=== PATIENT | female | born 1940 | race Caucasian/White ===

== ENCOUNTER 2024-08-19 20:50 | Inpatient (IN) | payer MEDICARE, OTHER ==
--- NOTE | 2024-08-19 21:14 | ED ---
Chest Pain HPI - General Chief Complaint: Chest Pain Stated Complaint: chest pain Time Seen by Provider: 08/19/24 20:51 Source: patient, EMS, RN notes reviewed, old records reviewed Mode of arrival: ambulatory Limitations: no limitations - History of Present Illness Initial Comments: This is an 83-year-old female to the ER for evaluation of chest pain. Patient has history of CAD coming in by EMS for severe chest pain heaviness on the chest. This chest pain has been ongoing for an hour and severe MD Complaint: chest pain -: hour(s) (1) Pain Location: substernal, left chest Pain Radiation: none Severity: moderate Severity scale (1-10): 7 Quality: aching, heaviness Consistency: constant Improves With: nothing Worsens With: nothing Anginal Symptoms: sense of impending doom Other Symptoms: palpitations Treatments Prior to Arrival: none - Related Data Home Medications Medication Instructions Recorded Confirmed ALPRAZolam [Xanax] 0.25 mg PO BID PRN 08/20/24 08/20/24 Atorvastatin [Lipitor] 40 mg PO DAILY@1700 08/20/24 08/20/24 Previous Rx's Medication Instructions Recorded Acetaminophen Tab [Tylenol] 650 mg PO Q4HR PRN tab 08/30/24 Amiodarone [Cordarone] 400 mg PO BID #39 tab 08/30/24 Aspirin 325 mg PO DAILY #30 tab 08/30/24 Clopidogrel [Plavix] 75 mg PO DAILY #30 tab 08/30/24 Furosemide [Lasix] 20 mg PO DAILY #5 tab 08/30/24 Insulin Glargine,Hum.rec.anlog 60 units SQ HS #0 08/30/24 [Lantus Solostar Pen] Insulin Lispro [humaLOG Kwikpen] 6 unit SQ AC-TID #1 each 08/30/24 Metoprolol Tartrate [Lopressor] 50 mg PO BID #60 tab 08/30/24 Pantoprazole [Protonix] 40 mg PO AC-BRKFST #30 tab 08/30/24 Sennosides-Docusate Sodium 2 each PO HS #14 tab 08/30/24 [Senokot-S] Allergies Allergy/AdvReac Type Severity Reaction Status Date / Time No Known Allergies Allergy Verified 08/20/24 10:54 Review of Systems ROS Statement: Those systems with pertinent positive or pertinent negative responses have been documented in the HPI. ROS Other: All systems not noted in ROS Statement are negative. EKG Findings - EKG Comments: EKG Findings:: EKG is sinus 91 HI 167 QRS 160 QTc 450 - EKG Results: EKG: interpreted by YANA Past Medical History Past Medical History: Coronary Artery Disease (CAD), Diabetes Mellitus, Hyperlipidemia, Hypertension History of Any Multi-Drug Resistant Organisms: None Reported Past Surgical History: Cholecystectomy, Heart Catheterization With Stent Past Psychological History: Anxiety Smoking Status: Former smoker Past Alcohol Use History: None Reported Past Drug Use History: None Reported - Past Family History Father Family Medical History: Myocardial Infarction (DC) Additional Family Medical History / Comment(s): from myocardial infarction at 61 years old Mother Family Medical History: Congestive Heart Failure (CHF), Diabetes Mellitus General Exam Limitations: no limitations General appearance: alert, in no apparent distress, anxious Head exam: Present: atraumatic, normocephalic, normal inspection Eye exam: Present: normal appearance, PERRL, EOMI. Absent: scleral icterus, conjunctival injection, periorbital swelling ENT exam: Present: normal exam, mucous membranes moist Neck exam: Present: normal inspection. Absent: tenderness, meningismus, lymphadenopathy Respiratory exam: Present: normal lung sounds bilaterally. Absent: respiratory distress, wheezes, rales, rhonchi, stridor Cardiovascular Exam: Present: regular rate, normal rhythm, normal heart sounds. Absent: systolic murmur, diastolic murmur, rubs, gallop, clicks GI/Abdominal exam: Present: soft, normal bowel sounds. Absent: distended, tenderness, guarding, rebound, rigid Extremities exam: Present: normal inspection, full ROM, normal capillary refill. Absent: tenderness, pedal edema, joint swelling, calf tenderness Back exam: Present: normal inspection Neurological exam: Present: alert, oriented X3, CN II-XII intact Psychiatric exam: Present: normal affect, normal mood Skin exam: Present: warm, dry, intact, normal color. Absent: rash Course Vital Signs 08/19/24 08/19/24 08/19/24 20:51 22:05 22:42 Temperature 98.4 F Pulse Rate 93 78 79 Pulse Rate [ Commercial Service Technician ] Respiratory 16 18 18 Rate Blood Pressure 195/84 161/76 147/76 O2 Sat by Pulse 98 99 95 Oximetry 08/20/24 08/20/24 08/20/24 01:33 01:43 02:43 Temperature Pulse Rate 75 80 81 Pulse Rate [ Commercial Service Technician ] Respiratory 18 18 18 Rate Blood Pressure 166/87 140/70 139/65 O2 Sat by Pulse 99 96 98 Oximetry 08/20/24 08/20/24 08/20/24 04:15 06:25 07:47 Temperature 97.1 F L Pulse Rate 70 72 71 Pulse Rate [ 74 Commercial Service Technician ] Respiratory 18 18 18 Rate Blood Pressure 152/72 176/71 136/57 O2 Sat by Pulse 98 99 98 Oximetry 08/20/24 08/20/24 08/20/24 08:48 09:50 10:05 Temperature Pulse Rate 76 66 70 Pulse Rate [ Commercial Service Technician ] Respiratory 18 18 18 Rate Blood Pressure 150/72 123/47 130/74 O2 Sat by Pulse 98 99 97 Oximetry 08/20/24 08/20/24 10:17 10:32 Temperature Pulse Rate 65 69 Pulse Rate [ Commercial Service Technician ] Respiratory 18 18 Rate Blood Pressure 130/59 125/60 O2 Sat by Pulse 97 97 Oximetry - Reevaluation(s) Reevaluation #1: 08/19/24 22:39 Medical records reviewed Reevaluation #2: 08/19/24 22:39 Patient still with mild chest pain here in the ER Reevaluation #3: 08/19/24 22:40 Patient informed of results and questions answered Reevaluation #4: Was pt. sent in by a medical professional or institution (, PA, MATTRESS STUFFER, urgent care, hospital, or usp...) When possible be specific @ -no Did you speak to anyone other than the patient for history (EMS, parent, family, police, friend...)? What history was obtained from this source @ -no Did you review nursing and triage notes (agree or disagree)? Why? @ -agree Are old charts reviewed (outside hosp., previous admission, EMS record, old EKG, old radiological studies, urgent care reports/EKG's, usp records)? Report findings @ -yes Differential Diagnosis (chest pain, altered mental status, abdominal pain women, abdominal pain men, vaginal bleeding, weakness, fever, dyspnea, syncope, headache, dizziness, GI bleed, back pain, seizure, CVA, palpatations, mental health, musculoskeletal)? @ -prior EKG interpreted by me (3pts min.). @ -yes X-rays interpreted by me (1pt min.). @ -yes negative for acute disease CT interpreted by me (1pt min.). @ -no U/S interpreted by me (1pt. min.). @ -no What testing was considered but not performed or refused? (CT, X-rays, U/S, labs)? Why? @ -none What meds were considered but not given or refused? Why? @ -none Did you discuss the management of the patient with other professionals (professionals i.e. , PA, MATTRESS STUFFER, lab, RT, psych nurse, psychotherapist social worker, pet care worker, teacher, digital controls technical officer, spring encaser)? Give summary @ -no Was smoking cessation discussed for >3mins.? @ -no Was critical care preformed (if so, how long)? @ -yes31 Were there social determinants of health that impacted care today? How? (Homelessness, low income, unemployed, alcoholism, drug addiction, transportation, low edu. Level, literacy, decrease access to med. care, long-term, rehab)? @ -none Was there de-escalation of care discussed even if they declined (Discuss DNR or withdrawal of care, Hospice)? DNR status @ -no What co-morbidities impacted this encounter? (DM, HTN, Smoking, COPD, CAD, Cancer, CVA, ARF, Chemo, Hep., AIDS, mental health diagnosis, sleep apnea, morbid obesity)? @ -none Was patient admitted / discharged? Hospital course, mention meds given and route, prescriptions, significant lab abnormalities, going to OR and other pertinent info. @ - 83 female with chest pain. History of CAD and stents. Patient does have left bundle branch block unable to tell new or old, troponin is not elevated but chest pain is mild currently much improved patient will admit for cardiac observation acute ACS Admitted Undiagnosed new problem with uncertain prognosis? @ -no Drug Therapy requiring intensive monitoring for toxicity (Heparin, Nitro, Insulin, Cardizem)? @ -no Were any procedures done? @ -no Diagnosis/symptom? @ -Left bundle, elevated troponin, non-STEMI acute ACS Acute, or Chronic, or Acute on Chronic? @ -Acute Uncomplicated (without systemic symptoms) or Complicated (systemic symptoms)? @ -Complicated Side effects of treatment? @ -no Exacerbation, Progression, or Severe Exacerbation? @ -exacerbation Poses a threat to life or bodily function? How? (Chest pain, [place], DC, pneumonia, PE, COPD, DKA, ARF, appy, cholecystitis, CVA, Diverticulitis, Homicidal, Suicidal, threat to staff... and all critical care pts) @ -yes with acute ACS Reevaluation #5: Differential Chest Pain: Stable Angina, Unstable Angina, STEMI, NSTEMI Aortic Dissection, Pneumothorax, Musculoskeletal, Esophageal Spasm GERD, Cholecystitis, Pancreatitis, Zoster, this is not meant to be an all-inclusive list. - Consultations Consultation #1: Spoke with Dr. Clifford who agrees admit this patient Chest Pain MDM - MDM 83 female with chest pain. History of CAD and stents. Patient does have left bundle branch block unable to tell new or old, troponin is not elevated but chest pain is mild currently much improved patient will admit for cardiac observation acute ACS Critical Care Time Critical Care Time: Yes Total Critical Care Time: 31 Disposition Clinical Impression: Chest pain, Left bundle branch block, ACS (acute coronary syndrome) Disposition: ADMITTED IP TO THIS HOSP Condition: Serious Is patient prescribed a controlled substance at d/c from ED?: No Time of Disposition: 22:35
[2024-08-19 21:27] LABS: Basophils # (A) 0.02 10*3/uL (0.00-0.10); Basophils % (A) 0.3 %; Eosinophils # (A) 0.06 10*3/uL (0.04-0.35); Eosinophils % (A) 0.8 %; HCT 43.4 % (37.2-46.3); HGB 14.8 g/dL (12.0-15.0); Lymphocytes # (A) 2.68 10*3/uL (0.90-5.00); Lymphocytes % (A) 36.2 %; MCH 29.8 pg (27.0-32.0); MCHC 34.1 g/dL (32.0-37.0); MCV 87.3 fL (80.0-97.0); Mean Platelet Volume 9.8 fL (9.5-12.2); Monocytes # (A) 0.63 10*3/uL (0.20-1.00); Monocytes % (A) 8.5 %; Neutrophils # (A) 3.99 10*3/uL (1.80-7.70); Neutrophils % (A) 53.9 %; Platelet Count 224 10*3/uL (140-440); RBC 4.97 10*6/uL (4.10-5.20); RDW 13.4 % (11.5-14.5)
--- NOTE | 2024-08-19 21:33 | XR ---
EXAMINATION TYPE: XR chest 2V DATE OF EXAM: 08/19/2024 9:28 PM COMPARISON: None. CLINICAL INDICATION: Female, 83 years old with history of Chest Pain; [facility] TECHNIQUE: XR chest 2V Frontal and lateral views of the chest. FINDINGS: Lungs/Pleura: There is no evidence of pleural effusion, focal consolidation, or pneumothorax. Pulmonary vascularity: Unremarkable. Heart/mediastinum: Cardiomediastinal silhouette is unremarkable. Musculoskeletal: No acute osseous pathology. Other findings: None IMPRESSION: No acute cardiopulmonary disease/process. [facility], , 08/19/2024 9:31 PM
[2024-08-19 21:38] LABS: Partial Thromboplastin Time 23.1 sec (22.0-30.0); Prothrombin Time 10.8 sec (10.0-12.5)
[2024-08-19 21:56] LABS: ALT 58 U/L (4-34); AST 49 U/L (14-36); African American GFR (CKD) 48 (>60 ml/min/1.73 sqM); Albumin 4.1 g/dL (3.5-5.0); Alkaline Phosphatase 145 U/L (38-126); Anion Gap 8 mmol/L; Blood Urea Nitrogen 29 mg/dL (7-17); Calcium 9.7 mg/dL (8.4-10.2); Carbon Dioxide 26 mmol/L (22-30); Chloride 105 mmol/L (98-107); Glucose 369 mg/dL (74-99); Lipase 76 U/L (23-300); Magnesium 1.8 mg/dL (1.6-2.3); Non-African American GFR(CKD) 42 (>60 ml/min/1.73 sqM); Potassium 4.6 mmol/L (3.5-5.1); Sodium 139 mmol/L (137-145); Total Bilirubin 0.5 mg/dL (0.2-1.3)
[2024-08-19 22:04] LABS: NT-Pro-B-Type Natriuretic Pept 146 pg/mL
[2024-08-19] MEDS: ASPIRIN 81 MG PO STA (22:47)
[2024-08-19] MEDS: ATORVASTATIN 80 MG TAB PO SCH (22:58)
[2024-08-19] MEDS: HEPARIN SOD,PORK IN 0.45% NACL 25,000 UNIT in 0.45% NACL 1 250ML.BAG IV SCH (23:01)
[2024-08-19] MEDS: HEPARIN SODIUM 1,000 UN/ML (10ML VL) IV ONE (23:02)
[2024-08-20] MEDS ORDERED: DEXTROSE 50% SYRINGE 50 ML IVP PRN ×2 (00:31)
[2024-08-20 00:40] LABS: Glucose,Whole Blood 288 mg/dL (70-110)
[2024-08-20] MEDS: NITROGLYCERIN SL TABS 0.4 MG TAB SUBLINGUAL PRN (01:32)
[2024-08-20] MEDS: INSULIN REGULAR 100 UNIT/ML VIAL (IM/SQ) SQ ONE (01:32)
[2024-08-20 04:39] LABS: Mean Platelet Volume 9.3 fL (9.5-12.2); Platelet Count 207 10*3/uL (140-440)
[2024-08-20] MEDS: MORPHINE SULFATE 4 MG/ML SYRINGE IV PRN (06:44)
[2024-08-20 07:54] LABS: Glucose,Whole Blood 144 mg/dL (70-110)
[2024-08-20] MEDS: INSULIN LISPRO (HumaLOG) 100 UNIT/ML 10 mL VL SQ SCH (07:54)
[2024-08-20 08:48] LABS: Chol/HDL Ratio 3.87 Ratio; LDL Cholesterol,Calculated 94.7 mg/dL (0.0-131.0)
[2024-08-20] MEDS: ASPIRIN 325 MG TAB PO SCH (08:50)
[2024-08-20] MEDS: METOPROLOL TARTRATE 25 MG TAB PO SCH (08:50)
[2024-08-20] MEDS: NITROGLYCERIN-D5W PMX 50 MG in DEXTROSE/WATER 1 250ML.BAG IV ONE ×2 (09:50→10:39)
[2024-08-20] MEDS ORDERED: ALPRAZolam 0.25 MG TAB PO PRN (10:22)
[2024-08-20] MEDS ORDERED: NITROGLYCERIN SL TABS 0.4 MG TAB SUBLINGUAL PRN (10:22)
[2024-08-20] MEDS ORDERED: ALPRAZolam 0.5 MG TAB PO PRN (10:22)
[2024-08-20] MEDS: ATORVASTATIN 80 MG TAB PO STA (10:29)
[2024-08-20] MEDS: ASPIRIN 325 MG TAB PO STA (10:30)
[2024-08-20] MEDS: SODIUM CHLORIDE 0.9% 1,000 ML IV SCH (10:39)
[2024-08-20] MEDS: HEPARIN SODIUM,PORCINE 10,000 UNIT in SODIUM CHLORIDE 0.9% 1,000 ML IRRIGATION PRN (11:07)
[2024-08-20] MEDS: HEPARIN SODIUM,PORCINE (1 ML) 2,500 UNIT in SODIUM CHLORIDE 0.9% 250 ML IRRIGATION PRN (11:07)
[2024-08-20] MEDS: LIDOCAINE 1% INJ 10MG/ML (20 ML MDV) SQ ONE (11:09)
[2024-08-20] MEDS: MIDAZOLAM 2 MG/2 ML VIAL IVP ONE (11:09)
[2024-08-20] MEDS: fentaNYL (PF) 50 MCG/1 ML VIAL IVP ONE (11:09)
[2024-08-20] MEDS: VERAPAMIL SYRINGE (5 MG/10 ML) INTRAARTER ONE (11:10)
[2024-08-20] MEDS: IOPAMIDOL-370 100ML BTL INJ ONE (11:20)
--- NOTE | 2024-08-20 11:32 | P.CRDCN ---
History of Present Illness Consult date: 08/20/24 Consult reason: chest pain History of present illness: This is 83-year-old female previously seen by Dr. Mai in 2015. She has a past medical history of single-vessel CAD status post stent, hypertension, hypercholesterolemia, diabetes mellitus type 2. Patient does not follow with a castables worker. We have been asked to evaluate the patient for chest pain. Patient states that she has had a heavy feeling in her chest for the past month. She states is heavy in the back, chest and epigastric area. She had some improvement of chest pain with nitroglycerin and also some improvement with morphine. Now it is aching all the time. She denies nausea but she had dry heaves yesterday. Patient has been started on heparin drip, aspirin, Lipitor, Lopressor and Nitrostat. Patient presented with blood pressure 195/84. Blood pressure 136/57, heart rate in the 70s, pulse ox 98% on 2 L nasal cannula. Patient is seen today in the emergency center waiting for a bed on the cardiac stepdown unit. -EKG: Sinus rhythm with left bundle branch block on initial EKG not present on repeat -Chest x-ray: No acute process. -Laboratory studies: CBC unremarkable. Electrolytes normal. BUN 29 creatinine 1.22. Troponin 0.012, 0.26, 1.62. proBNP 146. -Home cardiac medications: Atorvastatin 40 mg daily and losartan 50 mg daily -Cardiac catheterization in 1998 with 95% distal circumflex status post stent, followed by proximal OM1 stent in 2003, mid RCA stent in 2004. - Echocardiogram performed in 2010 revealed normal EF, mild to moderate AR, mild MR Review Of Systems: At the time of my exam: CONSTITUTIONAL: Denies fever or chills. HEENT: Denies blurred vision, vision changes, or eye pain. Denies hemoptysis CARDIOVASCULAR: Reports chest pain. Denies orthopnea. Denies PND. Denies palpitations RESPIRATORY: Denies shortness of breath. GASTROINTESTINAL: Denies abdominal pain. Denies nausea or vomiting. HEMATOLOGIC: Denies bleeding disorders. GENITOURINARY: Denies any blood in urine. SKIN: Denies puritis. Denies rash. Physical examination: Gen: This is 83-year-old female in no acute distress. VS: reviewed HEENT: Head is atraumatic, normocephalic. Pupils equal, round. Sclerae is anicteric. NECK: Supple. No JVD. LUNGS: Clear to auscultation. No wheezes or rhonchi. No intercostal retractions. HEART: Regular rate and rhythm. No murmur. ABDOMEN: Soft No tenderness. EXTREMITIES: No pedal edema. No calf tenderness. NEUROLOGICAL: Patient is awake, alert and oriented x3. Assessment: NSTEMI History of coronary artery disease with previous stents as above Hypertension Hypercholesterolemia Diabetes mellitus type 2 Plan: Continue patient on aspirin 81 mg daily, atorvastatin 80 mg daily, Lopressor 25 mg twice daily Continue heparin drip Start patient on nitroglycerin drip for pain control Schedule patient for cardiac catheterization today with Dr. Liang Obtain 2-D echocardiogram and Doppler study to assess cardiac structure and function Obtain A1c Obtain repeat troponin Further recommendations to follow based upon clinical course Thank you kindly for this consultation. Nurse practitioner note has been reviewed, I agree with documented findings and plan of care. Patient was seen and examined. Past Medical History Past Medical History: Coronary Artery Disease (CAD), Diabetes Mellitus, Hyperlipidemia, Hypertension History of Any Multi-Drug Resistant Organisms: None Reported Past Surgical History: Cholecystectomy, Heart Catheterization With Stent Past Psychological History: Anxiety Smoking Status: Former smoker Past Alcohol Use History: None Reported Past Drug Use History: None Reported Medications and Allergies Home Medications Medication Instructions Recorded Confirmed Type ALPRAZolam [Xanax] 0.25 mg PO BID PRN 08/20/24 08/20/24 History Atorvastatin [Lipitor] 40 mg PO DAILY@1700 08/20/24 08/20/24 History Insulin Glargine,Hum.rec.anlog 80 units SQ HS 08/20/24 08/20/24 History [Lantus Solostar Pen] Losartan [Cozaar] 50 mg PO DAILY@0908/20/24 08/20/24 History atenoloL [Tenormin] 25 mg PO DAILY@0908/20/24 08/20/24 History glipiZIDE [Glucotrol] 10 mg PO DAILY 08/20/24 08/20/24 History Allergies Allergy/AdvReac Type Severity Reaction Status Date / Time No Known Allergies Allergy Verified 08/20/24 10:54 Physical Exam Vitals: Vital Signs Temp Pulse Pulse Resp BP Pulse Ox 08/20/24 07:47 97.1 F L 71 74 18 136/57 98 08/20/24 06:25 72 18 176/71 99 08/20/24 04:15 70 18 152/72 98 08/20/24 02:43 81 18 139/65 98 08/20/24 01:43 80 18 140/70 96 08/20/24 01:33 75 18 166/87 99 08/19/24 22:42 79 18 147/76 95 08/19/24 22:05 78 18 161/76 99 08/19/24 20:51 98.4 F 93 16 195/84 98 Intake and Output 08/19/24 08/20/24 08/20/24 22:59 06:59 14:59 Intake Total 50.343 Balance 50.343 Intake: Intake, IV Titration 50.343 Amount Heparin Sod,Pork in 0.45% 50.343 NaCl 25,000 unit In 0.45 % NaCl 1 250ml.bag @ 12 UNITS/KG/HR 8.655 mls/hr IV .Q24H [facility] Rx#: [id number] Other: Weight 72.121 kg Results 08/20/24 04:24 08/19/24 21:18 Cardiac Enzymes 08/19/24 08/19/24 08/19/24 Range/Units 21:18 21:18 23:58 AST 49 H (14-36) U/L Troponin I <0.012 0.260 H* (0.000-0.034) ng/mL 08/20/24 Range/Units 04:24 AST (14-36) U/L Troponin I 1.620 H* (0.000-0.034) ng/mL Coagulation 08/19/24 08/20/24 Range/Units 21:18 04:24 PT 10.8 (10.0-12.5) sec APTT 23.1 50.7 H (22.0-30.0) sec CBC 08/19/24 08/20/24 Range/Units 21:18 04:24 WBC 7.40 (4.50-10.00) 10*3/uL RBC 4.97 (4.10-5.20) 10*6/uL Hgb 14.8 (12.0-15.0) g/dL Hct 43.4 (37.2-46.3) % Plt Count 224 207 (140-440) 10*3/uL Comprehensive Metabolic Panel 08/19/24 Range/Units 21:18 Sodium 139 (137-145) mmol/L Potassium 4.6 (3.5-5.1) mmol/L Chloride 105 (98-107) mmol/L Carbon Dioxide 26 (22-30) mmol/L BUN 29 H (7-17) mg/dL Creatinine 1.22 H (0.52-1.04) mg/dL Glucose 369 H (74-99) mg/dL Calcium 9.7 (8.4-10.2) mg/dL AST 49 H (14-36) U/L ALT 58 H (4-34) U/L Alkaline Phosphatase 145 H (38-126) U/L Total Protein 7.0 (6.3-8.2) g/dL Albumin 4.1 (3.5-5.0) g/dL Current Medications Generic Name Dose Route Start Last Admin Trade Name Freq PRN Reason Stop Dose Admin Aspirin 325 mg 08/20/24 09:00 Aspirin 325 Mg Tab PO DAILY [facility] Atorvastatin Calcium 80 mg 08/19/24 22:45 08/19/24 22:58 Atorvastatin 80 Mg Tab PO 80 mg DAILY [facility] Administration Dextrose/Water 25 ml 08/20/24 00:31 Dextrose 50% Syringe 50 Ml IVP PER PROTOCOL PRN Hypoglycemia Protocol Dextrose/Water 50 ml 08/20/24 00:31 Dextrose 50% Syringe 50 Ml IVP PER PROTOCOL PRN Hypoglycemia Protocol Heparin Sodium/Sodium Chloride 250 mls @ 8.655 mls/hr 08/19/24 22:45 08/20/24 04:50 25,000 unit/ Sodium Chloride IV 12 units/kg/hr .Q24H [facility] 8.655 mls/hr Titration Protocol 12 UNITS/KG/HR Insulin Human Lispro 0 unit 08/20/24 07:30 08/20/24 07:54 Insulin Lispro (Humalog) 100 Unit/Ml 10 Ml Vl SQ Not Given ACHS [facility] Protocol Metoprolol Tartrate 25 mg 08/20/24 09:00 Metoprolol Tartrate 25 Mg Tab PO BID [facility] Morphine Sulfate 4 mg 08/19/24 22:42 08/20/24 06:44 Morphine Sulfate 4 Mg/Ml Syringe IV 4 mg Q4HR PRN Administration Chest Pain Nitroglycerin 0.4 mg 08/19/24 22:42 08/20/24 01:32 Nitroglycerin Sl Tabs 0.4 Mg Tab SUBLINGUAL 0.4 mg Q5M PRN Administration Chest Pain Intake and Output 08/19/24 08/20/24 08/20/24 22:59 06:59 14:59 Intake Total 50.343 Balance 50.343 Intake: Intake, IV Titration 50.343 Amount Heparin Sod,Pork in 0.45% 50.343 NaCl 25,000 unit In 0.45 % NaCl 1 250ml.bag @ 12 UNITS/KG/HR 8.655 mls/hr IV .Q24H [facility] Rx#: [id number] Other: Weight 72.121 kg 08/20/24 04:24 08/19/24 21:18
[2024-08-20 11:39] LABS: Glucose,Whole Blood 156 mg/dL (70-110)
--- NOTE | 2024-08-20 13:54 | P.GSCN ---
History of Present Illness Consult date: 08/20/24 Reason for Consult: Triple-vessel coronary artery disease Requesting physician: Pillo Liang History of present illness: This is an 83-year-old female who follows outpatient with Dr. Fuentes for internal medicine and previously followed with Dr. Hernández followed by Dr. Whyte for cardiology. She has a previous medical history of coronary artery disease with previous PCI, hypertension, hyperlipidemia, insulin-dependent diabetes, recent diagnosis of chronic kidney disease, previous tobacco dependence, and family history of coronary artery disease with father from myocardial infarction at 61 years old. She presented to [facility] emergency room with complaints of chest pain and slight shortness of breath with activity which had been present intermittently for the last month, states symptoms were similar to when she previously had blockages and PCI. Lab work in the emergency room revealed WBC 7.4, hemoglobin 14.8, creatinine 1.22, AST 49, ALT 54, BNP 146, initial troponin negative but subsequent troponin elevation from 0.26 up to 4.51. EKG revealed sinus rhythm with left bundle branch block. Patient also had elevated blood pressure 195/84 with initial presentation to the emergency room. Chest x-ray revealed no acute process. She was ruled in for non-STEMI and admitted to the cardiac stepdown unit with consultation placed to cardiology. The patient was recommended to undergo heart catheterization which was completed today by Dr. Liang revealing mid LAD stenosis 85%, circumflex stenosis 80%, RCA stenosis 95%. Due to these findings consultation was placed to cardiothoracic surgery for surgical revascularization recommendations. Review of Systems Review of systems was completed and was negative except as noted - Cardiovascular Reports as per HPI, Reports chest pain, Reports dyspnea on exertion Past Medical History Past Medical History: Coronary Artery Disease (CAD), Cancer, Chest Pain / Angina, Diabetes Mellitus, Hyperlipidemia, Hypertension, Renal Disease Additional Past Medical History / Comment(s): Basal cell skin cancer History of Any Multi-Drug Resistant Organisms: None Reported Past Surgical History: Cholecystectomy, Heart Catheterization With Stent Additional Past Surgical History / Comment(s): Skin cancer removal Past Psychological History: Anxiety Smoking Status: Former smoker Past Alcohol Use History: None Reported Past Drug Use History: None Reported Additional History: Quit smoking more than 30 years ago - Past Family History Father Family Medical History: Myocardial Infarction ([place]) Additional Family Medical History / Comment(s): from myocardial infarction at 61 years old Mother Family Medical History: Congestive Heart Failure (CHF), Diabetes Mellitus Medications and Allergies Home Medications Medication Instructions Recorded Confirmed Type ALPRAZolam [Xanax] 0.25 mg PO BID PRN 08/20/24 08/20/24 History Atorvastatin [Lipitor] 40 mg PO DAILY@1700 08/20/24 08/20/24 History Insulin Glargine,Hum.rec.anlog 80 units SQ HS 08/20/24 08/20/24 History [Lantus Solostar Pen] Losartan [Cozaar] 50 mg PO DAILY@89908/20/24 08/20/24 History atenoloL [Tenormin] 25 mg PO DAILY@89908/20/24 08/20/24 History glipiZIDE [Glucotrol] 10 mg PO DAILY 08/20/24 08/20/24 History Allergies Allergy/AdvReac Type Severity Reaction Status Date / Time No Known Allergies Allergy Verified 08/20/24 10:54 Surgical - Exam Vital Signs Temp Pulse Resp BP Pulse Ox 98.4 F 93 16 195/84 98 08/19/24 20:51 08/19/24 20:51 08/19/24 20:51 08/19/24 20:51 08/19/24 20:51 CONSTITUTIONAL: Awake and alert, appears comfortable, cooperative, well- developed, well-nourished, no pain, no acute distress EYES: Pupils equal, round, reactive to light, normal ocular movement ENT: Moist mucous membranes without oral lesions present NECK: No masses, no bruits, trachea midline RESPIRATORY: Lungs sounds clear to auscultation bilaterally. Respirations even, nonlabored. Currently on 2 L nasal cannula with oxygen saturation 97%. Strong cough. No chest wall deformities. No clubbing or cyanosis present CARDIOVASCULAR: S1, S2 present. Regular rate and rhythm, sinus rhythm on telemetry. Palpable peripheral pulses bilaterally. No edema present. No calf pain or tenderness noted. No significant lower extremity varicosities noted. Left radial Reymundo's test more than 8 seconds, pleth waveform dampened for radial flow. GASTROINTESTINAL: Abdomen soft, nontender, nondistended without masses or organomegaly noted. There is no rebound or guarding present. Active bowel sounds present 4 quadrants. GENITOURINARY: Deferred INTEGUMENTARY: Skin is warm and dry with evidence of good perfusion. NEUROLOGIC: Cranial nerves II through XII intact, normal coordination, no obvious motor or sensory deficits, speech is normal MUSKULOSKELETAL: Able to move all extremities, strength equal bilaterally, normal posture PSYCHIATRIC: Alert and oriented to person place and time, appropriate affect, intact judgment and insight CLINICAL FRAILTY SCORE 3 Results - Labs 08/20/24 04:24 08/19/24 21:18 Abnormal Lab Results - Last 24 Hours (Table) 08/19/24 08/19/24 08/20/24 Range/Units 21:18 23:58 00:37 MPV (9.5-12.2) fL APTT (22.0-30.0) sec BUN 29 H (7-17) mg/dL Creatinine 1.22 H (0.52-1.04) mg/dL Glucose 369 H (74-99) mg/dL POC Glucose (mg/dL) 288 H (70-110) mg/dL AST 49 H (14-36) U/L ALT 58 H (4-34) U/L Alkaline Phosphatase 145 H (38-126) U/L Troponin I 0.260 H* (0.000-0.034) ng/mL Triglycerides (0.00-149.00) mg/dL VLDL Cholesterol, Calc (5.00-40.00) mg/dL 08/20/24 08/20/24 08/20/24 Range/Units 04:24 04:24 04:24 MPV 9.3 L (9.5-12.2) fL APTT 50.7 H (22.0-30.0) sec BUN (7-17) mg/dL Creatinine (0.52-1.04) mg/dL Glucose (74-99) mg/dL POC Glucose (mg/dL) (70-110) mg/dL AST (14-36) U/L ALT (4-34) U/L Alkaline Phosphatase (38-126) U/L Troponin I 1.620 H* (0.000-0.034) ng/mL Triglycerides (0.00-149.00) mg/dL VLDL Cholesterol, Calc (5.00-40.00) mg/dL 08/20/24 08/20/24 08/20/24 Range/Units 04:24 07:53 09:06 MPV (9.5-12.2) fL APTT (22.0-30.0) sec BUN (7-17) mg/dL Creatinine (0.52-1.04) mg/dL Glucose (74-99) mg/dL POC Glucose (mg/dL) 144 H (70-110) mg/dL AST (14-36) U/L ALT (4-34) U/L Alkaline Phosphatase (38-126) U/L Troponin I 4.510 H* (0.000-0.034) ng/mL Triglycerides 242.00 H (0.00-149.00) mg/dL VLDL Cholesterol, Calc 48.40 H (5.00-40.00) mg/dL 08/20/24 Range/Units 11:36 MPV (9.5-12.2) fL APTT (22.0-30.0) sec BUN (7-17) mg/dL Creatinine (0.52-1.04) mg/dL Glucose (74-99) mg/dL POC Glucose (mg/dL) 156 H (70-110) mg/dL AST (14-36) U/L ALT (4-34) U/L Alkaline Phosphatase (38-126) U/L Troponin I (0.000-0.034) ng/mL Triglycerides (0.00-149.00) mg/dL VLDL Cholesterol, Calc (5.00-40.00) mg/dL Diabetes panel 08/19/24 08/20/24 Range/Units 21:18 04:24 Sodium 139 (137-145) mmol/L Potassium 4.6 (3.5-5.1) mmol/L Chloride 105 (98-107) mmol/L Carbon Dioxide 26 (22-30) mmol/L BUN 29 H (7-17) mg/dL Creatinine 1.22 H (0.52-1.04) mg/dL Glucose 369 H (74-99) mg/dL Calcium 9.7 (8.4-10.2) mg/dL AST 49 H (14-36) U/L ALT 58 H (4-34) U/L Alkaline Phosphatase 145 H (38-126) U/L Total Protein 7.0 (6.3-8.2) g/dL Albumin 4.1 (3.5-5.0) g/dL Triglycerides 242.00 H (0.00-149.00) mg/dL HDL Cholesterol 49.90 (40.00-60.00) mg/dL Calcium panel 08/19/24 Range/Units 21:18 Calcium 9.7 (8.4-10.2) mg/dL Albumin 4.1 (3.5-5.0) g/dL Pituitary panel 08/19/24 Range/Units 21:18 Sodium 139 (137-145) mmol/L Potassium 4.6 (3.5-5.1) mmol/L Chloride 105 (98-107) mmol/L Carbon Dioxide 26 (22-30) mmol/L BUN 29 H (7-17) mg/dL Creatinine 1.22 H (0.52-1.04) mg/dL Glucose 369 H (74-99) mg/dL Calcium 9.7 (8.4-10.2) mg/dL Adrenal panel 08/19/24 Range/Units 21:18 Sodium 139 (137-145) mmol/L Potassium 4.6 (3.5-5.1) mmol/L Chloride 105 (98-107) mmol/L Carbon Dioxide 26 (22-30) mmol/L BUN 29 H (7-17) mg/dL Creatinine 1.22 H (0.52-1.04) mg/dL Glucose 369 H (74-99) mg/dL Calcium 9.7 (8.4-10.2) mg/dL Total Bilirubin 0.5 (0.2-1.3) mg/dL AST 49 H (14-36) U/L ALT 58 H (4-34) U/L Alkaline Phosphatase 145 H (38-126) U/L Total Protein 7.0 (6.3-8.2) g/dL Albumin 4.1 (3.5-5.0) g/dL - Imaging Chest x-ray: report reviewed, image reviewed EKG: image reviewed Additional studies: Heart catheterization reviewed Assessment and Plan Assessment: Coronary artery disease, non-STEMI this admission Chest pain, shortness of breath secondary to above History of coronary artery disease with previous PCI Hypertension Hyperlipidemia Insulin-dependent diabetes Recent diagnosis of chronic kidney disease Previous tobacco dependence Family history of coronary artery disease with father from myocardial infarction at 61 years old Plan: The patient was seen and examined at the bedside in the Extended Stay unit with family present. Currently she denies any chest pain or shortness of breath. Chart/diagnostics reviewed. The usual perioperative course of open-heart surgery was discussed in detail with the patient and her family, risks and benefits were reviewed, all questions were answered. We will order preoperative testing. Once completed will calculate STS risk score and discuss with the patient. Recommend continuing to maximize medical therapy with aspirin, statin, beta-neptali. Increase activity as tolerated. Continued medical management per internal medicine, cardiology. More recommendations to follow once surgeon has reviewed patient's films. Thank you Dr. Liang for this consult, we look forward to working with you in the care of your patient. I have personally seen and examined the patient, performed the documentation and the assessment and plan as written. Number of minutes spent on the visit: 30. OTILIA Drake
--- NOTE | 2024-08-20 14:24 | US ---
EXAMINATION TYPE: US vein mapping BILAT DATE OF EXAM: 08/20/2024 1:31 PM COMPARISON: NONE CLINICAL INDICATION: Female, 83 years old with history of preop cardiac surgery; , Preop- Cardiac Sanjuana lolis TECHNIQUE: Grayscale and color Doppler imaging of the lower extremity venous system. SIDE PERFORMED: Bilateral FINDINGS: DUPLEX FINDINGS: Greater Saphenous: Color flow seen Measurements in mm: Right Greater Saphenous: Groin: 6.9 x 6.7 mm High Thigh: 4.7 x 3.9 mm Mid Thigh: 4.3 x 3.4 mm Above Knee: 3.7 x 3.3 mm Knee: 3.9 x 3.2 mm Below Knee: 3.2 x 2.7 mm Mid Calf: 3.3 x 2.5 mm At Ankle: 2.9 x 1.8 mm Left Greater Saphenous: Groin: 9.0 x 8.1 mm High Thigh: 5.3 x 4.3 mm Mid Thigh: 4.8 x 4.2 mm Above Knee: 6.4 x 5.0 mm Knee: 4.9 x 3.3 mm Below Knee: 3.9 x 3.1 mm Mid Calf: 3.6 x 2.9 mm At Ankle: 2.8 x 2.0 mm IMPRESSION: 1. No evidence for occlusion. 2. GSV measurements listed above. 3. Performing surgeon to determine viability as conduit. [facility], , 08/20/2024 2:22 PM
--- NOTE | 2024-08-20 14:25 | US ---
EXAMINATION TYPE: Pre-Operative Non-Invasive Evaluation of the hand for Potential Radial Artery Julio Cesar barros, Measurements only DATE OF EXAM: 08/20/2024 1:31 PM CLINICAL INDICATION: Female, 83 years old with history of measurements only; , Preop- Cardiac Surgery TECHNIQUE:Grayscale and color Doppler imaging of the radial artery(s) SIDE PERFORMED: Left FINDINGS: Dominant hand: Right Duplex Findings: Radial Artery: Color flow seen Measurements in mm, transverse view: Left Radial: mm Proximal: 3.7 x 3.1 mm Mid: 2.4 x 1.9 mm Distal: 1.8 x 1.9 mm Unable to view left radial origin at elbow IMPRESSION: 1. No evidence for vascular occlusion. 2. Measurements as described above. [facility], , 08/20/2024 2:23 PM
--- NOTE | 2024-08-20 14:26 | US ---
EXAMINATION TYPE: US carotid duplex BILAT DATE OF EXAM: 08/20/2024 COMPARISON: NONE CLINICAL INDICATION: Female, 83 years old with history of preop cardiac surgery; preop Additional History: Z01.81- Pre-operative exam TECHNIQUE: Grayscale, color Doppler and spectral Doppler evaluation of the bilateral carotid systems and vertebral arteries. Indirect Doppler criteria was utilized. FINDINGS: EXAM MEASUREMENTS: RIGHT: Peak Systolic Velocity (PSV) cm/sec ----- Right CCA: 67.7 ----- Right ICA: 138 ----- Right ECA: 128 ICA/CCA ratio: 2.0 RIGHT: End Diastole cm/sec ----- Right CCA: 13.6 ----- Right ICA: 26.7 ----- Right ECA: 8.7 LEFT: Peak Systolic Velocity (PSV) cm/sec ----- Left CCA: 103 ----- Left ICA: 139 ----- Left ECA: 137 ICA/CCA ratio: 1.35 LEFT: End Diastole cm/sec ----- Left CCA: 16.4 ----- Left ICA: 30.8 ----- Left ECA: 10.5 VERTEBRALS (direction of flow): Right Vertebral: Antegrade Left Vertebral: Antegrade Rhythm: Normal SHIPPING/RECEIVING CLERK NOTES: plaque seen in bilateral bulbs Color Doppler imaging shows patency with blood flow throughout the carotid artery. Spectral waveforms are within normal limits. IMPRESSION: Right: Less than 50% stenosis of the carotid bifurcation. Left: No hemodynamically significant stenosis. Criteria for Assigning % of Stenosis / Diameter reduction (Estimation based on the indirect measurements of the internal carotid artery velocities (ICA PSV). 1. Normal (no stenosis)=ICA PSV < 180 cm/s: ratio < 2.0: ICA EDV<40 cm/s. 2. Less than 50% stenosis=ICA PSV < 180 cm/s: ratio < 2.0: ICA EDV<40 cm/s. 3. 50 to 69% stenosis=ICA PSV of 180 to 230 cm/s: ration 2.0 ? 4.0: ICA EDV 40-100 cm/s. PSV 125-180 cm/sec and ICA/CCA PSV Ratio ? 2.0 is also consistent with 50-69% stenosis 4. Greater than 70% stenosis to near occlusion= ICA PSV > 230 cm/s: ratio > 4.0: ICA EDV > 100 cm/s. 5. Near occlusion= ICA PSV velocities may be low or undetectable: variable ratio and ICA EDV. 6. Total occlusion=unable to detect flow. [facility], , 08/20/2024 2:24 PM
--- NOTE | 2024-08-20 15:12 | CT ---
EXAMINATION TYPE: CT chest wo con CT DLP: 421 mGycm, Automated exposure control for dose reduction was used. DATE OF EXAM: 08/20/2024 3:05 PM COMPARISON: Chest radiograph 08/19/2024 CLINICAL INDICATION:Female, 83 years old with history of eval aorta for clampability; [facility], eval aorta for clampability TECHNIQUE: Multiple axial images were obtained through the chest without IV contrast. Lack of IV or o ral contrast limits evaluation of solid and hollow organ viscera. . Coronal and sagittal reformats re viewed. FINDINGS: LUNGS/ PLEURA: Mild biapical pleural-parenchymal scarring. Minimal scarring and/or atelectasis within the lingula and right middle lobe. Minimal right lower lobe linear atelectasis. No pleural effusion, pneumothorax, focal consolidation. Small calcified granuloma within the superior segment of the left lower lobe. No suspicious pulmonary nodule or mass. AIRWAY: Patent and unremarkable.. HEART: Size within normal limits. No pericardial effusion. Mild to moderate coronary artery calcifica tions present. MEDIASTINUM: No gross evidence of adenopathy. VASCULATURE: No aortic aneurysm. Conventional three-vessel aortic arch. Minimal atherosclerotic calc ification of the aorta and its branches. MUSCULOSKELETAL: No acute osseous abnormalities. Mild multilevel degenerative disc disease. Prominent endplate sclerosis involving the visualized L2 vertebral body. SOFT TISSUES/LYMPH NODES: Unremarkable. LOWER NECK: No significant findings. UPPER ABDOMEN: Gallbladder is surgically absent. Contrast is demonstrated within both renal collectin g systems and proximal ureters from earlier contrast exam. IMPRESSION: 1. No acute thoracic process. 2. Minimal atherosclerotic calcification of the aorta and its branches. [facility], , 08/20/2024 3:10 PM
[2024-08-20 15:13] LABS: Appearance,Urine Clear (Clear); Bilirubin,Urine Negative (Negative); Blood,Urine Negative (Negative); Color,Urine Light Yellow; Glucose,Urine (UA) 2+ (Negative); Ketones,Urine Negative (Negative); Leukocyte Esterase,Urine Negative (Negative); Nitrite,Urine Negative (Negative); PH, Urine 5.5 (5.0-8.0); Protein,Urine Negative (Negative); Urobilinogen,Urine <2.0 mg/dL (<2.0)
--- NOTE | 2024-08-20 16:06 | P.HPIM ---
History of Present Illness H&P Date: 08/20/24 Chief Complaint: Chest pain This is a pleasant 83-year-old patient who follows with Dr. Eric Fuentes. Patient was seen in bay #10 n in the extended unit. Chronic medical conditions include CAD with stent, diabetes, hypertension, hyperlipidemia. Patient last had a cardiac catheterization with stent in 2004. She was following with director e learning Dr. JIM Roberts. Patient will close 2 months has been having chest pain on and off. Some progression. Yesterday it became rather significant. Also short of breath. Rest. No radiation. No edema. Decided to come in. Patient ruled in with an acute MO with troponin peaking to 4.5 this morning. This morning underwent cardiac catheterization that showed significant disease. Formal dictation not available. Cardiothoracic team was consulted. Currently no chest pain. Patient daughter, grandson, niece present. Review of systems: GEN.: Tired EYES: None HEENT: None NECK: None RESPIRATORY: As above CARDIOVASCULAR: As above GASTROINTESTINAL: None GENITOURINARY: None MUSCULOSKELETAL: None LYMPHATICS: None HEMATOLOGICAL: None PSYCHIATRY: None NEUROLOGICAL: None Social history: Lives with her son. Stop smoking 30 years ago. Physical examination: VITAL SIGNS: 7.8, 69, 18, 126 x 63, 98% room air GENERAL: BMI 25.7, lying bed awake not in distress. EYES: Pupils equal. Conjunctiva tae l. HEENT: External appearance of nose and ears normal, oral cavity grossly normal. NECK: JVD not raised; masses not palpable. HEART: First and second heart sounds are normal; no edema. LUNGS: Respiratory rate normal; clear to auscultation. ABDOMEN: Soft, nontender, liver spleen not palpable, no masses palpable. PSYCH: Alert and oriented x3; mood and affect tae l. MUSCULOSKELETAL:No Clubbing/cyanosis;muscles-grossly intact. OA NEUROLOGICAL: Cranial nerves grossly intact; no facial asymmetry, power and s ensation grossly intact. LYMPHATICS: No lymph nodes palpable in the axilla and neck INVESTIGATIONS, reviewed in the clinical context: August 19: White count 7.4 hemoglobin 14.8 platelets 224 sodium 139 potassium 4.6 BUN 29 creatinine 1.22 Troponin I less than 0.012, 0.260, 1.6, 4.5 LDL 94.7 UA protein 2+ EKG tracing personally reviewed by me-sinus rhythm. Left bundle soraya block Chest x-ray film personally reviewed by me-some cardiomegaly Assessment plan: - Acute non-Q wave MO in a patient with known coronary artery disease prior stent in 2004 IV heparin. Aspirin, Lopressor, Lipitor - Severe coronary artery disease per cardiac catheterization. Formal report pending. Cardiothoracic team has been consulted with review to bypass - Essential hypertension Lopressor 25 mg twice daily - Hyperlipidemia Lipitor 80 mg a day - Diabetes mellitus type 2, chronically on insulin Accu-Cheks with sliding scale insulin. Lantus 60 units subcu nightly. Sliding scale with coverage. Hold glipizide. - Anxiety not otherwise specified Xanax as needed - Chronic kidney disease, stage III likely diabetic nephropathy and hypertensive nephrosclerosis Follow renal function - Primary osteoarthritis Tylenol as needed -Full code Care was discussed with the patient. Questions answered Past Medical History Past Medical History: Coronary Artery Disease (CAD), Diabetes Mellitus, Hyperlipidemia, Hypertension History of Any Multi-Drug Resistant Organisms: None Reported Past Surgical History: Cholecystectomy, Heart Catheterization With Stent Past Psychological History: Anxiety Smoking Status: Former smoker Past Alcohol Use History: None Reported Past Drug Use History: None Reported - Past Family History Father Family Medical History: Myocardial Infarction ([place]) Additional Family Medical History / Comment(s): from myocardial infarction at 61 years old Mother Family Medical History: Congestive Heart Failure (CHF), Diabetes Mellitus Medications and Allergies Home Medications Medication Instructions Recorded Confirmed Type ALPRAZolam [Xanax] 0.25 mg PO BID PRN 08/20/24 08/20/24 History Atorvastatin [Lipitor] 40 mg PO DAILY@1700 08/20/24 08/20/24 History Insulin Glargine,Hum.rec.anlog 80 units SQ HS 08/20/24 08/20/24 History [Lantus Solostar Pen] Losartan [Cozaar] 50 mg PO DAILY@89908/20/24 08/20/24 History atenoloL [Tenormin] 25 mg PO DAILY@89908/20/24 08/20/24 History glipiZIDE [Glucotrol] 10 mg PO DAILY 08/20/24 08/20/24 History Allergies Allergy/AdvReac Type Severity Reaction Status Date / Time No Known Allergies Allergy Verified 08/20/24 10:54 Physical Exam Vitals: Vital Signs Temp Pulse Pulse Resp BP Pulse Ox 08/20/24 10:40 97.8 F 69 18 126/63 98 08/20/24 10:32 69 18 125/60 97 08/20/24 10:17 65 18 130/59 97 08/20/24 10:05 70 18 130/74 97 08/20/24 09:50 66 18 123/47 99 08/20/24 08:48 76 18 150/72 98 08/20/24 07:47 97.1 F L 71 74 18 136/57 98 08/20/24 06:25 72 18 176/71 99 08/20/24 04:15 70 18 152/72 98 08/20/24 02:43 81 18 139/65 98 08/20/24 01:43 80 18 140/70 96 08/20/24 01:33 75 18 166/87 99 08/19/24 22:42 79 18 147/76 95 08/19/24 22:05 78 18 161/76 99 08/19/24 20:51 98.4 F 93 16 195/84 98 Intake and Output 08/19/24 08/20/24 08/20/24 22:59 06:59 14:59 Intake Total 50.343 Balance 50.343 Intake: Intake, IV Titration 50.343 Amount Heparin Sod,Pork in 0.45% 50.343 NaCl 25,000 unit In 0.45 % NaCl 1 250ml.bag @ 12 UNITS/KG/HR 8.655 mls/hr IV .Q24H [facility] Rx#: [id number] Other: Weight 72.121 kg Results CBC & Chem 7: 08/20/24 04:24 08/19/24 21:18 Labs: Abnormal Lab Results - Last 24 Hours (Table) 08/19/24 08/19/24 08/20/24 Range/Units 21:18 23:58 00:37 MPV (9.5-12.2) fL APTT (22.0-30.0) sec BUN 29 H (7-17) mg/dL Creatinine 1.22 H (0.52-1.04) mg/dL Glucose 369 H (74-99) mg/dL POC Glucose (mg/dL) 288 H (70-110) mg/dL AST 49 H (14-36) U/L ALT 58 H (4-34) U/L Alkaline Phosphatase 145 H (38-126) U/L Troponin I 0.260 H* (0.000-0.034) ng/mL Triglycerides (0.00-149.00) mg/dL VLDL Cholesterol, Calc (5.00-40.00) mg/dL 08/20/24 08/20/24 08/20/24 Range/Units 04:24 04:24 04:24 MPV 9.3 L (9.5-12.2) fL APTT 50.7 H (22.0-30.0) sec BUN (7-17) mg/dL Creatinine (0.52-1.04) mg/dL Glucose (74-99) mg/dL POC Glucose (mg/dL) (70-110) mg/dL AST (14-36) U/L ALT (4-34) U/L Alkaline Phosphatase (38-126) U/L Troponin I 1.620 H* (0.000-0.034) ng/mL Triglycerides (0.00-149.00) mg/dL VLDL Cholesterol, Calc (5.00-40.00) mg/dL 08/20/24 08/20/24 08/20/24 Range/Units 04:24 07:53 09:06 MPV (9.5-12.2) fL APTT (22.0-30.0) sec BUN (7-17) mg/dL Creatinine (0.52-1.04) mg/dL Glucose (74-99) mg/dL POC Glucose (mg/dL) 144 H (70-110) mg/dL AST (14-36) U/L ALT (4-34) U/L Alkaline Phosphatase (38-126) U/L Troponin I 4.510 H* (0.000-0.034) ng/mL Triglycerides 242.00 H (0.00-149.00) mg/dL VLDL Cholesterol, Calc 48.40 H (5.00-40.00) mg/dL
[2024-08-20 16:25] LABS: Glucose,Whole Blood 146 mg/dL (70-110)
[2024-08-20] MEDS: ONDANSETRON 4 MG/2 ML VIAL IVP PRN (17:44)
[2024-08-20 20:13] LABS: Glucose,Whole Blood 294 mg/dL (70-110)
[2024-08-20] MEDS: INSULIN GLARGINE (LANTUS) 100 UNIT/ML SYR SQ SCH (22:08)
[2024-08-21 06:04] LABS: Glucose,Whole Blood 85 mg/dL (70-110)
[2024-08-21 07:43] LABS: HCT 39.7 % (37.2-46.3); HGB 13.2 g/dL (12.0-15.0); MCH 29.5 pg (27.0-32.0); MCHC 33.2 g/dL (32.0-37.0); MCV 88.8 fL (80.0-97.0); Mean Platelet Volume 9.7 fL (9.5-12.2); Platelet Count 185 10*3/uL (140-440); RBC 4.47 10*6/uL (4.10-5.20); RDW 13.4 % (11.5-14.5); WBC 7.84 10*3/uL (4.50-10.00)
[2024-08-21 08:18] LABS: ALT 355 U/L (4-34); AST 266 U/L (14-36); African American GFR (CKD) 52 (>60 ml/min/1.73 sqM); Albumin 3.4 g/dL (3.5-5.0); Alkaline Phosphatase 95 U/L (38-126); Anion Gap 7 mmol/L; Blood Urea Nitrogen 23 mg/dL (7-17); Calcium 9.2 mg/dL (8.4-10.2); Carbon Dioxide 26 mmol/L (22-30); Chloride 106 mmol/L (98-107); Glucose 136 mg/dL (74-99); Non-African American GFR(CKD) 45 (>60 ml/min/1.73 sqM); Potassium 4.5 mmol/L (3.5-5.1); Sodium 139 mmol/L (137-145); Total Bilirubin 0.8 mg/dL (0.2-1.3)
[2024-08-21] MEDS: ASPIRIN 81 MG PO SCH (09:42)
--- NOTE | 2024-08-21 09:55 | P.PN ---
Subjective Progress Note Date: 08/21/24 Principal diagnosis: Coronary artery disease, non-STEMI this admission, elevated transaminase. History of coronary artery disease with previous PCI, hypertension, hyperlipidemia, insulin-dependent diabetes, recent diagnosis of chronic kidney disease, previous tobacco dependence, family history of coronary artery disease with father from myocardial infarction at 61 years old The patient was seen and examined this morning ambulating in the room without difficulty. She did complain of headache. She also said she had some slight chest pressure, denies shortness of breath. Remains in sinus rhythm, hemodynamically stable. Her films were reviewed by Dr. Yun with plans for coronary artery bypass surgery on pending completion of all preoperative testing, echocardiogram remains outstanding. Objective - Vital Signs Vital signs: Vital Signs Temp 98 F 08/20/24 19:50 Pulse 73 08/21/24 03:57 Resp 18 08/21/24 03:57 BP 116/54 08/21/24 03:57 Pulse Ox 94 L 08/21/24 03:57 FiO2 Intake & Output 08/20/24 08/21/24 08/21/24 18:59 06:59 18:59 Intake Total 840 Balance 840 Weight 73.8 kg Intake: IV 600 Oral 240 Other: Voiding Method Toilet Toilet # Voids 2 - Exam CONSTITUTIONAL: Appears comfortable, cooperative, no acute distress RESPIRATORY: Lungs sounds diminished bilaterally. Respirations even, nonlabored. Currently on room air with oxygen saturation 94%. Able to achieve 1000 mL on incentive spirometry. Strong cough. CARDIOVASCULAR: S1, S2 present. Regular rate and rhythm, sinus rhythm on telemetry. Palpable peripheral pulses bilaterally. No edema present. No calf pain or tenderness noted GASTROINTESTINAL: Abdomen soft, nontender, nondistended. Active bowel sounds present 4 quadrants. Tolerating diet GENITOURINARY: Continues to void INTEGUMENTARY: Skin is warm and dry with evidence of good perfusion NEUROLOGIC: Cranial nerves II through XII intact MUSKULOSKELETAL: Able to move all extremities, strength equal bilaterally, gait normal PSYCHIATRIC: Alert and oriented to person place and time, appropriate affect, intact judgment and insight - Allied health notes Allied health notes reviewed: nursing - Labs CBC & Chem 7: 08/21/24 07:22 08/21/24 07:22 Labs: Abnormal Lab Results - Last 24 Hours (Table) 08/20/24 08/20/24 08/20/24 Range/Units 09:06 11:36 14:56 BUN (7-17) mg/dL Creatinine (0.52-1.04) mg/dL Glucose (74-99) mg/dL POC Glucose (mg/dL) 156 H (70-110) mg/dL AST (14-36) U/L ALT (4-34) U/L Troponin I 4.510 H* (0.000-0.034) ng/mL Total Protein (6.3-8.2) g/dL Albumin (3.5-5.0) g/dL Urine Glucose (UA) 2+ H (Negative) 08/20/24 08/20/24 08/21/24 Range/Units 16:24 20:12 07:22 BUN 23 H (7-17) mg/dL Creatinine 1.15 H (0.52-1.04) mg/dL Glucose 136 H (74-99) mg/dL POC Glucose (mg/dL) 146 H 294 H (70-110) mg/dL AST 266 H (14-36) U/L ALT 355 H (4-34) U/L Troponin I (0.000-0.034) ng/mL Total Protein 6.0 L (6.3-8.2) g/dL Albumin 3.4 L (3.5-5.0) g/dL Urine Glucose (UA) (Negative) Assessment and Plan Assessment: Coronary artery disease, non-STEMI this admission Chest pain, shortness of breath secondary to above Elevated transaminases History of coronary artery disease with previous PCI Hypertension Hyperlipidemia Insulin-dependent diabetes Recent diagnosis of chronic kidney disease Previous tobacco dependence, FEV1 46% of predicted Family history of coronary artery disease with father from myocardial infarction at 61 years old Plan: Continue to maximize medical therapy with aspirin, statin, beta-neptali Continue IV heparin and nitro per cardiology Our plan is for off-pump myocardial revascularization with left internal mammary artery, endoscopic vein harvest, possible endoscopic left radial artery harvest, ligation of the left atrial appendage on by Dr. Yun pending the outcome of preoperative testing Await echocardiogram Dr. Gomez consulted for pulmonology clearance Increase activity as tolerated Continued medical management per internal medicine, cardiology More recommendations to follow
[2024-08-21 11:45] LABS: Glucose,Whole Blood 178 mg/dL (70-110)
[2024-08-21 11:52] LABS: Hepatitis A Antibody IgM Nonreactive (Nonreactive); Hepatitis B Core IgM Nonreactive (Nonreactive); Hepatitis B Surface Antigen Nonreactive (Nonreactive); Hepatitis C IgG Antibody Nonreactive (Nonreactive)
--- NOTE | 2024-08-21 15:54 | P.PN ---
Progress Note - Text Progress Note Date: 08/21/24 Chief Complaint: Chest pain This is a pleasant 83-year-old patient who follows with Dr. Eric Fuentes. Patient was seen in bay #10 n in the extended unit. Chronic medical conditions include CAD with stent, diabetes, hypertension, hyperlipidemia. Patient last had a cardiac catheterization with stent in 2004. 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 Patient will close 2 months has been having chest pain on and off. Some progression. Yesterday it became rather significant. Also short of breath. Rest. No radiation. No edema. Decided to come in. Patient ruled in with an acute MS with troponin peaking to 4.5 this morning. This morning underwent cardiac catheterization that showed significant disease. Formal dictation not available. Cardiothoracic team was consulted. Currently no chest pain. Patient daughter, grandson, niece present. August 21: Patient been having intermittent chest pains. On nitroglycerin drip. IV heparin drip. Scheduled for coronary bypass on . Acute bump in LFTs. Hold Lipitor. Active Medications Alprazolam (Alprazolam 0.25 Mg Tab) 0.25 mg PO Q6HR PRN PRN Reason: Mild Anxiety Alprazolam (Alprazolam 0.5 Mg Tab) 0.5 mg PO Q6HR PRN PRN Reason: Moderate Anxiety Aspirin (Aspirin 81 Mg) 81 mg PO DAILY [facility] Last Admin: 08/21/24 09:42 Dose: 81 mg Atorvastatin Calcium (Atorvastatin 80 Mg Tab) 80 mg PO DAILY [facility] Last Admin: 08/21/24 09:42 Dose: 80 mg Dextrose/Water (Dextrose 50% Syringe 50 Ml) 25 ml IVP PER PROTOCOL PRN; Protocol PRN Reason: Hypoglycemia Dextrose/Water (Dextrose 50% Syringe 50 Ml) 50 ml IVP PER PROTOCOL PRN; Protocol PRN Reason: Hypoglycemia Heparin Sodium/Sodium Chloride (25,000 unit/ Sodium Chloride) 250 mls @ 8.655 mls/hr IV .Q24H [facility]; Protocol Last Admin: 08/20/24 23:54 Dose: Not Given Sodium Chloride (Saline 0.9%) 1,000 mls @ 75 mls/hr IV .[id number] [facility] Last Admin: 08/20/24 15:10 Dose: 400 mls Insulin Glargine (Insulin Glargine (Lantus) 100 Unit/Ml Syr) 60 unit SQ HS [facility] Last Admin: 08/20/24 22:08 Dose: 60 unit Insulin Human Lispro (Insulin Lispro (Humalog) 100 Unit/Ml 10 Ml Vl) 0 unit SQ ACHS [facility]; Protocol Last Admin: 08/21/24 12:54 Dose: 2 unit Metoprolol Tartrate (Metoprolol Tartrate 25 Mg Tab) 25 mg PO BID [facility] Last Admin: 08/21/24 09:42 Dose: 25 mg Morphine Sulfate (Morphine Sulfate 4 Mg/Ml Syringe) 4 mg IV Q4HR PRN PRN Reason: Chest Pain Last Admin: 08/20/24 06:44 Dose: 4 mg Nitroglycerin (Nitroglycerin Sl Tabs 0.4 Mg Tab) 0.4 mg SUBLINGUAL Q5M PRN PRN Reason: Chest Pain Last Admin: 08/20/24 01:32 Dose: 0.4 mg Ondansetron HCl (Ondansetron 4 Mg/2 Ml Vial) 4 mg IVP Q6HR PRN PRN Reason: Nausea And Vomiting Last Admin: 08/20/24 17:44 Dose: 4 mg Social history: Lives with her son. Stop smoking 30 years ago. Physical examination: VITAL SIGNS: 98.9, 73, 18, 156/69, 98% room GENERAL: BMI 25.7, up in bed EYES: Pupils equal. Conjunctiva tae l. HEENT: External appearance of nose and ears normal, oral cavity grossly normal. NECK: JVD not raised; masses not palpable. HEART: First and second heart sounds are normal; no edema. LUNGS: Respiratory rate normal; clear to auscultation. ABDOMEN: Soft, nontender, liver spleen not palpable, no masses palpable. PSYCH: Alert and oriented x3; mood and affect slightly anxious MUSCULOSKELETAL:No Clubbing/cyanosis;muscles-grossly intact. OA INVESTIGATIONS, reviewed in the clinical context: Third: White count 7.8 hemoglobin 13.2 potassium 4.5 BUN 23 creatinine 1.5 AST 266 ALT 355 August 19: White count 7.4 hemoglobin 14.8 platelets 224 sodium 139 potassium 4.6 BUN 29 creatinine 1.22 Troponin I less than 0.012, 0.260, 1.6, 4.5 LDL 94.7 UA protein 2+ EKG tracing personally reviewed by me-sinus rhythm. Left bundle soraya block Chest x-ray film personally reviewed by me-some cardiomegaly Assessment plan: - Acute non-Q wave MS in a patient with known coronary artery disease prior stent in 2004 IV heparin. Aspirin, Lopressor, Lipitor - Postinfarct angina continues IV heparin. IV nitroglycerin drip - Severe coronary artery disease per cardiac catheterization. . Cardiothoracic: Scheduled for bypass this - Acute hepatitis likely drug-induced Hold Lipitor for now. - Essential hypertension Lopressor 25 mg twice daily - IV heparin monitoring per protocol - IV nitroglycerin drip - Hyperlipidemia Lipitor 80 mg a day - Diabetes mellitus type 2, chronically on insulin Accu-Cheks with sliding scale insulin. Lantus 60 units subcu nightly. Sliding scale with coverage. Hold glipizide. - Anxiety not otherwise specified Xanax as needed - Chronic kidney disease, stage III likely diabetic nephropathy and hypertensive nephrosclerosis Follow renal function - Primary osteoarthritis Tylenol as needed -Full code Discussed with patient Past Medical History Past Medical History: Coronary Artery Disease (CAD), Diabetes Mellitus, Hyperlipidemia, Hypertension History of Any Multi-Drug Resistant Organisms: None Reported Past Surgical History: Cholecystectomy, Heart Catheterization With Stent Past Psychological History: Anxiety Smoking Status: Former smoker Past Alcohol Use History: None Reported Past Drug Use History: None Reported
--- NOTE | 2024-08-21 16:10 | P.PN ---
Subjective Progress Note Date: 08/21/24 Consult reason: chest pain History of present illness: This is 83-year-old female previously seen by Dr. Mai in 2014. She has a past medical history of single-vessel CAD status post stent, hypertension, hypercholesterolemia, diabetes mellitus type 2. Patient does not follow with a nutrition representative. We have been asked to evaluate the patient for chest pain. Patient states that she has had a heavy feeling in her chest for the past month. She states is heavy in the back, chest and epigastric area. She had some improvement of chest pain with nitroglycerin and also some improvement with morphine. Now it is aching all the time. She denies nausea but she had dry heaves yesterday. Patient has been started on heparin drip, aspirin, Lipitor, Lopressor and Nitrostat. Patient presented with blood pressure 195/84. Blood pressure 136/57, heart rate in the 70s, pulse ox 98% on 2 L nasal cannula. Patient is seen today in the emergency center waiting for a bed on the cardiac stepdown unit. -EKG: Sinus rhythm with left bundle branch block on initial EKG not present on repeat -Chest x-ray: No acute process. -Laboratory studies: CBC unremarkable. Electrolytes normal. BUN 29 creatinine 1.22. Troponin 0.012, 0.26, 1.62. proBNP 146. -Home cardiac medications: Atorvastatin 40 mg daily and losartan 50 mg daily -Cardiac catheterization in 1998 with 95% distal circumflex status post stent, followed by proximal OM1 stent in 2003, mid RCA stent in 2004. - Echocardiogram performed in 2010 revealed normal EF, mild to moderate AR, mild MR 6/3 Patient seen and examined on the cardiac stepdown unit. Patient underwent cardiac catheterization with Dr. Liang yesterday which revealed mid LAD stenosis 85%, circumflex stenosis 80%, RCA stenosis 95%. Cardiothoracic surgical evaluation was obtained and patient is tentatively scheduled for CABG on . Patient did have episode of chest pain which seem to have eased up on its own. Blood pressure 116/54,156/69, heart rate 73, pulse ox 98% on room air. Echocardiogram has been obtained and report is pending. Patient is off heparin drip and nitroglycerin drip. A1c 8.9 Physical examination: Gen: This is 83-year-old female in no acute distress. VS: reviewed HEENT: Head is atraumatic, normocephalic. Pupils equal, round. Sclerae is anicteric. NECK: Supple. No JVD. LUNGS: Clear to auscultation. No wheezes or rhonchi. No intercostal retractions. HEART: Regular rate and rhythm. No murmur. ABDOMEN: Soft No tenderness. EXTREMITIES: No pedal edema. No calf tenderness. NEUROLOGICAL: Patient is awake, alert and oriented x3. Assessment: NSTEMI with multivessel CAD, CABG on scheduled for History of coronary artery disease with previous stents as above Hypertension Hypercholesterolemia Diabetes mellitus type 2 uncontrolled with hyperglycemia, A1c 8.9 Plan: Continue patient on aspirin 81 mg daily, atorvastatin 80 mg daily, Lopressor 25 mg twice daily Obtain 2-D echocardiogram and Doppler study to assess cardiac structure and function report Further recommendations to follow based upon clinical course Nurse practitioner note has been reviewed, I agree with documented findings and plan of care. Patient was seen and examined. Objective - Vital Signs Vital signs: Vital Signs Temp 98.9 F 08/21/24 09:30 Pulse 73 08/21/24 09:30 Resp 16 08/21/24 09:30 BP 156/69 08/21/24 09:30 Pulse Ox 98 08/21/24 09:30 FiO2 Intake & Output 08/20/24 08/21/24 08/21/24 18:59 06:59 18:59 Intake Total 840 180 Balance 840 180 Weight 73.8 kg Intake: IV 600 Oral 240 180 Other: Voiding Method Toilet Toilet Toilet # Voids 2 1 # Bowel Movements 0 - Labs CBC & Chem 7: 08/21/24 07:22 08/21/24 07:22 Labs: Abnormal Lab Results - Last 24 Hours (Table) 08/20/24 08/20/24 08/20/24 Range/Units 14:56 16:24 20:12 BUN (7-17) mg/dL Creatinine (0.52-1.04) mg/dL Glucose (74-99) mg/dL POC Glucose (mg/dL) 146 H 294 H (70-110) mg/dL Hemoglobin A1c (<=6.0) % AST (14-36) U/L ALT (4-34) U/L Total Protein (6.3-8.2) g/dL Albumin (3.5-5.0) g/dL Urine Glucose (UA) 2+ H (Negative) 08/21/24 08/21/24 08/21/24 Range/Units 07:22 07:22 11:44 BUN 23 H (7-17) mg/dL Creatinine 1.15 H (0.52-1.04) mg/dL Glucose 136 H (74-99) mg/dL POC Glucose (mg/dL) 178 H (70-110) mg/dL Hemoglobin A1c 8.9 H (<=6.0) % AST 266 H (14-36) U/L ALT 355 H (4-34) U/L Total Protein 6.0 L (6.3-8.2) g/dL Albumin 3.4 L (3.5-5.0) g/dL Urine Glucose (UA) (Negative)
[2024-08-21 17:02] LABS: Glucose,Whole Blood 202 mg/dL (70-110)
--- NOTE | 2024-08-21 17:10 | P.CNPUL ---
History of Present Illness Consult date: 08/21/24 Chief complaint: Multivessel coronary artery disease, awaiting bypass surgery History of present illness: On 09/17/2024, the patient is being seen for a preoperative pulmonary clearance as the patient is scheduled to undergo off-pump coronary bypass surgery. As stated, the patient is known to have coronary artery disease. The patient has u ndergone previous coronary stenting/PCI and the patient has multiple risk factors including hypertension, hyperlipidemia and insulin-dependent diabetes mellitus. She is a former smoker.She presented to [facility] emergency room with complaints of chest pain and slight shortness of breath with activity which had been present intermittently for the last month, states symptoms were similar to when she previously had blockages and PCI. Lab work in the emergency room revealed WBC 7.4, hemoglobin 14.8, creatinine 1.22, AST 49, ALT 54, BNP 146, initial troponin negative but subsequent troponin elevation from 0.26 up to 4.51. EKG revealed sinus rhythm with left bundle branch block. Patient also had elevated blood pressure 195/84 with initial presentation to the emergency room. Chest x-ray revealed no acute process. She was ruled in for non-STEMI and admitted to the cardiac stepdown unit with consultation placed to cardiology. The patient was recommended to undergo heart catheterization which was completed by Dr. Liang revealing mid LAD stenosis 85%, circumflex stenosis 80%, RCA stenosis 95% the patient has no respiratory difficulties. No cough sputum production chest tightness or wheezing. A bedside spirometry was done and the patient's FEV1 was in order of 73% of predicted. The patient also had a CAT scan of the chest that was done on 08/20/2024 and the CAT scan showed mild atherosclerotic calcification of the thoracic aorta and there was no acute cardiopulmonary abnormalities noted. The patient is currently on room air oxygen. Pulse ox 95%. She has good exercise capacity and she is using the incentive spirometer for now. Electrolytes are all stable. BUN is 23 with a creatinine of 1.1. The hemoglobin is at 13.2. The white cell count is at 7.8. Review of Systems Constitutional: Reports fatigue Eyes: denies as per HPI, denies blurred vision, denies bulging eye, denies decreased vision, denies diplopia, denies discharge, denies dry eye, denies irritation, denies itching, denies pain, denies photophobia, denies loss of peripheral vision, denies loss of vision, denies tunnel vision/blind spots Ears: deny: decreased hearing, ear discharge, earache, tinnitus Ears, nose, mouth and throat: Reports as per HPI Breasts: absent: as per HPI, change in shape, gynecomastia, masses, nipple discharge, pain, skin changes, swelling Cardiovascular: Reports as per HPI, Reports chest pain, Reports decreased exercise tolerance, Reports dyspnea on exertion, Reports shortness of breath Respiratory: Reports dyspnea Gastrointestinal: Reports as per HPI Genitourinary: Reports as per HPI Menstruation: Reports as per HPI Musculoskeletal: Reports as per HPI Musculoskeletal: absent: ankle pain, ankle stiffness, ankle swelling, as per HPI, elbow pain, elbow stiffness, elbow swelling, foot pain, foot stiffness, foot swelling, hand pain, hand stiffness, hand swelling, hip pain, hip stiffness, hip swelling, knee pain, knee stiffness, knee swelling, shoulder pain, shoulder stiffness, shoulder swelling, wrist pain, wrist stiffness, wrist swelling Integumentary: Reports as per HPI Neurological: Reports as per HPI Psychiatric: Reports as per HPI Endocrine: Reports as per HPI Hematologic/Lymphatic: Reports as per HPI Allergic/Immunologic: Reports as per HPI Past Medical History Past Medical History: Coronary Artery Disease (CAD), Diabetes Mellitus, Hype rlipidemia, Hypertension Additional Past Medical History / Comment(s): Basal cell skin cancer History of Any Multi-Drug Resistant Organisms: None Reported Past Surgical History: Cholecystectomy, Heart Catheterization With Stent Additional Past Surgical History / Comment(s): Skin cancer removal Past Anesthesia/Blood Transfusion Reactions: No Reported Reaction Date of Last Stent Placement:: 2004 Smoking Status: Former smoker - Past Family History Father Family Medical History: Myocardial Infarction ([place]) Additional Family Medical History / Comment(s): from myocardial infarction at 61 years old Mother Family Medical History: Congestive Heart Failure (CHF), Diabetes Mellitus Medications and Allergies Home Medications Medication Instructions Recorded Confirmed Type ALPRAZolam [Xanax] 0.25 mg PO BID PRN 08/20/24 08/20/24 History Atorvastatin [Lipitor] 40 mg PO DAILY@1700 08/20/24 08/20/24 History Insulin Glargine,Hum.rec.anlog 80 units SQ HS 08/20/24 08/20/24 History [Lantus Solostar Pen] Losartan [Cozaar] 50 mg PO DAILY@0900 08/20/24 08/20/24 History atenoloL [Tenormin] 25 mg PO DAILY@0908/20/24 08/20/24 History glipiZIDE [Glucotrol] 10 mg PO DAILY 08/20/24 08/20/24 History Allergies Allergy/AdvReac Type Severity Reaction Status Date / Time No Known Allergies Allergy Verified 08/20/24 10:54 Physical Exam Vitals: Vital Signs Temp Pulse Resp BP Pulse Ox 08/21/24 09:30 98.9 F 73 16 156/69 98 08/21/24 03:57 73 18 116/54 94 L 08/20/24 23:50 61 17 110/63 93 L 08/20/24 19:50 98 F 76 17 134/67 93 L 08/20/24 15:30 62 17 08/20/24 15:15 97.6 F 60 17 116/66 97 Intake and Output 08/21/24 08/21/24 08/21/24 06:59 14:59 22:59 Intake Total 180 Balance 180 Intake: Oral 180 Other: Voiding Method Toilet Toilet # Voids 2 2 # Bowel Movements 0 Weight 73.8 kg The patient appeared well nourished and normally developed. Vital signs as documented. Head exam is unremarkable. No scleral icterus or corneal arcus noted. Neck is without jugular venous distension, thyromegaly, or carotid bruits. Carotid upstrokes are brisk bilaterally. Lungs are clear to auscultation and percussion. Cardiac exam reveals the PMI to be normally sized and situated. Rhythm is regular. First and second heart sounds normal. No murmurs, rubs or gallops. Abdominal exam reveals normal bowel sounds, no masses, no organomegaly and no aortic enlargement. Extremities are nonedematous and both femoral and pedal pulses are normal. Examination of the skin revealed no evidence of significant rashes, suspicious appearing nevi or other concerning lesions. Neurologically, the patient is awake and alert and the patient does not have any focal neurological deficit. Cranial nerves are essentially intact. Results - Laboratory Findings CBC and BMP: 08/21/24 07:22 08/21/24 07:22 PT/INR, D-dimer PT 10.8 sec (10.0-12.5) 08/19/24 21:18 INR 1.0 (<1.2) 08/19/24 21:18 Abnormal lab findings: Abnormal Labs 08/19/24 08/19/24 08/20/24 21:18 23:58 00:37 MPV APTT BUN 29 H Creatinine 1.22 H Glucose 369 H POC Glucose (mg/dL) 288 H Hemoglobin A1c AST 49 H ALT 58 H Alkaline Phosphatase 145 H Troponin I 0.260 H* Total Protein Albumin Triglycerides VLDL Cholesterol, Calc Urine Glucose (UA) 08/20/24 08/20/24 08/20/24 04:24 04:24 04:24 MPV 9.3 L APTT 50.7 H BUN Creatinine Glucose POC Glucose (mg/dL) Hemoglobin A1c AST ALT Alkaline Phosphatase Troponin I 1.620 H* Total Protein Albumin Triglycerides VLDL Cholesterol, Calc Urine Glucose (UA) 08/20/24 08/20/24 08/20/24 04:24 07:53 09:06 MPV APTT BUN Creatinine Glucose POC Glucose (mg/dL) 144 H Hemoglobin A1c AST ALT Alkaline Phosphatase Troponin I 4.510 H* Total Protein Albumin Triglycerides 242.00 H VLDL Cholesterol, Calc 48.40 H Urine Glucose (UA) 08/20/24 08/20/24 08/20/24 11:36 14:56 16:24 MPV APTT BUN Creatinine Glucose POC Glucose (mg/dL) 156 H 146 H Hemoglobin A1c AST ALT Alkaline Phosphatase Troponin I Total Protein Albumin Triglycerides VLDL Cholesterol, Calc Urine Glucose (UA) 2+ H 08/20/24 08/21/24 08/21/24 20:12 07:22 07:22 MPV APTT BUN 23 H Creatinine 1.15 H Glucose 136 H POC Glucose (mg/dL) 294 H Hemoglobin A1c 8.9 H AST 266 H ALT 355 H Alkaline Phosphatase Troponin I Total Protein 6.0 L Albumin 3.4 L Triglycerides VLDL Cholesterol, Calc Urine Glucose (UA) 08/21/24 11:44 MPV APTT BUN Creatinine Glucose POC Glucose (mg/dL) 178 H Hemoglobin A1c AST ALT Alkaline Phosphatase Troponin I Total Protein Albumin Triglycerides VLDL Cholesterol, Calc Urine Glucose (UA) - Diagnostic Findings Chest x-ray: image reviewed CT scan - chest: image reviewed Assessment and Plan Plan: The cardiac catheterization was noted and the patient was found to have significant disease involving the mid LAD, 85%, 80% circumflex lesion, 95% RCA lesion and the patient is scheduled to undergo off-pump coronary artery bypass surgery. Hemodynamically stable. Cardiopulmonary status is stable. Echocardiogram is still pending. Hypertension Hyperlipidemia History of skin cancer Chronic stage II kidney disease with a GFR of 45 Plan Overall pulmonary status is stable. CAT scan shows no acute abnormalities. FEV1 is in order of 73% of predicted. No pulmonary contraindications for surgery. Will manage the ventilator. Anticipate no significant postoperative pulmonary complications. Will manage the ventilator and will continue to fo llow. Continue the patient on aspirin, IV heparin and the patient is on metoprolol 25 mg twice daily Continue Lantus 60 units daily and sliding scale coverage IV fluids, normal saline at rate of 75 cc an hour and monitor the creatinine. Lipitor 40 g p.o. daily Proceed with echocardiogram to evaluate LV function and valvular structures.
[2024-08-21 19:59] LABS: Glucose,Whole Blood 216 mg/dL (70-110)
--- NOTE | 2024-08-21 23:05 | P.CARDCATH ---
Description of Procedure: PROCEDURES PERFORMED: Left heart catheterization, bilateral coronary angiography, ultrasound guided arterial access INDICATION: NSTEMI CONSENT:I have discussed the risks, benefits and alternative therapies for the above-mentioned procedure and for both sedation/analgesia as well as necessary blood product administration, if indicated, as they pertain to this patient. The patient has indicated understanding and acceptance of the risks and procedures discussed. PROCEDURE: After the risks, benefits and alternatives of the above mentioned procedure explained in detail with the patient, informed consent was obtained. Patient was taken to the catheterization lab and prepped and draped in usual fashion. Ultrasound guidance was used to assess for arterial access. 1% lidocaine was used to anesthetize the right radial artery. A 6-Stateless sheath was placed in the right radial artery using modified Seldinger technique and ultrasound guidance. Left coronary angiography was performed with a 5-Stateless JL 3.5 catheter and right coronary angiography was performed with a 5-Stateless FR5 catheter in various views. A 5-Stateless FR5 catheter was inserted into the left ventricle and pressure measurements were obtained. The right radial sheath was removed and a TR band was placed with hemostasis achieved. The patient tolerated the procedure well. Patient was transported back to the post catheterization holding area in stable condition. Conscious Sedation: Patient was monitored under the direct supervision of myself for conscious sedation using Versed and fentanyl for a total duration of [] minutes HEMODYNAMICS: Ao: 120/72 LV: 121/8, LVEDP 21 SELECTIVE CORONARY ARTERIOGRAPHY: LEFT MAIN: The left main is a large caliber vessel which bifurcates into the LAD and circumflex. There is no significant stenosis. LEFT ANTERIOR DESCENDING CORONARY ARTERY: LAD is a large caliber vessel which wraps around to the apex. There is proximal 40% stenosis than a 50% diagonal 1 stenosis. After diagoanl 1 there is a bifurcation mid LAD 85% stenosis and otherwise mild luminal irregularities. LEFT CIRCUMFLEX CORONARY ARTERY: Left circumflex is a moderate caliber vessel with a proximal circumflex 95% stenosis with OM1 having 30% stenosis and OM2 having distal 60-70% stenosis. RIGHT CORONARY ARTERY: The right coronary artery is a large caliber vessel which gives off a PDA and PLV branch and is the dominant vessel. There are tandem 95% and 80% proximal RCA stenoses. FINAL IMPRESSION: 1. Multivessel CAD as described above including mid LAD 85%, proximal circumflex 95%, RCA 95% stenosis 2. Elevated left sided filling pressures PLAN: 1. Aggressive risk factor modification per most recent ACC/AHA guidelines. 2. Evaluate for CABG
[2024-08-22 06:13] LABS: Glucose,Whole Blood 105 mg/dL (70-110)
[2024-08-22 08:13] LABS: HCT 43.7 % (37.2-46.3); HGB 14.5 g/dL (12.0-15.0); MCHC 33.2 g/dL (32.0-37.0); MCV 87.4 fL (80.0-97.0); Platelet Count 210 10*3/uL (140-440); RDW 13.5 % (11.5-14.5); WBC 6.43 10*3/uL (4.50-10.00)
[2024-08-22 08:26] LABS: African American GFR (CKD) 57 (>60 ml/min/1.73 sqM); Anion Gap 10 mmol/L; Blood Urea Nitrogen 21 mg/dL (7-17); Carbon Dioxide 27 mmol/L (22-30); Chloride 106 mmol/L (98-107); Glucose 114 mg/dL (74-99); Non-African American GFR(CKD) 49 (>60 ml/min/1.73 sqM); Potassium 4.3 mmol/L (3.5-5.1); Sodium 143 mmol/L (137-145)
[2024-08-22] MEDS ORDERED: MD COMMUNICATION TO PHARMACY 1 EACH MISC PO ONE ×4 (09:55)
--- NOTE | 2024-08-22 09:55 | P.PN ---
Subjective Progress Note Date: 08/22/24 Principal diagnosis: Coronary artery disease, non-STEMI this admission, and elevated transaminase. History of coronary artery disease with previous PCI, hypertension, hyperlipidem ia, insulin-dependent diabetes, recent diagnosis of chronic kidney disease, previous tobacco dependence, and family history of coronary artery disease with father from myocardial infarction at 61 years old The patient was seen and examined today August 22, 2024 at her bedside on the third floor cardiac stepdown unit. The patient denies any complaints of chest pain/pressure or shortness of breath at this time. She is currently sitting up to the bedside edge, and eating her breakfast. Preoperative teaching has been reinforced with the patient and she is currently scheduled for an off-pump myocardial revascularization surgery to be completed by Dr. Adriano Yun tomorrow August 23, 2024 with left intramammary artery, endoscopic greater saphenous vein harvest, possible endoscopic left radial artery harvest, exclusion left atrial appendage and intraoperative transesophageal echocardiog venessa. A 5 m walk test was completed with the patient this morning with time 1: 2.36 seconds, time 2: 2.88 seconds, time 3: 2.83 seconds. After the 5 m walk test was completed the patient reports some mild chest and back discomfort which was resolved with rest. An STS risk core will be calculated and discussed with the patient once the transthoracic 2D echocardiogram results have been dictated. The patient continues on aspirin, statin and beta-neptali. The patient will be made n.p.o. after midnight. Objective - Vital Signs Vital signs: Vital Signs Temp 97.9 F 08/21/24 20:00 Pulse 67 08/22/24 02:00 Resp 16 08/22/24 02:00 BP 123/73 08/22/24 02:00 Pulse Ox 95 08/22/24 02:00 FiO2 Intake & Output 08/21/24 08/22/24 08/22/24 18:59 06:59 18:59 Intake Total 420 Balance 420 Weight 72.8 kg Intake: Oral 420 Other: Voiding Method Toilet Toilet # Voids 2 2 # Bowel Movements 0 0 - Exam CONSTITUTIONAL: Appears comfortable, cooperative, no acute distress RESPIRATORY: Lungs sounds diminished bilaterally. Respirations even, nonlabored. Currently on room air with oxygen saturation 95%. Able to achieve 1850 mL on her incentive spirometry. Strong cough. CARDIOVASCULAR: S1, S2 present. Regular rate and rhythm, sinus rhythm on telemetry. Palpable peripheral pulses bilaterally. No edema present. No calf pain or tenderness noted GASTROINTESTINAL: Abdomen soft, nontender, nondistended. Active bowel sounds present 4 quadrants. Tolerating diet. GENITOURINARY: Continues to void. INTEGUMENTARY: Skin is warm and dry, no clubbing or cyanosis is present. NEUROLOGIC: Cranial nerves II through XII intact. No focal deficits. MUSKULOSKELETAL: Able to move all extremities, strength equal bilaterally, gait normal. PSYCHIATRIC: Alert and oriented to person place and time, appropriate affect, intact judgment and insight. - Allied health notes Allied health notes reviewed: nursing - Labs CBC & Chem 7: 08/22/24 06:59 08/22/24 06:59 Labs: Abnormal Lab Results - Last 24 Hours (Table) 08/21/24 08/21/24 08/21/24 Range/Units 07:22 11:44 17:01 BUN (7-17) mg/dL Creatinine (0.52-1.04) mg/dL Glucose (74-99) mg/dL POC Glucose (mg/dL) 178 H 202 H (70-110) mg/dL Hemoglobin A1c 8.9 H (<=6.0) % 08/21/24 08/22/24 Range/Units 19:58 06:59 BUN 21 H (7-17) mg/dL Creatinine 1.07 H (0.52-1.04) mg/dL Glucose 114 H (74-99) mg/dL POC Glucose (mg/dL) 216 H (70-110) mg/dL Hemoglobin A1c (<=6.0) % Assessment and Plan Assessment: Coronary artery disease, non-STEMI this admission Chest pain, shortness of breath secondary to above Elevated transaminases History of coronary artery disease with previous PCI Hypertension Hyperlipidemia, triglycerides 242 Insulin-dependent diabetes, preoperative hemoglobin A1c 8.9% Recent diagnosis of chronic kidney disease, GFR 49 Previous tobacco dependence, FEV1 46% of predicted Family history of coronary artery disease with father from myocardial infarction at 61 years old Plan: Continue to maximize medical therapy with aspirin, statin, and beta-neptali. IV heparin and nitroglycerin per cardiology. Plan is for off-pump myocardial revascularization with left internal mammary artery, endoscopic vein harvest, possible endoscopic left radial artery harvest, ligation of the left atrial appendage on by Dr. Yun pending the outcome of preoperative testing Transthoracic 2D echocardiogram results remain pending. Dr. Gomez consulted for pulmonology clearance Increase activity as tolerated. A 5 m walk test was completed with the patient this morning with time 1: 2.36 seconds, time 2: 2.88 seconds, time 3: 2.83 seconds. Continued medical management per internal medicine, cardiology and pulmonary critical care medicine. N.p.o. after midnight. More recommendations to follow based on patient's clinical course. Time with Patient: Greater than 30
[2024-08-22 10:10] LABS: ALT 261 U/L (4-34); AST 126 U/L (14-36)
--- NOTE | 2024-08-22 10:22 | CA ---
Transthoracic Echo Report Name: Rea Dunn Age: 83 Gender: F : 1940 Exam Date: 08/21/2024 09:54 Exam Location: [facility] Ht (in): 66 Wt (lb): 159 Ordering Physician: Frantz Roa DO Attending/Referring Phys: [id number], Crispin Director Broadcast Gretel Underwood RDCS Procedure CPT: Indications: CP, Cardiomyopathy, unspecified Cardiac Hx: Technical Quality: Fair Contrast 1: Total Dose (mL): Contrast 2: Total Dose (mL): MEASUREMENTS (Male / Female) Normal Values 2D ECHO LV Diastolic Diameter PLAX 4.3 cm 4.2 - 5.9 / 3.9 - 5.3 cm LV Systolic Diameter PLAX 2.9 cm IVS Diastolic Thickness 1.8 cm 0.6 - 1.0 / 0.6 - 0.9 cm LVPW Diastolic Thickness 1.4 cm 0.6 - 1.0 / 0.6 - 0.9 cm LV Relative Wall Thickness 0.7 LVOT Diameter 2.1 cm LV Diastolic Volume MOD BP 80.0 cm??? 67 - 155 / 56 - 104 cm??? LV Systolic Volume MOD BP 33.7 cm??? 22 - 58 / 19 - 49 cm??? LV Ejection Fraction MOD BP 57.9 % >= 55 % LV Cardiac Index MOD BP 1908.7 cm???/min???m??? LV Diastolic Volume MOD 4C 84.5 cm??? LV Systolic Volume MOD 4C 36.3 cm??? LV Ejection Fraction MOD 4C 57.0 % LV Cardiac Index MOD 4C 1984.7 cm???/min???m??? LV Diastolic Length 4C 7.9 cm LV Systolic Length 4C 7.3 cm LV Diastolic Volume MOD 2C 74.2 cm??? LV Systolic Volume MOD 2C 27.9 cm??? LV Ejection Fraction MOD 2C 62.5 % LV Cardiac Index MOD 2C 1909.3 cm???/min???m??? LV Diastolic Length 2C 7.7 cm LV Systolic Length 2C 6.5 cm LA Volume 52.3 cm??? 18 - 58 / 22 - 52 cm??? LA Volume Index 28.4 cm???/m??? 16 - 28 cm???/m??? DOPPLER AV Peak Velocity 174.1 cm/s AV Peak Gradient 12.1 mmHg AV Mean Velocity 112.8 cm/s AV Mean Gradient 5.9 mmHg AV Velocity Time Integral 36.3 cm LVOT Peak Velocity 112.3 cm/s LVOT Peak Gradient 5.0 mmHg LVOT Velocity Time Integral 22.1 cm LVOT Stroke Volume 73.5 cm??? LVOT Stroke Volume Index 40.5 ml/m??? LVOT Cardiac Index 3025.8 cm???/min???m??? AV Area Cont Eq vti 2.0 cm??? AV Area Cont Eq pk 2.1 cm??? TR Peak Velocity 282.9 cm/s TR Peak Gradient 32.0 mmHg Right Atrial Pressure 5.0 mmHg Pulmonary Artery Systolic Pressu 37.0 mmHg Right Ventricular Systolic Press 37.0 mmHg PV Peak Velocity 99.3 cm/s PV Peak Gradient 3.9 mmHg FINDINGS Left Ventricle Left ventricular ejection fraction is estimated at 55-60 %. Severely increased septal wall thickness. Moderately increased posterior wall thickness. Left ventricular cavity size normal. No obvious regional wall motion abnormalities. Right Ventricle Normal right ventricular size and function. Mild pulmonary hypertension. Right Atrium Normal right atrial size. Left Atrium Normal left atrial size. Mitral Valve Mitral valve thickened. No evidence for mitral valve prolapse. No mitral stenosis. Trace to mild mitral regurgitation. Aortic Valve Trileaflet aortic valve. Aortic valve sclerosis. No aortic valve stenosis or regurgitation. Tricuspid Valve Structurally normal tricuspid valve. No tricuspid stenosis. Mild tricuspid regurgitation. Pulmonic Valve Structurally normal pulmonic valve. No pulmonic stenosis. Trace pulmonic regurgitation. Pericardium No pericardial effusion. Echo free space anterior to the right ventricle likely represents a fat pad. Aorta Normal size aortic root and proximal ascending aorta. CONCLUSIONS LVEF 55 to 60% No obvious regional wall motion abnormality Moderate concentric LVH Normal RV size and systolic function Mild pulmonary hypertension with RVSP of 37 mmHg Mild tricuspid regurgitation Epicardial fat Previewed by: Dr Juve Batres (Electronically Signed) Final Date: 22 August 2024 10:21
--- NOTE | 2024-08-22 11:14 | P.PN ---
Subjective Progress Note Date: 08/22/24 Consult reason: chest pain History of present illness: This is 83-year-old female previously seen by Dr. Mai in 2014. She has a past medical history of single-vessel CAD status post stent, hypertension, hypercholesterolemia, diabetes mellitus type 2. 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 We have been asked to evaluate the patient for chest pain. Patient states that she has had a heavy feeling in her chest for the past month. She states is heavy in the back, chest and epigastric area. She had some improvement of chest pain with nitroglycerin and also some improvement with morphine. Now it is aching all the time. She denies nausea but she had dry heaves yesterday. Patient has been started on heparin drip, aspirin, Lipitor, Lopressor and Nitrostat. Patient presented with blood pressure 195/84. Blood pressure 136/57, heart rate in the 70s, pulse ox 98% on 2 L nasal cannula. Patient is seen today in the emergency center waiting for a bed on the cardiac stepdown unit. -EKG: Sinus rhythm with left bundle branch block on initial EKG not present on repeat -Chest x-ray: No acute process. -Laboratory studies: CBC unremarkable. Electrolytes normal. BUN 29 creatinine 1.22. Troponin 0.012, 0.26, 1.62. proBNP 146. -Home cardiac medications: Atorvastatin 40 mg daily and losartan 50 mg daily -Cardiac catheterization in 1998 with 95% distal circumflex status post stent, followed by proximal OM1 stent in 2003, mid RCA stent in 2004. - Echocardiogram performed in 2010 revealed normal EF, mild to moderate AR, mild MR 08/21 Patient seen and examined on the cardiac stepdown unit. Patient underwent cardiac catheterization with Dr. Liang yesterday which revealed mid LAD stenosis 85%, circumflex stenosis 80%, RCA stenosis 95%. Cardiothoracic surgical evaluation was obtained and patient is tentatively scheduled for CABG on . Patient did have episode of chest pain which seem to have eased up on its own. Blood pressure 116/54,156/69, heart rate 73, pulse ox 98% on room air. Echocardiogram has been obtained and report is pending. Patient is off heparin drip and nitroglycerin drip. A1c 8.9 08/22 Patient seen and examined. Patient states she is feeling tired. She is getting chest pain with activity. She states the chest pain lasted for about 5 to 10 minutes. Blood pressure 123/73, heart rate 67, pulse ox 95% on room air. Hemoglobin 14.5, BUN 21 creatinine 1.07. Echocardiogram reveals EF 55 to 60%. Moderate concentric LVH. Mild pulmonary hypertension with RVSP 37. Mild tricuspid regurgitation. Physical examination: Gen: This is 83-year-old female in no acute distress. VS: reviewed HEENT: Head is atraumatic, normocephalic. Pupils equal, round. Sclerae is anicteric. NECK: Supple. No JVD. LUNGS: Clear to auscultation. No wheezes or rhonchi. No intercostal retractions. HEART: Regular rate and rhythm. No murmur. ABDOMEN: Soft No tenderness. EXTREMITIES: No pedal edema. No calf tenderness. NEUROLOGICAL: Patient is awake, alert and oriented x3. Assessment: NSTEMI with multivessel CAD, CABG on scheduled History of coronary artery disease with previous stents as above Hypertension Hypercholesterolemia Diabetes mellitus type 2 uncontrolled with hyperglycemia, A1c 8.9 Plan: Continue patient on aspirin 81 mg daily, atorvastatin 80 mg daily, Lopressor 25 mg twice daily Resume patient on heparin drip Further recommendations to follow based upon clinical course Nurse practitioner note has been reviewed, I agree with documented findings and plan of care. Patient was seen and examined. Objective - Vital Signs Vital signs: Vital Signs Temp 97.9 F 08/21/24 20:00 Pulse 67 08/22/24 02:00 Resp 16 08/22/24 02:00 BP 123/73 08/22/24 02:00 Pulse Ox 95 08/22/24 02:00 FiO2 Intake & Output 08/21/24 08/22/24 08/22/24 18:59 06:59 18:59 Intake Total 420 Balance 420 Weight 72.8 kg Intake: Oral 420 Other: Voiding Method Toilet Toilet # Voids 2 2 # Bowel Movements 0 0 - Labs CBC & Chem 7: 08/22/24 06:59 08/22/24 06:59 Labs: Abnormal Lab Results - Last 24 Hours (Table) 08/21/24 08/21/24 08/21/24 Range/Units 11:44 17:01 19:58 BUN (7-17) mg/dL Creatinine (0.52-1.04) mg/dL Glucose (74-99) mg/dL POC Glucose (mg/dL) 178 H 202 H 216 H (70-110) mg/dL AST (14-36) U/L ALT (4-34) U/L Crossmatch 08/22/24 08/22/24 08/22/24 Range/Units 06:59 06:59 09:25 BUN 21 H (7-17) mg/dL Creatinine 1.07 H (0.52-1.04) mg/dL Glucose 114 H (74-99) mg/dL POC Glucose (mg/dL) (70-110) mg/dL AST 126 H (14-36) U/L ALT 261 H (4-34) U/L Crossmatch See Detail
[2024-08-22] MEDS ORDERED: HEPARIN SODIUM 1,000 UN/ML (10ML VL) IV PRN (11:20)
[2024-08-22 11:21] LABS: Glucose,Whole Blood 173 mg/dL (70-110)
[2024-08-22 12:36] LABS: Basophils # (A) 0.02 10*3/uL (0.00-0.10); Basophils % (A) 0.3 %; Eosinophils # (A) 0.07 10*3/uL (0.04-0.35); Eosinophils % (A) 1.1 %; HCT 44.1 % (37.2-46.3); HGB 14.5 g/dL (12.0-15.0); Lymphocytes # (A) 2.56 10*3/uL (0.90-5.00); Lymphocytes % (A) 38.9 %; MCHC 32.9 g/dL (32.0-37.0); MCV 88.2 fL (80.0-97.0); Mean Platelet Volume 9.7 fL (9.5-12.2); Monocytes # (A) 0.64 10*3/uL (0.20-1.00); Monocytes % (A) 9.7 %; Neutrophils # (A) 3.28 10*3/uL (1.80-7.70); Neutrophils % (A) 49.8 %; Platelet Count 207 10*3/uL (140-440); RDW 13.4 % (11.5-14.5); WBC 6.58 10*3/uL (4.50-10.00)
[2024-08-22 13:06] LABS: Partial Thromboplastin Time 23.6 sec (22.0-30.0); Prothrombin Time 10.8 sec (10.0-12.5)
[2024-08-22] MEDS: HEPARIN SODIUM 1,000 UN/ML (10ML VL) IV ONE (14:38)
[2024-08-22] MEDS: HEPARIN SOD,PORK IN 0.45% NACL 25,000 UNIT in 0.45% NACL 1 250ML.BAG IV SCH (14:44)
--- NOTE | 2024-08-22 15:46 | P.PN ---
Subjective Progress Note Date: 08/22/24 On 09/17/2024, the patient is being seen for a preoperative pulmonary clearance as the patient is scheduled to undergo off-pump coronary bypass surgery. As stated, the patient is known to have coronary artery disease. The patient has undergone previous coronary stenting/PCI and the patient has multiple risk factors including hypertension, hyperlipidemia and insulin-dependent diabetes mellitus. She is a former smoker.She presented to [facility] emergency room with complaints of chest pain and slight shortness of breath with activity which had been present intermittently for the last month, states symptoms were similar to when she previously had blockages and PCI. Lab work in the emergency room revealed WBC 7.4, hemoglobin 14.8, creatinine 1.22, AST 49, ALT 54, BNP 146, initial troponin negative but subsequent troponin elevation from 0.26 up to 4.51. EKG revealed sinus rhythm with left bundle branch block. Patient also had elevated blood pressure 195/84 with initial presentation to the emergency room. Chest x-ray revealed no acute process. She was ruled in for non-STEMI and admitted to the cardiac stepdown unit with consultation placed to cardiology. The patient was recommended to undergo heart catheterization which was completed by Dr. Liang revealing mid LAD stenosis 85%, circumflex stenosis 80%, RCA stenosis 95% the patient has no respiratory difficulties. No cough sputum production chest tightness or wheezing. A bedside spirometry was done and the patient's FEV1 was in order of 73% of predicted. The patient also had a CAT scan of the chest that was done on 08/20/2024 and the CAT scan showed mild atherosclerotic calcification of the thoracic aorta and there was no acute cardiopulmonary abnormalities noted. The patient is currently on room air oxygen. Pulse ox 95%. She has good exercise capacity and she is using the incentive spirometer for now. Electrolytes are all stable. BUN is 23 with a creatinine of 1.1. The hemoglobin is at 13.2. The white cell count is at 7.8. On 08/22/2024, the patient had some exertional chest pain. She has no chest pain at rest. She is hemodynamically stable. She was started back on IV heparin. She is awaiting her coronary bypass surgery to be done tomorrow morning. The white cell count at 6.4 and a hemoglobin of 14.7 and platelet count of 210. Normal coagulation profile. BUN is 21 with a creatinine of 1.07 and normal electrolytes. She remains on aspirin. She remains on beta-blockers and IV heparin. Cardiology on the case. Cardiothoracic surgery is also on the case. Echo was also noted and the patient has a preserved LV function without any significant valvular abnormalities. Objective - Vital Signs Vital signs: Vital Signs Temp 97.9 F 08/21/24 20:00 Pulse 67 08/22/24 02:00 Resp 16 08/22/24 02:00 BP 123/73 08/22/24 02:00 Pulse Ox 95 08/22/24 02:00 FiO2 Intake & Output 08/21/24 08/22/24 08/22/24 18:59 06:59 18:59 Intake Total 420 Balance 420 Weight 72.8 kg Intake: Oral 420 Other: Voiding Method Toilet Toilet # Voids 2 2 # Bowel Movements 0 0 - Exam The patient appeared well nourished and normally developed. Vital signs as documented. Head exam is unremarkable. No scleral icterus or corneal arcus noted. Neck is without jugular venous distension, thyromegaly, or carotid bruits. Carotid upstrokes are brisk bilaterally. Lungs are clear to auscultation and percussion. Cardiac exam reveals the PMI to be normally sized and situated. Rhythm is regular. First and second heart sounds normal. No murmurs, rubs or gallops. Abdominal exam reveals normal bowel sounds, no masses, no organomegaly and no aortic enlargement. Extremities are nonedematous and both femoral and pedal pulses are normal. Examination of the skin revealed no evidence of significant rashes, suspicious appearing nevi or other concerning lesions. Neurologically, the patient is awake and alert and the patient does not have any focal neurological deficit. Cranial nerves are essentially intact. - Labs CBC & Chem 7: 08/22/24 12:15 08/22/24 06:59 Labs: Abnormal Lab Results - Last 24 Hours (Table) 08/21/24 08/21/24 08/21/24 Range/Units 11:44 17:01 19:58 BUN (7-17) mg/dL Creatinine (0.52-1.04) mg/dL Glucose (74-99) mg/dL POC Glucose (mg/dL) 178 H 202 H 216 H (70-110) mg/dL AST (14-36) U/L ALT (4-34) U/L Crossmatch 08/22/24 08/22/24 08/22/24 Range/Units 06:59 06:59 09:25 BUN 21 H (7-17) mg/dL Creatinine 1.07 H (0.52-1.04) mg/dL Glucose 114 H (74-99) mg/dL POC Glucose (mg/dL) (70-110) mg/dL AST 126 H (14-36) U/L ALT 261 H (4-34) U/L Crossmatch See Detail Assessment and Plan Plan: The cardiac catheterization was noted and the patient was found to have significant disease involving the mid LAD, 85%, 80% circumflex lesion, 95% RCA lesion and the patient is scheduled to undergo off-pump coronary artery bypass surgery. Hemodynamically stable. Cardiopulmonary status is stable. Echoc ardiogram is still pending. Hypertension Hyperlipidemia History of skin cancer Chronic stage II kidney disease with a GFR of 45 Plan Awaiting coronary artery bypass surgery in a.m. Remains on IV heparin. Exertional chest pain. No chest pain at rest. Overall pulmonary status is stable. CAT scan shows no acute abnormalities. FEV1 is in order of 73% of predicted. No pulmonary contraindications for surgery. Will manage the ventilator. Anticipate no significant postoperative pulmonary complications. Will manage the ventilator and will continue to follow. Continue the patient on aspirin, IV heparin and the patient is on metoprolol 25 mg twice daily Continue Lantus 60 units daily and sliding scale coverage IV fluids, normal saline at rate of 75 cc an hour and monitor the creatinine. Lipitor 40 g p.o. daily Echocardiogram was also completed on 08/24/2024 and the patient was found to have a preserved LV function with an EF of around 55 to 60%, there is moderate increase in the posterior LV wall thickness, normal LV cavity, RVSP of 37 without any other acute abnormalities or valvular disease.
[2024-08-22 16:39] LABS: Glucose,Whole Blood 169 mg/dL (70-110)
--- NOTE | 2024-08-22 17:39 | P.PN ---
Progress Note - Text Progress Note Date: 08/22/24 Chief Complaint: Chest pain This is a pleasant 83-year-old patient who follows with Dr. Eric Fuentes. Patient was seen in bay #10 n in the extended unit. Chronic medical conditions include CAD with stent, diabetes, hypertension, hyperlipidemia. Patient last had a cardiac catheterization with stent in 2004. She was following with surveyor hydrographic Dr. JIM Roberts. Patient will close 2 months has been having chest pain on and off. Some progression. Yesterday it became rather significant. Also short of breath. Rest. No radiation. No edema. Decided to come in. Patient ruled in with an acute TN with troponin peaking to 4.5 this morning. This morning underwent cardiac catheterization that showed significant disease. Formal dictation not available. Cardiothoracic team was consulted. Currently no chest pain. Patient daughter, grandson, niece present. August 21: Patient been having intermittent chest pains. On nitroglycerin drip. IV heparin drip. Scheduled for coronary bypass on . Acute bump in LFTs. Hold Lipitor. August 22: Occasionally getting some chest pain. Coronary bypass tomorrow. IV heparin. Social history: Lives with her son. Stop smoking 30 years ago. Physical examination: VITAL SIGNS: 98.9, 73, 18, 156/69, 98% room GENERAL: BMI 25.7, up in bed EYES: Pupils equal. Conjunctiva tae l. HEENT: External appearance of nose and ears normal, oral cavity grossly normal. NECK: JVD not raised; masses not palpable. HEART: First and second heart sounds are normal; no edema. LUNGS: Respiratory rate normal; clear to auscultation. ABDOMEN: Soft, nontender, liver spleen not palpable, no masses palpable. PSYCH: Alert and oriented x3; mood and affect slightly anxious MUSCULOSKELETAL:No Clubbing/cyanosis;muscles-grossly intact. OA INVESTIGATIONS, reviewed in the clinical context: aug 21: White count 7.8 hemoglobin 13.2 potassium 4.5 BUN 23 creatinine 1.5 AST 266 ALT 355 August 19: White count 7.4 hemoglobin 14.8 platelets 224 sodium 139 potassium 4.6 BUN 29 creatinine 1.22 Troponin I less than 0.012, 0.260, 1.6, 4.5 LDL 94.7 UA protein 2+ EKG tracing personally reviewed by me-sinus rhythm. Left bundle soraya block Chest x-ray film personally reviewed by me-some cardiomegaly Assessment plan: - Acute non-Q wave TN in a patient with known coronary artery disease prior stent in 2004 IV heparin. Aspirin, Lopressor, Lipitor - Postinfarct angina continues IV heparin. IV nitroglycerin drip - Severe coronary artery disease per cardiac catheterization. . Cardiothoracic: Scheduled for bypass this - Acute hepatitis likely drug-induced Hold Lipitor for now.-Repeat lab - Essential hypertension Lopressor 25 mg twice daily - IV heparin monitoring per protocol - IV nitroglycerin drip - Hyperlipidemia Lipitor 80 mg a day-held because of increased LFT - Diabetes mellitus type 2, chronically on insulin Accu-Cheks with sliding scale insulin. Lantus 60 units subcu nightly. Sliding scale with coverage. Hold glipizide. - Anxiety not otherwise specified Xanax as needed - Chronic kidney disease, stage III likely diabetic nephropathy and hypertensive nephrosclerosis Follow renal function - Primary osteoarthritis Tylenol as needed -Full code Discussed with patient Past Medical History Past Medical History: Coronary Artery Disease (CAD), Diabetes Mellitus, Hyperlipidemia, Hypertension History of Any Multi-Drug Resistant Organisms: None Reported Past Surgical History: Cholecystectomy, Heart Catheterization With Stent Past Psychological History: Anxiety Smoking Status: Former smoker Past Alcohol Use History: None Reported Past Drug Use History: None Reported
[2024-08-22 19:57] LABS: Glucose,Whole Blood 197 mg/dL (70-110)
[2024-08-22] MEDS: ATORVASTATIN 40 MG TAB PO SCH (20:35)
[2024-08-22] MEDS: INSULIN GLARGINE (LANTUS) 100 UNIT/ML SYR SQ SCH (20:35)
[2024-08-22] MEDS: MUPIROCIN 2% OINT 22 GM TUBE NASAL SCH (21:06)
[2024-08-23 02:28] LABS: Glucose,Whole Blood 113 mg/dL (70-110)
[2024-08-23] MEDS ORDERED: NITROGLYCERIN-D5W PMX 25 MG/250 ML BTL IV ONE (05:00)
[2024-08-23] MEDS ORDERED: MAGNESIUM SULFATE 16.24 MEQ in EMPTY SYRINGE 1 SYR IV ONE (05:00)
[2024-08-23] MEDS ORDERED: ALBUMIN HUMAN 5% 500 ML in EMPTY BAG 1 BAG IVPB ONE ×6 (05:00)
[2024-08-23] MEDS ORDERED: PHENYLEPHRINE 40 MG in SODIUM CHLORIDE 0.9% 250 ML IV ONE (05:00)
[2024-08-23] MEDS ORDERED: PAPAVERINE 360 MG in SODIUM CHLORIDE 0.9% 90 ML IV ONE (05:00)
[2024-08-23] MEDS ORDERED: DILTIAZEM 125 MG in DEXTROSE 5% IN WATER 100 ML IV SCH (05:00)
[2024-08-23] MEDS ORDERED: ALBUMIN HUMAN 25% 50 ML in EMPTY BAG 1 BAG IVPB ONE (05:00)
[2024-08-23] MEDS ORDERED: NITROGLYCERIN-D5W PMX 50 MG in DEXTROSE/WATER 1 250ML.BAG IV SCH (05:00)
[2024-08-23] MEDS ORDERED: SODIUM BICARB 8.4% 50 ML SYR (1 MEQ/ML) IV ONE (05:00)
[2024-08-23] MEDS ORDERED: CLEVIDIPINE BUTYRATE 25 MG in EMPTY BAG 1 BAG IV SCH (05:00)
[2024-08-23] MEDS ORDERED: PROTAMINE SULFATE 10 MG/ML 25 ML VIAL IV ONE (05:00)
[2024-08-23] MEDS ORDERED: PROTAMINE SULFATE 250 MG in EMPTY BAG 1 BAG IV ONE (05:00)
[2024-08-23] MEDS ORDERED: CALCIUM CHLORIDE 100 MG/ML 10 ML SYRINGE IVP ONE (05:00)
[2024-08-23] MEDS ORDERED: CHLORHEXIDINE GLUCONATE 15 ML CUP MUCOUS MEM ONE (05:00)
[2024-08-23] MEDS ORDERED: MANNITOL 25% 12.5 GM/50 ML VIAL IV ONE ×2 (05:00)
[2024-08-23] MEDS ORDERED: NOREPINEPHRINE 4 MG in SODIUM CHLORIDE 0.9% 250 ML IV SCH (05:00)
[2024-08-23] MEDS ORDERED: HEPARIN SODIUM,PORCINE (1 ML) 5,000 UNIT in SODIUM CHLORIDE 0.9% 500 ML 500 ML IV ONE (05:00)
[2024-08-23] MEDS ORDERED: ceFAZolin 2 GM in DEXTROSE 5% IN WATER 50 ML IVPB ONE ×2 (05:00)
[2024-08-23] MEDS ORDERED: HEPARIN SODIUM 1,000 UN/ML (10ML VL) IV ONE (05:00)
[2024-08-23] MEDS ORDERED: TRANEXAMIC ACID 2,000 MG in SODIUM CHLORIDE 0.9% 80 ML IV ONE (05:00)
[2024-08-23] MEDS ORDERED: ceFAZolin 1,000 MG in SODIUM CHLORIDE 0.9% IRRIGATIO 1,000 ML IRRIGATION ONE (05:00)
[2024-08-23] MEDS: ASPIRIN 325 MG TAB PO ONE (05:02)
[2024-08-23] MEDS: ATORVASTATIN 10 MG TAB PO ONE (05:02)
[2024-08-23] MEDS: METOPROLOL TARTRATE 12.5 MG TAB PO ONE (05:02)
[2024-08-23] MEDS ORDERED: PHENYLEPHRINE 10 MG/ML VIAL IV ONE (06:00)
[2024-08-23 06:03] LABS: Glucose,Whole Blood 112 mg/dL (70-110)
[2024-08-23 06:21] LABS: Basophils # (A) 0.02 10*3/uL (0.00-0.10); Basophils % (A) 0.3 %; Eosinophils # (A) 0.08 10*3/uL (0.04-0.35); Eosinophils % (A) 1.2 %; HCT 42.6 % (37.2-46.3); HGB 14.1 g/dL (12.0-15.0); Lymphocytes # (A) 2.97 10*3/uL (0.90-5.00); Lymphocytes % (A) 42.7 %; MCH 28.8 pg (27.0-32.0); MCHC 33.1 g/dL (32.0-37.0); MCV 87.1 fL (80.0-97.0); Mean Platelet Volume 9.9 fL (9.5-12.2); Monocytes # (A) 0.77 10*3/uL (0.20-1.00); Monocytes % (A) 11.1 %; Neutrophils % (A) 44.6 %; Platelet Count 212 10*3/uL (140-440); RBC 4.89 10*6/uL (4.10-5.20); RDW 13.2 % (11.5-14.5); WBC 6.95 10*3/uL (4.50-10.00)
[2024-08-23 06:35] LABS: INR 1.1 (<1.2); Prothrombin Time 11.6 sec (10.0-12.5)
[2024-08-23 07:07] LABS: ALT 180 U/L (4-34); AST 87 U/L (14-36); African American GFR (CKD) 57 (>60 ml/min/1.73 sqM); Albumin 3.7 g/dL (3.5-5.0); Alkaline Phosphatase 103 U/L (38-126); Anion Gap 8 mmol/L; Blood Urea Nitrogen 25 mg/dL (7-17); Calcium 9.8 mg/dL (8.4-10.2); Carbon Dioxide 28 mmol/L (22-30); Chloride 103 mmol/L (98-107); Glucose 113 mg/dL (74-99); Non-African American GFR(CKD) 49 (>60 ml/min/1.73 sqM); Potassium 4.3 mmol/L (3.5-5.1); Sodium 139 mmol/L (137-145); Total Bilirubin 0.6 mg/dL (0.2-1.3); Total Protein 6.5 g/dL (6.3-8.2)
[2024-08-23 11:33] LABS: Glucose,Whole Blood 106 mg/dL (70-110)
[2024-08-23 12:05] LABS: Glucose,Whole Blood 109 mg/dL (70-110)
[2024-08-23] MEDS: IV FLUID CONTINUATION 1,000 ML IV ONE (12:05)
[2024-08-23] MEDS ORDERED: ALBUTEROL HFA INHALER INHALATION ONE (13:20)
[2024-08-23] MEDS ORDERED: HEPARIN SODIUM,PORCINE 10,000 UNIT/ML 1 ML VIAL ONE (13:20)
[2024-08-23] MEDS ORDERED: NITROGLYCERIN-D5W PMX 50 MG/250 ML BOTTLE IV ONE (13:20)
[2024-08-23] MEDS ORDERED: fentaNYL (PF) 50 MCG/ML 50 ML VIAL ONE (13:20)
[2024-08-23] MEDS ORDERED: PROPOFOL 10 MG/ML 20 ML VIAL IV ONE (13:20)
[2024-08-23] MEDS ORDERED: ALBUMIN HUMAN 5% (25gm) 500 ML VIAL IVPB ONE (13:20)
[2024-08-23] MEDS ORDERED: LABETALOL 5 MG/ML VIAL MDV ONE (13:20)
[2024-08-23] MEDS ORDERED: MIDAZOLAM HCL 10 MG/10 ML VIAL ONE (13:20)
[2024-08-23] MEDS ORDERED: VECURONIUM 10 MG VIAL IV ONE (13:20)
[2024-08-23] MEDS ORDERED: PROTAMINE SULFATE 10 MG/ML 5 ML VIAL ONE (13:20)
[2024-08-23] MEDS ORDERED: HEPARIN SODIUM,PORCINE 5,000 UNIT/ML 1 ML VIAL ONE (13:20)
[2024-08-23] MEDS ORDERED: INSULIN REGULAR 100 UNIT/ML VIAL (IV) ONE (13:20)
[2024-08-23] MEDS: SODIUM CHLORIDE 0.9% 100 ML with ceFAZolin 2,000 MG IV ONE (13:40)
[2024-08-23 14:23] LABS: ABG Base Excess 0.2 mmol/L; ABG HCO3 25 mmol/L (21-25); ABG Hematocrit 36 % (34.0-46.0); ABG Ionized Calcium 4.8 mg/dL (4.5-5.3); ABG Oxygen Saturation 99.3 % (94-97); ABG PCO2 39 mmHg (35-45); ABG PH 7.42 (7.35-7.45); ABG PO2 213 mmHg (83-108); ABG Sodium Whole Blood 141 mmol/L (135-146); ABG TCO2 23 mmol/L (19-24)
[2024-08-23] MEDS: SODIUM CHLORIDE 0.9% 500 ML 500 ML with HEPARIN SODIUM,PORCINE (1 ML) 5,000 UNIT IV ONE (14:32)
[2024-08-23] MEDS: ceFAZolin 1,000 MG in SODIUM CHLORIDE 0.9% 1,000 ML IRRIGATION ONE (14:34)
[2024-08-23] MEDS: PAPAVERINE 360 MG in SODIUM CHLORIDE 0.9% 90 ML IV ONE (14:34)
[2024-08-23 15:27] LABS: ABG HCO3 25 mmol/L (21-25); ABG Hematocrit 36 % (34.0-46.0); ABG Ionized Calcium 4.9 mg/dL (4.5-5.3); ABG Oxygen Saturation 98.6 % (94-97); ABG PCO2 54 mmHg (35-45); ABG PH 7.28 (7.35-7.45); ABG PO2 187 mmHg (83-108); ABG Potassium Whole Blood 3.1 mmol/L (3.4-4.5); ABG Sodium Whole Blood 143 mmol/L (135-146); ABG TCO2 24 mmol/L (19-24)
[2024-08-23 15:50] LABS: ABG Base Excess -4.2 mmol/L; ABG HCO3 22 mmol/L (21-25); ABG Hematocrit 30 % (34.0-46.0); ABG Ionized Calcium 5.4 mg/dL (4.5-5.3); ABG Oxygen Saturation 99.2 % (94-97); ABG PCO2 43 mmHg (35-45); ABG PH 7.31 (7.35-7.45); ABG PO2 276 mmHg (83-108); ABG Sodium Whole Blood 143 mmol/L (135-146); ABG TCO2 21 mmol/L (19-24)
[2024-08-23 16:24] LABS: ABG Base Excess -4.2 mmol/L; ABG HCO3 21 mmol/L (21-25); ABG Hematocrit 25 % (34.0-46.0); ABG Ionized Calcium 4.8 mg/dL (4.5-5.3); ABG Oxygen Saturation 99.3 % (94-97); ABG PCO2 41 mmHg (35-45); ABG PH 7.33 (7.35-7.45); ABG PO2 359 mmHg (83-108); ABG Potassium Whole Blood 3.5 mmol/L (3.4-4.5); ABG Sodium Whole Blood 142 mmol/L (135-146); ABG TCO2 21 mmol/L (19-24)
[2024-08-23 16:41] LABS: ABG Glucose Whole Blood 105 mg/dL (75-99)
[2024-08-23 16:42] LABS: ABG Glucose Whole Blood 136 mg/dL (75-99); ABG Lactic Acid Whole Blood 1.3 mmol/L (0.5-1.6)
[2024-08-23 16:43] LABS: ABG Glucose Whole Blood 145 mg/dL (75-99); ABG Lactic Acid Whole Blood 2.2 mmol/L (0.5-1.6); ABG Potassium Whole Blood 2.9 mmol/L (3.4-4.5)
[2024-08-23 16:45] LABS: ABG Glucose Whole Blood 148 mg/dL (75-99); ABG Lactic Acid Whole Blood 1.5 mmol/L (0.5-1.6)
[2024-08-23 17:04] LABS: ABG HCO3 22 mmol/L (21-25); ABG Hematocrit 28 % (34.0-46.0); ABG Ionized Calcium 5.3 mg/dL (4.5-5.3); ABG Oxygen Saturation 99.3 % (94-97); ABG PCO2 42 mmHg (35-45); ABG PH 7.33 (7.35-7.45); ABG PO2 273 mmHg (83-108); ABG Potassium Whole Blood 3.9 mmol/L (3.4-4.5); ABG Sodium Whole Blood 141 mmol/L (135-146); ABG TCO2 21 mmol/L (19-24)
[2024-08-23 17:09] LABS: ABG Glucose Whole Blood 174 mg/dL (75-99); ABG Lactic Acid Whole Blood 2.1 mmol/L (0.5-1.6)
[2024-08-23 17:37] LABS: ABG Base Excess -4.6 mmol/L; ABG HCO3 21 mmol/L (21-25); ABG Hematocrit 26 % (34.0-46.0); ABG Ionized Calcium 5.1 mg/dL (4.5-5.3); ABG Oxygen Saturation 98.9 % (94-97); ABG PCO2 41 mmHg (35-45); ABG PH 7.32 (7.35-7.45); ABG PO2 151 mmHg (83-108); ABG Potassium Whole Blood 3.8 mmol/L (3.4-4.5); ABG Sodium Whole Blood 142 mmol/L (135-146); ABG TCO2 20 mmol/L (19-24)
[2024-08-23] MEDS ORDERED: Potassium Replacement Protocol 1 EACH MISC MISCELLANE PRN (17:43)
[2024-08-23] MEDS ORDERED: DEXTROSE 50% SYRINGE 50 ML IVP PRN ×2 (17:43)
[2024-08-23] MEDS ORDERED: AMIODARONE 450 MG in DEXTROSE 5% IN WATER 250 ML IV PRN (17:43)
[2024-08-23] MEDS ORDERED: METOCLOPRAMIDE 5 MG/ML 2 ML VIAL IVP PRN (17:43)
[2024-08-23] MEDS ORDERED: IPRATROPIUM-ALBUTEROL 3 ML NEB INHALATION PRN (17:43)
[2024-08-23] MEDS ORDERED: hydrALAZINE HCL 20 MG/ML 1 ML VIAL IVP PRN (17:43)
[2024-08-23] MEDS ORDERED: Magnesium Replacement Protocol 1 EACH MISC MISCELLANE PRN (17:43)
[2024-08-23] MEDS ORDERED: DEXTROSE 5% IN WATER 100 ML with AMIODARONE 150 MG IV PRN (17:43)
[2024-08-23] MEDS ORDERED: CLEVIDIPINE BUTYRATE 25 MG in EMPTY BAG 1 BAG IV PRN (17:43)
[2024-08-23] MEDS ORDERED: CALCIUM GLUCONATE IN NACL 2 GM in SALINE 1 100ML.BAG IVPB PRN (17:43)
[2024-08-23] MEDS ORDERED: DEXMEDETOMIDINE/0.9% NACL(PMX) 400 MCG in EMPTY BAG 1 BAG IV SCH (17:43)
[2024-08-23] MEDS ORDERED: AMIODARONE 360 MG in DEXTROSE 5% IN WATER 200 ML IV PRN (17:43)
[2024-08-23 17:44] LABS: ABG Glucose Whole Blood 170 mg/dL (75-99)
[2024-08-23 17:45] LABS: ABG Lactic Acid Whole Blood 2.3 mmol/L (0.5-1.6)
[2024-08-23 18:14] LABS: ABG Base Excess -3.5 mmol/L; ABG HCO3 22 mmol/L (21-25); ABG Hematocrit 26 % (34.0-46.0); ABG Ionized Calcium 5.4 mg/dL (4.5-5.3); ABG Oxygen Saturation 98.3 % (94-97); ABG PCO2 43 mmHg (35-45); ABG PH 7.33 (7.35-7.45); ABG PO2 108 mmHg (83-108); ABG Potassium Whole Blood 4.3 mmol/L (3.4-4.5); ABG Sodium Whole Blood 139 mmol/L (135-146); ABG TCO2 22 mmol/L (19-24)
[2024-08-23 18:16] LABS: ABG Glucose Whole Blood 193 mg/dL (75-99)
[2024-08-23 18:17] LABS: ABG Lactic Acid Whole Blood 2.3 mmol/L (0.5-1.6)
[2024-08-23] MEDS: SODIUM CHLORIDE 0.9% 1,000 ML IV SCH (18:57)
[2024-08-23] MEDS: INSULIN REGULAR 100 UNIT in SODIUM CHLORIDE 0.9% 100 ML IV SCH ×2 (18:57)
[2024-08-23] MEDS: NITROGLYCERIN-D5W PMX 50 MG in DEXTROSE/WATER 1 250ML.BAG IV SCH (18:57)
[2024-08-23 19:14] LABS: Glucose,Whole Blood 225 mg/dL (70-110)
--- NOTE | 2024-08-23 19:16 | P.OP ---
Date of Procedure: 08/23/24 Preoperative Diagnosis: Coronary artery disease, non-ST elevation DC, unstable angina Postoperative Diagnosis: Same Procedure(s) Performed: Off-pump coronary artery bypass grafting x 5 with sequential LEÓN to diagonal LAD, saphenous vein graft to PDA, sequential saphenous vein graft to 1st and 2nd obtuse marginal, occlusion left atrial appendage with 35 mm AtriCure clip, bilateral lower extremity endoscopic saphenectomy, percutaneous right femoral arterial placement of intra-aortic balloon pump, GISELLA by anesthesia Implants: 35 mm AtriCure clip Anesthesia: STEFANI Surgeon: Adriano Yun Digital Asset Specialist #1: Pranav Lilly Digital Asset Specialist #2: Mando Tyler Pathology: none sent Condition: critical Disposition: ICU Indications for Procedure: 83-year-old female with strong family history of coronary artery disease presents with several year history of anginal symptomatology which had been significantly worsening over the last few months. She ruled in for subendocardial infarction at the time of her presentation and continued to have's unstable angina during her hospitalization prior to surgery. She was admitted on August 19 and went to cardiac catheterization was found to have three- vessel coronary artery disease. Appropriate workup was performed and she was scheduled at the next available time. Unstable angina was controlled with IV heparin. Operative Findings: Initial GISELLA demonstrated reasonable ventricular function with mild mitral regurgitation. Targets were good. Saphenous vein was limited. The thigh vein was good but became small above the knee and was small all the way to the ankle bilaterally. We initially harvested the entire left leg and then we realized we had an adequate vein harvested the right thigh. LEÓN was an excellent conduit. Targets were good. Part way through the case, the patient became ischemic in the lateral wall and he developed significant mitral regurgitation and markedly elevated PA pressures. Patient did not respond to pharmacologic management. Grafts to the diagonal LAD and right coronary artery had already been completed at this time. Intra-aortic balloon pump was placed and the patient's ischemia resolved very quickly. We were then able to complete the grafts to the circumflex. Completion GISELLA demonstrated normal ventricular function with minimal mitral regurgitation. Description of Procedure: Patient was brought to the operating room and placed supine on the operating table. General anesthesia was induced and GISELLA probe was placed. The anterior torso and bilateral lower extremities were sterilely prepped and draped. Greater saphenous vein was harvested from the left leg from ankle to groin using endoscopic technique.. Thigh vein was usable but above the knee down was very small. Simultaneous sternotomy was performed and the left hemisternum retracted upwards. The left internal mammary artery was harvested on a vascularized pedicle and left intact at its origin from the subclavian. It was divided d istally. Left pleural space was drained with a 32 Chinese chest tube. Standard sternal retractor was placed. Pericardium was opened in the midline and the heart was exposed with pericardial sutures. The heart did not respond well to any manipulation. Patient was systemically heparinized and ACT's maintained greater than 250 during grafting. 35 mm AtriCure clip was applied to the base of the left atrial appendage. The LEÓN was tunneled into the pericardial space and appropriately plan for sequential grafting of the diagonal and the LAD. [id number] anastomosis to the diagonal was performed first. The diagonal was opened proximally. It was a 1.75 mm vessel. It excepted a 1.5 mm flow-through without difficulty. [id number] anastomosis of the LEÓN to the diagonal was performed with running 8-0 Prolene suture. On completion the anastomosis flow through was removed effective probing the proximal distal portion of the anastomosis. Suture was tied with good resultant hemostasis. ADONAY pedicle was tacked surrounding subepicardium with 6-0 silk sutures. Next the distal portion of the LEÓN was anastomosed to the LAD. The LAD was stabilized and opened. Was opened in its midportion. It was a 2 mm vessel. Blood flow was controlled with a 2 mm flow-through. End-to-side anastomosis between the LEÓN and the LAD was performed with running 8-0 Prolene suture. On completion the anastomosis flow through was removed effective probing the proximal distal portion of the anastomosis. Suture was tied with good result and hemostasis. Inflow was open. ADONAY pedicle was tacked surrounding epicardium with 6-0 silk sutures. At this point it was recognized that the saphenous vein from the left lower extremity would be inadequate for the remaining grafts. Saphenous vein was harvested from the right thigh using endoscopic harvest technique. While this harvest was proceeding, the inferior wall of the heart was exposed. The PDA was stabilized and opened. Blood flow was controlled with a 1.5 mm flow-through. It was 1.5 mm vessel. End-to-side anastomosis between the left 5 vein and the PDA was performed with running 7-0 Prolene suture. On completion of the anastomosis f low through was removed effectively probing the proximal and distal portion of the anastomosis. Suture was tied with good result and hemostasis. Good backbleeding was noted into the vein graft to the first valve. Heart was lowered in anatomic position. Heartstring device was deployed in the proximal third of the ascending aorta in the midline. Proximal anastomosis was performed using running 5-0 Prolene suture. On completion the proximal anastomosis heartstring device was removed and suture was tied with good resultant hemostasis. The vein graft was de-aired with needle holes and the inflow open. At this point for no particular reason the patient became increasingly ischemic. Her blood pressure dropped and her PA pressures went very high. GISELLA demonstrated fairly significant central mitral regurgitation. We tried to treat this medically without a great deal of success. It was decided to place a balloon pump to stabilize the patient. The right femoral artery was punctured with an 18-gauge needle and a guidewire threaded into the descending thoracic aorta under GISELLA guidance. Balloon pump was placed in the sheathless manner and positioned appropriately and secured with 0 silk sutures to the right thigh. Once the balloon pump was initiated the patient quickly resolved her ischemia and stabilized. MR improved dramatically back to preoperative levels. Saphenous vein from the right thigh was now examined. It was good quality conduit although somewhat short in length. The lateral wall of the heart was now exposed and the patient remained hemodynamically stable. The second obtuse marginal was opened. Blood flow was controlled with a 1.5 mm flow-through. It was 1.5 mm vessel. End-to-side anastomosis between the saphenous vein from the right thigh and the second obtuse marginal was performed with running 7-0 Prolene suture. On completion the anastomosis the flow through was removed effectively probing the proximal distal portion of the anastomosis. Suture was tied with good result hemostasis. Good backbleeding was noted in the vein graft controlled with a bulldog clamp near the anastomosis. Stabilizer was moved to the first obtuse marginal coronary artery. It was opened fairly proximally and blood flow controlled with a 1.5 mm flow-through. It was 1.75 mm vessel. [id number]-mv-[id number] anastomosis between the same piece of saphenous vein and the first obtuse marginal was performed with running 7-0 Prolene suture. On completion the anastomosis the flow through was removed effectively probing the proximal distal portion of the anastomosis. Distal bulldog was removed and placed proximally. The graft was noted to lay well without kinking and more than adequate length between the 1st and 2nd obtuse marginal. The heart was lowered in anatomic position. Vein graft was not adequate in length to reach the ascending aorta but it easily reached the LEÓN. Bulldog clamps were placed proximally and distally on the LEÓN and the vein was cut appropriately. The LEÓN was opened longitudinally as it entered the pericardial space. Side to end anastomosis between the LEÓN and the saphenous vein was performed with running 8-0 Prolene suture. On completion the anastomosis was de-aired by backbleeding and needle holes and the vein graft and the inflow open. Good hemostasis was noted. The graft lay well. Heart was now beating well. Heparin was reversed with protamine. Good hemostasis was obtained throughout. The chest was irrigated with antibiotic solution. The mediastinum was drained with 36 Chinese chest tube. Once good hemostasis had been assured sternum was closed with 8 sternal wires. The fascia was closed with 0 Ethibond. Subcutaneous and subcuticular layers and the legs and chest were closed with layers of Vicryl suture. Dry sterile dressings were applied and the patient was transferred to the ICU in stable condition. She required no inotropes and no blood transfusions.
[2024-08-23 19:36] LABS: ALT 66 U/L (4-34); AST 44 U/L (14-36); African American GFR (CKD) >90 (>60 ml/min/1.73 sqM); Albumin 3.3 g/dL (3.5-5.0); Alkaline Phosphatase 42 U/L (38-126); Anion Gap 11 mmol/L; Blood Urea Nitrogen 18 mg/dL (7-17); Calcium 9.1 mg/dL (8.4-10.2); Carbon Dioxide 20 mmol/L (22-30); Chloride 107 mmol/L (98-107); Glucose 200 mg/dL (74-99); Non-African American GFR(CKD) 80 (>60 ml/min/1.73 sqM); Potassium 3.9 mmol/L (3.5-5.1); Sodium 138 mmol/L (137-145); Total Bilirubin 0.7 mg/dL (0.2-1.3); Total Protein 4.9 g/dL (6.3-8.2)
[2024-08-23 19:41] LABS: INR 1.3 (<1.2); Partial Thromboplastin Time 26.7 sec (22.0-30.0); Prothrombin Time 13.5 sec (10.0-12.5)
[2024-08-23 19:44] LABS: Basophils # (A) 0.03 10*3/uL (0.00-0.10); Basophils % (A) 0.3 %; Eosinophils # (A) 0.02 10*3/uL (0.04-0.35); Eosinophils % (A) 0.2 %; HCT 24.4 % (37.2-46.3); Immature Platelet Fraction 2.4 % (1.1-6.1); Lymphocytes # (A) 2.14 10*3/uL (0.90-5.00); Lymphocytes % (A) 22.2 %; MCV 88.1 fL (80.0-97.0); Mean Platelet Volume 10.1 fL (9.5-12.2); Monocytes # (A) 0.52 10*3/uL (0.20-1.00); Monocytes % (A) 5.4 %; Neutrophils % (A) 71.5 %; RBC 2.77 10*6/uL (4.10-5.20); RDW 13.1 % (11.5-14.5); WBC 9.65 10*3/uL (4.50-10.00)
[2024-08-23] MEDS: ACETAMINOPHEN IV (For NPO) 1,000 MG in EMPTY BAG 1 BAG IVPB SCH (19:45)
[2024-08-23] MEDS: ALBUMIN HUMAN 5% 250 ML in EMPTY BAG 1 BAG IVPB PRN (19:46)
[2024-08-23 19:48] LABS: ABG Base Excess -5.6 mmol/L; ABG HCO3 21 mmol/L (21-25); ABG Oxygen Saturation 99.9 % (94-97); ABG PCO2 48 mmHg (35-45); ABG PH 7.26 (7.35-7.45); ABG PO2 219 mmHg (83-108); ABG TCO2 23 mmol/L (19-24); Allen Test Performed? Yes
--- NOTE | 2024-08-23 19:49 | P.ANPRN ---
Procedure Note - Anesthesia - Invasive Line Right Arterial Line Time Out Performed: Yes Date of Procedure: 08/23/24 Time of Procedure: 12:59 Location of Patient: PreOp Preparation: Sterile Prep, Sterile Dressing Arterial Line Location: Radial Ultrasound Used: No Purpose - Visualization and Identification of Vasculature: No Image Stored and Saved: No Narrative: Invasive line placement per sterile protocol utilized.
--- NOTE | 2024-08-23 19:50 | P.ANPRN ---
Procedure Note - Anesthesia - Invasive Line Right [place] Time Out Performed: Yes Date of Procedure: 08/23/24 Time of Procedure: 13:16 Location of Patient: PreOp Preparation: Sterile Prep, Sterile Dressing Central Line Location: Internal Jugular Ultrasound Used: No Purpose - Visualization and Identification of Vasculature: No Image Stored and Saved: No Narrative: Invasive line placement per sterile protocol utilized.
--- NOTE | 2024-08-23 19:50 | P.ANPRN ---
Procedure Note - Anesthesia - Invasive Line Right Central Line Time Out Performed: Yes Date of Procedure: 08/23/24 Time of Procedure: 13:10 Location of Patient: PreOp Preparation: Sterile Prep, Sterile Dressing Central Line Location: Internal Jugular Ultrasound Used: No Purpose - Visualization and Identification of Vasculature: No Image Stored and Saved: No Narrative: Invasive line placement per sterile protocol utilized.
[2024-08-23 19:59] LABS: Glucose,Whole Blood 215 mg/dL (70-110)
[2024-08-23] MEDS: IPRATROPIUM-ALBUTEROL 3 ML NEB INHALATION SCH (19:59)
--- NOTE | 2024-08-23 20:01 | XR ---
EXAMINATION TYPE: XR chest 1V portable DATE OF EXAM: 08/23/2024 7:22 PM COMPARISON: Chest radiographs from 08/19/2024 CLINICAL INDICATION: Female, 83 years old with history of Post Operative Cardiac Surgery; [facility] TECHNIQUE: XR chest 1V portable Frontal view of the chest. FINDINGS: Lungs/Pleura: Blunting of the left costophrenic angle. There is no evidence of right pleural effusio n, focal consolidation, or pneumothorax Pulmonary vascularity: Pulmonary vascular congestion. Heart/mediastinum: Cardiomediastinal silhouette is unremarkable. Musculoskeletal: No acute osseous pathology. Other findings: None Lines/Tubes: Endotracheal tube with distal tip 1.4 cm above the stan. Nasogastric tube with its distal tip and side-port projecting under the diaphragm. Left thoracotomy tube is present without evidence of pneumothorax. Drainage tubes with tips projecting over the mediastinum. There is a [place]-Keisha catheter with tip projecting over the spine. IMPRESSION: 1. Postsurgical changes lines and tubes as above. 2. Small left pleural effusion and pulmonary edema. [facility], , 08/23/2024 7:59 PM
[2024-08-23 20:15] LABS: HGB 8.3 g/dL (12.0-15.0); Platelet Count 114 10*3/uL (140-440)
[2024-08-23 20:19] LABS: Basophils # (A) 0.02 10*3/uL (0.00-0.10); Basophils % (A) 0.3 %; Eosinophils # (A) 0.01 10*3/uL (0.04-0.35); Eosinophils % (A) 0.1 %; HCT 23.1 % (37.2-46.3); HGB 7.7 g/dL (12.0-15.0); Lymphocytes # (A) 1.18 10*3/uL (0.90-5.00); Lymphocytes % (A) 17.3 %; MCH 29.2 pg (27.0-32.0); MCHC 33.3 g/dL (32.0-37.0); MCV 87.5 fL (80.0-97.0); Mean Platelet Volume 9.7 fL (9.5-12.2); Monocytes # (A) 0.65 10*3/uL (0.20-1.00); Monocytes % (A) 9.5 %; Neutrophils # (A) 4.93 10*3/uL (1.80-7.70); Neutrophils % (A) 72.5 %; Platelet Count 106 10*3/uL (140-440); RBC 2.64 10*6/uL (4.10-5.20); RDW 13.2 % (11.5-14.5); WBC 6.81 10*3/uL (4.50-10.00)
[2024-08-23 20:46] LABS: Glucose,Whole Blood 220 mg/dL (70-110)
[2024-08-23] MEDS: ceFAZolin 2 GM in DEXTROSE 5% IN WATER 50 ML IVPB SCH (21:20)
[2024-08-23] MEDS: SENNOSIDES-DOCUSATE SODIUM 1 EACH TAB PO SCH (21:57)
[2024-08-23 22:00] LABS: Glucose,Whole Blood 213 mg/dL (70-110)
[2024-08-23] MEDS: MUPIROCIN 2% OINT 22 GM TUBE NASAL SCH (23:01)
[2024-08-23 23:06] LABS: Glucose,Whole Blood 202 mg/dL (70-110)
[2024-08-23 23:59] LABS: Basophils # (A) 0.01 10*3/uL (0.00-0.10); Basophils % (A) 0.2 %; HGB 7.4 g/dL (12.0-15.0); Lymphocytes # (A) 0.98 10*3/uL (0.90-5.00); Lymphocytes % (A) 18.4 %; MCH 29.6 pg (27.0-32.0); MCHC 33.6 g/dL (32.0-37.0); Monocytes # (A) 0.33 10*3/uL (0.20-1.00); Monocytes % (A) 6.2 %; Neutrophils # (A) 3.99 10*3/uL (1.80-7.70); Platelet Count 112 10*3/uL (140-440); RDW 13.3 % (11.5-14.5); WBC 5.32 10*3/uL (4.50-10.00)
[2024-08-24 00:03] LABS: Glucose,Whole Blood 191 mg/dL (70-110)
[2024-08-24] MEDS: HEPARIN SODIUM,PORCINE 5,000 UNIT/ML 1 ML VIAL SQ SCH (00:16)
[2024-08-24 00:57] LABS: Glucose,Whole Blood 170 mg/dL (70-110)
[2024-08-24 01:58] LABS: Glucose,Whole Blood 151 mg/dL (70-110)
[2024-08-24 02:59] LABS: Glucose,Whole Blood 136 mg/dL (70-110)
[2024-08-24 03:56] LABS: Glucose,Whole Blood 121 mg/dL (70-110)
[2024-08-24 04:40] LABS: Eosinophils # (A) 0.02 10*3/uL (0.04-0.35); Eosinophils % (A) 0.5 %; HGB 7.9 g/dL (12.0-15.0); Lymphocytes # (A) 0.71 10*3/uL (0.90-5.00); Lymphocytes % (A) 18.5 %; MCHC 34.3 g/dL (32.0-37.0); MCV 87.5 fL (80.0-97.0); Mean Platelet Volume 9.4 fL (9.5-12.2); Monocytes # (A) 0.36 10*3/uL (0.20-1.00); Monocytes % (A) 9.4 %; Neutrophils # (A) 2.74 10*3/uL (1.80-7.70); Neutrophils % (A) 71.3 %; Platelet Count 102 10*3/uL (140-440); RBC 2.63 10*6/uL (4.10-5.20); RDW 13.3 % (11.5-14.5); WBC 3.84 10*3/uL (4.50-10.00)
[2024-08-24 04:56] LABS: Ionized Calcium 4.8 mg/dL (4.5-5.3)
[2024-08-24 05:03] LABS: Glucose,Whole Blood 107 mg/dL (70-110)
[2024-08-24 05:06] LABS: ALT 49 U/L (4-34); AST 47 U/L (14-36); African American GFR (CKD) 80 (>60 ml/min/1.73 sqM); Albumin 3.4 g/dL (3.5-5.0); Alkaline Phosphatase 38 U/L (38-126); Anion Gap 10 mmol/L; Blood Urea Nitrogen 16 mg/dL (7-17); Calcium 8.8 mg/dL (8.4-10.2); Carbon Dioxide 22 mmol/L (22-30); Chloride 105 mmol/L (98-107); Glucose 99 mg/dL (74-99); Magnesium 1.1 mg/dL (1.6-2.3); Non-African American GFR(CKD) 70 (>60 ml/min/1.73 sqM); Potassium 3.7 mmol/L (3.5-5.1); Sodium 137 mmol/L (137-145); Total Bilirubin 0.6 mg/dL (0.2-1.3)
--- NOTE | 2024-08-24 05:46 | XR ---
EXAMINATION TYPE: XR chest 1V portable DATE OF EXAM: 08/24/2024 CLINICAL INDICATION: Female, 83 years old with history of Post Operative Cardiac Surgery, progress [facility]. TECHNIQUE: Single AP portable supine view of the chest is obtained. COMPARISON: Chest x-ray from one day earlier FINDINGS: Stable endotracheal and orogastric tubes. Stable right internal jugular [place]-Keisha catheter . Persistent mediastinal drainage catheter and left-sided chest tube. Overlying sternal wires along w ith mediastinal clips and left atrial appendage clip are all redemonstrated. Persistent cardiomegaly with central vascular congestion. No pneumothorax seen. Osseous structures ar e intact. IMPRESSION: Persistent CHF exacerbation/fluid overload state. No pneumothorax with left-sided chest t ube in place. No significant change from one day earlier. [facility], , 08/24/2024 5:44 AM
[2024-08-24 06:03] LABS: Glucose,Whole Blood 110 mg/dL (70-110)
[2024-08-24 06:22] LABS: ABG Base Excess -1.8 mmol/L; ABG HCO3 22 mmol/L (21-25); ABG Oxygen Saturation 99.3 % (94-97); ABG PCO2 33 mmHg (35-45); ABG PH 7.43 (7.35-7.45); ABG PO2 112 mmHg (83-108); ABG TCO2 23 mmol/L (19-24); Allen Test Performed? Yes
[2024-08-24] MEDS: MAGNESIUM SULFATE-D5W PMX 1 GM in DEXTROSE/WATER 1 100ML.BAG IVPB SCH (06:23)
[2024-08-24] MEDS: POTASSIUM BICARBONATE/CIT AC 20 MEQ TABLET.EFF NG-TUBE SCH (06:23)
[2024-08-24 06:58] LABS: Glucose,Whole Blood 148 mg/dL (70-110)
--- NOTE | 2024-08-24 07:21 | P.PN ---
Subjective Progress Note Date: 08/23/24 Principal diagnosis: Acute non-ST elevation CT, multivessel coronary artery disease On 08/21/2024, the patient is being seen for a preoperative pulmonary clearance as the patient is scheduled to undergo off-pump coronary bypass surgery. As stated, the patient is known to have coronary artery disease. The patient has undergone previous coronary stenting/PCI and the patient has multiple risk factors including hypertension, hyperlipidemia and insulin-dependent diabetes mellitus. She is a former smoker.She presented to [facility] emergency room with complaints of chest pain and slight shortness of breath with activity which had been present intermittently for the last month, states symptoms were similar to when she previously had blockages and PCI. Lab work in the emergency room revealed WBC 7.4, hemoglobin 14.8, creatinine 1.22, AST 49, ALT 54, BNP 146, initial troponin negative but subsequent troponin elevation from 0.26 up to 4.51. EKG revealed sinus rhythm with left bundle branch block. Patient also had elevated blood pressure 195/84 with initial presentation to the emergency room. Chest x-ray revealed no acute process. She was ruled in for non-STEMI and admitted to the cardiac stepdown unit with consultation placed to cardiology. The patient was recommended to undergo heart catheterization which was completed by Dr. Liang revealing mid LAD stenosis 85%, circumflex stenosis 80%, RCA stenosis 95% the patient has no respiratory difficulties. No cough sputum production chest tightness or wheezing. A bedside spirometry was done and the patient's FEV1 was in order of 73% of predicted. The patient also had a CAT scan of the chest that was done on 08/20/2024 and the CAT scan showed mild atherosclerotic calcification of the thoracic aorta and there was no acute cardiopulmonary abnormalities noted. The patient is currently on room air oxygen. Pulse ox 95%. She has good exercise capacity and she is using the incentive spirometer for now. Electrolytes are all stable. BUN is 23 with a creatinine of 1.1. The hemoglobin is at 13.2. The white cell count is at 7.8. On 08/22/2024, the patient had some exertional chest pain. She has no chest pain at rest. She is hemodynamically stable. She was started back on IV heparin. She is awaiting her coronary bypass surgery to be done tomorrow morning. The white cell count at 6.4 and a hemoglobin of 14.7 and platelet count of 210. Normal coagulation profile. BUN is 21 with a creatinine of 1.07 and normal electrolytes. She remains on aspirin. She remains on beta-blockers and IV heparin. Cardiology on the case. Cardiothoracic surgery is also on the case. Echo was also noted and the patient has a preserved LV function without any significant valvular abnormalities.44 I am seeing this patient on 08/23/2024 in follow-up following an off-pump coronary artery bypass grafting x 5 with sequential LEÓN to diagonal LAD, saphenous vein graft to PDA, sequential saphenous vein graft to 1st and 2nd obtuse marginal, occlusion left atrial appendage with 35 mm AtriCure clip, bi lateral lower extremity endoscopic saphenectomy, GISELLA by anesthesia. Intraoperatively, patient reportedly became ischemic in the lateral wall and he developed significant mitral regurgitation and markedly elevated PA pressures. An IABP was placed. Patient currently being seen in the intensive care unit, remains intubated mechanical ventilator. Postoperative ABGs including a PaO2 of 219, pCO2 48, pH of 7.26. This was done on ventilator settings including assist-control, respiratory rate 16, tidal volume 400, FiO2 100%, PEEP of 5. Dr. Gomez was previously present at bedside, and made ventilator adjustments including increasing the respiratory rate to 20 and dropping the FiO2 down to 60%. Propofol infusing at 30 mcg/kg/min. Insulin fusion per protocol. Nitroglycerin infusing at 10 mics per minute. Normal saline infusing at 50 mL/h. Right femoral balloon pump remains in place at 1:1. Augmented pressure 74. Doppler right pedal pulse and palpable left radial pulse. CI 2.6. Urine output is adequate around 40 to 50 cc/h. Postoperative chest x-ray showing endotracheal tube approximately 1.4 cm of the stan and this was withdrawn. Nasogastric tube placed below the diaphragm. Left and mediastinal thoracotomy tubesin place. Chest tubes are hooked to suction at -20 cm H2O. There is approximately 60 cc of drainage from the left pleural chest tube and 65 cc of sanguinous drainage from the mediastinal chest tube. Most recent labs including a CBC with a WBC count of 5.3, hemoglobin 7.4 g/dL, hematocrit 22, platelets 112,000. Postoperative BMP including a sodium 138, potassium 3.9, chloride 107, serum bicarb 20, BUN 18, creatinine 0.72, glucose 200. Calcium 9.1. No attempts at weaning this patient from the ventilator have yet been made. Objective - Vital Signs Vital signs: Vital Signs Temp 99.1 F 08/24/24 04:00 Pulse 76 08/24/24 06:15 Resp 20 08/24/24 06:15 BP 175/88 08/23/24 11:55 Pulse Ox 99 08/24/24 06:15 FiO2 40 08/24/24 04:19 Intake & Output 08/23/24 08/23/24 08/24/24 06:59 18:59 06:59 Intake Total 199.657 983.381 8687.398 Output Total 1700 1255 Balance 199.657 -1381.598 -33.602 Weight 72.3 kg 80.2 kg Intake: IV 153 1020 Albumin Human 5% 250 ml 250 In Empty Bag 1 bag @ 250 mls/hr IVPB Q1HR PRN Rx#: [id number] CO/CI 120 Sodium Chloride 0.9% 1, 600 000 ml @ 50 mls/hr IV . Q20H [facility] Rx#:[id number] ceFAZolin 2 gm In 50 Dextrose 5% in Water 50 ml @ 100 mls/hr IVPB Q8H [facility] Rx#:[id number] Intake, IV Titration 199.657 165.402 201.398 Amount Heparin Sod,Pork in 0.45% 199.657 NaCl 25,000 unit In 0.45 % NaCl 1 250ml.bag @ 12 UNITS/KG/HR 8.655 mls/hr IV .Q24H [facility] Rx#: [id number] Heparin Sod,Pork in 0.45% 165.402 NaCl 25,000 unit In 0.45 % NaCl 1 250ml.bag @ 12 UNITS/KG/HR 8.736 mls/hr IV .Q24H [facility] Rx#: [id number] Insulin Regular 100 unit 79.500 In Sodium Chloride 0.9% 100 ml @ Per Protocol IV .Q0M [facility] Rx#:[id number] propofoL 1,000 mg In 121.898 Empty Bag 1 bag @ Titrate IV .Q0M [facility] Rx#: [id number] Output: Chest Tube Drainage 300 Left pleural 130 Mediastinal 170 Drainage 40 Left Leg graft site 40 Urine 1100 915 Estimated Blood Loss 600 Other: Voiding Method Toilet Indwelling Catheter # Voids 2 ABP, PAP, CO, CI - Last Documented Arterial Blood Pressure 104/32 Pulmonary Artery Pressure 31/14 Cardiac Output 4.2 Cardiac Index 2.3 - Exam GENERAL EXAM: Sedated 83-year-old female, intubated mechanical ventilator, status post open heart surgery. HEAD: Normocephalic and atraumatic EYES: Normal reaction of pupils, equal size. NOSE: Clear with pink turbinates. THROAT: No erythema or exudates. NECK: No masses, no JVD. Right IJ cordis. CHEST: No chest wall deformity. 2 thoracotomy tubes attached to atriums and suction at -20 cm H2O. No bubbling in waterseal chamber. LUNGS: Equal air entry with no crackles, wheeze, rhonchi or dullness. Intubated to the mechanical ventilator, synchronous with current ventilator settings. CVS: S1 and S2 normal with no audible murmur, regular rhythm. Artifact heard from IABP ABDOMEN: No hepatosplenomegaly, active bowel sounds, no guarding or rigidity. SPINE: No scoliosis or deformity SKIN: No rashes CENTRAL NERVOUS SYSTEM: Sedated, no focal deficits, tone is normal in all 4 extremities. EXTREMITIES: IABP via right femoral approach, palpable left radial pulse and Doppler right pedal pulse. Right radial arterial line. There is no peripheral edema, clubbing, or cyanosis. Peripheral pulses are intact. - Labs CBC & Chem 7: 08/24/24 04:26 08/24/24 04:26 Labs: Abnormal Lab Results - Last 24 Hours (Table) 08/22/24 08/23/24 08/23/24 Range/Units 06:59 05:41 14:24 WBC (4.50-10.00) 10*3/uL RBC (4.10-5.20) 10*6/uL Hgb (12.0-15.0) g/dL Hct (37.2-46.3) % Plt Count (140-440) 10*3/uL MPV (9.5-12.2) fL Lymphocytes # (0.90-5.00) 10*3/uL Eosinophils # (0.04-0.35) 10*3/uL PT (10.0-12.5) sec INR (<1.2) ABG pH (7.35-7.45) ABG pCO2 (35-45) mmHg ABG pO2 213 H (83-108) mmHg ABG O2 Saturation 99.3 H (94-97) % ABG Hematocrit (34.0-46.0) % ABG Potassium (3.4-4.5) mmol/L ABG Ionized Calcium (4.5-5.3) mg/dL ABG Glucose 105 H (75-99) mg/dL ABG Lactic Acid (0.5-1.6) mmol/L Hemoglobin (11.4-16.0) gm/dL Carbon Dioxide (22-30) mmol/L BUN 25 H (7-17) mg/dL Creatinine 1.07 H (0.52-1.04) mg/dL Glucose 113 H (74-99) mg/dL POC Glucose (mg/dL) (70-110) mg/dL Magnesium (1.6-2.3) mg/dL AST 87 H (14-36) U/L ALT 180 H (4-34) U/L Total Protein (6.3-8.2) g/dL Albumin (3.5-5.0) g/dL Arterial Blood Potassium (3.4-4.5) mmol/L Arterial Blood Glucose 105 H (75-99) mg/dL Crossmatch See Detail 08/23/24 08/23/24 08/23/24 Range/Units 15:28 15:51 16:25 WBC (4.50-10.00) 10*3/uL RBC (4.10-5.20) 10*6/uL Hgb (12.0-15.0) g/dL Hct (37.2-46.3) % Plt Count (140-440) 10*3/uL MPV (9.5-12.2) fL Lymphocytes # (0.90-5.00) 10*3/uL Eosinophils # (0.04-0.35) 10*3/uL PT (10.0-12.5) sec INR (<1.2) ABG pH 7.28 L 7.31 L 7.33 L (7.35-7.45) ABG pCO2 54 H (35-45) mmHg ABG pO2 187 H 276 H 359 H (83-108) mmHg ABG O2 Saturation 98.6 H 99.2 H 99.3 H (94-97) % ABG Hematocrit 30 L 25 L (34.0-46.0) % ABG Potassium 3.1 L 2.9 L* (3.4-4.5) mmol/L ABG Ionized Calcium 5.4 H (4.5-5.3) mg/dL ABG Glucose 136 H 145 H 148 H (75-99) mg/dL ABG Lactic Acid 2.2 H* (0.5-1.6) mmol/L Hemoglobin 9.9 L 8.1 L (11.4-16.0) gm/dL Carbon Dioxide (22-30) mmol/L BUN (7-17) mg/dL Creatinine (0.52-1.04) mg/dL Glucose (74-99) mg/dL POC Glucose (mg/dL) (70-110) mg/dL Magnesium (1.6-2.3) mg/dL AST (14-36) U/L ALT (4-34) U/L Total Protein (6.3-8.2) g/dL Albumin (3.5-5.0) g/dL Arterial Blood Potassium 3.1 L 2.9 L* (3.4-4.5) mmol/L Arterial Blood Glucose 136 H 145 H 148 H (75-99) mg/dL Crossmatch 08/23/24 08/23/24 08/23/24 Range/Units 17:06 17:38 18:15 WBC (4.50-10.00) 10*3/uL RBC (4.10-5.20) 10*6/uL Hgb (12.0-15.0) g/dL Hct (37.2-46.3) % Plt Count (140-440) 10*3/uL MPV (9.5-12.2) fL Lymphocytes # (0.90-5.00) 10*3/uL Eosinophils # (0.04-0.35) 10*3/uL PT (10.0-12.5) sec INR (<1.2) ABG pH 7.33 L 7.32 L 7.33 L (7.35-7.45) ABG pCO2 (35-45) mmHg ABG pO2 273 H 151 H (83-108) mmHg ABG O2 Saturation 99.3 H 98.9 H 98.3 H (94-97) % ABG Hematocrit 28 L 26 L 26 L (34.0-46.0) % ABG Potassium (3.4-4.5) mmol/L ABG Ionized Calcium 5.4 H (4.5-5.3) mg/dL ABG Glucose 174 H 170 H 193 H (75-99) mg/dL ABG Lactic Acid 2.1 H 2.3 H* 2.3 H* (0.5-1.6) mmol/L Hemoglobin 9.1 L 8.4 L 8.6 L (11.4-16.0) gm/dL Carbon Dioxide (22-30) mmol/L BUN (7-17) mg/dL Creatinine (0.52-1.04) mg/dL Glucose (74-99) mg/dL POC Glucose (mg/dL) (70-110) mg/dL Magnesium (1.6-2.3) mg/dL AST (14-36) U/L ALT (4-34) U/L Total Protein (6.3-8.2) g/dL Albumin (3.5-5.0) g/dL Arterial Blood Potassium (3.4-4.5) mmol/L Arterial Blood Glucose 174 H 170 H 193 H (75-99) mg/dL Crossmatch 08/23/24 08/23/24 08/23/24 Range/Units 19:02 19:02 19:02 WBC (4.50-10.00) 10*3/uL RBC 2.77 L (4.10-5.20) 10*6/uL Hgb 8.3 L D (12.0-15.0) g/dL Hct 24.4 L (37.2-46.3) % Plt Count 114 L (140-440) 10*3/uL MPV (9.5-12.2) fL Lymphocytes # (0.90-5.00) 10*3/uL Eosinophils # 0.02 L (0.04-0.35) 10*3/uL PT 13.5 H (10.0-12.5) sec INR 1.3 H (<1.2) ABG pH (7.35-7.45) ABG pCO2 (35-45) mmHg ABG pO2 (83-108) mmHg ABG O2 Saturation (94-97) % ABG Hematocrit (34.0-46.0) % ABG Potassium (3.4-4.5) mmol/L ABG Ionized Calcium (4.5-5.3) mg/dL ABG Glucose (75-99) mg/dL ABG Lactic Acid (0.5-1.6) mmol/L Hemoglobin (11.4-16.0) gm/dL Carbon Dioxide 20 L (22-30) mmol/L BUN 18 H (7-17) mg/dL Creatinine (0.52-1.04) mg/dL Glucose 200 H (74-99) mg/dL POC Glucose (mg/dL) (70-110) mg/dL Magnesium 1.0 L (1.6-2.3) mg/dL AST 44 H (14-36) U/L ALT 66 H (4-34) U/L Total Protein 4.9 L (6.3-8.2) g/dL Albumin 3.3 L (3.5-5.0) g/dL Arterial Blood Potassium (3.4-4.5) mmol/L Arterial Blood Glucose (75-99) mg/dL Crossmatch 08/23/24 08/23/24 08/23/24 Range/Units 19:12 19:45 19:58 WBC (4.50-10.00) 10*3/uL RBC (4.10-5.20) 10*6/uL Hgb (12.0-15.0) g/dL Hct (37.2-46.3) % Plt Count (140-440) 10*3/uL MPV (9.5-12.2) fL Lymphocytes # (0.90-5.00) 10*3/uL Eosinophils # (0.04-0.35) 10*3/uL PT (10.0-12.5) sec INR (<1.2) ABG pH 7.26 L (7.35-7.45) ABG pCO2 48 H (35-45) mmHg ABG pO2 219 H (83-108) mmHg ABG O2 Saturation 99.9 H (94-97) % ABG Hematocrit (34.0-46.0) % ABG Potassium (3.4-4.5) mmol/L ABG Ionized Calcium (4.5-5.3) mg/dL ABG Glucose (75-99) mg/dL ABG Lactic Acid (0.5-1.6) mmol/L Hemoglobin 8.7 L (11.4-16.0) gm/dL Carbon Dioxide (22-30) mmol/L BUN (7-17) mg/dL Creatinine (0.52-1.04) mg/dL Glucose (74-99) mg/dL POC Glucose (mg/dL) 225 H 215 H (70-110) mg/dL Magnesium (1.6-2.3) mg/dL AST (14-36) U/L ALT (4-34) U/L Total Protein (6.3-8.2) g/dL Albumin (3.5-5.0) g/dL Arterial Blood Potassium (3.4-4.5) mmol/L Arterial Blood Glucose (75-99) mg/dL Crossmatch 08/23/24 08/23/24 08/23/24 Range/Units 20:05 20:46 21:59 WBC (4.50-10.00) 10*3/uL RBC 2.64 L (4.10-5.20) 10*6/uL Hgb 7.7 L (12.0-15.0) g/dL Hct 23.1 L (37.2-46.3) % Plt Count 106 L (140-440) 10*3/uL MPV (9.5-12.2) fL Lymphocytes # (0.90-5.00) 10*3/uL Eosinophils # 0.01 L (0.04-0.35) 10*3/uL PT (10.0-12.5) sec INR (<1.2) ABG pH (7.35-7.45) ABG pCO2 (35-45) mmHg ABG pO2 (83-108) mmHg ABG O2 Saturation (94-97) % ABG Hematocrit (34.0-46.0) % ABG Potassium (3.4-4.5) mmol/L ABG Ionized Calcium (4.5-5.3) mg/dL ABG Glucose (75-99) mg/dL ABG Lactic Acid (0.5-1.6) mmol/L Hemoglobin (11.4-16.0) gm/dL Carbon Dioxide (22-30) mmol/L BUN (7-17) mg/dL Creatinine (0.52-1.04) mg/dL Glucose (74-99) mg/dL POC Glucose (mg/dL) 220 H 213 H (70-110) mg/dL Magnesium (1.6-2.3) mg/dL AST (14-36) U/L ALT (4-34) U/L Total Protein (6.3-8.2) g/dL Albumin (3.5-5.0) g/dL Arterial Blood Potassium (3.4-4.5) mmol/L Arterial Blood Glucose (75-99) mg/dL Crossmatch 08/23/24 08/23/24 08/24/24 Range/Units 22:49 23:05 00:02 WBC (4.50-10.00) 10*3/uL RBC 2.50 L (4.10-5.20) 10*6/uL Hgb 7.4 L (12.0-15.0) g/dL Hct 22.0 L (37.2-46.3) % Plt Count 112 L (140-440) 10*3/uL MPV (9.5-12.2) fL Lymphocytes # (0.90-5.00) 10*3/uL Eosinophils # 0.00 L (0.04-0.35) 10*3/uL PT (10.0-12.5) sec INR (<1.2) ABG pH (7.35-7.45) ABG pCO2 (35-45) mmHg ABG pO2 (83-108) mmHg ABG O2 Saturation (94-97) % ABG Hematocrit (34.0-46.0) % ABG Potassium (3.4-4.5) mmol/L ABG Ionized Calcium (4.5-5.3) mg/dL ABG Glucose (75-99) mg/dL ABG Lactic Acid (0.5-1.6) mmol/L Hemoglobin (11.4-16.0) gm/dL Carbon Dioxide (22-30) mmol/L BUN (7-17) mg/dL Creatinine (0.52-1.04) mg/dL Glucose (74-99) mg/dL POC Glucose (mg/dL) 202 H 191 H (70-110) mg/dL Magnesium (1.6-2.3) mg/dL AST (14-36) U/L ALT (4-34) U/L Total Protein (6.3-8.2) g/dL Albumin (3.5-5.0) g/dL Arterial Blood Potassium (3.4-4.5) mmol/L Arterial Blood Glucose (75-99) mg/dL Crossmatch 08/24/24 08/24/24 08/24/24 Range/Units 00:56 01:57 02:58 WBC (4.50-10.00) 10*3/uL RBC (4.10-5.20) 10*6/uL Hgb (12.0-15.0) g/dL Hct (37.2-46.3) % Plt Count (140-440) 10*3/uL MPV (9.5-12.2) fL Lymphocytes # (0.90-5.00) 10*3/uL Eosinophils # (0.04-0.35) 10*3/uL PT (10.0-12.5) sec INR (<1.2) ABG pH (7.35-7.45) ABG pCO2 (35-45) mmHg ABG pO2 (83-108) mmHg ABG O2 Saturation (94-97) % ABG Hematocrit (34.0-46.0) % ABG Potassium (3.4-4.5) mmol/L ABG Ionized Calcium (4.5-5.3) mg/dL ABG Glucose (75-99) mg/dL ABG Lactic Acid (0.5-1.6) mmol/L Hemoglobin (11.4-16.0) gm/dL Carbon Dioxide (22-30) mmol/L BUN (7-17) mg/dL Creatinine (0.52-1.04) mg/dL Glucose (74-99) mg/dL POC Glucose (mg/dL) 170 H 151 H 136 H (70-110) mg/dL Magnesium (1.6-2.3) mg/dL AST (14-36) U/L ALT (4-34) U/L Total Protein (6.3-8.2) g/dL Albumin (3.5-5.0) g/dL Arterial Blood Potassium (3.4-4.5) mmol/L Arterial Blood Glucose (75-99) mg/dL Crossmatch 08/24/24 08/24/24 08/24/24 Range/Units 03:55 04:26 04:26 WBC 3.84 L (4.50-10.00) 10*3/uL RBC 2.63 L (4.10-5.20) 10*6/uL Hgb 7.9 L (12.0-15.0) g/dL Hct 23.0 L (37.2-46.3) % Plt Count 102 L (140-440) 10*3/uL MPV 9.4 L (9.5-12.2) fL Lymphocytes # 0.71 L (0.90-5.00) 10*3/uL Eosinophils # 0.02 L (0.04-0.35) 10*3/uL PT (10.0-12.5) sec INR (<1.2) ABG pH (7.35-7.45) ABG pCO2 (35-45) mmHg ABG pO2 (83-108) mmHg ABG O2 Saturation (94-97) % ABG Hematocrit (34.0-46.0) % ABG Potassium (3.4-4.5) mmol/L ABG Ionized Calcium (4.5-5.3) mg/dL ABG Glucose (75-99) mg/dL ABG Lactic Acid (0.5-1.6) mmol/L Hemoglobin (11.4-16.0) gm/dL Carbon Dioxide (22-30) mmol/L BUN (7-17) mg/dL Creatinine (0.52-1.04) mg/dL Glucose (74-99) mg/dL POC Glucose (mg/dL) 121 H (70-110) mg/dL Magnesium 1.1 L (1.6-2.3) mg/dL AST 47 H (14-36) U/L ALT 49 H (4-34) U/L Total Protein 5.0 L (6.3-8.2) g/dL Albumin 3.4 L (3.5-5.0) g/dL Arterial Blood Potassium (3.4-4.5) mmol/L Arterial Blood Glucose (75-99) mg/dL Crossmatch 08/24/24 Range/Units 06:18 WBC (4.50-10.00) 10*3/uL RBC (4.10-5.20) 10*6/uL Hgb (12.0-15.0) g/dL Hct (37.2-46.3) % Plt Count (140-440) 10*3/uL MPV (9.5-12.2) fL Lymphocytes # (0.90-5.00) 10*3/uL Eosinophils # (0.04-0.35) 10*3/uL PT (10.0-12.5) sec INR (<1.2) ABG pH (7.35-7.45) ABG pCO2 33 L (35-45) mmHg ABG pO2 112 H (83-108) mmHg ABG O2 Saturation 99.3 H (94-97) % ABG Hematocrit (34.0-46.0) % ABG Potassium (3.4-4.5) mmol/L ABG Ionized Calcium (4.5-5.3) mg/dL ABG Glucose (75-99) mg/dL ABG Lactic Acid (0.5-1.6) mmol/L Hemoglobin 8.0 L (11.4-16.0) gm/dL Carbon Dioxide (22-30) mmol/L BUN (7-17) mg/dL Creatinine (0.52-1.04) mg/dL Glucose (74-99) mg/dL POC Glucose (mg/dL) (70-110) mg/dL Magnesium (1.6-2.3) mg/dL AST (14-36) U/L ALT (4-34) U/L Total Protein (6.3-8.2) g/dL Albumin (3.5-5.0) g/dL Arterial Blood Potassium (3.4-4.5) mmol/L Arterial Blood Glucose (75-99) mg/dL Crossmatch Microbiology - Last 24 Hours (Table) 08/22/24 14:40 Nasal Screen MRSA/MSSA - Final Nasal Swab Assessment and Plan Assessment: Postop day #0 following off-pump coronary artery bypass grafting x 5 with sequential LEÓN to diagonal LAD, saphenous vein graft to PDA, sequential saphenous vein graft to 1st and 2nd obtuse marginal, occlusion left atrial appendage with 35 mm AtriCure clip, bilateral lower extremity endoscopic saphenectomy, percutaneous right femoral arterial placement of intra-aortic balloon pump Routine mechanical ventilation ventilator management, secondary to above Acute blood loss anemia, expected outcome of surgery The cardiac catheterization was noted and the patient was found to have significant disease involving the mid LAD, 85%, 80% circumflex lesion, 95% RCA lesion and the patient is scheduled to undergo off-pump coronary artery bypass surgery. Hemodynamically stable. Cardiopulmonary status is stable. Echocardiogram is still pending. Hypertension Hyperlipidemia History of skin cancer Chronic stage II kidney disease with a GFR of 45 Plan: Patient currently being monitored in the intensive care unit Continues on mechanical ventilator with current settings Most recent ABGs reviewed, and appropriate ventilator changes previously made Chest x-ray noted, ET tube appropriately withdrawn 1 to 2 cm Patient is going to remain on the mechanical ventilator overnight Wean propofol for appropriate RASS and potential extubation IABP remains in place 1:1 Continues on nitroglycerin at 10 mcg/min Monitor chest tube output; transfuse for hemoglobin less than 7 g/dL We will continue to follow, additional recommendations forthcoming I have personally seen and examined the patient, performed the documentation and the assessment and plan as written. Number of minutes spent on the visit:10 Joint evaluation that was done along with the nurse practitioner. The patient w as seen and evaluated immediately after arriving to the intensive care unit from the operating room. The patient is postop day #0. The patient has undergone 5 vessel bypass surgery, off-pump and the patient was given an intra-aortic balloon pump. The plan is to keep the patient on mechanical ventilator overnight and proceed with further weaning in a.m. The patient is currently on propofol. Intubated on mechanical ventilator. Hemodynamically stable. Adequate cardiac output and index. Initiate insulin drip for blood sugar control. The patient is also on nitroglycerin drip at 10 mcg/min. Hemoglobin is being monitored. Family has been updated. Case was discussed with cardiothoracic surgery There is a critical care evaluation that was done and 40 minutes. Time with Patient: Greater than 30
--- NOTE | 2024-08-24 07:53 | P.PN ---
Subjective Progress Note Date: 08/24/24 Principal diagnosis: Coronary artery disease, non-STEMI this admission, unstable angina, elevated transaminase. History of coronary artery disease with previous PCI, hypertension, hyperlipidemia, insulin-dependent diabetes, recent diagnosis of chronic kidney disease, previous tobacco dependence, family history of coronary artery disease with father from myocardial infarction at 61 years old POD #1 off-pump coronary artery bypass grafting x 5 with sequential LEÓN to diagonal LAD, saphenous vein graft to PDA, sequential saphenous vein graft to 1st and 2nd obtuse marginal, occlusion left atrial appendage with 35 mm AtriCure clip, bilateral lower extremity endoscopic saphenectomy, percutaneous right femoral arterial placement of intra-aortic balloon pump, GISELLA by anesthesia Postoperative acute blood loss anemia and thrombocytopenia, expected given hemodilution The patient was seen and examined this morning laying in bed in the intensive care unit in no acute distress. Currently sinus rhythm, blood pressure soft although on no pressors. Patient remains on mechanical ventilation, sedated with propofol. Intra-aortic balloon pump in place with 1:1 augmentation. Right internal jugular [place]/Cordis, right radial arterial line, mediastinal/left pleural chest tubes all remain. Objective - Vital Signs Vital signs: Vital Signs Temp 99.1 F 08/24/24 04:00 Pulse 74 08/24/24 07:00 Resp 20 08/24/24 07:00 BP 175/88 08/23/24 11:55 Pulse Ox 100 08/24/24 07:00 FiO2 40 08/24/24 04:19 Intake & Output 08/23/24 08/24/24 08/24/24 18:59 06:59 18:59 Intake Total 349.074 7725.398 107.25 Output Total 1700 1255 120 Balance -1381.598 -33.602 -12.75 Weight 80.2 kg Intake: IV 153 1020 70 Albumin Human 5% 250 ml 250 In Empty Bag 1 bag @ 250 mls/hr IVPB Q1HR PRN Rx#: [id number] CO/CI 120 20 Sodium Chloride 0.9% 1, 600 50 000 ml @ 50 mls/hr IV . Q20H [facility] Rx#:[id number] ceFAZolin 2 gm In 50 Dextrose 5% in Water 50 ml @ 100 mls/hr IVPB Q8H [facility] Rx#:[id number] Intake, IV Titration 165.402 201.398 37.25 Amount Heparin Sod,Pork in 0.45% 165.402 NaCl 25,000 unit In 0.45 % NaCl 1 250ml.bag @ 12 UNITS/KG/HR 8.736 mls/hr IV .Q24H [facility] Rx#: [id number] Insulin Regular 100 unit 79.500 0 In Sodium Chloride 0.9% 100 ml @ Per Protocol IV .Q0M [facility] Rx#:[id number] Nitroglycerin-D5w Pmx 50 37.25 mg In Dextrose/Water 1 250ml.bag @ 5 MCG/MIN 1.5 mls/hr IV .Q24H [facility] Rx#: [id number] propofoL 1,000 mg In 121.898 Empty Bag 1 bag @ Titrate IV .Q0M [facility] Rx#: [id number] Output: Chest Tube Drainage 300 30 Left pleural 130 20 Mediastinal 170 10 Drainage 40 Left Leg graft site 40 Urine 1100 915 90 Estimated Blood Loss 600 Other: Voiding Method Indwelling Catheter ABP, PAP, CO, CI - Last Documented Arterial Blood Pressure 98/26 Pulmonary Artery Pressure 31/14 Cardiac Output 3.8 Cardiac Index 2.1 - Exam CONSTITUTIONAL: Remains intubated and sedated RESPIRATORY: Lungs sounds diminished in the bases bilaterally. Respirations even, nonlabored on mechanical ventilation, assist-control mode, FiO2 40%, PEEP 5, respiratory rate 20, tidal volume 400. 7.5 ET tube present, 23 at the lip CARDIOVASCULAR: S1, S2 present. Regular rate and rhythm, sinus rhythm on telemetry. Sternum stable. Doppler lower extremity pulses bilaterally. No edema present. No calf pain or tenderness noted. Heart hugger, antiembolism stockings, SCDs present. GASTROINTESTINAL: Abdomen soft, nontender, nondistended. Hypoactive bowel sounds present 4 quadrants. OG tube present to low intermittent suction with m inimal output GENITOURINARY: Trinidad present draining clear, yellow urine. Output overnight 40-75 mL per hour INTEGUMENTARY: Skin is warm and dry with evidence of good perfusion. Anterior chest incision well approximated and covered with dry intact dressing. Bilateral lower extremity EVH site well approximated without redness or drainage. NEUROLOGIC: Currently sedated with propofol INVASIVE LINES AND TUBES: Mediastinal/left pleural chest tubes present and connected to wall suction, no air leaks present. Mediastinal tube with 150 mL serosanguineous drainage overnight, 180 mL drainage since surgery. Left pleural chest tube with 120 mL serosanguineous drainage overnight, 150 mL drainage since surgery. Right internal jugular [place]/Cordis, right radial arterial line present. Last CO/CI 3.8/2.1, PA 32/15, CVP 8. - Allied health notes Allied health notes reviewed: nursing - Labs CBC & Chem 7: 08/24/24 04:26 08/24/24 04:26 Labs: Abnormal Lab Results - Last 24 Hours (Table) 08/22/24 08/23/24 08/23/24 Range/Units 06:59 14:24 15:28 WBC (4.50-10.00) 10*3/uL RBC (4.10-5.20) 10*6/uL Hgb (12.0-15.0) g/dL Hct (37.2-46.3) % Plt Count (140-440) 10*3/uL MPV (9.5-12.2) fL Lymphocytes # (0.90-5.00) 10*3/uL Eosinophils # (0.04-0.35) 10*3/uL PT (10.0-12.5) sec INR (<1.2) ABG pH 7.28 L (7.35-7.45) ABG pCO2 54 H (35-45) mmHg ABG pO2 213 H 187 H (83-108) mmHg ABG O2 Saturation 99.3 H 98.6 H (94-97) % ABG Hematocrit (34.0-46.0) % ABG Potassium 3.1 L (3.4-4.5) mmol/L ABG Ionized Calcium (4.5-5.3) mg/dL ABG Glucose 105 H 136 H (75-99) mg/dL ABG Lactic Acid (0.5-1.6) mmol/L Hemoglobin (11.4-16.0) gm/dL Carbon Dioxide (22-30) mmol/L BUN (7-17) mg/dL Glucose (74-99) mg/dL POC Glucose (mg/dL) (70-110) mg/dL Magnesium (1.6-2.3) mg/dL AST (14-36) U/L ALT (4-34) U/L Total Protein (6.3-8.2) g/dL Albumin (3.5-5.0) g/dL Arterial Blood Potassium 3.1 L (3.4-4.5) mmol/L Arterial Blood Glucose 105 H 136 H (75-99) mg/dL Crossmatch See Detail 08/23/24 08/23/24 08/23/24 Range/Units 15:51 16:25 17:06 WBC (4.50-10.00) 10*3/uL RBC (4.10-5.20) 10*6/uL Hgb (12.0-15.0) g/dL Hct (37.2-46.3) % Plt Count (140-440) 10*3/uL MPV (9.5-12.2) fL Lymphocytes # (0.90-5.00) 10*3/uL Eosinophils # (0.04-0.35) 10*3/uL PT (10.0-12.5) sec INR (<1.2) ABG pH 7.31 L 7.33 L 7.33 L (7.35-7.45) ABG pCO2 (35-45) mmHg ABG pO2 276 H 359 H 273 H (83-108) mmHg ABG O2 Saturation 99.2 H 99.3 H 99.3 H (94-97) % ABG Hematocrit 30 L 25 L 28 L (34.0-46.0) % ABG Potassium 2.9 L* (3.4-4.5) mmol/L ABG Ionized Calcium 5.4 H (4.5-5.3) mg/dL ABG Glucose 145 H 148 H 174 H (75-99) mg/dL ABG Lactic Acid 2.2 H* 2.1 H (0.5-1.6) mmol/L Hemoglobin 9.9 L 8.1 L 9.1 L (11.4-16.0) gm/dL Carbon Dioxide (22-30) mmol/L BUN (7-17) mg/dL Glucose (74-99) mg/dL POC Glucose (mg/dL) (70-110) mg/dL Magnesium (1.6-2.3) mg/dL AST (14-36) U/L ALT (4-34) U/L Total Protein (6.3-8.2) g/dL Albumin (3.5-5.0) g/dL Arterial Blood Potassium 2.9 L* (3.4-4.5) mmol/L Arterial Blood Glucose 145 H 148 H 174 H (75-99) mg/dL Crossmatch 08/23/24 08/23/24 08/23/24 Range/Units 17:38 18:15 19:02 WBC (4.50-10.00) 10*3/uL RBC 2.77 L (4.10-5.20) 10*6/uL Hgb 8.3 L D (12.0-15.0) g/dL Hct 24.4 L (37.2-46.3) % Plt Count 114 L (140-440) 10*3/uL MPV (9.5-12.2) fL Lymphocytes # (0.90-5.00) 10*3/uL Eosinophils # 0.02 L (0.04-0.35) 10*3/uL PT (10.0-12.5) sec INR (<1.2) ABG pH 7.32 L 7.33 L (7.35-7.45) ABG pCO2 (35-45) mmHg ABG pO2 151 H (83-108) mmHg ABG O2 Saturation 98.9 H 98.3 H (94-97) % ABG Hematocrit 26 L 26 L (34.0-46.0) % ABG Potassium (3.4-4.5) mmol/L ABG Ionized Calcium 5.4 H (4.5-5.3) mg/dL ABG Glucose 170 H 193 H (75-99) mg/dL ABG Lactic Acid 2.3 H* 2.3 H* (0.5-1.6) mmol/L Hemoglobin 8.4 L 8.6 L (11.4-16.0) gm/dL Carbon Dioxide (22-30) mmol/L BUN (7-17) mg/dL Glucose (74-99) mg/dL POC Glucose (mg/dL) (70-110) mg/dL Magnesium (1.6-2.3) mg/dL AST (14-36) U/L ALT (4-34) U/L Total Protein (6.3-8.2) g/dL Albumin (3.5-5.0) g/dL Arterial Blood Potassium (3.4-4.5) mmol/L Arterial Blood Glucose 170 H 193 H (75-99) mg/dL Crossmatch 08/23/24 08/23/24 08/23/24 Range/Units 19:02 19:02 19:12 WBC (4.50-10.00) 10*3/uL RBC (4.10-5.20) 10*6/uL Hgb (12.0-15.0) g/dL Hct (37.2-46.3) % Plt Count (140-440) 10*3/uL MPV (9.5-12.2) fL Lymphocytes # (0.90-5.00) 10*3/uL Eosinophils # (0.04-0.35) 10*3/uL PT 13.5 H (10.0-12.5) sec INR 1.3 H (<1.2) ABG pH (7.35-7.45) ABG pCO2 (35-45) mmHg ABG pO2 (83-108) mmHg ABG O2 Saturation (94-97) % ABG Hematocrit (34.0-46.0) % ABG Potassium (3.4-4.5) mmol/L ABG Ionized Calcium (4.5-5.3) mg/dL ABG Glucose (75-99) mg/dL ABG Lactic Acid (0.5-1.6) mmol/L Hemoglobin (11.4-16.0) gm/dL Carbon Dioxide 20 L (22-30) mmol/L BUN 18 H (7-17) mg/dL Glucose 200 H (74-99) mg/dL POC Glucose (mg/dL) 225 H (70-110) mg/dL Magnesium 1.0 L (1.6-2.3) mg/dL AST 44 H (14-36) U/L ALT 66 H (4-34) U/L Total Protein 4.9 L (6.3-8.2) g/dL Albumin 3.3 L (3.5-5.0) g/dL Arterial Blood Potassium (3.4-4.5) mmol/L Arterial Blood Glucose (75-99) mg/dL Crossmatch 08/23/24 08/23/24 08/23/24 Range/Units 19:45 19:58 20:05 WBC (4.50-10.00) 10*3/uL RBC 2.64 L (4.10-5.20) 10*6/uL Hgb 7.7 L (12.0-15.0) g/dL Hct 23.1 L (37.2-46.3) % Plt Count 106 L (140-440) 10*3/uL MPV (9.5-12.2) fL Lymphocytes # (0.90-5.00) 10*3/uL Eosinophils # 0.01 L (0.04-0.35) 10*3/uL PT (10.0-12.5) sec INR (<1.2) ABG pH 7.26 L (7.35-7.45) ABG pCO2 48 H (35-45) mmHg ABG pO2 219 H (83-108) mmHg ABG O2 Saturation 99.9 H (94-97) % ABG Hematocrit (34.0-46.0) % ABG Potassium (3.4-4.5) mmol/L ABG Ionized Calcium (4.5-5.3) mg/dL ABG Glucose (75-99) mg/dL ABG Lactic Acid (0.5-1.6) mmol/L Hemoglobin 8.7 L (11.4-16.0) gm/dL Carbon Dioxide (22-30) mmol/L BUN (7-17) mg/dL Glucose (74-99) mg/dL POC Glucose (mg/dL) 215 H (70-110) mg/dL Magnesium (1.6-2.3) mg/dL AST (14-36) U/L ALT (4-34) U/L Total Protein (6.3-8.2) g/dL Albumin (3.5-5.0) g/dL Arterial Blood Potassium (3.4-4.5) mmol/L Arterial Blood Glucose (75-99) mg/dL Crossmatch 08/23/24 08/23/24 08/23/24 Range/Units 20:46 21:59 22:49 WBC (4.50-10.00) 10*3/uL RBC 2.50 L (4.10-5.20) 10*6/uL Hgb 7.4 L (12.0-15.0) g/dL Hct 22.0 L (37.2-46.3) % Plt Count 112 L (140-440) 10*3/uL MPV (9.5-12.2) fL Lymphocytes # (0.90-5.00) 10*3/uL Eosinophils # 0.00 L (0.04-0.35) 10*3/uL PT (10.0-12.5) sec INR (<1.2) ABG pH (7.35-7.45) ABG pCO2 (35-45) mmHg ABG pO2 (83-108) mmHg ABG O2 Saturation (94-97) % ABG Hematocrit (34.0-46.0) % ABG Potassium (3.4-4.5) mmol/L ABG Ionized Calcium (4.5-5.3) mg/dL ABG Glucose (75-99) mg/dL ABG Lactic Acid (0.5-1.6) mmol/L Hemoglobin (11.4-16.0) gm/dL Carbon Dioxide (22-30) mmol/L BUN (7-17) mg/dL Glucose (74-99) mg/dL POC Glucose (mg/dL) 220 H 213 H (70-110) mg/dL Magnesium (1.6-2.3) mg/dL AST (14-36) U/L ALT (4-34) U/L Total Protein (6.3-8.2) g/dL Albumin (3.5-5.0) g/dL Arterial Blood Potassium (3.4-4.5) mmol/L Arterial Blood Glucose (75-99) mg/dL Crossmatch 08/23/24 08/24/24 08/24/24 Range/Units 23:05 00:02 00:56 WBC (4.50-10.00) 10*3/uL RBC (4.10-5.20) 10*6/uL Hgb (12.0-15.0) g/dL Hct (37.2-46.3) % Plt Count (140-440) 10*3/uL MPV (9.5-12.2) fL Lymphocytes # (0.90-5.00) 10*3/uL Eosinophils # (0.04-0.35) 10*3/uL PT (10.0-12.5) sec INR (<1.2) ABG pH (7.35-7.45) ABG pCO2 (35-45) mmHg ABG pO2 (83-108) mmHg ABG O2 Saturation (94-97) % ABG Hematocrit (34.0-46.0) % ABG Potassium (3.4-4.5) mmol/L ABG Ionized Calcium (4.5-5.3) mg/dL ABG Glucose (75-99) mg/dL ABG Lactic Acid (0.5-1.6) mmol/L Hemoglobin (11.4-16.0) gm/dL Carbon Dioxide (22-30) mmol/L BUN (7-17) mg/dL Glucose (74-99) mg/dL POC Glucose (mg/dL) 202 H 191 H 170 H (70-110) mg/dL Magnesium (1.6-2.3) mg/dL AST (14-36) U/L ALT (4-34) U/L Total Protein (6.3-8.2) g/dL Albumin (3.5-5.0) g/dL Arterial Blood Potassium (3.4-4.5) mmol/L Arterial Blood Glucose (75-99) mg/dL Crossmatch 08/24/24 08/24/24 08/24/24 Range/Units 01:57 02:58 03:55 WBC (4.50-10.00) 10*3/uL RBC (4.10-5.20) 10*6/uL Hgb (12.0-15.0) g/dL Hct (37.2-46.3) % Plt Count (140-440) 10*3/uL MPV (9.5-12.2) fL Lymphocytes # (0.90-5.00) 10*3/uL Eosinophils # (0.04-0.35) 10*3/uL PT (10.0-12.5) sec INR (<1.2) ABG pH (7.35-7.45) ABG pCO2 (35-45) mmHg ABG pO2 (83-108) mmHg ABG O2 Saturation (94-97) % ABG Hematocrit (34.0-46.0) % ABG Potassium (3.4-4.5) mmol/L ABG Ionized Calcium (4.5-5.3) mg/dL ABG Glucose (75-99) mg/dL ABG Lactic Acid (0.5-1.6) mmol/L Hemoglobin (11.4-16.0) gm/dL Carbon Dioxide (22-30) mmol/L BUN (7-17) mg/dL Glucose (74-99) mg/dL POC Glucose (mg/dL) 151 H 136 H 121 H (70-110) mg/dL Magnesium (1.6-2.3) mg/dL AST (14-36) U/L ALT (4-34) U/L Total Protein (6.3-8.2) g/dL Albumin (3.5-5.0) g/dL Arterial Blood Potassium (3.4-4.5) mmol/L Arterial Blood Glucose (75-99) mg/dL Crossmatch 08/24/24 08/24/24 08/24/24 Range/Units 04:26 04:26 06:18 WBC 3.84 L (4.50-10.00) 10*3/uL RBC 2.63 L (4.10-5.20) 10*6/uL Hgb 7.9 L (12.0-15.0) g/dL Hct 23.0 L (37.2-46.3) % Plt Count 102 L (140-440) 10*3/uL MPV 9.4 L (9.5-12.2) fL Lymphocytes # 0.71 L (0.90-5.00) 10*3/uL Eosinophils # 0.02 L (0.04-0.35) 10*3/uL PT (10.0-12.5) sec INR (<1.2) ABG pH (7.35-7.45) ABG pCO2 33 L (35-45) mmHg ABG pO2 112 H (83-108) mmHg ABG O2 Saturation 99.3 H (94-97) % ABG Hematocrit (34.0-46.0) % ABG Potassium (3.4-4.5) mmol/L ABG Ionized Calcium (4.5-5.3) mg/dL ABG Glucose (75-99) mg/dL ABG Lactic Acid (0.5-1.6) mmol/L Hemoglobin 8.0 L (11.4-16.0) gm/dL Carbon Dioxide (22-30) mmol/L BUN (7-17) mg/dL Glucose (74-99) mg/dL POC Glucose (mg/dL) (70-110) mg/dL Magnesium 1.1 L (1.6-2.3) mg/dL AST 47 H (14-36) U/L ALT 49 H (4-34) U/L Total Protein 5.0 L (6.3-8.2) g/dL Albumin 3.4 L (3.5-5.0) g/dL Arterial Blood Potassium (3.4-4.5) mmol/L Arterial Blood Glucose (75-99) mg/dL Crossmatch 08/24/24 Range/Units 06:57 WBC (4.50-10.00) 10*3/uL RBC (4.10-5.20) 10*6/uL Hgb (12.0-15.0) g/dL Hct (37.2-46.3) % Plt Count (140-440) 10*3/uL MPV (9.5-12.2) fL Lymphocytes # (0.90-5.00) 10*3/uL Eosinophils # (0.04-0.35) 10*3/uL PT (10.0-12.5) sec INR (<1.2) ABG pH (7.35-7.45) ABG pCO2 (35-45) mmHg ABG pO2 (83-108) mmHg ABG O2 Saturation (94-97) % ABG Hematocrit (34.0-46.0) % ABG Potassium (3.4-4.5) mmol/L ABG Ionized Calcium (4.5-5.3) mg/dL ABG Glucose (75-99) mg/dL ABG Lactic Acid (0.5-1.6) mmol/L Hemoglobin (11.4-16.0) gm/dL Carbon Dioxide (22-30) mmol/L BUN (7-17) mg/dL Glucose (74-99) mg/dL POC Glucose (mg/dL) 148 H (70-110) mg/dL Magnesium (1.6-2.3) mg/dL AST (14-36) U/L ALT (4-34) U/L Total Protein (6.3-8.2) g/dL Albumin (3.5-5.0) g/dL Arterial Blood Potassium (3.4-4.5) mmol/L Arterial Blood Glucose (75-99) mg/dL Crossmatch Microbiology - Last 24 Hours (Table) 08/22/24 14:40 Nasal Screen MRSA/MSSA - Final Nasal Swab - Imaging and Cardiology Chest x-ray: report reviewed, image reviewed Assessment and Plan Assessment: Coronary artery disease, non-STEMI this admission, unstable angina, status post 5 vessel off-pump CABG Chest pain, shortness of breath secondary to above Elevated transaminases Postoperative acute blood loss anemia and thrombocytopenia, expected History of coronary artery disease with previous PCI Hypertension Hyperlipidemia Insulin-dependent diabetes Recent diagnosis of chronic kidney disease Previous tobacco dependence, FEV1 46% of predicted Family history of coronary artery disease with father from myocardial infarction at 61 years old Plan: Continue to maximize medical therapy with aspirin, statin, Plavix, beta-neptali, will increase beta-neptali therapy as tolerated Discontinue IV nitro Will discontinue intra-aortic balloon pump Wean from mechanical ventilation when able, management per frame feeder Once extubated encourage incentive spirometry use 10 times every hour while awake Once extubated increase activity as tolerated, PT/OT/cardiac rehab consulted Will monitor daily labs and x-rays, electrolyte replacement per protocol GI/DVT prophylaxis Pain control per current medication regimen Insulin management per internal medicine, patient should remain on IV continuous insulin for 48 hours, then may transition to subcutaneous insulin per protocol Will continue [place]/Cordis, arterial line for now Continue mediastinal and left pleural chest tube, monitor and record output Continue Trinidad catheter for another 24 hours, continue to monitor strict accurate intake and output More recommendations to follow as patient progresses
[2024-08-24 08:15] LABS: Glucose,Whole Blood 139 mg/dL (70-110)
[2024-08-24] MEDS: CLOPIDOGREL 75 MG TAB PO SCH (08:42)
[2024-08-24] MEDS: METOPROLOL TARTRATE 12.5 MG TAB PO SCH (08:42)
[2024-08-24] MEDS: PANTOPRAZOLE 40 MG/10 ML VIAL IVP SCH (08:42)
[2024-08-24] MEDS: ASPIRIN 325 MG TAB PO SCH (08:42)
[2024-08-24] MEDS: ATORVASTATIN 40 MG TAB PO SCH (08:42)
[2024-08-24] MEDS ORDERED: MAGNESIUM HYDROXIDE 2,400 MG/30 ML CUP PO PRN (09:00)
[2024-08-24] MEDS: IPRATROPIUM-ALBUTEROL 3 ML NEB INHALATION SCH (09:06)
[2024-08-24 09:11] LABS: Glucose,Whole Blood 137 mg/dL (70-110)
--- NOTE | 2024-08-24 09:16 | P.PCN ---
Date of Procedure: 08/24/24 Indications for Procedure: This is a 83-year-old female who was found to have multivessel coronary artery disease. An intra-aortic balloon pump was placed in the operating room by Dr. Yun. She underwent coronary artery bypass surgery and has done well. This morning she is hemodynamically stable and is no longer in need of intra-aortic balloon pump assistance. Removal of the device was recommended Description of Procedure: The right groin was examined. There was no evidence of hematoma. The balloon pump was turned off. The pre-existing sheath and balloon were removed en otis and artery was allowed to bleed both antegrade and retrograde for several beats. Direct manual pressure was held over the site for 30 minutes. There was no residual bleeding or hematoma noted. The graft itself was soft. The right lower extremity appeared warm and well perfused. There were no immediate complications. She remained hemodynamically stable with a good follow-up cardiac index.
[2024-08-24] MEDS: CALCIUM GLUCONATE IN NACL 1 GM in SALINE 1 100ML.BAG IVPB ONE (09:26)
[2024-08-24 10:08] LABS: Glucose,Whole Blood 130 mg/dL (70-110)
[2024-08-24 11:13] LABS: Glucose,Whole Blood 127 mg/dL (70-110)
[2024-08-24 11:35] VITALS: BMI 28.5
--- NOTE | 2024-08-24 12:23 | P.PN ---
Subjective Progress Note Date: 08/24/24 The patient is a pleasant 83-year-old female patient with a past medical history significant for CAD as well as diabetes and hypertension and dyslipidemia who was admitted to the hospital with a non-STEMI and underwent a heart catheterization which revealed severe triple-vessel CAD. She underwent CABG ye day. She underwent CABG x 5 with LEÓN to LAD and diagonal and SVG to 1st and 2nd obtuse marginal branch and SVG to RCA along with the occlusion of the left atrial appendage. She was seen and evaluated this morning. The patient seems to be overall stable hemodynamically with the balloon pump was 1-1 and in process to be turned to 2-1 and subsequently removed. When the patient was seen in the morning the patient was in normal sinus mechanism. Urine output has been adequate. Hemoglobin was above 7. Kidney function and electrolytes are within normal limits. The physical examination is remarkable for distant heart sounds with regular rhythm and diminished breathing sounds bilaterally the chest x-ray showed finding consistent with pulmonary vascular congestions. The patient is on dual antiplatelet therapy using aspirin and Plavix along with intermediate intensity statin along with beta-neptali using metoprolol Assessment CAD status post CABG as described above Multiple comorbid conditions including diabetes and hypertension and dyslipidemia Plan Continue the current medical regimen Continue monitoring urine output Continue monitor the hemoglobin and kidney function and electrolytes Consider increasing dose of statin to high intensity Follow-up with the patient Objective - Vital Signs Vital signs: Vital Signs Temp 99.5 F 08/24/24 10:00 Pulse 90 08/24/24 12:00 Resp 23 08/24/24 12:00 BP 175/88 08/23/24 11:55 Pulse Ox 96 08/24/24 12:00 FiO2 40 08/24/24 12:00 Intake & Output 08/23/24 08/24/24 08/24/24 18:59 06:59 18:59 Intake Total 278.644 4933.398 958.704 Output Total 1700 1255 565 Balance -1381.598 -33.602 393.704 Weight 80.2 kg 80.2 kg Intake: IV 153 1020 369 Albumin Human 5% 250 ml 250 In Empty Bag 1 bag @ 250 mls/hr IVPB Q1HR PRN Rx#: [id number] CO/CI 120 90 NS for pressure flushes 39 Sodium Chloride 0.9% 1, 600 240 000 ml @ 20 mls/hr IV . Q24H [facility] Rx#:[id number] ceFAZolin 2 gm In 50 Dextrose 5% in Water 50 ml @ 100 mls/hr IVPB Q8H [facility] Rx#:[id number] Intake, IV Titration 165.402 201.398 549.704 Amount Calcium Gluconate in NaCl 100 1 gm In Saline 1 100ml. bag @ 100 mls/hr IVPB ONCE ONE Rx#:[id number] Heparin Sod,Pork in 0.45% 165.402 NaCl 25,000 unit In 0.45 % NaCl 1 250ml.bag @ 12 UNITS/KG/HR 8.736 mls/hr IV .Q24H [facility] Rx#: [id number] Insulin Regular 100 unit 79.500 21.500 In Sodium Chloride 0.9% 100 ml @ Per Protocol IV .Q0M [facility] Rx#:[id number] Magnesium Sulfate-D5w Pmx 300 1 gm In Dextrose/Water 1 100ml.bag @ 100 mls/hr IVPB Q1H [facility] Rx#: [id number] Nitroglycerin-D5w Pmx 50 37.25 mg In Dextrose/Water 1 250ml.bag @ 5 MCG/MIN 1.5 mls/hr IV .Q24H [facility] Rx#: [id number] propofoL 1,000 mg In 121.898 90.954 Empty Bag 1 bag @ Titrate IV .Q0M [facility] Rx#: [id number] Other 40 Output: Chest Tube Drainage 300 160 Left pleural 130 110 Mediastinal 170 50 Drainage 40 0 Left Leg graft site 40 0 Urine 1100 915 405 Estimated Blood Loss 600 Other: Voiding Method Indwelling Catheter Indwelling Catheter ABP, PAP, CO, CI - Last Documented Arterial Blood Pressure 145/47 Pulmonary Artery Pressure 39/17 Cardiac Output 5 Cardiac Index 2.7 - Labs CBC & Chem 7: 08/24/24 04:26 08/24/24 04:26 Labs: Abnormal Lab Results - Last 24 Hours (Table) 08/22/24 08/23/24 08/23/24 Range/Units 06:59 14:24 15:28 WBC (4.50-10.00) 10*3/uL RBC (4.10-5.20) 10*6/uL Hgb (12.0-15.0) g/dL Hct (37.2-46.3) % Plt Count (140-440) 10*3/uL MPV (9.5-12.2) fL Lymphocytes # (0.90-5.00) 10*3/uL Eosinophils # (0.04-0.35) 10*3/uL PT (10.0-12.5) sec INR (<1.2) ABG pH 7.28 L (7.35-7.45) ABG pCO2 54 H (35-45) mmHg ABG pO2 213 H 187 H (83-108) mmHg ABG O2 Saturation 99.3 H 98.6 H (94-97) % ABG Hematocrit (34.0-46.0) % ABG Potassium 3.1 L (3.4-4.5) mmol/L ABG Ionized Calcium (4.5-5.3) mg/dL ABG Glucose 105 H 136 H (75-99) mg/dL ABG Lactic Acid (0.5-1.6) mmol/L Hemoglobin (11.4-16.0) gm/dL Carbon Dioxide (22-30) mmol/L BUN (7-17) mg/dL Glucose (74-99) mg/dL POC Glucose (mg/dL) (70-110) mg/dL Magnesium (1.6-2.3) mg/dL AST (14-36) U/L ALT (4-34) U/L Total Protein (6.3-8.2) g/dL Albumin (3.5-5.0) g/dL Arterial Blood Potassium 3.1 L (3.4-4.5) mmol/L Arterial Blood Glucose 105 H 136 H (75-99) mg/dL Crossmatch See Detail 08/23/24 08/23/24 08/23/24 Range/Units 15:51 16:25 17:06 WBC (4.50-10.00) 10*3/uL RBC (4.10-5.20) 10*6/uL Hgb (12.0-15.0) g/dL Hct (37.2-46.3) % Plt Count (140-440) 10*3/uL MPV (9.5-12.2) fL Lymphocytes # (0.90-5.00) 10*3/uL Eosinophils # (0.04-0.35) 10*3/uL PT (10.0-12.5) sec INR (<1.2) ABG pH 7.31 L 7.33 L 7.33 L (7.35-7.45) ABG pCO2 (35-45) mmHg ABG pO2 276 H 359 H 273 H (83-108) mmHg ABG O2 Saturation 99.2 H 99.3 H 99.3 H (94-97) % ABG Hematocrit 30 L 25 L 28 L (34.0-46.0) % ABG Potassium 2.9 L* (3.4-4.5) mmol/L ABG Ionized Calcium 5.4 H (4.5-5.3) mg/dL ABG Glucose 145 H 148 H 174 H (75-99) mg/dL ABG Lactic Acid 2.2 H* 2.1 H (0.5-1.6) mmol/L Hemoglobin 9.9 L 8.1 L 9.1 L (11.4-16.0) gm/dL Carbon Dioxide (22-30) mmol/L BUN (7-17) mg/dL Glucose (74-99) mg/dL POC Glucose (mg/dL) (70-110) mg/dL Magnesium (1.6-2.3) mg/dL AST (14-36) U/L ALT (4-34) U/L Total Protein (6.3-8.2) g/dL Albumin (3.5-5.0) g/dL Arterial Blood Potassium 2.9 L* (3.4-4.5) mmol/L Arterial Blood Glucose 145 H 148 H 174 H (75-99) mg/dL Crossmatch 08/23/24 08/23/24 08/23/24 Range/Units 17:38 18:15 19:02 WBC (4.50-10.00) 10*3/uL RBC 2.77 L (4.10-5.20) 10*6/uL Hgb 8.3 L D (12.0-15.0) g/dL Hct 24.4 L (37.2-46.3) % Plt Count 114 L (140-440) 10*3/uL MPV (9.5-12.2) fL Lymphocytes # (0.90-5.00) 10*3/uL Eosinophils # 0.02 L (0.04-0.35) 10*3/uL PT (10.0-12.5) sec INR (<1.2) ABG pH 7.32 L 7.33 L (7.35-7.45) ABG pCO2 (35-45) mmHg ABG pO2 151 H (83-108) mmHg ABG O2 Saturation 98.9 H 98.3 H (94-97) % ABG Hematocrit 26 L 26 L (34.0-46.0) % ABG Potassium (3.4-4.5) mmol/L ABG Ionized Calcium 5.4 H (4.5-5.3) mg/dL ABG Glucose 170 H 193 H (75-99) mg/dL ABG Lactic Acid 2.3 H* 2.3 H* (0.5-1.6) mmol/L Hemoglobin 8.4 L 8.6 L (11.4-16.0) gm/dL Carbon Dioxide (22-30) mmol/L BUN (7-17) mg/dL Glucose (74-99) mg/dL POC Glucose (mg/dL) (70-110) mg/dL Magnesium (1.6-2.3) mg/dL AST (14-36) U/L ALT (4-34) U/L Total Protein (6.3-8.2) g/dL Albumin (3.5-5.0) g/dL Arterial Blood Potassium (3.4-4.5) mmol/L Arterial Blood Glucose 170 H 193 H (75-99) mg/dL Crossmatch 08/23/24 08/23/24 08/23/24 Range/Units 19:02 19:02 19:12 WBC (4.50-10.00) 10*3/uL RBC (4.10-5.20) 10*6/uL Hgb (12.0-15.0) g/dL Hct (37.2-46.3) % Plt Count (140-440) 10*3/uL MPV (9.5-12.2) fL Lymphocytes # (0.90-5.00) 10*3/uL Eosinophils # (0.04-0.35) 10*3/uL PT 13.5 H (10.0-12.5) sec INR 1.3 H (<1.2) ABG pH (7.35-7.45) ABG pCO2 (35-45) mmHg ABG pO2 (83-108) mmHg ABG O2 Saturation (94-97) % ABG Hematocrit (34.0-46.0) % ABG Potassium (3.4-4.5) mmol/L ABG Ionized Calcium (4.5-5.3) mg/dL ABG Glucose (75-99) mg/dL ABG Lactic Acid (0.5-1.6) mmol/L Hemoglobin (11.4-16.0) gm/dL Carbon Dioxide 20 L (22-30) mmol/L BUN 18 H (7-17) mg/dL Glucose 200 H (74-99) mg/dL POC Glucose (mg/dL) 225 H (70-110) mg/dL Magnesium 1.0 L (1.6-2.3) mg/dL AST 44 H (14-36) U/L ALT 66 H (4-34) U/L Total Protein 4.9 L (6.3-8.2) g/dL Albumin 3.3 L (3.5-5.0) g/dL Arterial Blood Potassium (3.4-4.5) mmol/L Arterial Blood Glucose (75-99) mg/dL Crossmatch 08/23/24 08/23/24 08/23/24 Range/Units 19:45 19:58 20:05 WBC (4.50-10.00) 10*3/uL RBC 2.64 L (4.10-5.20) 10*6/uL Hgb 7.7 L (12.0-15.0) g/dL Hct 23.1 L (37.2-46.3) % Plt Count 106 L (140-440) 10*3/uL MPV (9.5-12.2) fL Lymphocytes # (0.90-5.00) 10*3/uL Eosinophils # 0.01 L (0.04-0.35) 10*3/uL PT (10.0-12.5) sec INR (<1.2) ABG pH 7.26 L (7.35-7.45) ABG pCO2 48 H (35-45) mmHg ABG pO2 219 H (83-108) mmHg ABG O2 Saturation 99.9 H (94-97) % ABG Hematocrit (34.0-46.0) % ABG Potassium (3.4-4.5) mmol/L ABG Ionized Calcium (4.5-5.3) mg/dL ABG Glucose (75-99) mg/dL ABG Lactic Acid (0.5-1.6) mmol/L Hemoglobin 8.7 L (11.4-16.0) gm/dL Carbon Dioxide (22-30) mmol/L BUN (7-17) mg/dL Glucose (74-99) mg/dL POC Glucose (mg/dL) 215 H (70-110) mg/dL Magnesium (1.6-2.3) mg/dL AST (14-36) U/L ALT (4-34) U/L Total Protein (6.3-8.2) g/dL Albumin (3.5-5.0) g/dL Arterial Blood Potassium (3.4-4.5) mmol/L Arterial Blood Glucose (75-99) mg/dL Crossmatch 08/23/24 08/23/24 08/23/24 Range/Units 20:46 21:59 22:49 WBC (4.50-10.00) 10*3/uL RBC 2.50 L (4.10-5.20) 10*6/uL Hgb 7.4 L (12.0-15.0) g/dL Hct 22.0 L (37.2-46.3) % Plt Count 112 L (140-440) 10*3/uL MPV (9.5-12.2) fL Lymphocytes # (0.90-5.00) 10*3/uL Eosinophils # 0.00 L (0.04-0.35) 10*3/uL PT (10.0-12.5) sec INR (<1.2) ABG pH (7.35-7.45) ABG pCO2 (35-45) mmHg ABG pO2 (83-108) mmHg ABG O2 Saturation (94-97) % ABG Hematocrit (34.0-46.0) % ABG Potassium (3.4-4.5) mmol/L ABG Ionized Calcium (4.5-5.3) mg/dL ABG Glucose (75-99) mg/dL ABG Lactic Acid (0.5-1.6) mmol/L Hemoglobin (11.4-16.0) gm/dL Carbon Dioxide (22-30) mmol/L BUN (7-17) mg/dL Glucose (74-99) mg/dL POC Glucose (mg/dL) 220 H 213 H (70-110) mg/dL Magnesium (1.6-2.3) mg/dL AST (14-36) U/L ALT (4-34) U/L Total Protein (6.3-8.2) g/dL Albumin (3.5-5.0) g/dL Arterial Blood Potassium (3.4-4.5) mmol/L Arterial Blood Glucose (75-99) mg/dL Crossmatch 08/23/24 08/24/24 08/24/24 Range/Units 23:05 00:02 00:56 WBC (4.50-10.00) 10*3/uL RBC (4.10-5.20) 10*6/uL Hgb (12.0-15.0) g/dL Hct (37.2-46.3) % Plt Count (140-440) 10*3/uL MPV (9.5-12.2) fL Lymphocytes # (0.90-5.00) 10*3/uL Eosinophils # (0.04-0.35) 10*3/uL PT (10.0-12.5) sec INR (<1.2) ABG pH (7.35-7.45) ABG pCO2 (35-45) mmHg ABG pO2 (83-108) mmHg ABG O2 Saturation (94-97) % ABG Hematocrit (34.0-46.0) % ABG Potassium (3.4-4.5) mmol/L ABG Ionized Calcium (4.5-5.3) mg/dL ABG Glucose (75-99) mg/dL ABG Lactic Acid (0.5-1.6) mmol/L Hemoglobin (11.4-16.0) gm/dL Carbon Dioxide (22-30) mmol/L BUN (7-17) mg/dL Glucose (74-99) mg/dL POC Glucose (mg/dL) 202 H 191 H 170 H (70-110) mg/dL Magnesium (1.6-2.3) mg/dL AST (14-36) U/L ALT (4-34) U/L Total Protein (6.3-8.2) g/dL Albumin (3.5-5.0) g/dL Arterial Blood Potassium (3.4-4.5) mmol/L Arterial Blood Glucose (75-99) mg/dL Crossmatch 08/24/24 08/24/24 08/24/24 Range/Units 01:57 02:58 03:55 WBC (4.50-10.00) 10*3/uL RBC (4.10-5.20) 10*6/uL Hgb (12.0-15.0) g/dL Hct (37.2-46.3) % Plt Count (140-440) 10*3/uL MPV (9.5-12.2) fL Lymphocytes # (0.90-5.00) 10*3/uL Eosinophils # (0.04-0.35) 10*3/uL PT (10.0-12.5) sec INR (<1.2) ABG pH (7.35-7.45) ABG pCO2 (35-45) mmHg ABG pO2 (83-108) mmHg ABG O2 Saturation (94-97) % ABG Hematocrit (34.0-46.0) % ABG Potassium (3.4-4.5) mmol/L ABG Ionized Calcium (4.5-5.3) mg/dL ABG Glucose (75-99) mg/dL ABG Lactic Acid (0.5-1.6) mmol/L Hemoglobin (11.4-16.0) gm/dL Carbon Dioxide (22-30) mmol/L BUN (7-17) mg/dL Glucose (74-99) mg/dL POC Glucose (mg/dL) 151 H 136 H 121 H (70-110) mg/dL Magnesium (1.6-2.3) mg/dL AST (14-36) U/L ALT (4-34) U/L Total Protein (6.3-8.2) g/dL Albumin (3.5-5.0) g/dL Arterial Blood Potassium (3.4-4.5) mmol/L Arterial Blood Glucose (75-99) mg/dL Crossmatch 08/24/24 08/24/24 08/24/24 Range/Units 04:26 04:26 06:18 WBC 3.84 L (4.50-10.00) 10*3/uL RBC 2.63 L (4.10-5.20) 10*6/uL Hgb 7.9 L (12.0-15.0) g/dL Hct 23.0 L (37.2-46.3) % Plt Count 102 L (140-440) 10*3/uL MPV 9.4 L (9.5-12.2) fL Lymphocytes # 0.71 L (0.90-5.00) 10*3/uL Eosinophils # 0.02 L (0.04-0.35) 10*3/uL PT (10.0-12.5) sec INR (<1.2) ABG pH (7.35-7.45) ABG pCO2 33 L (35-45) mmHg ABG pO2 112 H (83-108) mmHg ABG O2 Saturation 99.3 H (94-97) % ABG Hematocrit (34.0-46.0) % ABG Potassium (3.4-4.5) mmol/L ABG Ionized Calcium (4.5-5.3) mg/dL ABG Glucose (75-99) mg/dL ABG Lactic Acid (0.5-1.6) mmol/L Hemoglobin 8.0 L (11.4-16.0) gm/dL Carbon Dioxide (22-30) mmol/L BUN (7-17) mg/dL Glucose (74-99) mg/dL POC Glucose (mg/dL) (70-110) mg/dL Magnesium 1.1 L (1.6-2.3) mg/dL AST 47 H (14-36) U/L ALT 49 H (4-34) U/L Total Protein 5.0 L (6.3-8.2) g/dL Albumin 3.4 L (3.5-5.0) g/dL Arterial Blood Potassium (3.4-4.5) mmol/L Arterial Blood Glucose (75-99) mg/dL Crossmatch 08/24/24 08/24/24 08/24/24 Range/Units 06:57 08:13 09:09 WBC (4.50-10.00) 10*3/uL RBC (4.10-5.20) 10*6/uL Hgb (12.0-15.0) g/dL Hct (37.2-46.3) % Plt Count (140-440) 10*3/uL MPV (9.5-12.2) fL Lymphocytes # (0.90-5.00) 10*3/uL Eosinophils # (0.04-0.35) 10*3/uL PT (10.0-12.5) sec INR (<1.2) ABG pH (7.35-7.45) ABG pCO2 (35-45) mmHg ABG pO2 (83-108) mmHg ABG O2 Saturation (94-97) % ABG Hematocrit (34.0-46.0) % ABG Potassium (3.4-4.5) mmol/L ABG Ionized Calcium (4.5-5.3) mg/dL ABG Glucose (75-99) mg/dL ABG Lactic Acid (0.5-1.6) mmol/L Hemoglobin (11.4-16.0) gm/dL Carbon Dioxide (22-30) mmol/L BUN (7-17) mg/dL Glucose (74-99) mg/dL POC Glucose (mg/dL) 148 H 139 H 137 H (70-110) mg/dL Magnesium (1.6-2.3) mg/dL AST (14-36) U/L ALT (4-34) U/L Total Protein (6.3-8.2) g/dL Albumin (3.5-5.0) g/dL Arterial Blood Potassium (3.4-4.5) mmol/L Arterial Blood Glucose (75-99) mg/dL Crossmatch 08/24/24 08/24/24 Range/Units 10:06 11:11 WBC (4.50-10.00) 10*3/uL RBC (4.10-5.20) 10*6/uL Hgb (12.0-15.0) g/dL Hct (37.2-46.3) % Plt Count (140-440) 10*3/uL MPV (9.5-12.2) fL Lymphocytes # (0.90-5.00) 10*3/uL Eosinophils # (0.04-0.35) 10*3/uL PT (10.0-12.5) sec INR (<1.2) ABG pH (7.35-7.45) ABG pCO2 (35-45) mmHg ABG pO2 (83-108) mmHg ABG O2 Saturation (94-97) % ABG Hematocrit (34.0-46.0) % ABG Potassium (3.4-4.5) mmol/L ABG Ionized Calcium (4.5-5.3) mg/dL ABG Glucose (75-99) mg/dL ABG Lactic Acid (0.5-1.6) mmol/L Hemoglobin (11.4-16.0) gm/dL Carbon Dioxide (22-30) mmol/L BUN (7-17) mg/dL Glucose (74-99) mg/dL POC Glucose (mg/dL) 130 H 127 H (70-110) mg/dL Magnesium (1.6-2.3) mg/dL AST (14-36) U/L ALT (4-34) U/L Total Protein (6.3-8.2) g/dL Albumin (3.5-5.0) g/dL Arterial Blood Potassium (3.4-4.5) mmol/L Arterial Blood Glucose (75-99) mg/dL Crossmatch Microbiology - Last 24 Hours (Table) 08/22/24 14:40 Nasal Screen MRSA/MSSA - Final Nasal Swab
[2024-08-24 12:32] LABS: ABG Base Excess -2.8 mmol/L; ABG HCO3 22 mmol/L (21-25); ABG Oxygen Saturation 97.4 % (94-97); ABG PCO2 36 mmHg (35-45); ABG PH 7.39 (7.35-7.45); ABG PO2 84 mmHg (83-108); ABG TCO2 23 mmol/L (19-24); Allen Test Performed? Yes
[2024-08-24 12:38] LABS: Glucose,Whole Blood 95 mg/dL (70-110)
[2024-08-24 14:02] LABS: Glucose,Whole Blood 123 mg/dL (70-110)
[2024-08-24 15:04] LABS: Glucose,Whole Blood 115 mg/dL (70-110)
[2024-08-24] MEDS: ALBUMIN HUMAN 25% 50 ML in EMPTY BAG 1 BAG IVPB ONE (15:48)
[2024-08-24 15:56] LABS: Glucose,Whole Blood 102 mg/dL (70-110)
[2024-08-24] MEDS: ALBUMIN HUMAN 5% 250 ML in EMPTY BAG 1 BAG IVPB ONE (16:33)
--- NOTE | 2024-08-24 16:42 | P.PN ---
Progress Note - Text Progress Note Date: 08/24/24 Chief Complaint: Chest pain This is a pleasant 83-year-old patient who follows with Dr. Eric Fuentes. Patient was seen in bay #10 n in the extended unit. Chronic medical conditions include CAD with stent, diabetes, hypertension, hyperlipidemia. Patient last had a cardiac catheterization with stent in 2004. She was following with room service attendant Dr. JIM Roberts. Patient will close 2 months has been having chest pain on and off. Some progression. Yesterday it became rather significant. Also short of breath. Rest. No radiation. No edema. Decided to come in. Patient ruled in with an acute NH with troponin peaking to 4.5 this morning. This morning underwent cardiac catheterization that showed significant disease. Formal dictation not available. Cardiothoracic team was consulted. Currently no chest pain. Patient daughter, grandson, niece present. August 21: Patient been having intermittent chest pains. On nitroglycerin drip. IV heparin drip. Scheduled for coronary bypass on . Acute bump in LFTs. Hold Lipitor. August 22: Occasionally getting some chest pain. Coronary bypass tomorrow. IV heparin. August 24: Patient yesterday underwent 5 vessel coronary bypass. Saw the patient this morning ICU. Has 1 mediastinal and 1 left pleural chest tube. [place] catheter. Balloon pump was taken out. Drips include insulin and IV fluids. Currently intubated. With FiO2 40 and a PEEP of 5. Patient had previously received nitroglycerin drip and propofol drip. Off both of them. Estimated blood loss was 1 L and Cell Saver was 375 cc. Active Medications Acetaminophen (Acetaminophen Tab 325 Mg Tab) 650 mg PO Q4HR PRN PRN Reason: Fever And/ Or Mild Pain (1-3) Albuterol/Ipratropium (Ipratropium-Albuterol 3 Ml Neb) 3 ml INHALATION RT-Q2H PRN PRN Reason: Shortness Of Breath Or Wheezing Albuterol/Ipratropium (Ipratropium-Albuterol 3 Ml Neb) 3 ml INHALATION RT-QID [facility] Last Admin: 08/24/24 16:05 Dose: 3 ml Aspirin (Aspirin 325 Mg Tab) 325 mg PO DAILY [facility] Last Admin: 08/24/24 08:42 Dose: 325 mg Atorvastatin Calcium (Atorvastatin 40 Mg Tab) 40 mg PO DAILY [facility] Last Admin: 08/24/24 08:42 Dose: 40 mg Benzocaine/Menthol (Benzocaine/Menthol Lozeng 1 Each Lozenge) 1 each MUCOUS MEM Q2H PRN PRN Reason: Sore Throat Bisacodyl (Bisacodyl 10 Mg Supp) 10 mg RECTAL DAILY PRN PRN Reason: Constipation Clopidogrel Bisulfate (Clopidogrel 75 Mg Tab) 75 mg PO DAILY [facility] Last Admin: 08/24/24 08:42 Dose: 75 mg Dextrose/Water (Dextrose 50% Syringe 50 Ml) 25 ml IVP PER PROTOCOL PRN; Protocol PRN Reason: Hypoglycemia Dextrose/Water (Dextrose 50% Syringe 50 Ml) 50 ml IVP PER PROTOCOL PRN; Protocol PRN Reason: Hypoglycemia Heparin Sodium (Porcine) (Heparin Sodium,Porcine 5,000 Unit/Ml 1 Ml Vial) 5,000 unit SQ Q8HR [facility] Last Admin: 08/24/24 16:37 Dose: 5,000 unit Hydralazine HCl (Hydralazine Hcl 20 Mg/Ml 1 Ml Vial) 10 mg IVP Q1H PRN PRN Reason: Blood Pressure - High Clevidipine 25 mg/ IV Solution 50 mls @ 2 mls/hr IV .Q24H PRN; Protocol PRN Reason: Hypertension Amiodarone HCl 150 mg/ (Dextrose/Water) 103 mls @ 618 mls/hr IV .Q10M PRN; Protocol PRN Reason: A.FIB/FLUTTER Amiodarone HCl 360 mg/ (Dextrose/Water) 207.2 mls @ 34.533 mls/hr IV .Q6H PRN; Protocol PRN Reason: A.FIB/FLUTTER Amiodarone HCl 450 mg/ (Dextrose/Water) 250 mls @ 16.667 mls/hr IV .Q15H PRN; Protocol PRN Reason: A.FIB/FLUTTER Albumin Human 250 ml/ IV (Solution) 250 mls @ 250 mls/hr IVPB Q1HR PRN; Protocol PRN Reason: For Volume Stop: 08/25/24 17:42 Last Admin: 08/24/24 04:47 Dose: 250 mls/hr Propofol 1,000 mg/ IV Solution 100 mls @ 0 mls/hr IV .Q0M [facility]; Protocol Last Titration: 08/24/24 10:55 Dose: 0 mcg/kg/min, 0 mls/hr Dexmedetomidine HCl 400 mcg/ (IV Solution) 100 mls @ 0 mls/hr IV .Q0M [facility]; Protocol Stop: 08/24/24 17:44 Calcium Gluconate/Sodium (Chloride 2 gm/ IV Solution) 100 mls @ 100 mls/hr IVPB ONCE PRN PRN Reason: Ionized Calcium less than 4.4 Stop: 09/22/24 17:42 Insulin Human Regular 100 unit (/ Sodium Chloride) 101 mls @ 0 mls/hr IV .Q0M [facility]; Protocol Last Titration: 08/24/24 15:57 Dose: 0 mls/hr, 0 mls/hr Sodium Chloride (Saline 0.9%) 1,000 mls @ 20 mls/hr IV .Q24H [facility] Last Admin: 08/23/24 18:57 Dose: 50 mls/hr Albumin Human 250 ml/ IV (Solution) 250 mls @ 250 mls/hr IVPB ONCE ONE; Protocol Stop: 08/24/24 17:22 Last Admin: 08/24/24 16:33 Dose: 250 mls/hr Magnesium Hydroxide (Magnesium Hydroxide 2,400 Mg/30 Ml Cup) 2,400 mg PO BID PRN PRN Reason: Constipation Metoclopramide HCl (Metoclopramide 5 Mg/Ml 2 Ml Vial) 10 mg IVP Q4H PRN PRN Reason: Nausea And Vomiting Metoprolol Tartrate (Metoprolol Tartrate 12.5 Mg Tab) 12.5 mg PO BID [facility] Last Admin: 08/24/24 08:42 Dose: 12.5 mg Miscellaneous Information (Potassium Replacement Protocol 1 Each Misc) 1 each MISCELLANE DAILY PRN; Protocol PRN Reason: Per Protocol Miscellaneous Information (Magnesium Replacement Protocol 1 Each Misc) 1 each MISCELLANE DAILY PRN; Protocol PRN Reason: Per Protocol Mupirocin (Mupirocin 2% Oint 22 Gm Tube) 1 applic NASAL BID [facility] Stop: 08/26/24 20:59 Last Admin: 08/24/24 09:12 Dose: 1 applic Ondansetron HCl (Ondansetron 4 Mg/2 Ml Vial) 4 mg IVP Q6HR PRN PRN Reason: Nausea And Vomiting Oxycodone HCl (Oxycodone Hcl 5 Mg Tab) 5 mg PO Q4HR PRN PRN Reason: Moderate Pain (Scale 4 to 6) Oxycodone HCl (Oxycodone Hcl 5 Mg Tab) 10 mg PO Q4HR PRN PRN Reason: Severe Pain (Scale 7 to 10) Last Admin: 08/24/24 11:59 Dose: 10 mg Pantoprazole Sodium (Pantoprazole 40 Mg/10 Ml Vial) 40 mg IVP DAILY [facility] Last Admin: 08/24/24 08:42 Dose: 40 mg Senna/Docusate Sodium (Sennosides-Docusate Sodium 1 Each Tab) 2 each PO HS [facility] Last Admin: 08/23/24 21:57 Dose: 2 each Sodium Chloride (Sodium Chloride 0.9% Flush 10 Ml Syringe) 10 ml IV BID [facility] Last Admin: 08/24/24 08:43 Dose: 10 ml Social history: Lives with her son. Stop smoking 30 years ago. Physical examination: VITAL SIGNS: 99.520, 1, 97% GENERAL: BMI 28.5, lying in bed, intubated EYES: Pupils equal. Conjunctiva tae l. HEENT: External appearance of nose and ears normal, oral cavity endotracheal tube NECK: JVD unable to assess; masses not palpable. HEART: First and second heart sounds are normal; no edema. LUNGS: Respiratory rate normal; decreased breath sounds. Right mediastinal and left pleural chest tube.. ABDOMEN: Soft, nontender, liver spleen not palpable, no masses palpable. PSYCH: Lethargic MUSCULOSKELETAL:No Clubbing/cyanosis;muscles-grossly intact. OA INVESTIGATIONS, reviewed in the clinical context: August 24: White count 3.8 hemoglobin 7.9 platelets 102 potassium 3.7 creatinine 0.8 aug 21: White count 7.8 hemoglobin 13.2 potassium 4.5 BUN 23 creatinine 1.5 AST 266 ALT 355 August 19: White count 7.4 hemoglobin 14.8 platelets 224 sodium 139 potassium 4.6 BUN 29 creatinine 1.22 Troponin I less than 0.012, 0.260, 1.6, 4.5 LDL 94.7 UA protein 2+ EKG tracing personally reviewed by me-sinus rhythm. Left bundle soraya block Chest x-ray film personally reviewed by me-some cardiomegaly Assessment plan: - Coronary bypass 5 vessel. Occlusion of left atrial appendage. By Dr. Joanne Yun on August 23, 2024. - Acute postoperative blood loss anemia expected from surgery Hemoglobin dropped from 13.2-7.9. Did receive Cell Saver 375 cc during surgery. - Dilutional thrombocytopenia - Acute respiratory failure with ventilator support with FiO2 40 and PEEP of 5. - Acute non-Q wave NH in a patient with known coronary artery disease prior stent in 2004 IV heparin. Aspirin, Lopressor, Lipitor - Acute hepatitis likely drug-induced, improved Lipitor has been resumed at 40 mg. Follow LFTs - Essential hypertension Lopressor 25 mg twice daily - Hyperlipidemia Lipitor 40 mg - Diabetes mellitus type 2, chronically on insulin Currently on insulin drip follow Accu-Cheks - Anxiety not otherwise specified Xanax as needed - Chronic kidney disease, stage III likely diabetic nephropathy and hypertensive nephrosclerosis Follow renal function - Primary osteoarthritis Tylenol as needed -Full code Continue current treatment plan. Past Medical History Past Medical History: Coronary Artery Disease (CAD), Diabetes Mellitus, Hyperlipidemia, Hypertension History of Any Multi-Drug Resistant Organisms: None Reported Past Surgical History: Cholecystectomy, Heart Catheterization With Stent Past Psychological History: Anxiety Smoking Status: Former smoker Past Alcohol Use History: None Reported Past Drug Use History: None Reported
[2024-08-24 17:46] LABS: Glucose,Whole Blood 109 mg/dL (70-110)
--- NOTE | 2024-08-24 19:04 | P.PN ---
Subjective Progress Note Date: 08/24/24 On 09/17/2024, the patient is being seen for a preoperative pulmonary clearance as the patient is scheduled to undergo off-pump coronary bypass surgery. As stated, the patient is known to have coronary artery disease. The patient has undergone previous coronary stenting/PCI and the patient has multiple risk factors including hypertension, hyperlipidemia and insulin-dependent diabetes mellitus. She is a former smoker.She presented to [facility] emergency room with complaints of chest pain and slight shortness of breath with activity which had been present intermittently for the last month, states symptoms were similar to when she previously had blockages and PCI. Lab work in the emergency room revealed WBC 7.4, hemoglobin 14.8, creatinine 1.22, AST 49, ALT 54, BNP 146, initial troponin negative but subsequent troponin elevation from 0.26 up to 4.51. EKG revealed sinus rhythm with left bundle branch block. Patient also had elevated blood pressure 195/84 with initial presentation to the emergency room. Chest x-ray revealed no acute process. She was ruled in for non-STEMI and admitted to the cardiac stepdown unit with consultation placed to cardiology. The patient was recommended to undergo heart catheterization which was completed by Dr. Liang revealing mid LAD stenosis 85%, circumflex stenosis 80%, RCA stenosis 95% the patient has no respiratory difficulties. No cough sputum production chest tightness or wheezing. A bedside spirometry was done and the patient's FEV1 was in order of 73% of predicted. The patient also had a CAT scan of the chest that was done on 08/20/2024 and the CAT scan showed mild atherosclerotic calcification of the thoracic aorta and there was no acute cardiopulmonary abnormalities noted. The patient is currently on room air oxygen. Pulse ox 95%. She has good exercise capacity and she is using the incentive spirometer for now. Electrolytes are all stable. BUN is 23 with a creatinine of 1.1. The hemoglobin is at 13.2. The white cell count is at 7.8. On 08/22/2024, the patient had some exertional chest pain. She has no chest pain at rest. She is hemodynamically stable. She was started back on IV heparin. She is awaiting her coronary bypass surgery to be done tomorrow morning. The white cell count at 6.4 and a hemoglobin of 14.7 and platelet count of 210. Normal coagulation profile. BUN is 21 with a creatinine of 1.07 and normal electrolytes. She remains on aspirin. She remains on beta-blockers and IV heparin. Cardiology on the case. Cardiothoracic surgery is also on the case. Echo was also noted and the patient has a preserved LV function without any significant valvular abnormalities. 08/24/2024, the patient is being seen for a follow-up. The patient is postop day #1. The patient underwent off-pump 5 vessel bypass surgery including LEÓN to diagonal, SVG to PDA, sequential SVG to 1st and 2nd obtuse marginal and the patient was also given an intra-aortic balloon pump as the patient's myocardium was quite ischemic and the patient encountered some increased pulmonary artery pressure and low cardiac output and mitral regurgitation during the procedure. This morning, the intra-aortic balloon pump is still in place with one-to-one augmentation. Patient remains intubated on a mechanical ventilator. The patient is calm and comfortable. This morning, the patient is on assist-control mode at rate of 20, tidal volume of 400, FiO2 40% with a PEEP of 5. Blood gas showed a pH of 7.43 with a ZLY422 and PO212. Cardiac rhythm is sinus. The cardiac output is 4.2 with an index of 2.3 and the patient is not receiving any inotropes. PA pressures of 34/16. The patient's chest x-ray shows no acute abnormalities and there is adequate expansion of both lungs and the [place]-Keisha catheter is in good location. The patient is on insulin drip which is running at 8 units an hour. In terms of blood work, the patient's white cell count is at 3.8 with a hemoglobin 7.9 and a platelet count of 102. Sodium is at 137, potassium is 3.7, BUN 16 with a creatinine of 0.8. LFTs are normal. Blood sugar is being monitored on hourly basis. The patient remains sedated on propofol. She is calm and comfortable. She is in the process of having the intra-aortic balloon pump removed and subsequently the sedation will be gradually weaned off. Objective - Vital Signs Vital signs: Vital Signs Temp 99.5 F 08/24/24 10:00 Pulse 80 08/24/24 10:00 Resp 20 08/24/24 10:00 BP 175/88 08/23/24 11:55 Pulse Ox 95 08/24/24 10:00 FiO2 40 08/24/24 09:04 Intake & Output 08/23/24 08/24/24 08/24/24 18:59 06:59 18:59 Intake Total 894.302 1271.398 745.547 Output Total 1700 1255 435 Balance -1381.598 -33.602 310.547 Weight 80.2 kg Intake: IV 153 1020 297 Albumin Human 5% 250 ml 250 In Empty Bag 1 bag @ 250 mls/hr IVPB Q1HR PRN Rx#: [id number] CO/CI 120 70 NS for pressure flushes 27 Sodium Chloride 0.9% 1, 600 200 000 ml @ 50 mls/hr IV . Q20H [facility] Rx#:[id number] ceFAZolin 2 gm In 50 Dextrose 5% in Water 50 ml @ 100 mls/hr IVPB Q8H [facility] Rx#:[id number] Intake, IV Titration 165.402 201.398 448.547 Amount Calcium Gluconate in NaCl 100 1 gm In Saline 1 100ml. bag @ 100 mls/hr IVPB ONCE ONE Rx#:[id number] Heparin Sod,Pork in 0.45% 165.402 NaCl 25,000 unit In 0.45 % NaCl 1 250ml.bag @ 12 UNITS/KG/HR 8.736 mls/hr IV .Q24H [facility] Rx#: [id number] Insulin Regular 100 unit 79.500 21.500 In Sodium Chloride 0.9% 100 ml @ Per Protocol IV .Q0M [facility] Rx#:[id number] Magnesium Sulfate-D5w Pmx 200 1 gm In Dextrose/Water 1 100ml.bag @ 100 mls/hr IVPB Q1H [facility] Rx#: [id number] Nitroglycerin-D5w Pmx 50 37.25 mg In Dextrose/Water 1 250ml.bag @ 5 MCG/MIN 1.5 mls/hr IV .Q24H [facility] Rx#: [id number] propofoL 1,000 mg In 121.898 89.797 Empty Bag 1 bag @ Titrate IV .Q0M [facility] Rx#: [id number] Output: Chest Tube Drainage 300 100 Left pleural 130 70 Mediastinal 170 30 Drainage 40 0 Left Leg graft site 40 0 Urine 1100 915 335 Estimated Blood Loss 600 Other: Voiding Method Indwelling Catheter Indwelling Catheter ABP, PAP, CO, CI - Last Documented Arterial Blood Pressure 121/42 Pulmonary Artery Pressure 40/21 Cardiac Output 4.2 Cardiac Index 2.3 - Exam CONSTITUTIONAL: Remains intubated and sedated RESPIRATORY: Lungs sounds diminished in the bases bilaterally. Respirations even, nonlabored on mechanical ventilation, assist-control mode, FiO2 40%, PEEP 5, respiratory rate 20, tidal volume 400. 7.5 ET tube present, 23 at the lip CARDIOVASCULAR: S1, S2 present. Regular rate and rhythm, sinus rhythm on telemetry. Sternum stable. Doppler lower extremity pulses bilaterally. No edema present. No calf pain or tenderness noted. Heart hugger, antiembolism stockings, SCDs present. GASTROINTESTINAL: Abdomen soft, nontender, nondistended. Hypoactive bowel sounds present 4 quadrants. OG tube present to low intermittent suction with minimal output GENITOURINARY: [place] present draining clear, yellow urine. Output overnight 40-75 mL per hour INTEGUMENTARY: Skin is warm and dry with evidence of good perfusion. Anterior chest incision well approximated and covered with dry intact dressing. Bilateral lower extremity EVH site well approximated without redness or drainage. NEUROLOGIC: Currently sedated with propofol INVASIVE LINES AND TUBES: Mediastinal/left pleural chest tubes present and connected to wall suction, no air leaks present. Mediastinal tube with 150 mL serosanguineous drainage overnight, 180 mL drainage since surgery. Left pleural chest tube with 120 mL serosanguineous drainage overnight, 150 mL drainage since surgery. Right internal jugular [place], right radial arterial line present. Last CO/CI 3.8/2.1, PA 32/15, CVP 8. - Labs CBC & Chem 7: 08/24/24 04:26 08/24/24 04:26 Labs: Abnormal Lab Results - Last 24 Hours (Table) 08/22/24 08/23/24 08/23/24 Range/Units 06:59 14:24 15:28 WBC (4.50-10.00) 10*3/uL RBC (4.10-5.20) 10*6/uL Hgb (12.0-15.0) g/dL Hct (37.2-46.3) % Plt Count (140-440) 10*3/uL MPV (9.5-12.2) fL Lymphocytes # (0.90-5.00) 10*3/uL Eosinophils # (0.04-0.35) 10*3/uL PT (10.0-12.5) sec INR (<1.2) ABG pH 7.28 L (7.35-7.45) ABG pCO2 54 H (35-45) mmHg ABG pO2 213 H 187 H (83-108) mmHg ABG O2 Saturation 99.3 H 98.6 H (94-97) % ABG Hematocrit (34.0-46.0) % ABG Potassium 3.1 L (3.4-4.5) mmol/L ABG Ionized Calcium (4.5-5.3) mg/dL ABG Glucose 105 H 136 H (75-99) mg/dL ABG Lactic Acid (0.5-1.6) mmol/L Hemoglobin (11.4-16.0) gm/dL Carbon Dioxide (22-30) mmol/L BUN (7-17) mg/dL Glucose (74-99) mg/dL POC Glucose (mg/dL) (70-110) mg/dL Magnesium (1.6-2.3) mg/dL AST (14-36) U/L ALT (4-34) U/L Total Protein (6.3-8.2) g/dL Albumin (3.5-5.0) g/dL Arterial Blood Potassium 3.1 L (3.4-4.5) mmol/L Arterial Blood Glucose 105 H 136 H (75-99) mg/dL Crossmatch See Detail 08/23/24 08/23/24 08/23/24 Range/Units 15:51 16:25 17:06 WBC (4.50-10.00) 10*3/uL RBC (4.10-5.20) 10*6/uL Hgb (12.0-15.0) g/dL Hct (37.2-46.3) % Plt Count (140-440) 10*3/uL MPV (9.5-12.2) fL Lymphocytes # (0.90-5.00) 10*3/uL Eosinophils # (0.04-0.35) 10*3/uL PT (10.0-12.5) sec INR (<1.2) ABG pH 7.31 L 7.33 L 7.33 L (7.35-7.45) ABG pCO2 (35-45) mmHg ABG pO2 276 H 359 H 273 H (83-108) mmHg ABG O2 Saturation 99.2 H 99.3 H 99.3 H (94-97) % ABG Hematocrit 30 L 25 L 28 L (34.0-46.0) % ABG Potassium 2.9 L* (3.4-4.5) mmol/L ABG Ionized Calcium 5.4 H (4.5-5.3) mg/dL ABG Glucose 145 H 148 H 174 H (75-99) mg/dL ABG Lactic Acid 2.2 H* 2.1 H (0.5-1.6) mmol/L Hemoglobin 9.9 L 8.1 L 9.1 L (11.4-16.0) gm/dL Carbon Dioxide (22-30) mmol/L BUN (7-17) mg/dL Glucose (74-99) mg/dL POC Glucose (mg/dL) (70-110) mg/dL Magnesium (1.6-2.3) mg/dL AST (14-36) U/L ALT (4-34) U/L Total Protein (6.3-8.2) g/dL Albumin (3.5-5.0) g/dL Arterial Blood Potassium 2.9 L* (3.4-4.5) mmol/L Arterial Blood Glucose 145 H 148 H 174 H (75-99) mg/dL Crossmatch 08/23/24 08/23/24 08/23/24 Range/Units 17:38 18:15 19:02 WBC (4.50-10.00) 10*3/uL RBC 2.77 L (4.10-5.20) 10*6/uL Hgb 8.3 L D (12.0-15.0) g/dL Hct 24.4 L (37.2-46.3) % Plt Count 114 L (140-440) 10*3/uL MPV (9.5-12.2) fL Lymphocytes # (0.90-5.00) 10*3/uL Eosinophils # 0.02 L (0.04-0.35) 10*3/uL PT (10.0-12.5) sec INR (<1.2) ABG pH 7.32 L 7.33 L (7.35-7.45) ABG pCO2 (35-45) mmHg ABG pO2 151 H (83-108) mmHg ABG O2 Saturation 98.9 H 98.3 H (94-97) % ABG Hematocrit 26 L 26 L (34.0-46.0) % ABG Potassium (3.4-4.5) mmol/L ABG Ionized Calcium 5.4 H (4.5-5.3) mg/dL ABG Glucose 170 H 193 H (75-99) mg/dL ABG Lactic Acid 2.3 H* 2.3 H* (0.5-1.6) mmol/L Hemoglobin 8.4 L 8.6 L (11.4-16.0) gm/dL Carbon Dioxide (22-30) mmol/L BUN (7-17) mg/dL Glucose (74-99) mg/dL POC Glucose (mg/dL) (70-110) mg/dL Magnesium (1.6-2.3) mg/dL AST (14-36) U/L ALT (4-34) U/L Total Protein (6.3-8.2) g/dL Albumin (3.5-5.0) g/dL Arterial Blood Potassium (3.4-4.5) mmol/L Arterial Blood Glucose 170 H 193 H (75-99) mg/dL Crossmatch 08/23/24 08/23/24 08/23/24 Range/Units 19:02 19:02 19:12 WBC (4.50-10.00) 10*3/uL RBC (4.10-5.20) 10*6/uL Hgb (12.0-15.0) g/dL Hct (37.2-46.3) % Plt Count (140-440) 10*3/uL MPV (9.5-12.2) fL Lymphocytes # (0.90-5.00) 10*3/uL Eosinophils # (0.04-0.35) 10*3/uL PT 13.5 H (10.0-12.5) sec INR 1.3 H (<1.2) ABG pH (7.35-7.45) ABG pCO2 (35-45) mmHg ABG pO2 (83-108) mmHg ABG O2 Saturation (94-97) % ABG Hematocrit (34.0-46.0) % ABG Potassium (3.4-4.5) mmol/L ABG Ionized Calcium (4.5-5.3) mg/dL ABG Glucose (75-99) mg/dL ABG Lactic Acid (0.5-1.6) mmol/L Hemoglobin (11.4-16.0) gm/dL Carbon Dioxide 20 L (22-30) mmol/L BUN 18 H (7-17) mg/dL Glucose 200 H (74-99) mg/dL POC Glucose (mg/dL) 225 H (70-110) mg/dL Magnesium 1.0 L (1.6-2.3) mg/dL AST 44 H (14-36) U/L ALT 66 H (4-34) U/L Total Protein 4.9 L (6.3-8.2) g/dL Albumin 3.3 L (3.5-5.0) g/dL Arterial Blood Potassium (3.4-4.5) mmol/L Arterial Blood Glucose (75-99) mg/dL Crossmatch 08/23/24 08/23/24 08/23/24 Range/Units 19:45 19:58 20:05 WBC (4.50-10.00) 10*3/uL RBC 2.64 L (4.10-5.20) 10*6/uL Hgb 7.7 L (12.0-15.0) g/dL Hct 23.1 L (37.2-46.3) % Plt Count 106 L (140-440) 10*3/uL MPV (9.5-12.2) fL Lymphocytes # (0.90-5.00) 10*3/uL Eosinophils # 0.01 L (0.04-0.35) 10*3/uL PT (10.0-12.5) sec INR (<1.2) ABG pH 7.26 L (7.35-7.45) ABG pCO2 48 H (35-45) mmHg ABG pO2 219 H (83-108) mmHg ABG O2 Saturation 99.9 H (94-97) % ABG Hematocrit (34.0-46.0) % ABG Potassium (3.4-4.5) mmol/L ABG Ionized Calcium (4.5-5.3) mg/dL ABG Glucose (75-99) mg/dL ABG Lactic Acid (0.5-1.6) mmol/L Hemoglobin 8.7 L (11.4-16.0) gm/dL Carbon Dioxide (22-30) mmol/L BUN (7-17) mg/dL Glucose (74-99) mg/dL POC Glucose (mg/dL) 215 H (70-110) mg/dL Magnesium (1.6-2.3) mg/dL AST (14-36) U/L ALT (4-34) U/L Total Protein (6.3-8.2) g/dL Albumin (3.5-5.0) g/dL Arterial Blood Potassium (3.4-4.5) mmol/L Arterial Blood Glucose (75-99) mg/dL Crossmatch 08/23/24 08/23/24 08/23/24 Range/Units 20:46 21:59 22:49 WBC (4.50-10.00) 10*3/uL RBC 2.50 L (4.10-5.20) 10*6/uL Hgb 7.4 L (12.0-15.0) g/dL Hct 22.0 L (37.2-46.3) % Plt Count 112 L (140-440) 10*3/uL MPV (9.5-12.2) fL Lymphocytes # (0.90-5.00) 10*3/uL Eosinophils # 0.00 L (0.04-0.35) 10*3/uL PT (10.0-12.5) sec INR (<1.2) ABG pH (7.35-7.45) ABG pCO2 (35-45) mmHg ABG pO2 (83-108) mmHg ABG O2 Saturation (94-97) % ABG Hematocrit (34.0-46.0) % ABG Potassium (3.4-4.5) mmol/L ABG Ionized Calcium (4.5-5.3) mg/dL ABG Glucose (75-99) mg/dL ABG Lactic Acid (0.5-1.6) mmol/L Hemoglobin (11.4-16.0) gm/dL Carbon Dioxide (22-30) mmol/L BUN (7-17) mg/dL Glucose (74-99) mg/dL POC Glucose (mg/dL) 220 H 213 H (70-110) mg/dL Magnesium (1.6-2.3) mg/dL AST (14-36) U/L ALT (4-34) U/L Total Protein (6.3-8.2) g/dL Albumin (3.5-5.0) g/dL Arterial Blood Potassium (3.4-4.5) mmol/L Arterial Blood Glucose (75-99) mg/dL Crossmatch 08/23/24 08/24/24 08/24/24 Range/Units 23:05 00:02 00:56 WBC (4.50-10.00) 10*3/uL RBC (4.10-5.20) 10*6/uL Hgb (12.0-15.0) g/dL Hct (37.2-46.3) % Plt Count (140-440) 10*3/uL MPV (9.5-12.2) fL Lymphocytes # (0.90-5.00) 10*3/uL Eosinophils # (0.04-0.35) 10*3/uL PT (10.0-12.5) sec INR (<1.2) ABG pH (7.35-7.45) ABG pCO2 (35-45) mmHg ABG pO2 (83-108) mmHg ABG O2 Saturation (94-97) % ABG Hematocrit (34.0-46.0) % ABG Potassium (3.4-4.5) mmol/L ABG Ionized Calcium (4.5-5.3) mg/dL ABG Glucose (75-99) mg/dL ABG Lactic Acid (0.5-1.6) mmol/L Hemoglobin (11.4-16.0) gm/dL Carbon Dioxide (22-30) mmol/L BUN (7-17) mg/dL Glucose (74-99) mg/dL POC Glucose (mg/dL) 202 H 191 H 170 H (70-110) mg/dL Magnesium (1.6-2.3) mg/dL AST (14-36) U/L ALT (4-34) U/L Total Protein (6.3-8.2) g/dL Albumin (3.5-5.0) g/dL Arterial Blood Potassium (3.4-4.5) mmol/L Arterial Blood Glucose (75-99) mg/dL Crossmatch 08/24/24 08/24/24 08/24/24 Range/Units 01:57 02:58 03:55 WBC (4.50-10.00) 10*3/uL RBC (4.10-5.20) 10*6/uL Hgb (12.0-15.0) g/dL Hct (37.2-46.3) % Plt Count (140-440) 10*3/uL MPV (9.5-12.2) fL Lymphocytes # (0.90-5.00) 10*3/uL Eosinophils # (0.04-0.35) 10*3/uL PT (10.0-12.5) sec INR (<1.2) ABG pH (7.35-7.45) ABG pCO2 (35-45) mmHg ABG pO2 (83-108) mmHg ABG O2 Saturation (94-97) % ABG Hematocrit (34.0-46.0) % ABG Potassium (3.4-4.5) mmol/L ABG Ionized Calcium (4.5-5.3) mg/dL ABG Glucose (75-99) mg/dL ABG Lactic Acid (0.5-1.6) mmol/L Hemoglobin (11.4-16.0) gm/dL Carbon Dioxide (22-30) mmol/L BUN (7-17) mg/dL Glucose (74-99) mg/dL POC Glucose (mg/dL) 151 H 136 H 121 H (70-110) mg/dL Magnesium (1.6-2.3) mg/dL AST (14-36) U/L ALT (4-34) U/L Total Protein (6.3-8.2) g/dL Albumin (3.5-5.0) g/dL Arterial Blood Potassium (3.4-4.5) mmol/L Arterial Blood Glucose (75-99) mg/dL Crossmatch 08/24/24 08/24/24 08/24/24 Range/Units 04:26 04:26 06:18 WBC 3.84 L (4.50-10.00) 10*3/uL RBC 2.63 L (4.10-5.20) 10*6/uL Hgb 7.9 L (12.0-15.0) g/dL Hct 23.0 L (37.2-46.3) % Plt Count 102 L (140-440) 10*3/uL MPV 9.4 L (9.5-12.2) fL Lymphocytes # 0.71 L (0.90-5.00) 10*3/uL Eosinophils # 0.02 L (0.04-0.35) 10*3/uL PT (10.0-12.5) sec INR (<1.2) ABG pH (7.35-7.45) ABG pCO2 33 L (35-45) mmHg ABG pO2 112 H (83-108) mmHg ABG O2 Saturation 99.3 H (94-97) % ABG Hematocrit (34.0-46.0) % ABG Potassium (3.4-4.5) mmol/L ABG Ionized Calcium (4.5-5.3) mg/dL ABG Glucose (75-99) mg/dL ABG Lactic Acid (0.5-1.6) mmol/L Hemoglobin 8.0 L (11.4-16.0) gm/dL Carbon Dioxide (22-30) mmol/L BUN (7-17) mg/dL Glucose (74-99) mg/dL POC Glucose (mg/dL) (70-110) mg/dL Magnesium 1.1 L (1.6-2.3) mg/dL AST 47 H (14-36) U/L ALT 49 H (4-34) U/L Total Protein 5.0 L (6.3-8.2) g/dL Albumin 3.4 L (3.5-5.0) g/dL Arterial Blood Potassium (3.4-4.5) mmol/L Arterial Blood Glucose (75-99) mg/dL Crossmatch 08/24/24 08/24/24 08/24/24 Range/Units 06:57 08:13 09:09 WBC (4.50-10.00) 10*3/uL RBC (4.10-5.20) 10*6/uL Hgb (12.0-15.0) g/dL Hct (37.2-46.3) % Plt Count (140-440) 10*3/uL MPV (9.5-12.2) fL Lymphocytes # (0.90-5.00) 10*3/uL Eosinophils # (0.04-0.35) 10*3/uL PT (10.0-12.5) sec INR (<1.2) ABG pH (7.35-7.45) ABG pCO2 (35-45) mmHg ABG pO2 (83-108) mmHg ABG O2 Saturation (94-97) % ABG Hematocrit (34.0-46.0) % ABG Potassium (3.4-4.5) mmol/L ABG Ionized Calcium (4.5-5.3) mg/dL ABG Glucose (75-99) mg/dL ABG Lactic Acid (0.5-1.6) mmol/L Hemoglobin (11.4-16.0) gm/dL Carbon Dioxide (22-30) mmol/L BUN (7-17) mg/dL Glucose (74-99) mg/dL POC Glucose (mg/dL) 148 H 139 H 137 H (70-110) mg/dL Magnesium (1.6-2.3) mg/dL AST (14-36) U/L ALT (4-34) U/L Total Protein (6.3-8.2) g/dL Albumin (3.5-5.0) g/dL Arterial Blood Potassium (3.4-4.5) mmol/L Arterial Blood Glucose (75-99) mg/dL Crossmatch 08/24/24 Range/Units 10:06 WBC (4.50-10.00) 10*3/uL RBC (4.10-5.20) 10*6/uL Hgb (12.0-15.0) g/dL Hct (37.2-46.3) % Plt Count (140-440) 10*3/uL MPV (9.5-12.2) fL Lymphocytes # (0.90-5.00) 10*3/uL Eosinophils # (0.04-0.35) 10*3/uL PT (10.0-12.5) sec INR (<1.2) ABG pH (7.35-7.45) ABG pCO2 (35-45) mmHg ABG pO2 (83-108) mmHg ABG O2 Saturation (94-97) % ABG Hematocrit (34.0-46.0) % ABG Potassium (3.4-4.5) mmol/L ABG Ionized Calcium (4.5-5.3) mg/dL ABG Glucose (75-99) mg/dL ABG Lactic Acid (0.5-1.6) mmol/L Hemoglobin (11.4-16.0) gm/dL Carbon Dioxide (22-30) mmol/L BUN (7-17) mg/dL Glucose (74-99) mg/dL POC Glucose (mg/dL) 130 H (70-110) mg/dL Magnesium (1.6-2.3) mg/dL AST (14-36) U/L ALT (4-34) U/L Total Protein (6.3-8.2) g/dL Albumin (3.5-5.0) g/dL Arterial Blood Potassium (3.4-4.5) mmol/L Arterial Blood Glucose (75-99) mg/dL Crossmatch Microbiology - Last 24 Hours (Table) 08/22/24 14:40 Nasal Screen MRSA/MSSA - Final Nasal Swab Assessment and Plan Plan: Coronary artery disease and the patient is post NSTEMI and the patient underwent coronary bypass surgery off-pump x 5 and intraoperatively the patient required intra-aortic balloon pump for hemodynamic support. The patient is postop day #1. Hemodynamically stable. No inotropes. Adequate cardiac output and index. Postthoracotomy, remains intubated on mechanical ventilator. Chest x-ray was noted. Blood gas was noted. Adequate oxygenation and ventilation at this point in time. Output from the chest tube is minimal. No history of coronary artery disease with previous PCI Hypertension Hyperlipidemia, insulin-dependent diabetes mellitus and the patient has been maintained on insulin drip running at 8 units an hour Postop anemia with a hemoglobin of 7.9, expected outcome of surgery. Hyperlipidemia Skin cancer Plan Continue ventilator support Discontinue the intra-aortic balloon pump Wean off sedation and check weaning parameters and assess her candidacy for further weaning and extubation. Continue insulin drip for blood sugar control, currently on insulin drip at 8 units an hour. Monitor hemodynamic parameters Possible extubation today Will continue to follow make further recommendations based on her progress. Possible extubation today. This evaluation was done at 35 minutes. Time with Patient: Greater than 30
[2024-08-24 19:08] LABS: Glucose,Whole Blood 122 mg/dL (70-110)
[2024-08-24 19:59] LABS: Glucose,Whole Blood 117 mg/dL (70-110)
[2024-08-24 20:56] LABS: Glucose,Whole Blood 89 mg/dL (70-110)
[2024-08-24 22:04] LABS: Glucose,Whole Blood 100 mg/dL (70-110)
[2024-08-24 23:05] LABS: Glucose,Whole Blood 77 mg/dL (70-110)
[2024-08-24 23:54] LABS: Glucose,Whole Blood 124 mg/dL (70-110)
[2024-08-25 01:06] LABS: Glucose,Whole Blood 119 mg/dL (70-110)
[2024-08-25 02:00] LABS: Glucose,Whole Blood 99 mg/dL (70-110)
[2024-08-25 03:02] LABS: Glucose,Whole Blood 104 mg/dL (70-110)
[2024-08-25 04:05] LABS: Glucose,Whole Blood 118 mg/dL (70-110)
[2024-08-25 04:34] LABS: Basophils # (A) 0.02 10*3/uL (0.00-0.10); Basophils % (A) 0.2 %; Eosinophils # (A) 0.11 10*3/uL (0.04-0.35); Eosinophils % (A) 1.3 %; HCT 22.3 % (37.2-46.3); HGB 7.4 g/dL (12.0-15.0); Immature Platelet Fraction 3.2 % (1.1-6.1); Lymphocytes # (A) 0.89 10*3/uL (0.90-5.00); Lymphocytes % (A) 10.9 %; MCH 29.2 pg (27.0-32.0); MCHC 33.2 g/dL (32.0-37.0); MCV 88.1 fL (80.0-97.0); Mean Platelet Volume 10.3 fL (9.5-12.2); Monocytes # (A) 0.93 10*3/uL (0.20-1.00); Monocytes % (A) 11.4 %; Neutrophils # (A) 6.16 10*3/uL (1.80-7.70); Neutrophils % (A) 75.7 %; Platelet Count 117 10*3/uL (140-440); RBC 2.53 10*6/uL (4.10-5.20); RDW 13.9 % (11.5-14.5); WBC 8.15 10*3/uL (4.50-10.00)
[2024-08-25 05:03] LABS: Ionized Calcium 4.8 mg/dL (4.5-5.3)
[2024-08-25 05:13] LABS: ALT 31 U/L (4-34); AST 85 U/L (14-36); African American GFR (CKD) 68 (>60 ml/min/1.73 sqM); Albumin 3.2 g/dL (3.5-5.0); Alkaline Phosphatase 49 U/L (38-126); Anion Gap 9 mmol/L; Blood Urea Nitrogen 15 mg/dL (7-17); Calcium 8.7 mg/dL (8.4-10.2); Carbon Dioxide 21 mmol/L (22-30); Chloride 104 mmol/L (98-107); Glucose 103 mg/dL (74-99); Non-African American GFR(CKD) 59 (>60 ml/min/1.73 sqM); Sodium 134 mmol/L (137-145); Total Bilirubin 1.1 mg/dL (0.2-1.3); Total Protein 4.9 g/dL (6.3-8.2)
[2024-08-25] MEDS ORDERED: MAGNESIUM SULFATE-D5W PMX 1 GM in DEXTROSE/WATER 1 100ML.BAG IVPB SCH (05:30)
[2024-08-25 05:43] LABS: Glucose,Whole Blood 115 mg/dL (70-110)
[2024-08-25 06:54] LABS: Glucose,Whole Blood 160 mg/dL (70-110)
[2024-08-25] MEDS: PANTOPRAZOLE 40 MG TABLET PO SCH (07:09)
[2024-08-25] MEDS: METOPROLOL TARTRATE 25 MG TAB PO SCH (07:54)
[2024-08-25 08:10] LABS: Glucose,Whole Blood 135 mg/dL (70-110)
[2024-08-25 08:59] LABS: Glucose,Whole Blood 125 mg/dL (70-110)
[2024-08-25 09:58] LABS: Glucose,Whole Blood 104 mg/dL (70-110)
--- NOTE | 2024-08-25 10:01 | XR ---
EXAMINATION TYPE: XR chest 1V portable DATE OF EXAM: 08/25/2024 4:58 AM COMPARISON: 08/24/2024 CLINICAL INDICATION: Female, 83 years old with history of Post Operative Cardiac Surgery, TECHNIQUE: XR chest 1V portable view(s) obtained. FINDINGS: The heart size is mildly prominent. The pulmonary vasculature is prominent. Patchy bilateral lung infiltrates are present greater the bases. Correlate for atypical pulmonary dwain ma. Atelectasis could be considered. Findings are worsening from comparison. Endotracheal tube and nasogastric tube removed. Left-sided chest tube and mediastinal tube remain pre sent. [place]-Keisha catheter with the tip in the main pulmonary artery IMPRESSION: 1. Bibasilar infiltrates. Consider pulmonary edema and atelectasis, worsening from comparison.. 2. Lines and catheters discussed above. [facility], , 08/25/2024 9:58 AM
[2024-08-25] MEDS: NOREPINEPHRINE 4 MG in SODIUM CHLORIDE 0.9% 250 ML IV SCH (10:10)
[2024-08-25 10:57] LABS: Glucose,Whole Blood 112 mg/dL (70-110)
--- NOTE | 2024-08-25 11:03 | P.PN ---
Subjective Progress Note Date: 08/25/24 Principal diagnosis: Coronary artery disease, non-STEMI this admission, unstable angina, elevated transaminase. Past medical history significant for coronary artery disease with previous PCI, hypertension, hyperlipidemia, insulin-dependent diabetes, recent diagnosis of chronic kidney disease, previous tobacco dependence, and family history of coronary artery disease with father from myocardial infarction at 61 years old POD #2 off-pump coronary artery bypass grafting x 5 with sequential LEÓN to diagonal LAD, saphenous vein graft to PDA, sequential saphenous vein graft to 1st and 2nd obtuse marginal, occlusion left atrial appendage with 35 mm AtriCure clip, bilateral lower extremity endoscopic saphenectomy, percutaneous right femoral arterial placement of intra-aortic balloon pump, GISELLA by anesthesia Postoperative acute blood loss anemia and thrombocytopenia, expected given hemodilution Patient was seen and examined in follow-up today August 25, 2024 at her bedside in the intensive care unit. She is currently sitting up to the bedside chair, is awake, alert, oriented x 3 and is in no acute apparent distress. She denies any complaints of shortness of breath at this time, is complaining of some surgical type pain to her chest tube insertion sites, unable to rate her pain on the pain scale at this time. Bedside telemetry showing sinus tachycardia heart rate 112 bpm. Oxygen saturations are 99% on 2 L nasal cannula and she is achieving 500 mL on her incentive spirometry with much encouragement. Right IJ cordis and [place]-Keisha catheter remain in place with current hemodynamic showing a cardiac output of 4.8, cardiac index 2.6, SVR 949, PA pressures 28/11 and CVP 5 mmHg. Mediastinal and left pleural chest tube remain in place to low continuous wall suction -20 cm H2O. No airleak is present. Mediastinal chest tube draining 40 mL in the last 8 hours of thin serosanguineous drainage and 110 mL output in last 24 hours. Left pleural chest tube drained 250 mL output in the last 8 hours and 550 mL output in the last 24 hours. Chest x-ray and laboratory results reviewed. Objective - Vital Signs Vital signs: Vital Signs Temp 100.8 F H 08/24/24 19:00 Pulse 103 H 08/25/24 06:00 Resp 17 08/25/24 06:00 BP 89/47 08/25/24 04:30 Pulse Ox 99 08/25/24 06:00 FiO2 40 08/24/24 12:00 Intake & Output 08/24/24 08/24/24 08/25/24 06:59 18:59 06:59 Intake Total 3754.520 3357.554 471 Output Total 1255 1185 840 Balance -33.602 395.554 -369 Weight 80.2 kg 80.2 kg 78.3 kg Intake: IV 1020 659 458 Albumin Human 5% 250 ml 250 In Empty Bag 1 bag @ 250 mls/hr IVPB Q1HR PRN Rx#: [id number] CO/CI 120 150 NS for pressure flushes 99 108 Sodium Chloride 0.9% 1, 600 360 350 000 ml @ 20 mls/hr IV . Q24H [facility] Rx#:[id number] ceFAZolin 2 gm In 50 50 Dextrose 5% in Water 50 ml @ 100 mls/hr IVPB Q8H [facility] Rx#:[id number] Intake, IV Titration 201.398 881.554 13 Amount Albumin Human 25% 50 ml 50 In Empty Bag 1 bag @ 50 mls/hr IVPB ONCE ONE Rx#: [id number] Albumin Human 5% 250 ml 250 In Empty Bag 1 bag @ 250 mls/hr IVPB ONCE ONE Rx#: [id number] Calcium Gluconate in NaCl 100 1 gm In Saline 1 100ml. bag @ 100 mls/hr IVPB ONCE ONE Rx#:[id number] Insulin Regular 100 unit 79.500 53.350 13 In Sodium Chloride 0.9% 100 ml @ Per Protocol IV .Q0M [facility] Rx#:[id number] Magnesium Sulfate-D5w Pmx 300 1 gm In Dextrose/Water 1 100ml.bag @ 100 mls/hr IVPB Q1H [facility] Rx#: [id number] Nitroglycerin-D5w Pmx 50 37.25 mg In Dextrose/Water 1 250ml.bag @ 5 MCG/MIN 1.5 mls/hr IV .Q24H [facility] Rx#: [id number] propofoL 1,000 mg In 121.898 90.954 Empty Bag 1 bag @ Titrate IV .Q0M [facility] Rx#: [id number] Other 40 Output: Chest Tube Drainage 300 330 360 Left pleural 130 240 290 Mediastinal 170 90 70 Gastric Drainage 200 Drainage 40 0 Left Leg graft site 40 0 Urine 915 655 480 Other: Voiding Method Indwelling Catheter Indwelling Catheter Indwelling Catheter ABP, PAP, CO, CI - Last Documented Arterial Blood Pressure 106/37 Pulmonary Artery Pressure 28/11 Cardiac Output 5 Cardiac Index 2.7 - Exam CONSTITUTIONAL: Remains intubated and sedated RESPIRATORY: Lungs sounds diminished in the bases bilaterally. Respirations sy mmetrical, nonlabored. Oxygen saturations 99% on 2 L nasal cannula and she is achieving 500 mL on her incentive spirometry with much encouragement. Strong cough. CARDIOVASCULAR: S1, S2 present. Regular rate and rhythm, sinus tachycardia rhythm on telemetry, heart rate 112 bpm. Sternum stable. Peripheral pulses palpable. No edema present. No calf pain or tenderness noted. Heart hugger, antiembolism stockings, SCDs present. GASTROINTESTINAL: Abdomen soft, nontender, nondistended. Hypoactive bowel sounds present 4 quadrants. Tolerating clear liquid diet. No guarding or rigidity. Denies flatus. GENITOURINARY: Trinidad present draining clear, yellow urine. Urine output 290 mL in the last 8 hours. INTEGUMENTARY: Skin is warm and dry with no evidence of clubbing or cyanosis. Midline sternal incision well approximated and covered with dry intact dressing. Bilateral lower extremity EVH sites well approximated without redness or drainage. NEUROLOGIC: Cranial nerves II through XII intact. No focal deficits. PSYCHIATRIC: Alert and oriented to person place and time, appropriate affect, intact judgment and insight. INVASIVE LINES AND TUBES: Mediastinal and left pleural chest tube remain in place to low continuous wall suction -20 cm H2O. No airleak is present. Mediastinal chest tube draining 40 mL in the last 8 hours of thin serosanguineous drainage and 110 mL output in last 24 hours. Left pleural chest tube drained 250 mL output in the last 8 hours and 550 mL output in the last 24 hours. Right internal jugular [place]/Cordis, right radial arterial line present. Last CO/CI 4.8/2.6, SVR 949 PA 28/11, CVP 5. - Allied health notes Allied health notes reviewed: nursing - Labs CBC & Chem 7: 08/25/24 04:04 08/25/24 04:04 Labs: Abnormal Lab Results - Last 24 Hours (Table) 08/24/24 08/24/24 08/24/24 Range/Units 06:57 08:13 09:09 RBC (4.10-5.20) 10*6/uL Hgb (12.0-15.0) g/dL Hct (37.2-46.3) % Plt Count (140-440) 10*3/uL Lymphocytes # (0.90-5.00) 10*3/uL ABG O2 Saturation (94-97) % Hemoglobin (11.4-16.0) gm/dL Sodium (137-145) mmol/L Carbon Dioxide (22-30) mmol/L Glucose (74-99) mg/dL POC Glucose (mg/dL) 148 H 139 H 137 H (70-110) mg/dL AST (14-36) U/L Total Protein (6.3-8.2) g/dL Albumin (3.5-5.0) g/dL 08/24/24 08/24/24 08/24/24 Range/Units 10:06 11:11 12:26 RBC (4.10-5.20) 10*6/uL Hgb (12.0-15.0) g/dL Hct (37.2-46.3) % Plt Count (140-440) 10*3/uL Lymphocytes # (0.90-5.00) 10*3/uL ABG O2 Saturation 97.4 H (94-97) % Hemoglobin 8.9 L (11.4-16.0) gm/dL Sodium (137-145) mmol/L Carbon Dioxide (22-30) mmol/L Glucose (74-99) mg/dL POC Glucose (mg/dL) 130 H 127 H (70-110) mg/dL AST (14-36) U/L Total Protein (6.3-8.2) g/dL Albumin (3.5-5.0) g/dL 08/24/24 08/24/24 08/24/24 Range/Units 14:00 15:02 19:06 RBC (4.10-5.20) 10*6/uL Hgb (12.0-15.0) g/dL Hct (37.2-46.3) % Plt Count (140-440) 10*3/uL Lymphocytes # (0.90-5.00) 10*3/uL ABG O2 Saturation (94-97) % Hemoglobin (11.4-16.0) gm/dL Sodium (137-145) mmol/L Carbon Dioxide (22-30) mmol/L Glucose (74-99) mg/dL POC Glucose (mg/dL) 123 H 115 H 122 H (70-110) mg/dL AST (14-36) U/L Total Protein (6.3-8.2) g/dL Albumin (3.5-5.0) g/dL 08/24/24 08/24/24 08/25/24 Range/Units 19:58 23:53 01:04 RBC (4.10-5.20) 10*6/uL Hgb (12.0-15.0) g/dL Hct (37.2-46.3) % Plt Count (140-440) 10*3/uL Lymphocytes # (0.90-5.00) 10*3/uL ABG O2 Saturation (94-97) % Hemoglobin (11.4-16.0) gm/dL Sodium (137-145) mmol/L Carbon Dioxide (22-30) mmol/L Glucose (74-99) mg/dL POC Glucose (mg/dL) 117 H 124 H 119 H (70-110) mg/dL AST (14-36) U/L Total Protein (6.3-8.2) g/dL Albumin (3.5-5.0) g/dL 08/25/24 08/25/24 08/25/24 Range/Units 04:03 04:04 04:04 RBC 2.53 L (4.10-5.20) 10*6/uL Hgb 7.4 L (12.0-15.0) g/dL Hct 22.3 L (37.2-46.3) % Plt Count 117 L (140-440) 10*3/uL Lymphocytes # 0.89 L (0.90-5.00) 10*3/uL ABG O2 Saturation (94-97) % Hemoglobin (11.4-16.0) gm/dL Sodium 134 L (137-145) mmol/L Carbon Dioxide 21 L (22-30) mmol/L Glucose 103 H (74-99) mg/dL POC Glucose (mg/dL) 118 H (70-110) mg/dL AST 85 H (14-36) U/L Total Protein 4.9 L (6.3-8.2) g/dL Albumin 3.2 L (3.5-5.0) g/dL 08/25/24 Range/Units 05:41 RBC (4.10-5.20) 10*6/uL Hgb (12.0-15.0) g/dL Hct (37.2-46.3) % Plt Count (140-440) 10*3/uL Lymphocytes # (0.90-5.00) 10*3/uL ABG O2 Saturation (94-97) % Hemoglobin (11.4-16.0) gm/dL Sodium (137-145) mmol/L Carbon Dioxide (22-30) mmol/L Glucose (74-99) mg/dL POC Glucose (mg/dL) 115 H (70-110) mg/dL AST (14-36) U/L Total Protein (6.3-8.2) g/dL Albumin (3.5-5.0) g/dL - Imaging and Cardiology Chest x-ray: report reviewed, image reviewed Assessment and Plan Assessment: Coronary artery disease, non-STEMI this admission, unstable angina, status post 5 vessel off-pump CABG Chest pain, shortness of breath secondary to above Elevated transaminases Postoperative acute blood loss anemia and thrombocytopenia, expected Hypotension, possibly secondary to anemia History of coronary artery disease with previous PCI Hypertension Hyperlipidemia Insulin-dependent diabetes Recent diagnosis of chronic kidney disease Previous tobacco dependence, FEV1 46% of predicted Family history of coronary artery disease with father from myocardial infarction at 61 years old Plan: Continue to maximize medical therapy with aspirin, statin, Plavix, and beta- neptali, will increase metoprolol to tartrate to 25 mg p.o. twice daily with hold parameters. Transfuse for 1 unit of packed red blood cells today for hemoglobin of 7.4. Lasix 20 mg IV every 12 hours x 2 doses. Wean oxygen as tolerated. Encourage incentive spirometry use 10 times every hour while awake. Bronchodilators per pulmonology. Encourage incentive spirometry use 10 times every hour while awake. Increase activity as tolerated, PT/OT/cardiac rehab following. Will monitor daily labs and chest x-rays, electrolyte replacement per protocol. GI/DVT prophylaxis. Pain control per current medication regimen. Discontinue oxycodone. Use Tylenol for pain control. Insulin management per internal medicine, patient should remain on IV continuous insulin for 48 hours, then may transition to subcutaneous insulin per protocol. Patient is a diabetic preoperative hemoglobin A1c 8.9%. Will continue [place]/Cordis, arterial line for another 24 hours. We will remove her mediastinal chest tube and keep her left pleural chest tube in place for another 24 hours, monitor and record output. Continue Trinidad catheter for another 24 hours, continue to monitor strict accurate intake and output. More recommendations to follow based on patient's clinical course. Time with Patient: Greater than 30
--- NOTE | 2024-08-25 11:40 | P.PN ---
Subjective Progress Note Date: 08/25/24 On 08/21/2024, the patient is being seen for a preoperative pulmonary clearance as the patient is scheduled to undergo off-pump coronary bypass surgery. As stated, the patient is known to have coronary artery disease. The patient has undergone previous coronary stenting/PCI and the patient has multiple risk factors including hypertension, hyperlipidemia and insulin-dependent diabetes mellitus. She is a former smoker.She presented to [facility] emergency room with complaints of chest pain and slight shortness of breath with activity which had been present intermittently for the last month, states symptoms were similar to when she previously had blockages and PCI. Lab work in the emergency room revealed WBC 7.4, hemoglobin 14.8, creatinine 1.22, AST 49, ALT 54, BNP 146, initial troponin negative but subsequent troponin elevation from 0.26 up to 4.51. EKG revealed sinus rhythm with left bundle branch block. Patient also had elevated blood pressure 195/84 with initial presentation to the emergency room. Chest x-ray revealed no acute process. She was ruled in for non-STEMI and admitted to the cardiac stepdown unit with consultation placed to cardiology. The patient was recommended to undergo heart catheterization which was completed by Dr. Liang revealing mid LAD stenosis 85%, circumflex stenosis 80%, RCA stenosis 95% the patient has no respiratory difficulties. No cough sputum production chest tightness or wheezing. A bedside spirometry was done and the patient's FEV1 was in order of 73% of predicted. The patient also had a CAT scan of the chest that was done on 08/20/2024 and the CAT scan showed mild atherosclerotic calcification of the thoracic aorta and there was no acute cardiopulmonary abnormalities noted. The patient is currently on room air oxygen. Pulse ox 95%. She has good exercise capacity and she is using the incentive spirometer for now. Electrolytes are all stable. BUN is 23 with a creatinine of 1.1. The hemoglobin is at 13.2. The white cell count is at 7.8. On 08/22/2024, the patient had some exertional chest pain. She has no chest pain at rest. She is hemodynamically stable. She was started back on IV heparin. She is awaiting her coronary bypass surgery to be done tomorrow morning. The white cell count at 6.4 and a hemoglobin of 14.7 and platelet count of 210. Normal coagulation profile. BUN is 21 with a creatinine of 1.07 and normal electrolytes. She remains on aspirin. She remains on beta-blockers and IV heparin. Cardiology on the case. Cardiothoracic surgery is also on the case. Echo was also noted and the patient has a preserved LV function without any significant valvular abnormalities.44 I am seeing this patient on 08/23/2024 in follow-up following an off-pump coronary artery bypass grafting x 5 with sequential LEÓN to diagonal LAD, saphenous vein graft to PDA, sequential saphenous vein graft to 1st and 2nd obtuse marginal, occlusion left atrial appendage with 35 mm AtriCure clip, bilateral lower extremity endoscopic saphenectomy, GISELLA by anesthesia. Intraoperatively, patient reportedly became ischemic in the lateral wall and he developed significant mitral regurgitation and markedly elevated PA pressures. An IABP was placed. Patient currently being seen in the intensive care unit, remains intubated mechanical ventilator. Postoperative ABGs including a PaO2 of 219, pCO2 48, pH of 7.26. This was done on ventilator settings including assist-control, respiratory rate 16, tidal volume 400, FiO2 100%, PEEP of 5. Dr. Gomez was previously present at bedside, and made ventilator adjustments including increasing the respiratory rate to 20 and dropping the FiO2 down to 60%. Propofol infusing at 30 mcg/kg/min. Insulin fusion per protocol. Nitroglycerin infusing at 10 mics per minute. Normal saline infusing at 50 mL/h. Right femoral balloon pump remains in place at 1:1. Augmented pressure 74. Doppler right pedal pulse and palpable left radial pulse. CI 2.6. Urine output is adequate around 40 to 50 cc/h. Postoperative chest x-ray showing endotracheal tube approximately 1.4 cm of the stan and this was withdrawn. Nasogastric tube placed below the diaphragm. Left and mediastinal thoracotomy tubesin place. Chest tubes are hooked to suction at -20 cm H2O. There is a pproximately 60 cc of drainage from the left pleural chest tube and 65 cc of sanguinous drainage from the mediastinal chest tube. Most recent labs including a CBC with a WBC count of 5.3, hemoglobin 7.4 g/dL, hematocrit 22, platelets 112,000. Postoperative BMP including a sodium 138, potassium 3.9, chloride 107, serum bicarb 20, BUN 18, creatinine 0.72, glucose 200. Calcium 9.1. No attempts at weaning this patient from the ventilator have yet been made. On 08/25/2024, the patient is being seen for a follow-up. On today's evaluation, the patient's main complaint is soreness and pain. She is currently on 2 L of oxygen by nasal cannula. The patient is in normal sinus rhythm. Her [facility] catheter remains in place. The cardiac output is 4.8 with an index of 2.6. PA pressure 35/15 and the patient has a mediastinal and left pleural chest tube and output from the mediastinal has been 150 cc in the left lower chest tube with 550 cc over the past 24 hours. Meanwhile, the patient is producing adequate amount of urine output. The white secondary 0.1 with a hemoglobin 7.4 and platelet count of 117. Sodium is at 135, BUN 15 with creatinine 0.9 and a potassium level is at 4.0. Chest x-ray from today shows bibasilar infiltrates mild pulm vascular congestion and lines and catheters are all in place. The patient was seen in collaboration with the cardiothoracic surgeon. For now, the patient will be given Lasix 20 mg IV every 12 hours x 2. Patient will be kept on metoprolol 25 mg p.o. twice a day. Will encourage use of incentive spirometry and will continue supportive care. Pain control the patient is postop day #2. The patient underwent 5 vessel bypass surgery Objective - Vital Signs Vital signs: Vital Signs Temp 100.8 F H 08/24/24 19:00 Pulse 113 H 08/25/24 08:00 Resp 22 08/25/24 08:00 BP 97/46 08/25/24 08:00 Pulse Ox 95 08/25/24 08:00 FiO2 40 08/24/24 12:00 Intake & Output 08/24/24 08/25/24 08/25/24 18:59 06:59 18:59 Intake Total 1580.554 511 98 Output Total 1185 840 40 Balance 395.554 -329 58 Weight 80.2 kg 78.3 kg Intake: IV 659 458 88 CO/CI 150 NS for pressure flushes 99 108 18 Sodium Chloride 0.9% 1, 360 350 70 000 ml @ 20 mls/hr IV . Q24H [facility] Rx#:[id number] ceFAZolin 2 gm In 50 Dextrose 5% in Water 50 ml @ 100 mls/hr IVPB Q8H [facility] Rx#:[id number] Intake, IV Titration 881.554 53 10 Amount Albumin Human 25% 50 ml 50 In Empty Bag 1 bag @ 50 mls/hr IVPB ONCE ONE Rx#: [id number] Albumin Human 5% 250 ml 250 In Empty Bag 1 bag @ 250 mls/hr IVPB ONCE ONE Rx#: [id number] Calcium Gluconate in NaCl 100 1 gm In Saline 1 100ml. bag @ 100 mls/hr IVPB ONCE ONE Rx#:[id number] Insulin Regular 100 unit 53.350 53 10 In Sodium Chloride 0.9% 100 ml @ Per Protocol IV .Q0M [facility] Rx#:[id number] Magnesium Sulfate-D5w Pmx 300 1 gm In Dextrose/Water 1 100ml.bag @ 100 mls/hr IVPB Q1H [facility] Rx#: [id number] Nitroglycerin-D5w Pmx 50 37.25 mg In Dextrose/Water 1 250ml.bag @ 5 MCG/MIN 1.5 mls/hr IV .Q24H [facility] Rx#: [id number] propofoL 1,000 mg In 90.954 Empty Bag 1 bag @ Titrate IV .Q0M [facility] Rx#: [id number] Other 40 Output: Chest Tube Drainage 330 360 40 Left pleural 240 290 40 Mediastinal 90 70 0 Gastric Drainage 200 Drainage 0 Left Leg graft site 0 Urine 655 480 Other: Voiding Method Indwelling Catheter Indwelling Catheter # Voids 0 ABP, PAP, CO, CI - Last Documented Arterial Blood Pressure 109/40 Pulmonary Artery Pressure 35/14 Cardiac Output 4.8 Cardiac Index 2.6 - Exam CONSTITUTIONAL: Remains intubated and sedated RESPIRATORY: Lungs sounds diminished in the bases bilaterally. Respirations symmetrical, nonlabored. Oxygen saturations 99% on 2 L nasal cannula and she is achieving 500 mL on her incentive spirometry with much encouragement. Strong cough. CARDIOVASCULAR: S1, S2 present. Regular rate and rhythm, sinus tachycardia rhythm on telemetry, heart rate 112 bpm. Sternum stable. Peripheral pulses palpable. No edema present. No calf pain or tenderness noted. Heart hugger, antiembolism stockings, SCDs present. GASTROINTESTINAL: Abdomen soft, nontender, nondistended. Hypoactive bowel fareed nds present 4 quadrants. Tolerating clear liquid diet. No guarding or rigidity. Denies flatus. GENITOURINARY: Trinidad present draining clear, yellow urine. Urine output 290 mL in the last 8 hours. INTEGUMENTARY: Skin is warm and dry with no evidence of clubbing or cyanosis. Midline sternal incision well approximated and covered with dry intact dressing. Bilateral lower extremity EVH sites well approximated without redness or drainage. NEUROLOGIC: Cranial nerves II through XII intact. No focal deficits. PSYCHIATRIC: Alert and oriented to person place and time, appropriate affect, intact judgment and insight. INVASIVE LINES AND TUBES: Mediastinal and left pleural chest tube remain in place to low continuous wall suction -20 cm H2O. No airleak is present. Mediastinal chest tube draining 40 mL in the last 8 hours of thin serosanguineous drainage and 110 mL output in last 24 hours. Left pleural chest tube drained 250 mL output in the last 8 hours and 550 mL output in the last 24 hours. Right internal jugular [facility], right radial arterial line present. Last CO/CI 4.8/2.6, SVR 949 PA 28/11, CVP 5. - Labs CBC & Chem 7: 08/25/24 04:04 08/25/24 04:04 Labs: Abnormal Lab Results - Last 24 Hours (Table) 08/24/24 08/24/24 08/24/24 Range/Units 09:09 10:06 11:11 RBC (4.10-5.20) 10*6/uL Hgb (12.0-15.0) g/dL Hct (37.2-46.3) % Plt Count (140-440) 10*3/uL Lymphocytes # (0.90-5.00) 10*3/uL ABG O2 Saturation (94-97) % Hemoglobin (11.4-16.0) gm/dL Sodium (137-145) mmol/L Carbon Dioxide (22-30) mmol/L Glucose (74-99) mg/dL POC Glucose (mg/dL) 137 H 130 H 127 H (70-110) mg/dL AST (14-36) U/L Total Protein (6.3-8.2) g/dL Albumin (3.5-5.0) g/dL 08/24/24 08/24/24 08/24/24 Range/Units 12:26 14:00 15:02 RBC (4.10-5.20) 10*6/uL Hgb (12.0-15.0) g/dL Hct (37.2-46.3) % Plt Count (140-440) 10*3/uL Lymphocytes # (0.90-5.00) 10*3/uL ABG O2 Saturation 97.4 H (94-97) % Hemoglobin 8.9 L (11.4-16.0) gm/dL Sodium (137-145) mmol/L Carbon Dioxide (22-30) mmol/L Glucose (74-99) mg/dL POC Glucose (mg/dL) 123 H 115 H (70-110) mg/dL AST (14-36) U/L Total Protein (6.3-8.2) g/dL Albumin (3.5-5.0) g/dL 08/24/24 08/24/24 08/24/24 Range/Units 19:06 19:58 23:53 RBC (4.10-5.20) 10*6/uL Hgb (12.0-15.0) g/dL Hct (37.2-46.3) % Plt Count (140-440) 10*3/uL Lymphocytes # (0.90-5.00) 10*3/uL ABG O2 Saturation (94-97) % Hemoglobin (11.4-16.0) gm/dL Sodium (137-145) mmol/L Carbon Dioxide (22-30) mmol/L Glucose (74-99) mg/dL POC Glucose (mg/dL) 122 H 117 H 124 H (70-110) mg/dL AST (14-36) U/L Total Protein (6.3-8.2) g/dL Albumin (3.5-5.0) g/dL 08/25/24 08/25/24 08/25/24 Range/Units 01:04 04:03 04:04 RBC 2.53 L (4.10-5.20) 10*6/uL Hgb 7.4 L (12.0-15.0) g/dL Hct 22.3 L (37.2-46.3) % Plt Count 117 L (140-440) 10*3/uL Lymphocytes # 0.89 L (0.90-5.00) 10*3/uL ABG O2 Saturation (94-97) % Hemoglobin (11.4-16.0) gm/dL Sodium (137-145) mmol/L Carbon Dioxide (22-30) mmol/L Glucose (74-99) mg/dL POC Glucose (mg/dL) 119 H 118 H (70-110) mg/dL AST (14-36) U/L Total Protein (6.3-8.2) g/dL Albumin (3.5-5.0) g/dL 08/25/24 08/25/24 08/25/24 Range/Units 04:04 05:41 06:53 RBC (4.10-5.20) 10*6/uL Hgb (12.0-15.0) g/dL Hct (37.2-46.3) % Plt Count (140-440) 10*3/uL Lymphocytes # (0.90-5.00) 10*3/uL ABG O2 Saturation (94-97) % Hemoglobin (11.4-16.0) gm/dL Sodium 134 L (137-145) mmol/L Carbon Dioxide 21 L (22-30) mmol/L Glucose 103 H (74-99) mg/dL POC Glucose (mg/dL) 115 H 160 H (70-110) mg/dL AST 85 H (14-36) U/L Total Protein 4.9 L (6.3-8.2) g/dL Albumin 3.2 L (3.5-5.0) g/dL 08/25/24 Range/Units 08:09 RBC (4.10-5.20) 10*6/uL Hgb (12.0-15.0) g/dL Hct (37.2-46.3) % Plt Count (140-440) 10*3/uL Lymphocytes # (0.90-5.00) 10*3/uL ABG O2 Saturation (94-97) % Hemoglobin (11.4-16.0) gm/dL Sodium (137-145) mmol/L Carbon Dioxide (22-30) mmol/L Glucose (74-99) mg/dL POC Glucose (mg/dL) 135 H (70-110) mg/dL AST (14-36) U/L Total Protein (6.3-8.2) g/dL Albumin (3.5-5.0) g/dL Assessment and Plan Plan: Coronary artery disease and the patient is post NSTEMI and the patient underwent coronary bypass surgery off-pump x 5 and intraoperatively the patient required intra-aortic balloon pump for hemodynamic support. The patient is postop day # 2. Hemodynamically stable. No inotropes. Adequate cardiac output and index. Postthoracotomy, extubated successfully on 08/24/2024 and the patient scheduled to receive oxygen by nasal cannula.. Chest x-ray was noted. Blood gas was noted. Adequate oxygenation and ventilation at this point in time. Output from the chest tube is noted just to be kept in place. The patient was given IV Lasix. No history of coronary artery disease with previous PCI Hypertension Hyperlipidemia, insulin-dependent diabetes mellitus and the patient has been maintained on insulin drip running at 6 units an hour Postop anemia with a hemoglobin of 7.9, expected outcome of surgery. Hyperlipidemia Skin cancer Plan Extubated to 2 L of oxygen by nasal cannula Encourage use of incentive spirometer Lasix 20 mg IV push x 2 doses Continue metoprolol 25 mg p.o. twice a day Continue insulin drip for blood sugar control, currently on insulin drip at 6 units an hour. Monitor hemodynamic parameters Will continue to follow make further recommendations based on her progress.
[2024-08-25 12:05] LABS: Glucose,Whole Blood 142 mg/dL (70-110)
[2024-08-25 12:58] LABS: Glucose,Whole Blood 156 mg/dL (70-110)
[2024-08-25 14:05] LABS: Glucose,Whole Blood 146 mg/dL (70-110)
[2024-08-25 15:09] LABS: Glucose,Whole Blood 126 mg/dL (70-110)
[2024-08-25] MEDS: FUROSEMIDE 10 MG/ML 2 ML VIAL IV SCH (15:10)
[2024-08-25 16:35] LABS: Glucose,Whole Blood 105 mg/dL (70-110)
[2024-08-25 17:08] LABS: Glucose,Whole Blood 95 mg/dL (70-110)
[2024-08-25] MEDS: ACETAMINOPHEN TAB 325 MG TAB PO PRN (17:35)
[2024-08-25 18:02] LABS: Glucose,Whole Blood 102 mg/dL (70-110)
[2024-08-25 19:02] LABS: Glucose,Whole Blood 127 mg/dL (70-110)
[2024-08-25 20:03] LABS: Glucose,Whole Blood 127 mg/dL (70-110)
--- NOTE | 2024-08-25 20:30 | P.PN ---
Progress Note - Text Progress Note Date: 08/25/24 Chief Complaint: Chest pain This is a pleasant 83-year-old patient who follows with Dr. Eric Fuentes. Patient was seen in bay #10 n in the extended unit. Chronic medical conditions include CAD with stent, diabetes, hypertension, hyperlipidemia. Patient last had a cardiac catheterization with stent in 2004. She was following with packing and shipping clerk Dr. JIM Roberts. Patient will close 2 months has been having chest pain on and off. Some progression. Yesterday it became rather significant. Also short of breath. Rest. No radiation. No edema. Decided to come in. Patient ruled in with an acute MD with troponin peaking to 4.5 this morning. This morning underwent cardiac catheterization that showed significant disease. Formal dictation not available. Cardiothoracic team was consulted. Currently no chest pain. Patient daughter, grandson, niece present. August 21: Patient been having intermittent chest pains. On nitroglycerin drip. IV heparin drip. Scheduled for coronary bypass on . Acute bump in LFTs. Hold Lipitor. August 22: Occasionally getting some chest pain. Coronary bypass tomorrow. IV heparin. August 24: Patient yesterday underwent 5 vessel coronary bypass. Saw the patient this morning ICU. Has 1 mediastinal and 1 left pleural chest tube. Trinidad catheter. Balloon pump was taken out. Drips include insulin and IV fluids. Currently intubated. With FiO2 40 and a PEEP of 5. Patient had previously received nitroglycerin drip and propofol drip. Off both of them. Estimated blood loss was 1 L and Cell Saver was 375 cc. August 25: ICU. Extubated. Has been on and off Levophed. Insulin drip. Did sit up in the chair. Minimal oral intake. Trinidad catheter discontinued. Right mediastinal chest tube removed. Tired. Active Medications Acetaminophen (Acetaminophen Tab 325 Mg Tab) 650 mg PO Q4HR PRN PRN Reason: Fever And/ Or Mild Pain (1-3) Last Admin: 08/25/24 17:35 Dose: 650 mg Albuterol/Ipratropium (Ipratropium-Albuterol 3 Ml Neb) 3 ml INHALATION RT-Q2H PRN PRN Reason: Shortness Of Breath Or Wheezing Albuterol/Ipratropium (Ipratropium-Albuterol 3 Ml Neb) 3 ml INHALATION RT-QID [facility] Last Admin: 08/25/24 20:23 Dose: 3 ml Aspirin (Aspirin 325 Mg Tab) 325 mg PO DAILY [facility] Last Admin: 08/25/24 07:54 Dose: 325 mg Atorvastatin Calcium (Atorvastatin 40 Mg Tab) 40 mg PO DAILY [facility] Last Admin: 08/25/24 07:54 Dose: 40 mg Benzocaine/Menthol (Benzocaine/Menthol Lozeng 1 Each Lozenge) 1 each MUCOUS MEM Q2H PRN PRN Reason: Sore Throat Bisacodyl (Bisacodyl 10 Mg Supp) 10 mg RECTAL DAILY PRN PRN Reason: Constipation Clopidogrel Bisulfate (Clopidogrel 75 Mg Tab) 75 mg PO DAILY [facility] Last Admin: 08/25/24 07:54 Dose: 75 mg Dextrose/Water (Dextrose 50% Syringe 50 Ml) 25 ml IVP PER PROTOCOL PRN; Protocol PRN Reason: Hypoglycemia Dextrose/Water (Dextrose 50% Syringe 50 Ml) 50 ml IVP PER PROTOCOL PRN; Protocol PRN Reason: Hypoglycemia Furosemide (Furosemide 10 Mg/Ml 2 Ml Vial) 20 mg IV Q12HR [facility] Stop: 08/25/24 21:01 Last Admin: 08/25/24 15:10 Dose: 20 mg Heparin Sodium (Porcine) (Heparin Sodium,Porcine 5,000 Unit/Ml 1 Ml Vial) 5,000 unit SQ Q8HR [facility] Last Admin: 08/25/24 15:17 Dose: 5,000 unit Hydralazine HCl (Hydralazine Hcl 20 Mg/Ml 1 Ml Vial) 10 mg IVP Q1H PRN PRN Reason: Blood Pressure - High Amiodarone HCl 150 mg/ (Dextrose/Water) 103 mls @ 618 mls/hr IV .Q10M PRN; Protocol PRN Reason: A.FIB/FLUTTER Amiodarone HCl 360 mg/ (Dextrose/Water) 207.2 mls @ 34.533 mls/hr IV .Q6H PRN; Protocol PRN Reason: A.FIB/FLUTTER Amiodarone HCl 450 mg/ (Dextrose/Water) 250 mls @ 16.667 mls/hr IV .Q15H PRN; Protocol PRN Reason: A.FIB/FLUTTER Calcium Gluconate/Sodium (Chloride 2 gm/ IV Solution) 100 mls @ 100 mls/hr IVPB ONCE PRN PRN Reason: Ionized Calcium less than 4.4 Stop: 09/22/24 17:42 Insulin Human Regular 100 unit (/ Sodium Chloride) 101 mls @ 0 mls/hr IV .Q0M [facility]; Protocol Last Titration: 08/25/24 19:22 Dose: 5.5 mls/hr, 5.5 mls/hr Sodium Chloride (Saline 0.9%) 1,000 mls @ 20 mls/hr IV .Q24H [facility] Last Admin: 08/25/24 17:43 Dose: 20 mls/hr Norepinephrine Bitartrate 4 mg (/ Sodium Chloride) 254 mls @ 5.966 mls/hr IV .Q24H [facility]; Protocol Last Titration: 08/25/24 17:02 Dose: 0 mcg/kg/min, 0 mls/hr Magnesium Hydroxide (Magnesium Hydroxide 2,400 Mg/30 Ml Cup) 2,400 mg PO BID PRN PRN Reason: Constipation Metoclopramide HCl (Metoclopramide 5 Mg/Ml 2 Ml Vial) 10 mg IVP Q4H PRN PRN Reason: Nausea And Vomiting Metoprolol Tartrate (Metoprolol Tartrate 25 Mg Tab) 25 mg PO BID [facility] Last Admin: 08/25/24 07:54 Dose: 25 mg Miscellaneous Information (Potassium Replacement Protocol 1 Each Misc) 1 each MISCELLANE DAILY PRN; Protocol PRN Reason: Per Protocol Miscellaneous Information (Magnesium Replacement Protocol 1 Each Misc) 1 each MISCELLANE DAILY PRN; Protocol PRN Reason: Per Protocol Mupirocin (Mupirocin 2% Oint 22 Gm Tube) 1 applic NASAL BID [facility] Stop: 08/26/24 20:59 Last Admin: 08/25/24 20:23 Dose: 1 applic Ondansetron HCl (Ondansetron 4 Mg/2 Ml Vial) 4 mg IVP Q6HR PRN PRN Reason: Nausea And Vomiting Pantoprazole Sodium (Pantoprazole 40 Mg Tablet) 40 mg PO AC-BRKFST [facility] Last Admin: 08/25/24 07:09 Dose: 40 mg Potassium Chloride (Potassium Chloride Er 10 Meq Tab.Er.Prt) 10 meq PO DAILY [facility] Stop: 08/25/24 22:31 Senna/Docusate Sodium (Sennosides-Docusate Sodium 1 Each Tab) 2 each PO HS [facility] Last Admin: 08/24/24 19:52 Dose: 2 each Sodium Chloride (Sodium Chloride 0.9% Flush 10 Ml Syringe) 10 ml IV BID [facility] Last Admin: 08/25/24 20:24 Dose: Not Given Social history: Lives with her son. Stop smoking 30 years ago. Physical examination: VITAL SIGNS: 100.9, 101, 19, 91 per 60, on nasal cannula GENERAL: BMI 28.5, lying in bed, i tired EYES: Pupils equal. Conjunctiva tae l. HEENT: External appearance of nose and ears normal, oral cavity endotracheal tube NECK: JVD unable to assess; masses not palpable. HEART: First and second heart sounds are normal; no edema. LUNGS: Respiratory rate increased; decreased breath sounds. left pleural chest tube.. ABDOMEN: Soft, nontender, liver spleen not palpable, no masses palpable. [place] catheter removed PSYCH: Tired MUSCULOSKELETAL:No Clubbing/cyanosis;muscles-grossly intact. OA INVESTIGATIONS, reviewed in the clinical context: August 25: White count 8.1 hemoglobin 7.4 platelets 117 potassium 4 creatinine 0.92 August 24: White count 3.8 hemoglobin 7.9 platelets 102 potassium 3.7 creatinine 0. 8 matteo 3: White count 7.8 hemoglobin 13.2 potassium 4.5 BUN 23 creatinine 1.5 AST 266 ALT 355 August 19: White count 7.4 hemoglobin 14.8 platelets 224 sodium 139 potassium 4.6 BUN 29 creatinine 1.22 Troponin I less than 0.012, 0.260, 1.6, 4.5 LDL 94.7 UA protein 2+ EKG tracing personally reviewed by me-sinus rhythm. Left bundle soraya block Chest x-ray film personally reviewed by me-some cardiomegaly Assessment plan: - Coronary bypass 5 vessel. Occlusion of left atrial appendage. By Dr. Joanne Yun on August 23, 2024. - Acute postoperative blood loss anemia expected from surgery Hemoglobin dropped from 13.2-7.9. Did receive Cell Saver 375 cc during surgery. - Dilutional thrombocytopenia - Acute respiratory failure with ventilator support with FiO2 40 and PEEP of 5. Extubated - Acute non-Q wave MD in a patient with known coronary artery disease prior stent in 2004 IV heparin. Aspirin, Lopressor, Lipitor - Acute hepatitis likely drug-induced, improved Lipitor has been resumed at 40 mg. Follow LFTs - Essential hypertension Lopressor 25 mg twice daily - Hyperlipidemia Lipitor 40 mg - Diabetes mellitus type 2, chronically on insulin Currently on insulin drip follow Accu-Cheks - Anxiety not otherwise specified Xanax as needed - Chronic kidney disease, stage III likely diabetic nephropathy and hypertensive nephrosclerosis Follow renal function - Primary osteoarthritis Tylenol as needed -Full code Past Medical History Past Medical History: Coronary Artery Disease (CAD), Diabetes Mellitus, Hyperlipidemia, Hypertension History of Any Multi-Drug Resistant Organisms: None Reported Past Surgical History: Cholecystectomy, Heart Catheterization With Stent Past Psychological History: Anxiety Smoking Status: Former smoker Past Alcohol Use History: None Reported Past Drug Use History: None Reported
[2024-08-25 21:11] LABS: Basophils % (A) 0.1 %; Eosinophils % (A) 1.1 %; HCT 21.7 % (37.2-46.3); HGB 7.6 g/dL (12.0-15.0); Lymphocytes % (A) 13.3 %; MCH 30.4 pg (27.0-32.0); MCV 86.8 fL (80.0-97.0); Mean Platelet Volume 10.3 fL (9.5-12.2); Monocytes % (A) 9.9 %; Neutrophils # (A) 7.28 10*3/uL (1.80-7.70); Neutrophils % (A) 74.6 %; Platelet Count 121 10*3/uL (140-440); RDW 14.4 % (11.5-14.5); WBC 9.77 10*3/uL (4.50-10.00)
[2024-08-25 21:12] LABS: Basophils # (A) 0.01 10*3/uL (0.00-0.10); Eosinophils # (A) 0.11 10*3/uL (0.04-0.35); Immature Platelet Fraction 3.6 % (1.1-6.1); Monocytes # (A) 0.97 10*3/uL (0.20-1.00)
[2024-08-25] MEDS: ALBUMIN HUMAN 25% 50 ML in EMPTY BAG 1 BAG IVPB ONE (22:21)
[2024-08-25] MEDS: POTASSIUM CHLORIDE ER 10 MEQ TAB.ER.PRT PO SCH (22:22)
[2024-08-25 22:33] LABS: Glucose,Whole Blood 89 mg/dL (70-110)
[2024-08-25 23:33] LABS: Glucose,Whole Blood 85 mg/dL (70-110)
[2024-08-26 00:44] LABS: Glucose,Whole Blood 86 mg/dL (70-110)
[2024-08-26 03:40] LABS: Glucose,Whole Blood 104 mg/dL (70-110)
[2024-08-26 05:02] LABS: Basophils # (A) 0.02 10*3/uL (0.00-0.10); Basophils % (A) 0.2 %; Eosinophils # (A) 0.15 10*3/uL (0.04-0.35); Eosinophils % (A) 1.8 %; HCT 21.3 % (37.2-46.3); HGB 7.3 g/dL (12.0-15.0); Lymphocytes # (A) 1.26 10*3/uL (0.90-5.00); MCHC 34.3 g/dL (32.0-37.0); MCV 87.7 fL (80.0-97.0); Mean Platelet Volume 10.1 fL (9.5-12.2); Monocytes # (A) 0.79 10*3/uL (0.20-1.00); Monocytes % (A) 9.4 %; Neutrophils # (A) 6.12 10*3/uL (1.80-7.70); Neutrophils % (A) 72.9 %; Platelet Count 104 10*3/uL (140-440); RBC 2.43 10*6/uL (4.10-5.20); RDW 14.5 % (11.5-14.5)
[2024-08-26 05:21] LABS: ALT 25 U/L (4-34); AST 77 U/L (14-36); African American GFR (CKD) 49 (>60 ml/min/1.73 sqM); Albumin 3.2 g/dL (3.5-5.0); Alkaline Phosphatase 54 U/L (38-126); Anion Gap 12 mmol/L; Blood Urea Nitrogen 27 mg/dL (7-17); Calcium 8.6 mg/dL (8.4-10.2); Carbon Dioxide 17 mmol/L (22-30); Chloride 105 mmol/L (98-107); Glucose 117 mg/dL (74-99); Non-African American GFR(CKD) 43 (>60 ml/min/1.73 sqM); Potassium 3.8 mmol/L (3.5-5.1); Sodium 134 mmol/L (137-145); Total Bilirubin 1.3 mg/dL (0.2-1.3)
[2024-08-26 06:40] LABS: Glucose,Whole Blood 119 mg/dL (70-110)
[2024-08-26 07:59] LABS: Glucose,Whole Blood 281 mg/dL (70-110)
--- NOTE | 2024-08-26 08:39 | P.PN ---
Subjective Progress Note Date: 08/26/24 Principal diagnosis: Coronary artery disease, non-STEMI this admission, unstable angina, elevated transaminase. Past medical history significant for coronary artery disease with previous PCI, hypertension, hyperlipidemia, insulin-dependent diabetes, recent diagnosis of chronic kidney disease, previous tobacco dependence, and family history of coronary artery disease with father from myocardial infarction at 61 years old POD #3 off-pump coronary artery bypass grafting x 5 with sequential LEÓN to diagonal LAD, saphenous vein graft to PDA, sequential saphenous vein graft to 1st and 2nd obtuse marginal, occlusion left atrial appendage with 35 mm AtriCure clip, bilateral lower extremity endoscopic saphenectomy, percutaneous right femoral arterial placement of intra-aortic balloon pump, GISELLA by anesthesia Postoperative acute blood loss anemia and thrombocytopenia, expected given hemodilution. The patient was seen and examined in follow-up today August 26, 2024 at her bedside in the intensive care unit. She is currently sitting up to the bedside chair, is awake, alert, oriented x 3 and is in no acute apparent distress. She denies any complaints of shortness of breath at this time, although is complaining of some surgical type pain to her chest tube insertion site, currently rating her pain 3 out of 10 on the pain scale. She was transfused for 1 unit of packed red blood cells yesterday for hemoglobin of 7.4 and due to some hypotension. She was placed on norepinephrine drip yesterday for some hypotension which has subsequently been turned off and her hypotension has resolved. Oxygen saturations are 97% on 2 L nasal cannula and she is achieving 500 to 750 mL on her incentive spirometry. Bedside telemetry is showing normal sinus rhythm heart rate 96 bpm. Right IJ [place]-Keisha catheter remains in place with current hemodynamic showing a cardiac output of 4.2, cardiac index 2.3, SVR 913, PA pressures 33/11 and CVP 5 mmHg. Left pleural chest tube remains in place to low continuous wall suction -20 cm H2O. No airleak is present. Draining thin serosanguineous drainage with 180 mL output in the last 8 hours and 500 mL output in the last 24 hours. [place] catheter was removed yesterday, and urine output in the last 8 hours was 420 mL. Laboratory and chest x-ray results reviewed. Objective - Vital Signs Vital signs: Vital Signs Temp 100.9 F H 08/25/24 16:00 Pulse 103 H 08/26/24 08:00 Resp 28 H 08/26/24 08:00 BP 101/55 08/26/24 08:00 Pulse Ox 96 08/26/24 08:00 FiO2 40 08/24/24 12:00 Intake & Output 08/25/24 08/26/24 08/26/24 18:59 06:59 18:59 Intake Total 1212.906 741.942 289 Output Total 650 770 50 Balance 562.906 -28.058 239 Weight 79.3 kg Intake: IV 1089 527 39 Albumin Human 25% 50 ml 50 In Empty Bag 1 bag @ 50 mls/hr IVPB ONCE ONE Rx#: [id number] Albumin Human 5% 250 ml 500 In Empty Bag 1 bag @ 250 mls/hr IVPB ONCE ONE Rx#: [id number] CO/CI 110 30 NS for pressure flushes 99 117 9 Sodium Chloride 0.9% 1, 490 250 000 ml @ 20 mls/hr IV . Q24H [facility] Rx#:[id number] Intake, IV Titration 123.906 14.942 0 Amount Insulin Regular 100 unit 40.725 14.942 0 In Sodium Chloride 0.9% 100 ml @ Per Protocol IV .Q0M [facility] Rx#:[id number] Norepinephrine 4 mg In 83.181 Sodium Chloride 0.9% 250 ml @ 0.02 MCG/KG/MIN 5. 966 mls/hr IV .Q24H [facility] Rx#:[id number] Oral 200 250 Blood Product 0 Unit 0 Output: Chest Tube Drainage 200 270 50 Left pleural 190 270 50 Mediastinal 10 Urine 450 500 0 Other: Voiding Method Bedside Commode Bedside Commode # Voids 0 0 # Bowel Movements 0 ABP, PAP, CO, CI - Last Documented Arterial Blood Pressure 119/43 Pulmonary Artery Pressure 43/16 Cardiac Output 5.5 Cardiac Index 3 - Exam CONSTITUTIONAL: Sitting up to the bedside chair in the intensive care unit, appears comfortable, cooperative, no apparent acute distress. RESPIRATORY: Lungs sounds diminished in the bases bilaterally. Respirations symmetrical, nonlabored. Oxygen saturations 97% on 2 L nasal cannula and she is achieving 500-750 mL on her incentive spirometry with much encouragement. Strong cough. CARDIOVASCULAR: S1, S2 present. Regular rate and rhythm, sinus rhythm on telemetry, heart rate 96 bpm. Sternum stable. Peripheral pulses palpable. No edema present. No calf pain or tenderness noted. Heart hugger, antiembolism stockings, SCDs present. GASTROINTESTINAL: Abdomen soft, nontender, nondistended. Active bowel sounds present 4 quadrants. Tolerating clear liquid diet. No guarding or rigidity. Passing flatus. GENITOURINARY: Continues to void. Urine output 420 mL in the last 8 hours. INTEGUMENTARY: Skin is warm and dry with no evidence of clubbing or cyanosis. Midline sternal incision well approximated and covered with dry intact dressing. Bilateral lower extremity EVH sites well approximated without redness or drainage. NEUROLOGIC: Cranial nerves II through XII intact. No focal deficits. PSYCHIATRIC: Alert and oriented to person place and time, appropriate affect, intact judgment and insight. INVASIVE LINES AND TUBES: Left pleural chest tube remain in place to low continuous wall suction -20 cm H2O. No airleak is present. Left pleural chest tube drained 180 mL output in the last 8 hours and 500 mL output in the last 24 hours. Right internal jugular [place]/Cordis, right radial arterial line present. Last CO/CI 4.2/2.3, SVR 913 PA /, CVP 5. - Allied health notes Allied health notes reviewed: nursing - Labs CBC & Chem 7: 08/26/24 04:50 08/26/24 04:50 Labs: Abnormal Lab Results - Last 24 Hours (Table) 08/22/24 08/25/24 08/25/24 Range/Units 06:59 08:58 10:55 RBC (4.10-5.20) 10*6/uL Hgb (12.0-15.0) g/dL Hct (37.2-46.3) % Plt Count (140-440) 10*3/uL Immature Gran # (0.00-0.04) 10*3/uL Sodium (137-145) mmol/L Carbon Dioxide (22-30) mmol/L BUN (7-17) mg/dL Creatinine (0.52-1.04) mg/dL Glucose (74-99) mg/dL POC Glucose (mg/dL) 125 H 112 H (70-110) mg/dL AST (14-36) U/L Total Protein (6.3-8.2) g/dL Albumin (3.5-5.0) g/dL Crossmatch See Detail 08/25/24 08/25/24 08/25/24 Range/Units 12:04 12:57 14:03 RBC (4.10-5.20) 10*6/uL Hgb (12.0-15.0) g/dL Hct (37.2-46.3) % Plt Count (140-440) 10*3/uL Immature Gran # (0.00-0.04) 10*3/uL Sodium (137-145) mmol/L Carbon Dioxide (22-30) mmol/L BUN (7-17) mg/dL Creatinine (0.52-1.04) mg/dL Glucose (74-99) mg/dL POC Glucose (mg/dL) 142 H 156 H 146 H (70-110) mg/dL AST (14-36) U/L Total Protein (6.3-8.2) g/dL Albumin (3.5-5.0) g/dL Crossmatch 08/25/24 08/25/24 08/25/24 Range/Units 15:07 19:01 20:01 RBC (4.10-5.20) 10*6/uL Hgb (12.0-15.0) g/dL Hct (37.2-46.3) % Plt Count (140-440) 10*3/uL Immature Gran # (0.00-0.04) 10*3/uL Sodium (137-145) mmol/L Carbon Dioxide (22-30) mmol/L BUN (7-17) mg/dL Creatinine (0.52-1.04) mg/dL Glucose (74-99) mg/dL POC Glucose (mg/dL) 126 H 127 H 127 H (70-110) mg/dL AST (14-36) U/L Total Protein (6.3-8.2) g/dL Albumin (3.5-5.0) g/dL Crossmatch 08/25/24 08/26/24 08/26/24 Range/Units 20:48 04:50 04:50 RBC 2.50 L 2.43 L (4.10-5.20) 10*6/uL Hgb 7.6 L 7.3 L (12.0-15.0) g/dL Hct 21.7 L 21.3 L (37.2-46.3) % Plt Count 121 L 104 L (140-440) 10*3/uL Immature Gran # 0.10 H 0.06 H (0.00-0.04) 10*3/uL Sodium 134 L (137-145) mmol/L Carbon Dioxide 17 L (22-30) mmol/L BUN 27 H (7-17) mg/dL Creatinine 1.20 H (0.52-1.04) mg/dL Glucose 117 H (74-99) mg/dL POC Glucose (mg/dL) (70-110) mg/dL AST 77 H (14-36) U/L Total Protein 5.0 L (6.3-8.2) g/dL Albumin 3.2 L (3.5-5.0) g/dL Crossmatch 08/26/24 08/26/24 Range/Units 06:34 07:58 RBC (4.10-5.20) 10*6/uL Hgb (12.0-15.0) g/dL Hct (37.2-46.3) % Plt Count (140-440) 10*3/uL Immature Gran # (0.00-0.04) 10*3/uL Sodium (137-145) mmol/L Carbon Dioxide (22-30) mmol/L BUN (7-17) mg/dL Creatinine (0.52-1.04) mg/dL Glucose (74-99) mg/dL POC Glucose (mg/dL) 119 H 281 H (70-110) mg/dL AST (14-36) U/L Total Protein (6.3-8.2) g/dL Albumin (3.5-5.0) g/dL Crossmatch - Imaging and Cardiology Chest x-ray: report reviewed, image reviewed Assessment and Plan Assessment: Coronary artery disease, non-STEMI this admission, unstable angina, status post 5 vessel off-pump CABG Chest pain, shortness of breath secondary to above Elevated transaminases Postoperative acute blood loss anemia and thrombocytopenia, expected, transfused for 1 unit of packed red blood cells Hypotension, possibly secondary to anemia History of coronary artery disease with previous PCI Hypertension Hyperlipidemia Insulin-dependent diabetes Recent diagnosis of chronic kidney disease Previous tobacco dependence, FEV1 46% of predicted Family history of coronary artery disease with father from myocardial infarction at 61 years old Plan: Continue to maximize medical therapy with aspirin, statin, Plavix, and beta- neptali, will increase metoprolol tartrate as tolerated with hold parameters. Wean oxygen as tolerated. Encourage incentive spirometry use 10 times every hour while awake. Bronchodilators per pulmonology. Encourage incentive spirometry use 10 times every hour while awake. Increase activity as tolerated, PT/OT/cardiac rehab following. Will monitor daily labs and chest x-rays, electrolyte replacement per protocol. GI/DVT prophylaxis. Pain control per current medication regimen. Of Insulin management per internal medicine, patient should remain on IV continuous insulin for 48 hours, then may transition to subcutaneous insulin per protocol. Patient is a diabetic preoperative hemoglobin A1c 8.9%. Will remove [place]/Cordis, arterial line today. Continue her left pleural chest tube for another 24 hours, monitor and record output. Continue to monitor strict accurate intake and output. More recommendations to follow based on patient's clinical course. Time with Patient: Greater than 30
--- NOTE | 2024-08-26 08:50 | P.PN ---
Progress Note - Text Progress Note Date: 08/26/24 Chief Complaint: Chest pain This is a pleasant 83-year-old patient who follows with Dr. Eric Fuentes. Patient was seen in bay #10 n in the extended unit. Chronic medical conditions include CAD with stent, diabetes, hypertension, hyperlipidemia. Patient last had a cardiac catheterization with stent in 2004. She was following with first aid attendant Dr. JIM Roberts. Patient will close 2 months has been having chest pain on and off. Some progression. Yesterday it became rather significant. Also short of breath. Rest. No radiation. No edema. Decided to come in. Patient ruled in with an acute OH with troponin peaking to 4.5 this morning. This morning underwent cardiac catheterization that showed significant disease. Formal dictation not available. Cardiothoracic team was consulted. Currently no chest pain. Patient daughter, grandson, niece present. August 21: Patient been having intermittent chest pains. On nitroglycerin drip. IV heparin drip. Scheduled for coronary bypass on . Acute bump in LFTs. Hold Lipitor. August 22: Occasionally getting some chest pain. Coronary bypass tomorrow. IV heparin. August 24: Patient yesterday underwent 5 vessel coronary bypass. Saw the patient this morning ICU. Has 1 mediastinal and 1 left pleural chest tube. [place] catheter. Balloon pump was taken out. Drips include insulin and IV fluids. Currently intubated. With FiO2 40 and a PEEP of 5. Patient had previously received nitroglycerin drip and propofol drip. Off both of them. Estimated blood loss was 1 L and Cell Saver was 375 cc. August 25: ICU. Extubated. Has been on and off Levophed. Insulin drip. Did sit up in the chair. Minimal oral intake. [place] catheter discontinued. Right mediastinal chest tube removed. Tired. August 26: ICU. Up in a chair. Required some Levophed yesterday. Done overnight. Insulin drip. On full liquid diet. Decreased appetite. Will start Lantus 60 units at night today. And stopped insulin drip at the same time. Left chest tube remains in place. Did not sleep well last night. Rather tired. Also received a unit of blood Active Medications Acetaminophen (Acetaminophen Tab 325 Mg Tab) 650 mg PO Q4HR PRN PRN Reason: Fever And/ Or Mild Pain (1-3) Last Admin: 08/26/24 07:55 Dose: 650 mg Albuterol/Ipratropium (Ipratropium-Albuterol 3 Ml Neb) 3 ml INHALATION RT-Q2H PRN PRN Reason: Shortness Of Breath Or Wheezing Albuterol/Ipratropium (Ipratropium-Albuterol 3 Ml Neb) 3 ml INHALATION RT-QID [facility] Last Admin: 08/26/24 07:46 Dose: Not Given Aspirin (Aspirin 325 Mg Tab) 325 mg PO DAILY [facility] Last Admin: 08/26/24 07:56 Dose: 325 mg Atorvastatin Calcium (Atorvastatin 40 Mg Tab) 40 mg PO DAILY [facility] Last Admin: 08/26/24 07:56 Dose: 40 mg Benzocaine/Menthol (Benzocaine/Menthol Lozeng 1 Each Lozenge) 1 each MUCOUS MEM Q2H PRN PRN Reason: Sore Throat Bisacodyl (Bisacodyl 10 Mg Supp) 10 mg RECTAL DAILY PRN PRN Reason: Constipation Clopidogrel Bisulfate (Clopidogrel 75 Mg Tab) 75 mg PO DAILY [facility] Last Admin: 08/26/24 07:56 Dose: 75 mg Dextrose/Water (Dextrose 50% Syringe 50 Ml) 25 ml IVP PER PROTOCOL PRN; Protocol PRN Reason: Hypoglycemia Dextrose/Water (Dextrose 50% Syringe 50 Ml) 50 ml IVP PER PROTOCOL PRN; Protocol PRN Reason: Hypoglycemia Heparin Sodium (Porcine) (Heparin Sodium,Porcine 5,000 Unit/Ml 1 Ml Vial) 5,000 unit SQ Q8HR [facility] Last Admin: 08/26/24 07:56 Dose: 5,000 unit Hydralazine HCl (Hydralazine Hcl 20 Mg/Ml 1 Ml Vial) 10 mg IVP Q1H PRN PRN Reason: Blood Pressure - High Amiodarone HCl 150 mg/ (Dextrose/Water) 103 mls @ 618 mls/hr IV .Q10M PRN; Protocol PRN Reason: A.FIB/FLUTTER Amiodarone HCl 360 mg/ (Dextrose/Water) 207.2 mls @ 34.533 mls/hr IV .Q6H PRN; Protocol PRN Reason: A.FIB/FLUTTER Amiodarone HCl 450 mg/ (Dextrose/Water) 250 mls @ 16.667 mls/hr IV .Q15H PRN; Protocol PRN Reason: A.FIB/FLUTTER Calcium Gluconate/Sodium (Chloride 2 gm/ IV Solution) 100 mls @ 100 mls/hr IVPB ONCE PRN PRN Reason: Ionized Calcium less than 4.4 Stop: 09/22/24 17:42 Insulin Human Regular 100 unit (/ Sodium Chloride) 101 mls @ 0 mls/hr IV .Q0M [facility]; Protocol Stop: 08/26/24 22:00 Last Titration: 08/26/24 07:58 Dose: 10 mls/hr, 10 mls/hr Sodium Chloride (Saline 0.9%) 1,000 mls @ 20 mls/hr IV .Q24H [facility] Last Admin: 08/25/24 17:43 Dose: 20 mls/hr Insulin Glargine (Insulin Glargine (Lantus) 100 Unit/Ml Syr) 60 unit SQ [facility] Insulin Human Lispro (Insulin Lispro (Humalog) 100 Unit/Ml 10 Ml Vl) 0 unit SQ ACHS [facility]; Protocol Magnesium Hydroxide (Magnesium Hydroxide 2,400 Mg/30 Ml Cup) 2,400 mg PO BID PRN PRN Reason: Constipation Metoclopramide HCl (Metoclopramide 5 Mg/Ml 2 Ml Vial) 10 mg IVP Q4H PRN PRN Reason: Nausea And Vomiting Metoprolol Tartrate (Metoprolol Tartrate 25 Mg Tab) 25 mg PO BID [facility] Last Admin: 08/26/24 07:56 Dose: 25 mg Miscellaneous Information (Potassium Replacement Protocol 1 Each Misc) 1 each MISCELLANE DAILY PRN; Protocol PRN Reason: Per Protocol Miscellaneous Information (Magnesium Replacement Protocol 1 Each Misc) 1 each MISCELLANE DAILY PRN; Protocol PRN Reason: Per Protocol Mupirocin (Mupirocin 2% Oint 22 Gm Tube) 1 applic NASAL BID [facility] Stop: 08/26/24 20:59 Last Admin: 08/25/24 20:23 Dose: 1 applic Ondansetron HCl (Ondansetron 4 Mg/2 Ml Vial) 4 mg IVP Q6HR PRN PRN Reason: Nausea And Vomiting Pantoprazole Sodium (Pantoprazole 40 Mg Tablet) 40 mg PO AC-BRKFST [facility] Last Admin: 08/26/24 06:42 Dose: 40 mg Senna/Docusate Sodium (Sennosides-Docusate Sodium 1 Each Tab) 2 each PO HS [facility] Last Admin: 08/25/24 20:42 Dose: 2 each Sodium Chloride (Sodium Chloride 0.9% Flush 10 Ml Syringe) 10 ml IV BID [facility] Last Admin: 08/25/24 20:24 Dose: Not Given Social history: Lives with her son. Stop smoking 30 years ago. Physical examination: VITAL SIGNS: 103, 28, 101 x 55, 96% on 2 L GENERAL: Up in recliner. Rather tired a bit short of breath EYES: Pupils equal. Conjunctiva tae l. HEENT: External appearance of nose and ears normal, oral cavity endotracheal tube NECK: JVD unable to assess; masses not palpable. HEART: First and second heart sounds are normal; no edema. LUNGS: Respiratory rate increased; decreased breath sounds. left pleural chest tube.. ABDOMEN: Soft, nontender, liver spleen not palpable, no masses palpable. [place] catheter removed PSYCH: AO x 3, tired MUSCULOSKELETAL:No Clubbing/cyanosis;muscles-grossly intact. OA INVESTIGATIONS, reviewed in the clinical context: August 26: White count 8.4 hemoglobin 7.3 platelets 104 potassium 3.8 BUN 27 creatinine 1.20 bicarb 17 August 25: White count 8.1 hemoglobin 7.4 platelets 117 potassium 4 creatinine 0.92 August 24: White count 3.8 hemoglobin 7.9 platelets 102 potassium 3.7 creatinine 0.8 matteo 3: White count 7.8 hemoglobin 13.2 potassium 4.5 BUN 23 creatinine 1.5 AST 266 ALT 355 August 19: White count 7.4 hemoglobin 14.8 platelets 224 sodium 139 potassium 4.6 BUN 29 creatinine 1.22 Troponin I less than 0.012, 0.260, 1.6, 4.5 LDL 94.7 UA protein 2+ EKG tracing personally reviewed by me-sinus rhythm. Left bundle soraya block Chest x-ray film personally reviewed by me-some cardiomegaly Assessment plan: - Coronary bypass 5 vessel. Occlusion of left atrial appendage. By Dr. Joanne Yun on August 23, 2024. - Acute postoperative blood loss anemia expected from surgery Hemoglobin dropped from 13.2-7.9. Did receive Cell Saver 375 cc during surgery. Received 2 units of blood this morning - Dilutional thrombocytopenia - Acute respiratory failure with ventilator support with FiO2 40 and PEEP of 5. Extubated - Acute non-Q wave OH in a patient with known coronary artery disease prior stent in 2004 IV heparin. Aspirin, Lopressor, Lipitor - Acute hepatitis likely drug-induced, improved Lipitor has been resumed at 40 mg. Follow LFTs - Essential hypertension Lopressor 25 mg twice daily - Metabolic acidosis from chronic kidney disease Add sodium bicarbonate - Insomnia for multiple medical reasons - Hyperlipidemia Lipitor 40 mg - Diabetes mellitus type 2, chronically on insulin Currently on insulin drip follow Accu-Cheks - Anxiety not otherwise specified Xanax as needed - Chronic kidney disease, stage III likely diabetic nephropathy and hypertensive nephrosclerosis Follow renal function - Primary osteoarthritis Tylenol as needed -Full code Discussed with patient Past Medical History Past Medical History: Coronary Artery Disease (CAD), Diabetes Mellitus, Hyperlipidemia, Hypertension History of Any Multi-Drug Resistant Organisms: None Reported Past Surgical History: Cholecystectomy, Heart Catheterization With Stent Past Psychological History: Anxiety Smoking Status: Former smoker Past Alcohol Use History: None Reported Past Drug Use History: None Reported
[2024-08-26 09:07] LABS: Glucose,Whole Blood 239 mg/dL (70-110)
[2024-08-26] MEDS: SODIUM BICARBONATE TAB 650 MG TAB PO SCH (09:42)
[2024-08-26 10:16] LABS: Glucose,Whole Blood 160 mg/dL (70-110)
[2024-08-26 11:22] LABS: Glucose,Whole Blood 187 mg/dL (70-110)
--- NOTE | 2024-08-26 11:29 | XR ---
EXAMINATION TYPE: XR chest 1V portable DATE OF EXAM: 08/26/2024 5:37 AM COMPARISON: 08/25/2024 CLINICAL INDICATION: Female, 83 years old with history of Postop CABG, TECHNIQUE: XR chest 1V portable view(s) obtained. FINDINGS: The heart size is enlarged. The pulmonary vasculature is somewhat prominent. Increased lung markings are present greater in the lung bases. Findings are worsening over the interv al. Correlate for worsening congestive heart failure. [place]-Keisha catheter has a tip in the right main pulmonary artery region. Mediastinal tube has been rem leslie. Left-sided chest tube remains present. Left apical thorax is present. IMPRESSION: 1. Stable left apical pneumothorax. 2. Correlate for worsening congestive heart failure. [facility], , 08/26/2024 11:26 AM
[2024-08-26 12:05] LABS: Glucose,Whole Blood 157 mg/dL (70-110)
--- NOTE | 2024-08-26 13:26 | P.PN ---
Subjective Progress Note Date: 08/26/24 On 08/21/2024, the patient is being seen for a preoperative pulmonary clearance as the patient is scheduled to undergo off-pump coronary bypass surgery. As stated, the patient is known to have coronary artery disease. The patient has undergone previous coronary stenting/PCI and the patient has multiple risk factors including hypertension, hyperlipidemia and insulin-dependent diabetes mellitus. She is a former smoker.She presented to [facility] emergency room with complaints of chest pain and slight shortness of breath with activity which had been present intermittently for the last month, states symptoms were similar to when she previously had blockages and PCI. Lab work in the emergency room revealed WBC 7.4, hemoglobin 14.8, creatinine 1.22, AST 49, ALT 54, BNP 146, initial troponin negative but subsequent troponin elevation from 0.26 up to 4.51. EKG revealed sinus rhythm with left bundle branch block. Patient also had elevated blood pressure 195/84 with initial presentation to the emergency room. Chest x-ray revealed no acute process. She was ruled in for non-STEMI and admitted to the cardiac stepdown unit with consultation placed to cardiology. The patient was recommended to undergo heart catheterization which was completed by Dr. Liang revealing mid LAD stenosis 85%, circumflex stenosis 80%, RCA stenosis 95% the patient has no respiratory difficulties. No cough sputum production chest tightness or wheezing. A bedside spirometry was done and the patient's FEV1 was in order of 73% of predicted. The patient also had a CAT scan of the chest that was done on 08/20/2024 and the CAT scan showed mild atherosclerotic calcification of the thoracic aorta and there was no acute cardiopulmonary abnormalities noted. The patient is currently on room air oxygen. Pulse ox 95%. She has good exercise capacity and she is using the incentive spirometer for now. Electrolytes are all stable. BUN is 23 with a creatinine of 1.1. The hemoglobin is at 13.2. The white cell count is at 7.8. On 08/22/2024, the patient had some exertional chest pain. She has no chest pain at rest. She is hemodynamically stable. She was started back on IV heparin. She is awaiting her coronary bypass surgery to be done tomorrow morning. The white cell count at 6.4 and a hemoglobin of 14.7 and platelet count of 210. Normal coagulation profile. BUN is 21 with a creatinine of 1.07 and normal electrolytes. She remains on aspirin. She remains on beta-blockers and IV heparin. Cardiology on the case. Cardiothoracic surgery is also on the case. Echo was also noted and the patient has a preserved LV function without any significant valvular abnormalities.44 I am seeing this patient on 08/23/2024 in follow-up following an off-pump coronary artery bypass grafting x 5 with sequential LEÓN to diagonal LAD, saphenous vein graft to PDA, sequential saphenous vein graft to 1st and 2nd obtuse marginal, occlusion left atrial appendage with 35 mm AtriCure clip, bilateral lower extremity endoscopic saphenectomy, GISELLA by anesthesia. Intraoperatively, patient reportedly became ischemic in the lateral wall and he developed significant mitral regurgitation and markedly elevated PA pressures. An IABP was placed. Patient currently being seen in the intensive care unit, remains intubated mechanical ventilator. Postoperative ABGs including a PaO2 of 219, pCO2 48, pH of 7.26. This was done on ventilator settings including assist-control, respiratory rate 16, tidal volume 400, FiO2 100%, PEEP of 5. Dr. Gomez was previously present at bedside, and made ventilator adjustments including increasing the respiratory rate to 20 and dropping the FiO2 down to 60%. Propofol infusing at 30 mcg/kg/min. Insulin fusion per protocol. Nitroglycerin infusing at 10 mics per minute. Normal saline infusing at 50 mL/h. Right femoral balloon pump remains in place at 1:1. Augmented pressure 74. Doppler right pedal pulse and palpable left radial pulse. CI 2.6. Urine output is adequate around 40 to 50 cc/h. Postoperative chest x-ray showing endotracheal tube approximately 1.4 cm of the stan and this was withdrawn. Nasogastric tube placed below the diaphragm. Left and mediastinal thoracotomy tubesin place. Chest tubes are hooked to suction at -20 cm H2O. There is a pproximately 60 cc of drainage from the left pleural chest tube and 65 cc of sanguinous drainage from the mediastinal chest tube. Most recent labs including a CBC with a WBC count of 5.3, hemoglobin 7.4 g/dL, hematocrit 22, platelets 112,000. Postoperative BMP including a sodium 138, potassium 3.9, chloride 107, serum bicarb 20, BUN 18, creatinine 0.72, glucose 200. Calcium 9.1. No attempts at weaning this patient from the ventilator have yet been made. On 08/25/2024, the patient is being seen for a follow-up. On today's evaluation, the patient's main complaint is soreness and pain. She is currently on 2 L of oxygen by nasal cannula. The patient is in normal sinus rhythm. Her [place]-Keisha catheter remains in place. The cardiac output is 4.8 with an index of 2.6. PA pressure 35/15 and the patient has a mediastinal and left pleural chest tube and output from the mediastinal has been 150 cc in the left lower chest tube with 550 cc over the past 24 hours. Meanwhile, the patient is producing adequate amount of urine output. The white secondary 0.1 with a hemoglobin 7.4 and platelet count of 117. Sodium is at 135, BUN 15 with creatinine 0.9 and a potassium level is at 4.0. Chest x-ray from today shows bibasilar infiltrates mild pulm vascular congestion and lines and catheters are all in place. The patient was seen in collaboration with the cardiothoracic surgeon. For now, the patient will be given Lasix 20 mg IV every 12 hours x 2. Patient will be kept on metoprolol 25 mg p.o. twice a day. Will encourage use of incentive spirometry and will continue supportive care. Pain control the patient is postop day #2. The patient underwent 5 vessel bypass surgery On 08/26/2024, the patient is being seen for a follow-up. The patient is calm and comfortable and the patient sitting up in a chair and she is currently on 2 L of oxygen by nasal cannula with a pulse ox of 96%. The patient is hemodynamically stable. [place]-Keisha catheter still in place. Cardiac output is 4.2 with an index of 2.3. SVR is at 913. PA pressures are 33/11. The patient has a left pleural chest tube and there is no evidence of any air leak and the total amount of output has been 500 cc over the past 24 hours. The chest x-ray from today shows some mild pulm vessel congestion. No evidence of any pneumothorax. Lungs are adequately expanded. Urine output is adequate and the patient using the incentive spirometer and she is pulling approximately 500 cc. Cardiac rhythm is sinus. The white cell count is at 8.4 with a hemoglobin of 7.3 and a platelet count of 104. Sodium is at 134, potassium is at 3.8, bicarbonate 17, BUN 27 and the creatinine is at 1.2. LFTs are essentially within normal limits. The patient is on a combination of aspirin and Plavix. The patient is on metoprolol 25 mg p.o. twice a day. The patient is on insulin drip which is running at 9 units an hour and the patient will be transition to long-acting insulin. Objective - Vital Signs Vital signs: Vital Signs Temp 100.9 F H 08/25/24 16:00 Pulse 86 08/26/24 09:00 Resp 24 08/26/24 09:00 BP 86/43 08/26/24 09:00 Pulse Ox 97 08/26/24 09:00 FiO2 40 08/24/24 12:00 Intake & Output 08/25/24 08/26/24 08/26/24 18:59 06:59 18:59 Intake Total 1212.906 741.942 300.667 Output Total 650 770 50 Balance 562.906 -28.058 250.667 Weight 79.3 kg Intake: IV 1089 527 39 Albumin Human 25% 50 ml 50 In Empty Bag 1 bag @ 50 mls/hr IVPB ONCE ONE Rx#: [id number] Albumin Human 5% 250 ml 500 In Empty Bag 1 bag @ 250 mls/hr IVPB ONCE ONE Rx#: [id number] CO/CI 110 30 NS for pressure flushes 99 117 9 Sodium Chloride 0.9% 1, 490 250 000 ml @ 20 mls/hr IV . Q24H KENDALL Rx#:[id number] Intake, IV Titration 123.906 14.942 11.667 Amount Insulin Regular 100 unit 40.725 14.942 11.667 In Sodium Chloride 0.9% 100 ml @ Per Protocol IV .Q0M KENDALL Rx#:[id number] Norepinephrine 4 mg In 83.181 Sodium Chloride 0.9% 250 ml @ 0.02 MCG/KG/MIN 5. 966 mls/hr IV .Q24H KENDALL Rx#:[id number] Oral 200 250 Blood Product 0 Unit 0 Output: Chest Tube Drainage 200 270 50 Left pleural 190 270 50 Mediastinal 10 Urine 450 500 0 Other: Voiding Method Bedside Commode Bedside Commode # Voids 0 0 # Bowel Movements 0 ABP, PAP, CO, CI - Last Documented Arterial Blood Pressure 93/37 Pulmonary Artery Pressure 29/12 Cardiac Output 5.5 Cardiac Index 3 - Exam CONSTITUTIONAL: Sitting up to the bedside chair in the intensive care unit, appears comfortable, cooperative, no apparent acute distress. RESPIRATORY: Lungs sounds diminished in the bases bilaterally. Respirations symmetrical, nonlabored. Oxygen saturations 97% on 2 L nasal cannula and she is achieving 500-750 mL on her incentive spirometry with much encouragement. Strong cough. CARDIOVASCULAR: S1, S2 present. Regular rate and rhythm, sinus rhythm on telemetry, heart rate 96 bpm. Sternum stable. Peripheral pulses palpable. No edema present. No calf pain or tenderness noted. Heart hugger, antiembolism stockings, SCDs present. GASTROINTESTINAL: Abdomen soft, nontender, nondistended. Active bowel sounds present 4 quadrants. Tolerating clear liquid diet. No guarding or rigidity. Passing flatus. GENITOURINARY: Continues to void. Urine output 420 mL in the last 8 hours. INTEGUMENTARY: Skin is warm and dry with no evidence of clubbing or cyanosis. Midline sternal incision well approximated and covered with dry intact dressing. Bilateral lower extremity EVH sites well approximated without redness or drainage. NEUROLOGIC: Cranial nerves II through XII intact. No focal deficits. PSYCHIATRIC: Alert and oriented to person place and time, appropriate affect, intact judgment and insight. INVASIVE LINES AND TUBES: Left pleural chest tube remain in place to low continuous wall suction -20 cm H2O. No airleak is present. Left pleural chest tube drained 180 mL output in the last 8 hours and 500 mL output in the last 24 hours. Right internal jugular [place], right radial arterial line present. Last CO/CI 4.2/2.3, SVR 913 PA 33/11, CVP 5. - Labs CBC & Chem 7: 08/26/24 04:50 08/26/24 04:50 Labs: Abnormal Lab Results - Last 24 Hours (Table) 08/22/24 08/25/24 08/25/24 Range/Units 06:59 10:55 12:04 RBC (4.10-5.20) 10*6/uL Hgb (12.0-15.0) g/dL Hct (37.2-46.3) % Plt Count (140-440) 10*3/uL Immature Gran # (0.00-0.04) 10*3/uL Sodium (137-145) mmol/L Carbon Dioxide (22-30) mmol/L BUN (7-17) mg/dL Creatinine (0.52-1.04) mg/dL Glucose (74-99) mg/dL POC Glucose (mg/dL) 112 H 142 H (70-110) mg/dL AST (14-36) U/L Total Protein (6.3-8.2) g/dL Albumin (3.5-5.0) g/dL Crossmatch See Detail 08/25/24 08/25/24 08/25/24 Range/Units 12:57 14:03 15:07 RBC (4.10-5.20) 10*6/uL Hgb (12.0-15.0) g/dL Hct (37.2-46.3) % Plt Count (140-440) 10*3/uL Immature Gran # (0.00-0.04) 10*3/uL Sodium (137-145) mmol/L Carbon Dioxide (22-30) mmol/L BUN (7-17) mg/dL Creatinine (0.52-1.04) mg/dL Glucose (74-99) mg/dL POC Glucose (mg/dL) 156 H 146 H 126 H (70-110) mg/dL AST (14-36) U/L Total Protein (6.3-8.2) g/dL Albumin (3.5-5.0) g/dL Crossmatch 08/25/24 08/25/24 08/25/24 Range/Units 19:01 20:01 20:48 RBC 2.50 L (4.10-5.20) 10*6/uL Hgb 7.6 L (12.0-15.0) g/dL Hct 21.7 L (37.2-46.3) % Plt Count 121 L (140-440) 10*3/uL Immature Gran # 0.10 H (0.00-0.04) 10*3/uL Sodium (137-145) mmol/L Carbon Dioxide (22-30) mmol/L BUN (7-17) mg/dL Creatinine (0.52-1.04) mg/dL Glucose (74-99) mg/dL POC Glucose (mg/dL) 127 H 127 H (70-110) mg/dL AST (14-36) U/L Total Protein (6.3-8.2) g/dL Albumin (3.5-5.0) g/dL Crossmatch 08/26/24 08/26/24 08/26/24 Range/Units 04:50 04:50 06:34 RBC 2.43 L (4.10-5.20) 10*6/uL Hgb 7.3 L (12.0-15.0) g/dL Hct 21.3 L (37.2-46.3) % Plt Count 104 L (140-440) 10*3/uL Immature Gran # 0.06 H (0.00-0.04) 10*3/uL Sodium 134 L (137-145) mmol/L Carbon Dioxide 17 L (22-30) mmol/L BUN 27 H (7-17) mg/dL Creatinine 1.20 H (0.52-1.04) mg/dL Glucose 117 H (74-99) mg/dL POC Glucose (mg/dL) 119 H (70-110) mg/dL AST 77 H (14-36) U/L Total Protein 5.0 L (6.3-8.2) g/dL Albumin 3.2 L (3.5-5.0) g/dL Crossmatch 08/26/24 08/26/24 Range/Units 07:58 09:04 RBC (4.10-5.20) 10*6/uL Hgb (12.0-15.0) g/dL Hct (37.2-46.3) % Plt Count (140-440) 10*3/uL Immature Gran # (0.00-0.04) 10*3/uL Sodium (137-145) mmol/L Carbon Dioxide (22-30) mmol/L BUN (7-17) mg/dL Creatinine (0.52-1.04) mg/dL Glucose (74-99) mg/dL POC Glucose (mg/dL) 281 H 239 H (70-110) mg/dL AST (14-36) U/L Total Protein (6.3-8.2) g/dL Albumin (3.5-5.0) g/dL Crossmatch Assessment and Plan Plan: Coronary artery disease and the patient is post NSTEMI and the patient underwent coronary bypass surgery off-pump x 5 and intraoperatively the patient required intra-aortic balloon pump for hemodynamic support. The patient is postop day # 3. Hemodynamically stable. No inotropes. Adequate cardiac output and index. Postthoracotomy, extubated successfully on 08/24/2024 and the patient scheduled to receive oxygen by nasal cannula. And the patient is currently on 2 L of O2 nasal cannula.. Chest x-ray was noted. Blood gas was noted. Adequate oxygenation and ventilation at this point in time. Output from the chest tube is noted just to be kept in place. The patient continues to have a left pleural chest tube. Mediastinal chest tube has been removed. The patient received a unit of packed RBC and the patient's hemoglobin is currently at 7.3. No history of coronary artery disease with previous PCI Hypertension Hyperlipidemia insulin-dependent diabetes mellitus and the patient has been maintained on insulin drip running at 8 Postop anemia with a hemoglobin of 7.9, expected outcome of surgery. Hyperlipidemia Skin cancer Plan Extubated to 2 L of oxygen by nasal cannula Encourage use of incentive spirometer Continue aspirin and Plavix. Continue metoprolol 25 mg p.o. twice a day Stop the insulin drip and put the patient on Lantus insulin 60 units daily Monitor hemodynamic parameters [place]-Keisha catheter was to be removed today Will continue to follow make further recommendations based on her progress. Time with Patient: Greater than 30
[2024-08-26 14:58] LABS: Glucose,Whole Blood 174 mg/dL (70-110)
[2024-08-26 16:02] LABS: Glucose,Whole Blood 196 mg/dL (70-110)
[2024-08-26] MEDS: FUROSEMIDE 10 MG/ML 2 ML VIAL IV ONE (16:42)
[2024-08-26 17:02] LABS: Glucose,Whole Blood 154 mg/dL (70-110)
[2024-08-26 18:09] LABS: Glucose,Whole Blood 169 mg/dL (70-110)
[2024-08-26 19:21] LABS: Glucose,Whole Blood 144 mg/dL (70-110)
[2024-08-26 20:00] LABS: Glucose,Whole Blood 148 mg/dL (70-110)
--- NOTE | 2024-08-26 20:21 | P.PN ---
Subjective Progress Note Date: 08/25/24 The patient is a pleasant 83-year-old female patient with a past medical history significant for CAD as well as diabetes and hypertension and dyslipidemia who was admitted to the hospital with a non-STEMI and underwent a heart catheterization which revealed severe triple-vessel CAD. She underwent CABG yes terday. She underwent CABG x 5 with LEÓN to LAD and diagonal and SVG to 1st and 2nd obtuse marginal branch and SVG to RCA along with the occlusion of the left atrial appendage. She was seen and evaluated this morning. The patient seems to be overall stable hemodynamically with the balloon pump was 1-1 and in process to be turned to 2-1 and subsequently removed. When the patient was seen in the morning the patient was in normal sinus mechanism. Urine output has been adequate. Hemoglobin was above 7. Kidney function and electrolytes are within normal limits. bilaterally the chest x-ray showed finding consistent with pulmonary vascular congestions. The patient is on dual antiplatelet therapy using aspirin and Plavix along with intermediate intensity statin along with beta-neptali using metoprolol Progress note 08/25/2024 Postop day 2 off-pump CABG 5 vessel, Alert oriented, mild abdominal distention, has not passed any gas, right IJ and [place]-Keisha catheter in place, cardiac index 2.6, The physical examination is remarkable for distant heart sounds with regular rhythm and diminished breathing sounds Assessment CAD status post CABG as described above Multiple comorbid conditions including diabetes and hypertension and dyslipidemia Plan Continue the current medical regimen Continue monitoring urine output Continue monitor the hemoglobin and kidney function and electrolytes Consider increasing dose of statin to high intensity Follow-up with the patient Objective - Vital Signs Vital signs: Vital Signs Temp 99.8 F H 08/26/24 16:00 Pulse 93 08/26/24 19:00 Resp 19 08/26/24 19:00 BP 98/50 08/26/24 19:00 Pulse Ox 92 L 08/26/24 19:00 FiO2 40 08/24/24 12:00 Intake & Output 08/26/24 08/26/24 08/27/24 06:59 18:59 06:59 Intake Total 086.454 4462.483 37.767 Output Total 770 930 0 Balance -28.058 506.483 37.767 Weight 79.3 kg Intake: IV 527 475 33 Albumin Human 25% 50 ml 50 In Empty Bag 1 bag @ 50 mls/hr IVPB ONCE ONE Rx#: [id number] CO/CI 110 330 30 Dextrose 5% in Water 100 100 ml @ 618 mls/hr IV .Q10M PRN with Amiodarone 150 mg Rx#:[id number] NS for pressure flushes 117 45 3 Sodium Chloride 0.9% 1, 250 000 ml @ 20 mls/hr IV . Q24H [facility] Rx#:[id number] Intake, IV Titration 14.942 61.483 4.767 Amount Insulin Regular 100 unit 14.942 61.483 4.767 In Sodium Chloride 0.9% 100 ml @ Per Protocol IV .Q0M [facility]ALL Rx#:[id number] Oral 200 900 Output: Chest Tube Drainage 270 130 Left pleural 270 130 Urine 500 800 0 Other: Voiding Method Bedside Commode Bedside Commode # Voids 0 # Bowel Movements 0 ABP, PAP, CO, CI - Last Documented Arterial Blood Pressure 104/38 Pulmonary Artery Pressure 35/14 Cardiac Output 5.5 Cardiac Index 3 - Labs CBC & Chem 7: 08/26/24 04:50 08/26/24 04:50 Labs: Abnormal Lab Results - Last 24 Hours (Table) 08/22/24 08/25/24 08/26/24 Range/Units 06:59 20:48 04:50 RBC 2.50 L 2.43 L (4.10-5.20) 10*6/uL Hgb 7.6 L 7.3 L (12.0-15.0) g/dL Hct 21.7 L 21.3 L (37.2-46.3) % Plt Count 121 L 104 L (140-440) 10*3/uL Immature Gran # 0.10 H 0.06 H (0.00-0.04) 10*3/uL Sodium (137-145) mmol/L Carbon Dioxide (22-30) mmol/L BUN (7-17) mg/dL Creatinine (0.52-1.04) mg/dL Glucose (74-99) mg/dL POC Glucose (mg/dL) (70-110) mg/dL AST (14-36) U/L Total Protein (6.3-8.2) g/dL Albumin (3.5-5.0) g/dL Crossmatch See Detail 08/26/24 08/26/2425 Range/Units 04:50 06:34 07:58 RBC (4.10-5.20) 10*6/uL Hgb (12.0-15.0) g/dL Hct (37.2-46.3) % Plt Count (140-440) 10*3/uL Immature Gran # (0.00-0.04) 10*3/uL Sodium 134 L (137-145) mmol/L Carbon Dioxide 17 L (22-30) mmol/L BUN 27 H (7-17) mg/dL Creatinine 1.20 H (0.52-1.04) mg/dL Glucose 117 H (74-99) mg/dL POC Glucose (mg/dL) 119 H 281 H (70-110) mg/dL AST 77 H (14-36) U/L Total Protein 5.0 L (6.3-8.2) g/dL Albumin 3.2 L (3.5-5.0) g/dL Crossmatch 08/26/24 08/26/24 08/26/24 Range/Units 09:04 10:15 11:21 RBC (4.10-5.20) 10*6/uL Hgb (12.0-15.0) g/dL Hct (37.2-46.3) % Plt Count (140-440) 10*3/uL Immature Gran # (0.00-0.04) 10*3/uL Sodium (137-145) mmol/L Carbon Dioxide (22-30) mmol/L BUN (7-17) mg/dL Creatinine (0.52-1.04) mg/dL Glucose (74-99) mg/dL POC Glucose (mg/dL) 239 H 160 H 187 H (70-110) mg/dL AST (14-36) U/L Total Protein (6.3-8.2) g/dL Albumin (3.5-5.0) g/dL Crossmatch 08/26/24 08/26/24 08/26/24 Range/Units 12:04 14:57 16:01 RBC (4.10-5.20) 10*6/uL Hgb (12.0-15.0) g/dL Hct (37.2-46.3) % Plt Count (140-440) 10*3/uL Immature Gran # (0.00-0.04) 10*3/uL Sodium (137-145) mmol/L Carbon Dioxide (22-30) mmol/L BUN (7-17) mg/dL Creatinine (0.52-1.04) mg/dL Glucose (74-99) mg/dL POC Glucose (mg/dL) 157 H 174 H 196 H (70-110) mg/dL AST (14-36) U/L Total Protein (6.3-8.2) g/dL Albumin (3.5-5.0) g/dL Crossmatch 08/26/24 08/26/24 08/26/24 Range/Units 17:01 18:07 19:19 RBC (4.10-5.20) 10*6/uL Hgb (12.0-15.0) g/dL Hct (37.2-46.3) % Plt Count (140-440) 10*3/uL Immature Gran # (0.00-0.04) 10*3/uL Sodium (137-145) mmol/L Carbon Dioxide (22-30) mmol/L BUN (7-17) mg/dL Creatinine (0.52-1.04) mg/dL Glucose (74-99) mg/dL POC Glucose (mg/dL) 154 H 169 H 144 H (70-110) mg/dL AST (14-36) U/L Total Protein (6.3-8.2) g/dL Albumin (3.5-5.0) g/dL Crossmatch 08/26/24 Range/Units 19:59 RBC (4.10-5.20) 10*6/uL Hgb (12.0-15.0) g/dL Hct (37.2-46.3) % Plt Count (140-440) 10*3/uL Immature Gran # (0.00-0.04) 10*3/uL Sodium (137-145) mmol/L Carbon Dioxide (22-30) mmol/L BUN (7-17) mg/dL Creatinine (0.52-1.04) mg/dL Glucose (74-99) mg/dL POC Glucose (mg/dL) 148 H (70-110) mg/dL AST (14-36) U/L Total Protein (6.3-8.2) g/dL Albumin (3.5-5.0) g/dL Crossmatch
--- NOTE | 2024-08-26 20:21 | P.PN ---
Subjective Progress Note Date: 08/25/24 The patient is a pleasant 83-year-old female patient with a past medical history significant for CAD as well as diabetes and hypertension and dyslipidemia who was admitted to the hospital with a non-STEMI and underwent a heart catheterization which revealed severe triple-vessel CAD. She underwent CABG ye day. She underwent CABG x 5 with LEÓN to LAD and diagonal and SVG to 1st and 2nd obtuse marginal branch and SVG to RCA along with the occlusion of the left atrial appendage. She was seen and evaluated this morning. The patient seems to be overall stable hemodynamically with the balloon pump was 1-1 and in process to be turned to 2-1 and subsequently removed. When the patient was seen in the morning the patient was in normal sinus mechanism. Urine output has been adequate. Hemoglobin was above 7. Kidney function and electrolytes are within normal limits. The physical examination is remarkable for distant heart sounds with regular rhythm and diminished breathing sounds bilaterally the chest x-ray showed finding consistent with pulmonary vascular congestions. The patient is on dual antiplatelet therapy using aspirin and Plavix along with intermediate intensity statin along with beta-neptali using metoprolol Progress note 08/25/2024 Postop day 2 off-pump CABG 5 vessel, Alert oriented, mild abdominal distention, has not passed any gas, right IJ and [place]isha catheter in place, cardiac index 2.6, Assessment CAD status post CABG as described above Multiple comorbid conditions including diabetes and hypertension and dyslipidemia Plan Continue the current medical regimen Continue monitoring urine output Continue monitor the hemoglobin and kidney function and electrolytes Consider increasing dose of statin to high intensity Follow-up with the patient Objective - Vital Signs Vital signs: Vital Signs Temp 99.8 F H 08/26/24 16:00 Pulse 93 08/26/24 19:00 Resp 19 08/26/24 19:00 BP 98/50 08/26/24 19:00 Pulse Ox 92 L 08/26/24 19:00 FiO2 40 08/24/24 12:00 Intake & Output 08/26/24 08/26/24 08/27/24 06:59 18:59 06:59 Intake Total 804.820 7217.483 37.767 Output Total 770 930 0 Balance -28.058 506.483 37.767 Weight 79.3 kg Intake: IV 527 475 33 Albumin Human 25% 50 ml 50 In Empty Bag 1 bag @ 50 mls/hr IVPB ONCE ONE Rx#: [id number] CO/CI 110 330 30 Dextrose 5% in Water 100 100 ml @ 618 mls/hr IV .Q10M PRN with Amiodarone 150 mg Rx#:[id number] NS for pressure flushes 117 45 3 Sodium Chloride 0.9% 1, 250 000 ml @ 20 mls/hr IV . Q24H [facility] Rx#:[id number] Intake, IV Titration 14.942 61.483 4.767 Amount Insulin Regular 100 unit 14.942 61.483 4.767 In Sodium Chloride 0.9% 100 ml @ Per Protocol IV .Q0M [facility] Rx#:[id number] Oral 200 900 Output: Chest Tube Drainage 270 130 Left pleural 270 130 Urine 500 800 0 Other: Voiding Method Bedside Commode Bedside Commode # Voids 0 # Bowel Movements 0 ABP, PAP, CO, CI - Last Documented Arterial Blood Pressure 104/38 Pulmonary Artery Pressure 35/14 Cardiac Output 5.5 Cardiac Index 3 - Labs CBC & Chem 7: 08/26/24 04:50 08/26/24 04:50 Labs: Abnormal Lab Results - Last 24 Hours (Table) 08/22/24 08/25/24 08/26/24 Range/Units 06:59 20:48 04:50 RBC 2.50 L 2.43 L (4.10-5.20) 10*6/uL Hgb 7.6 L 7.3 L (12.0-15.0) g/dL Hct 21.7 L 21.3 L (37.2-46.3) % Plt Count 121 L 104 L (140-440) 10*3/uL Immature Gran # 0.10 H 0.06 H (0.00-0.04) 10*3/uL Sodium (137-145) mmol/L Carbon Dioxide (22-30) mmol/L BUN (7-17) mg/dL Creatinine (0.52-1.04) mg/dL Glucose (74-99) mg/dL POC Glucose (mg/dL) (70-110) mg/dL AST (14-36) U/L Total Protein (6.3-8.2) g/dL Albumin (3.5-5.0) g/dL Crossmatch See Detail 08/26/24 08/26/2425 Range/Units 04:50 06:34 07:58 RBC (4.10-5.20) 10*6/uL Hgb (12.0-15.0) g/dL Hct (37.2-46.3) % Plt Count (140-440) 10*3/uL Immature Gran # (0.00-0.04) 10*3/uL Sodium 134 L (137-145) mmol/L Carbon Dioxide 17 L (22-30) mmol/L BUN 27 H (7-17) mg/dL Creatinine 1.20 H (0.52-1.04) mg/dL Glucose 117 H (74-99) mg/dL POC Glucose (mg/dL) 119 H 281 H (70-110) mg/dL AST 77 H (14-36) U/L Total Protein 5.0 L (6.3-8.2) g/dL Albumin 3.2 L (3.5-5.0) g/dL Crossmatch 08/26/24 08/26/24 08/26/24 Range/Units 09:04 10:15 11:21 RBC (4.10-5.20) 10*6/uL Hgb (12.0-15.0) g/dL Hct (37.2-46.3) % Plt Count (140-440) 10*3/uL Immature Gran # (0.00-0.04) 10*3/uL Sodium (137-145) mmol/L Carbon Dioxide (22-30) mmol/L BUN (7-17) mg/dL Creatinine (0.52-1.04) mg/dL Glucose (74-99) mg/dL POC Glucose (mg/dL) 239 H 160 H 187 H (70-110) mg/dL AST (14-36) U/L Total Protein (6.3-8.2) g/dL Albumin (3.5-5.0) g/dL Crossmatch 08/26/24 08/26/24 08/26/24 Range/Units 12:04 14:57 16:01 RBC (4.10-5.20) 10*6/uL Hgb (12.0-15.0) g/dL Hct (37.2-46.3) % Plt Count (140-440) 10*3/uL Immature Gran # (0.00-0.04) 10*3/uL Sodium (137-145) mmol/L Carbon Dioxide (22-30) mmol/L BUN (7-17) mg/dL Creatinine (0.52-1.04) mg/dL Glucose (74-99) mg/dL POC Glucose (mg/dL) 157 H 174 H 196 H (70-110) mg/dL AST (14-36) U/L Total Protein (6.3-8.2) g/dL Albumin (3.5-5.0) g/dL Crossmatch 08/26/24 08/26/24 08/26/24 Range/Units 17:01 18:07 19:19 RBC (4.10-5.20) 10*6/uL Hgb (12.0-15.0) g/dL Hct (37.2-46.3) % Plt Count (140-440) 10*3/uL Immature Gran # (0.00-0.04) 10*3/uL Sodium (137-145) mmol/L Carbon Dioxide (22-30) mmol/L BUN (7-17) mg/dL Creatinine (0.52-1.04) mg/dL Glucose (74-99) mg/dL POC Glucose (mg/dL) 154 H 169 H 144 H (70-110) mg/dL AST (14-36) U/L Total Protein (6.3-8.2) g/dL Albumin (3.5-5.0) g/dL Crossmatch 08/26/24 Range/Units 19:59 RBC (4.10-5.20) 10*6/uL Hgb (12.0-15.0) g/dL Hct (37.2-46.3) % Plt Count (140-440) 10*3/uL Immature Gran # (0.00-0.04) 10*3/uL Sodium (137-145) mmol/L Carbon Dioxide (22-30) mmol/L BUN (7-17) mg/dL Creatinine (0.52-1.04) mg/dL Glucose (74-99) mg/dL POC Glucose (mg/dL) 148 H (70-110) mg/dL AST (14-36) U/L Total Protein (6.3-8.2) g/dL Albumin (3.5-5.0) g/dL Crossmatch
--- NOTE | 2024-08-26 20:23 | P.PN ---
Subjective Progress Note Date: 08/26/24 The patient is a pleasant 83-year-old female patient with a past medical history significant for CAD as well as diabetes and hypertension and dyslipidemia who was admitted to the hospital with a non-STEMI and underwent a heart catheterization which revealed severe triple-vessel CAD. She underwent CABG ye sterday. She underwent CABG x 5 with LEÓN to LAD and diagonal and SVG to 1st and 2nd obtuse marginal branch and SVG to RCA along with the occlusion of the left atrial appendage. She was seen and evaluated this morning. The patient seems to be overall stable hemodynamically with the balloon pump was 1-1 and in process to be turned to 2-1 and subsequently removed. When the patient was seen in the morning the patient was in normal sinus mechanism. Urine output has been adequate. Hemoglobin was above 7. Kidney function and electrolytes are within normal limits. bilaterally the chest x-ray showed finding consistent with pulmonary vascular congestions. The patient is on dual antiplatelet therapy using aspirin and Plavix along with intermediate intensity statin along with beta-neptali using metoprolol Progress note 08/25/2024 Postop day 2 off-pump CABG 5 vessel, Alert oriented, mild abdominal distention, has not passed any gas, right IJ and [place]-Keisha catheter in place, cardiac index 2.6, 08/26/2024 Postop day 3 off-pump 5 vessel CABG Alert oriented. Reports poor appetite, mild abdominal distention reports feeling constipated. Has not passed any gas or bowel movements yet She got 1 unit of blood transfusion yesterday She was placed on norepinephrine briefly yesterday. Blood pressure is better controlled today The physical examination is remarkable for distant heart sounds with regular rhythm and diminished breathing sounds Assessment CAD status post CABG as described above Multiple comorbid conditions including diabetes and hypertension and dyslipidemia Plan Continue the current medical regimen Continue monitoring urine output Continue monitor the hemoglobin and kidney function and electrolytes Follow-up with the patient Objective - Vital Signs Vital signs: Vital Signs Temp 99.8 F H 08/26/24 16:00 Pulse 93 08/26/24 19:00 Resp 19 08/26/24 19:00 BP 98/50 08/26/24 19:00 Pulse Ox 92 L 08/26/24 19:00 FiO2 40 08/24/24 12:00 Intake & Output 08/26/24 08/26/24 08/27/24 06:59 18:59 06:59 Intake Total 124.725 9612.483 37.767 Output Total 770 930 0 Balance -28.058 506.483 37.767 Weight 79.3 kg Intake: IV 527 475 33 Albumin Human 25% 50 ml 50 In Empty Bag 1 bag @ 50 mls/hr IVPB ONCE ONE Rx#: [id number] CO/CI 110 330 30 Dextrose 5% in Water 100 100 ml @ 618 mls/hr IV .Q10M PRN with Amiodarone 150 mg Rx#:[id number] NS for pressure flushes 117 45 3 Sodium Chloride 0.9% 1, 250 000 ml @ 20 mls/hr IV . Q24H [facility] Rx#:[id number] Intake, IV Titration 14.942 61.483 4.767 Amount Insulin Regular 100 unit 14.942 61.483 4.767 In Sodium Chloride 0.9% 100 ml @ Per Protocol IV .Q0M [facility] Rx#:[id number] Oral 200 900 Output: Chest Tube Drainage 270 130 Left pleural 270 130 Urine 500 800 0 Other: Voiding Method Bedside Commode Bedside Commode # Voids 0 # Bowel Movements 0 ABP, PAP, CO, CI - Last Documented Arterial Blood Pressure 104/38 Pulmonary Artery Pressure 35/14 Cardiac Output 5.5 Cardiac Index 3 - Labs CBC & Chem 7: 08/26/24 04:50 08/26/24 04:50 Labs: Abnormal Lab Results - Last 24 Hours (Table) 08/22/24 08/25/24 08/26/24 Range/Units 06:59 20:48 04:50 RBC 2.50 L 2.43 L (4.10-5.20) 10*6/uL Hgb 7.6 L 7.3 L (12.0-15.0) g/dL Hct 21.7 L 21.3 L (37.2-46.3) % Plt Count 121 L 104 L (140-440) 10*3/uL Immature Gran # 0.10 H 0.06 H (0.00-0.04) 10*3/uL Sodium (137-145) mmol/L Carbon Dioxide (22-30) mmol/L BUN (7-17) mg/dL Creatinine (0.52-1.04) mg/dL Glucose (74-99) mg/dL POC Glucose (mg/dL) (70-110) mg/dL AST (14-36) U/L Total Protein (6.3-8.2) g/dL Albumin (3.5-5.0) g/dL Crossmatch See Detail 08/26/24 08/26/24 08/26/24 Range/Units 04:50 06:34 07:58 RBC (4.10-5.20) 10*6/uL Hgb (12.0-15.0) g/dL Hct (37.2-46.3) % Plt Count (140-440) 10*3/uL Immature Gran # (0.00-0.04) 10*3/uL Sodium 134 L (137-145) mmol/L Carbon Dioxide 17 L (22-30) mmol/L BUN 27 H (7-17) mg/dL Creatinine 1.20 H (0.52-1.04) mg/dL Glucose 117 H (74-99) mg/dL POC Glucose (mg/dL) 119 H 281 H (70-110) mg/dL AST 77 H (14-36) U/L Total Protein 5.0 L (6.3-8.2) g/dL Albumin 3.2 L (3.5-5.0) g/dL Crossmatch 08/26/24 08/26/24 08/26/24 Range/Units 09:04 10:15 11:21 RBC (4.10-5.20) 10*6/uL Hgb (12.0-15.0) g/dL Hct (37.2-46.3) % Plt Count (140-440) 10*3/uL Immature Gran # (0.00-0.04) 10*3/uL Sodium (137-145) mmol/L Carbon Dioxide (22-30) mmol/L BUN (7-17) mg/dL Creatinine (0.52-1.04) mg/dL Glucose (74-99) mg/dL POC Glucose (mg/dL) 239 H 160 H 187 H (70-110) mg/dL AST (14-36) U/L Total Protein (6.3-8.2) g/dL Albumin (3.5-5.0) g/dL Crossmatch 08/26/24 08/26/24 08/26/24 Range/Units 12:04 14:57 16:01 RBC (4.10-5.20) 10*6/uL Hgb (12.0-15.0) g/dL Hct (37.2-46.3) % Plt Count (140-440) 10*3/uL Immature Gran # (0.00-0.04) 10*3/uL Sodium (137-145) mmol/L Carbon Dioxide (22-30) mmol/L BUN (7-17) mg/dL Creatinine (0.52-1.04) mg/dL Glucose (74-99) mg/dL POC Glucose (mg/dL) 157 H 174 H 196 H (70-110) mg/dL AST (14-36) U/L Total Protein (6.3-8.2) g/dL Albumin (3.5-5.0) g/dL Crossmatch 08/26/24 08/26/24 08/26/24 Range/Units 17:01 18:07 19:19 RBC (4.10-5.20) 10*6/uL Hgb (12.0-15.0) g/dL Hct (37.2-46.3) % Plt Count (140-440) 10*3/uL Immature Gran # (0.00-0.04) 10*3/uL Sodium (137-145) mmol/L Carbon Dioxide (22-30) mmol/L BUN (7-17) mg/dL Creatinine (0.52-1.04) mg/dL Glucose (74-99) mg/dL POC Glucose (mg/dL) 154 H 169 H 144 H (70-110) mg/dL AST (14-36) U/L Total Protein (6.3-8.2) g/dL Albumin (3.5-5.0) g/dL Crossmatch 08/26/24 Range/Units 19:59 RBC (4.10-5.20) 10*6/uL Hgb (12.0-15.0) g/dL Hct (37.2-46.3) % Plt Count (140-440) 10*3/uL Immature Gran # (0.00-0.04) 10*3/uL Sodium (137-145) mmol/L Carbon Dioxide (22-30) mmol/L BUN (7-17) mg/dL Creatinine (0.52-1.04) mg/dL Glucose (74-99) mg/dL POC Glucose (mg/dL) 148 H (70-110) mg/dL AST (14-36) U/L Total Protein (6.3-8.2) g/dL Albumin (3.5-5.0) g/dL Crossmatch
[2024-08-26] MEDS: INSULIN LISPRO (HumaLOG) 100 UNIT/ML 10 mL VL SQ SCH (20:26)
[2024-08-26] MEDS: POTASSIUM CHLORIDE ER 20 MEQ TAB.ER PO SCH (20:32)
[2024-08-26] MEDS: INSULIN GLARGINE (LANTUS) 100 UNIT/ML SYR SQ SCH (20:33)
[2024-08-27 06:02] LABS: HCT 24.1 % (37.2-46.3); HGB 8.2 g/dL (12.0-15.0); MCH 29.7 pg (27.0-32.0); MCV 87.3 fL (80.0-97.0); Mean Platelet Volume 10.1 fL (9.5-12.2); RBC 2.76 10*6/uL (4.10-5.20); RDW 14.8 % (11.5-14.5); WBC 9.32 10*3/uL (4.50-10.00)
[2024-08-27 06:12] LABS: Glucose,Whole Blood 142 mg/dL (70-110)
[2024-08-27 06:19] LABS: Platelet Count 165 10*3/uL (140-440)
[2024-08-27 06:38] LABS: ALT 29 U/L (4-34); AST 64 U/L (14-36); African American GFR (CKD) 54 (>60 ml/min/1.73 sqM); Albumin 3.4 g/dL (3.5-5.0); Alkaline Phosphatase 86 U/L (38-126); Blood Urea Nitrogen 30 mg/dL (7-17); Carbon Dioxide 19 mmol/L (22-30); Chloride 107 mmol/L (98-107); Glucose 142 mg/dL (74-99); Magnesium 2.2 mg/dL (1.6-2.3); Non-African American GFR(CKD) 47 (>60 ml/min/1.73 sqM); Potassium 3.9 mmol/L (3.5-5.1); Total Bilirubin 1.1 mg/dL (0.2-1.3); Total Protein 5.6 g/dL (6.3-8.2)
[2024-08-27 07:23] LABS: Anion Gap 18 mmol/L; Sodium 144 mmol/L (137-145)
--- NOTE | 2024-08-27 07:35 | XR ---
EXAMINATION TYPE: XR chest 1V portable DATE OF EXAM: 08/27/2024 5:33 AM COMPARISON: Multiple radiographs, with the most recent on 08/26/2024 TECHNIQUE: XR chest 1V portable Portable AP radiograph of the chest. CLINICAL INDICATION:Female, 83 years old with history of Postop CABG; FINDINGS: Lungs/Pleura: Similar small left apical pneumothorax. Redemonstration of right pleural effusion with associated atelectasis. Left basilar atelectasis. Pulmonary vascularity: Unremarkable. Heart/mediastinum: Cardiomediastinal silhouette is enlarged and stable. Postoperative changes are pr esent in the mediastinum. Left atrial appendage occlusion devices present. Musculoskeletal: No acute osseous pathology. Midline sternotomy wires are noted and stable. Other findings: None Lines/Tubes: Stable position of left chest tube. IMPRESSION: 1. Post-CABG changes with stable small left apical pneumothorax. Left chest tube in place. 2. Small right pleural effusion with bibasilar atelectasis. [facility], , 08/27/2024 7:33 AM
[2024-08-27] MEDS: METOPROLOL TARTRATE 25 MG TAB PO SCH (08:45)
[2024-08-27] MEDS: AMIODARONE 200 MG TAB PO SCH (08:45)
[2024-08-27] MEDS: FUROSEMIDE 10 MG/ML 2 ML VIAL IV ONE (08:45)
--- NOTE | 2024-08-27 09:35 | US ---
EXAMINATION TYPE: US chest DATE OF EXAM: 08/27/2024 COMPARISON: XR(08/27/24) CLINICAL INDICATION: Female, 83 years old with history of US right chest with markings; TECHNIQUE: Grayscale imaging of the chest. Targeted ultrasound of the posterior lower right hemithor ax FINDINGS: EXAM MEASUREMENTS: Right Pleural Effusion pocket size: 10.2 cm Right skin surface to fluid distance: 3.2 cm Fluid to lung tissue: 3.0cm Right side marked for possible thoracentesis outside the dept. Pulmonologists are able to review the images in the patient?s EMR. IMPRESSIONS: 1. Right pleural effusion [facility], , 08/27/2024 9:32 AM
[2024-08-27 11:15] LABS: Glucose,Whole Blood 208 mg/dL (70-110)
--- NOTE | 2024-08-27 11:48 | XR ---
EXAMINATION TYPE: XR chest 1V portable DATE OF EXAM: 08/27/2024 11:08 AM COMPARISON: 08/27/2024 CLINICAL INDICATION: Female, 83 years old with history of Post right thoracentesis, prior pneumothora x TECHNIQUE: XR chest 1V portable view(s) obtained. FINDINGS: The heart size is enlarged. The pulmonary vasculature is normal. There is a small to moderate right pleural effusion. Left-sided chest tube is present. There is a s table left apical pneumothorax IMPRESSION: 1. Stable left apical pneumothorax. Left-sided chest tube remains in position. 2. Cardiomegaly. 3. Small to moderate right pleural effusion [facility], , 08/27/2024 11:46 AM
[2024-08-27] MEDS: INSULIN LISPRO (HumaLOG) 100 UNIT/ML 10 mL VL SQ SCH (12:48)
--- NOTE | 2024-08-27 12:55 | P.PN ---
Progress Note - Text Progress Note Date: 08/27/24 Chief Complaint: Chest pain This is a pleasant 83-year-old patient who follows with Dr. Eric Fuentes. Patient was seen in bay #10 n in the extended unit. Chronic medical conditions include CAD with stent, diabetes, hypertension, hyperlipidemia. Patient last had a cardiac catheterization with stent in 2004. She was following with vp purchasing Dr. JIM Roberts. Patient will close 2 months has been having chest pain on and off. Some progression. Yesterday it became rather significant. Also short of breath. Rest. No radiation. No edema. Decided to come in. Patient ruled in with an acute AZ with troponin peaking to 4.5 this morning. This morning underwent cardiac catheterization that showed significant disease. Formal dictation not available. Cardiothoracic team was consulted. Currently no chest pain. Patient daughter, grandson, niece present. August 21: Patient been having intermittent chest pains. On nitroglycerin drip. IV heparin drip. Scheduled for coronary bypass on . Acute bump in LFTs. Hold Lipitor. August 22: Occasionally getting some chest pain. Coronary bypass tomorrow. IV heparin. August 24: Patient yesterday underwent 5 vessel coronary bypass. Saw the patient this morning ICU. Has 1 mediastinal and 1 left pleural chest tube. [place] catheter. Balloon pump was taken out. Drips include insulin and IV fluids. Currently intubated. With FiO2 40 and a PEEP of 5. Patient had previously received nitroglycerin drip and propofol drip. Off both of them. Estimated blood loss was 1 L and Cell Saver was 375 cc. August 25: ICU. Extubated. Has been on and off Levophed. Insulin drip. Did sit up in the chair. Minimal oral intake. [place] catheter discontinued. Right mediastinal chest tube removed. Tired. August 26: ICU. Up in a chair. Required some Levophed yesterday. Done overnight. Insulin drip. On full liquid diet. Decreased appetite. Will start Lantus 60 units at night today. And stopped insulin drip at the same time. Left chest tube remains in place. Did not sleep well last night. Rather tired. Also received a unit of blood August 27: ICU. Up in a chair. Patient insulin drip was discontinued yesterday evening started on Lantus 60 units. Eating better. Lantus will be increased to 70 units nightly. Also will add 5 units of Humalog with meals. 550 cc of bloody fluid was removed/thoracentesis from right side today. Breathing better. Patient up in the chair 2 L nasal cannula. Sinus rhythm. Left chest tubes got minimal output. About 60 cc overnight. Active Medications Acetaminophen (Acetaminophen Tab 325 Mg Tab) 650 mg PO Q4HR PRN PRN Reason: Fever And/ Or Mild Pain (1-3) Last Admin: 08/27/24 08:44 Dose: 650 mg Albuterol/Ipratropium (Ipratropium-Albuterol 3 Ml Neb) 3 ml INHALATION RT-Q2H PRN PRN Reason: Shortness Of Breath Or Wheezing Albuterol/Ipratropium (Ipratropium-Albuterol 3 Ml Neb) 3 ml INHALATION RT-QID [facility] Last Admin: 08/27/24 11:30 Dose: 3 ml Amiodarone HCl (Amiodarone 200 Mg Tab) 400 mg PO BID [facility] Last Admin: 08/27/24 08:45 Dose: 400 mg Aspirin (Aspirin 325 Mg Tab) 325 mg PO DAILY [facility] Last Admin: 08/27/24 08:45 Dose: 325 mg Atorvastatin Calcium (Atorvastatin 40 Mg Tab) 40 mg PO DAILY [facility] Last Admin: 08/27/24 08:45 Dose: 40 mg Benzocaine/Menthol (Benzocaine/Menthol Lozeng 1 Each Lozenge) 1 each MUCOUS MEM Q2H PRN PRN Reason: Sore Throat Bisacodyl (Bisacodyl 10 Mg Supp) 10 mg RECTAL DAILY PRN PRN Reason: Constipation Clopidogrel Bisulfate (Clopidogrel 75 Mg Tab) 75 mg PO DAILY [facility] Last Admin: 08/27/24 08:45 Dose: 75 mg Dextrose/Water (Dextrose 50% Syringe 50 Ml) 25 ml IVP PER PROTOCOL PRN; Protocol PRN Reason: Hypoglycemia Dextrose/Water (Dextrose 50% Syringe 50 Ml) 50 ml IVP PER PROTOCOL PRN; Protocol PRN Reason: Hypoglycemia Heparin Sodium (Porcine) (Heparin Sodium,Porcine 5,000 Unit/Ml 1 Ml Vial) 5,000 unit SQ Q8HR [facility] Last Admin: 08/27/24 08:45 Dose: 5,000 unit Hydralazine HCl (Hydralazine Hcl 20 Mg/Ml 1 Ml Vial) 10 mg IVP Q1H PRN PRN Reason: Blood Pressure - High Amiodarone HCl 150 mg/ (Dextrose/Water) 103 mls @ 618 mls/hr IV .Q10M PRN; Protocol PRN Reason: A.FIB/FLUTTER Amiodarone HCl 360 mg/ (Dextrose/Water) 207.2 mls @ 34.533 mls/hr IV .Q6H PRN; Protocol PRN Reason: A.FIB/FLUTTER Amiodarone HCl 450 mg/ (Dextrose/Water) 250 mls @ 16.667 mls/hr IV .Q15H PRN; Protocol PRN Reason: A.FIB/FLUTTER Calcium Gluconate/Sodium (Chloride 2 gm/ IV Solution) 100 mls @ 100 mls/hr IVPB ONCE PRN PRN Reason: Ionized Calcium less than 4.4 Stop: 09/22/24 17:42 Sodium Chloride (Saline 0.9%) 1,000 mls @ 20 mls/hr IV .Q24H [facility] Last Admin: 08/27/24 00:35 Dose: 20 mls/hr Insulin Glargine (Insulin Glargine (Lantus) 100 Unit/Ml Syr) 70 unit SQ [facility] Insulin Human Lispro (Insulin Lispro (Humalog) 100 Unit/Ml 10 Ml Vl) 0 unit SQ ACHS [facility]; Protocol Last Admin: 08/27/24 11:55 Dose: 6 unit Insulin Human Lispro (Insulin Lispro (Humalog) 100 Unit/Ml 10 Ml Vl) 5 unit SQ AC-TID [facility] Last Admin: 08/27/24 12:48 Dose: 5 unit Magnesium Hydroxide (Magnesium Hydroxide 2,400 Mg/30 Ml Cup) 2,400 mg PO BID PRN PRN Reason: Constipation Metoclopramide HCl (Metoclopramide 5 Mg/Ml 2 Ml Vial) 10 mg IVP Q4H PRN PRN Reason: Nausea And Vomiting Metoprolol Tartrate (Metoprolol Tartrate 25 Mg Tab) 25 mg PO TID [facility] Last Admin: 08/27/24 08:45 Dose: 25 mg Miscellaneous Information (Potassium Replacement Protocol 1 Each Misc) 1 each MISCELLANE DAILY PRN; Protocol PRN Reason: Per Protocol Miscellaneous Information (Magnesium Replacement Protocol 1 Each Misc) 1 each MISCELLANE DAILY PRN; Protocol PRN Reason: Per Protocol Ondansetron HCl (Ondansetron 4 Mg/2 Ml Vial) 4 mg IVP Q6HR PRN PRN Reason: Nausea And Vomiting Pantoprazole Sodium (Pantoprazole 40 Mg Tablet) 40 mg PO AC-BRKFST [facility] Last Admin: 08/27/24 06:31 Dose: 40 mg Senna/Docusate Sodium (Sennosides-Docusate Sodium 1 Each Tab) 2 each PO HS [facility] Last Admin: 08/26/24 20:32 Dose: 2 each Sodium Bicarbonate (Sodium Bicarbonate Tab 650 Mg Tab) 650 mg PO TID [facility] Last Admin: 08/27/24 08:45 Dose: 650 mg Sodium Chloride (Sodium Chloride 0.9% Flush 10 Ml Syringe) 10 ml IV BID [facility] Last Admin: 08/27/24 08:30 Dose: Not Given Social history: Lives with her son. Stop smoking 30 years ago. Physical examination: VITAL SIGNS: 97.8, 87, 22, 96 x 43, 94% GENERAL: Up in recliner. Eating lunch. Breathing better EYES: Pupils equal. Conjunctiva tae l. HEENT: External appearance of nose and ears normal, oral cavity endotracheal tube NECK: JVD unable to assess; masses not palpable. HEART: First and second heart sounds are normal; no edema. LUNGS: Respiratory rate increased; decreased breath sounds. left pleural chest tube.. ABDOMEN: Soft, nontender, liver spleen not palpable, no masses palpable. [place] catheter removed PSYCH: AO x 3, mood affect a bit tired MUSCULOSKELETAL:No Clubbing/cyanosis;muscles-grossly intact. OA INVESTIGATIONS, reviewed in the clinical context: August 27: White count 9.3 hemoglobin 8.2 potassium 3.9 BUN 30 creatinine 1.10 August 26: White count 8.4 hemoglobin 7.3 platelets 104 potassium 3.8 BUN 27 creatinine 1.20 bicarb 17 August 7: White count 8.1 hemoglobin 7.4 platelets 117 potassium 4 creatinine 0.92 August 24: White count 3.8 hemoglobin 7.9 platelets 102 potassium 3.7 creatinine 0.8 matteo 3: White count 7.8 hemoglobin 13.2 potassium 4.5 BUN 23 creatinine 1.5 AST 266 ALT 355 August 19: White count 7.4 hemoglobin 14.8 platelets 224 sodium 139 potassium 4.6 BUN 29 creatinine 1.22 Troponin I less than 0.012, 0.260, 1.6, 4.5 LDL 94.7 UA protein 2+ EKG tracing personally reviewed by me-sinus rhythm. Left bundle soraya block Chest x-ray film personally reviewed by me-some cardiomegaly Assessment plan: - Coronary bypass 5 vessel. Occlusion of left atrial appendage. By Dr. Joanne Yun on August 23, 2024. - Acute postoperative blood loss anemia expected from surgery Hemoglobin dropped from 13.2-7.9. Did receive Cell Saver 375 cc during surgery. Received 2 units of blood this morning - Dilutional thrombocytopenia - Acute respiratory failure with ventilator support with FiO2 40 and PEEP of 5. Extubated - Acute non-Q wave AZ in a patient with known coronary artery disease prior stent in 2004 IV heparin. Aspirin, Lopressor, Lipitor - Hypoalbuminemia, reactive - Right pleural effusion, Right thoracentesis, bloody aspirate 550 cc removed on August 27, 2024 - Acute hepatitis likely drug-induced, improved Lipitor has been resumed at 40 mg. Follow LFTs - Essential hypertension Lopressor 25 mg twice daily - Metabolic acidosis from chronic kidney disease Add sodium bicarbonate - Insomnia for multiple medical reasons - Hyperlipidemia Lipitor 40 mg - Diabetes mellitus type 2, chronically on insulin Currently on insulin drip follow Accu-Cheks - Anxiety not otherwise specified Xanax as needed - Chronic kidney disease, stage III likely diabetic nephropathy and hypertensive nephrosclerosis Follow renal function - Primary osteoarthritis Tylenol as needed -Full code Past Medical History Past Medical History: Coronary Artery Disease (CAD), Diabetes Mellitus, Hyperlipidemia, Hypertension History of Any Multi-Drug Resistant Organisms: None Reported Past Surgical History: Cholecystectomy, Heart Catheterization With Stent Past Psychological History: Anxiety Smoking Status: Former smoker Past Alcohol Use History: None Reported Past Drug Use History: None Reported
--- NOTE | 2024-08-27 15:41 | P.PN ---
Subjective Progress Note Date: 08/27/24 Principal diagnosis: POD #4 off-pump coronary artery bypass grafting x 5 with sequential LEÓN to diagonal LAD, saphenous vein graft to PDA, sequential saphenous vein graft to 1st and 2nd obtuse marginal, occlusion left atrial appendage with 35 mm AtriCure clip, bilateral lower extremity endoscopic saphenectomy, percutaneous right femoral arterial placement of intra-aortic balloon pump, GISELLA by anesthesia On 08/21/2024, the patient is being seen for a preoperative pulmonary clearance as the patient is scheduled to undergo off-pump coronary bypass surgery. As stated, the patient is known to have coronary artery disease. The patient has undergone previous coronary stenting/PCI and the patient has multiple risk factors including hypertension, hyperlipidemia and insulin-dependent diabetes mellitus. She is a former smoker.She presented to [facility] emergency room with complaints of chest pain and slight shortness of breath with activity which had been present intermittently for the last month, states symptoms were similar to when she previously had blockages and PCI. Lab work in the emergency room revealed WBC 7.4, hemoglobin 14.8, creatinine 1.22, AST 49, ALT 54, BNP 146, initial troponin negative but subsequent troponin elevation from 0.26 up to 4.51. EKG revealed sinus rhythm with left bundle branch block. Patient also had elevated blood pressure 195/84 with initial presentation to the emergency room. Chest x-ray revealed no acute process. She was ruled in for non-STEMI and admitted to the cardiac stepdown unit with consultation placed to cardiology. The patient was recommended to undergo heart catheterization which was completed by Dr. Liang revealing mid LAD stenosis 85%, circumflex stenosis 80%, RCA stenosis 95% the patient has no respiratory difficulties. No cough sputum production chest tightness or wheezing. A bedside spirometry was done and the patient's FEV1 was in order of 73% of predicted. The patient also had a CAT scan of the chest that was done on 08/20/2024 and the CAT scan showed mild atherosclerotic calcification of the thoracic aorta and there was no acute cardiopulmonary abnormalities noted. The patient is currently on room air oxygen. Pulse ox 95%. She has good exercise capacity and she is using the incentive spirometer for now. Electrolytes are all stable. BUN is 23 with a creatinine of 1.1. The hemoglobin is at 13.2. The white cell count is at 7.8. On 08/22/2024, the patient had some exertional chest pain. She has no chest pain at rest. She is hemodynamically stable. She was started back on IV heparin. She is awaiting her coronary bypass surgery to be done tomorrow morning. The white cell count at 6.4 and a hemoglobin of 14.7 and platelet count of 210. Normal coagulation profile. BUN is 21 with a creatinine of 1.07 and normal electrolytes. She remains on aspirin. She remains on beta-blockers and IV heparin. Cardiology on the case. Cardiothoracic surgery is also on the case. Echo was also noted and the patient has a preserved LV function without any significant valvular abnormalities.44 I am seeing this patient on 08/23/2024 in follow-up following an off-pump co ronary artery bypass grafting x 5 with sequential LEÓN to diagonal LAD, saphenous vein graft to PDA, sequential saphenous vein graft to 1st and 2nd obtuse marginal, occlusion left atrial appendage with 35 mm AtriCure clip, bilateral lower extremity endoscopic saphenectomy, GISELLA by anesthesia. Intrao peratively, patient reportedly became ischemic in the lateral wall and he developed significant mitral regurgitation and markedly elevated PA pressures. An IABP was placed. Patient currently being seen in the intensive care unit, remains intubated mechanical ventilator. Postoperative ABGs including a PaO2 of 219, pCO2 48, pH of 7.26. This was done on ventilator settings including assist-control, respiratory rate 16, tidal volume 400, FiO2 100%, PEEP of 5. Dr. oGmez was previously present at bedside, and made ventilator adjustments including increasing the respiratory rate to 20 and dropping the FiO2 down to 60%. Propofol infusing at 30 mcg/kg/min. Insulin fusion per protocol. Nitro glycerin infusing at 10 mics per minute. Normal saline infusing at 50 mL/h. Right femoral balloon pump remains in place at 1:1. Augmented pressure 74. Doppler right pedal pulse and palpable left radial pulse. CI 2.6. Urine output is adequate around 40 to 50 cc/h. Postoperative chest x-ray showing endotracheal tube approximately 1.4 cm of the stan and this was withdrawn. Nasogastric tube placed below the diaphragm. Left and mediastinal thoracotomy tubesin place. Chest tubes are hooked to suction at -20 cm H2O. There is approximately 60 cc of drainage from the left pleural chest tube and 65 cc of sanguinous drainage from the mediastinal chest tube. Most recent labs including a CBC with a WBC count of 5.3, hemoglobin 7.4 g/dL, hematocrit 22, platelets 112,000. Postoperative BMP including a sodium 138, potassium 3.9, chloride 107, serum bicarb 20, BUN 18, creatinine 0.72, glucose 200. Calcium 9.1. No attempts at weaning this patient from the ventilator have yet been made. On 08/25/2024, the patient is being seen for a follow-up. On today's evaluation, the patient's main complaint is soreness and pain. She is currently on 2 L of oxygen by nasal cannula. The patient is in normal sinus rhythm. Her [place] catheter remains in place. The cardiac output is 4.8 with an index of 2.6. PA pressure 35/15 and the patient has a mediastinal and left pleural chest tube and output from the mediastinal has been 150 cc in the left lower chest tube with 550 cc over the past 24 hours. Meanwhile, the patient is producing adequate amount of urine output. The white secondary 0.1 with a hemoglobin 7.4 and platelet count of 117. Sodium is at 135, BUN 15 with creatinine 0.9 and a potassium level is at 4.0. Chest x-ray from today shows bibasilar infiltrates mild pulm vascular congestion and lines and catheters are all in place. The patient was seen in collaboration with the cardiothoracic surgeon. For now, the patient will be given Lasix 20 mg IV every 12 hours x 2. Patient will be kept on metoprolol 25 mg p.o. twice a day. Will encourage use of incentive spirometr y and will continue supportive care. Pain control the patient is postop day #2. The patient underwent 5 vessel bypass surgery On 08/26/2024, the patient is being seen for a follow-up. The patient is calm and comfortable and the patient sitting up in a chair and she is currently on 2 L of oxygen by nasal cannula with a pulse ox of 96%. The patient is hemodynamically stable. [place] catheter still in place. Cardiac output is 4.2 with an index of 2.3. SVR is at 913. PA pressures are 33/11. The patient has a left pleural chest tube and there is no evidence of any air leak and the total amount of output has been 500 cc over the past 24 hours. The chest x-ray from today shows some mild pulm vessel congestion. No evidence of any pneumothorax. Lungs are adequately expanded. Urine output is adequate and the patient using the incentive spirometer and she is pulling approximately 500 cc. Cardiac rhythm is sinus. The white cell count is at 8.4 with a hemoglobin of 7.3 and a platelet count of 104. Sodium is at 134, potassium is at 3.8, bicarbonate 17, BUN 27 and the creatinine is at 1.2. LFTs are essentially within normal limits. The patient is on a combination of aspirin and Plavix. The patient is on metoprolol 25 mg p.o. twice a day. The patient is on insulin drip which is running at 9 units an hour and the patient will be transition to long-acting insulin. Seen today on 08/27/2024, patient is comfortable not in distress, continues to have left-sided chest tube in place with a small apical pneumothorax, she has a right-sided pleural effusion for which I recommended thoracentesis after reviewing her ultrasound of the chest. Hemoglobin is 8.2 today. Patient under went right-sided thoracentesis and I was able to remove 550 cc of bloody effusion. WBC is 9.32 hemoglobin is 8.2 electrolytes are normal BUN is 30 creatinine 1.1. Chest x-ray as noted earlier. Objective - Vital Signs Vital signs: Vital Signs Temp 97.8 F 08/27/24 12:00 Pulse 85 08/27/24 15:27 Resp 20 08/27/24 15:00 BP 102/55 08/27/24 15:00 Pulse Ox 97 08/27/24 15:00 FiO2 40 08/24/24 12:00 Intake & Output 08/26/24 08/27/24 08/27/24 18:59 06:59 18:59 Intake Total 1436.483 283.725 840 Output Total 930 2610 1550 Balance 506.483 -2326.275 -710 Weight 78.8 kg Intake: IV 475 273 160 CO/CI 330 30 Dextrose 5% in Water 100 100 ml @ 618 mls/hr IV .Q10M PRN with Amiodarone 150 mg Rx#:[id number] NS for pressure flushes 45 3 Sodium Chloride 0.9% 1, 240 160 000 ml @ 20 mls/hr IV . Q24H [facility] Rx#:[id number] Intake, IV Titration 61.483 10.725 Amount Insulin Regular 100 unit 61.483 10.725 In Sodium Chloride 0.9% 100 ml @ Per Protocol IV .Q0M [facility] Rx#:[id number] Oral 900 680 Output: Chest Tube Drainage 130 110 100 Left pleural 130 110 100 Urine 800 2500 900 Other 550 Other: Voiding Method Bedside Commode Bedside Commode Bedside Commode # Voids 0 # Bowel Movements 0 ABP, PAP, CO, CI - Last Documented Arterial Blood Pressure 104/38 Pulmonary Artery Pressure 35/14 Cardiac Output 5.5 Cardiac Index 3 - Exam CONSTITUTIONAL: Revealed 83-year-old female in no distress Head: Atraumatic normocephalic RESPIRATORY: Diminished breath sound bilaterally no rhonchi no wheezes, left- sided chest tube remains in place CARDIOVASCULAR: Distant S1-S2, no S3 gallop, no murmur Abdomen: Soft nontender no megaly no rebound Extremities no clubbing edema or cyanosis Skin: No rashes Neurologic: Alert oriented x 3 no focal deficit Psychiatric: Normal mood affect normal mental status examination. - Labs CBC & Chem 7: 08/27/24 05:25 08/27/24 05:25 Labs: Abnormal Lab Results - Last 24 Hours (Table) 08/26/24 08/26/24 08/26/24 Range/Units 16:01 17:01 18:07 RBC (4.10-5.20) 10*6/uL Hgb (12.0-15.0) g/dL Hct (37.2-46.3) % Carbon Dioxide (22-30) mmol/L BUN (7-17) mg/dL Creatinine (0.52-1.04) mg/dL Glucose (74-99) mg/dL POC Glucose (mg/dL) 196 H 154 H 169 H (70-110) mg/dL AST (14-36) U/L Total Protein (6.3-8.2) g/dL Albumin (3.5-5.0) g/dL 08/26/24 08/26/24 08/27/24 Range/Units 19:19 19:59 05:25 RBC 2.76 L (4.10-5.20) 10*6/uL Hgb 8.2 L (12.0-15.0) g/dL Hct 24.1 L (37.2-46.3) % Carbon Dioxide (22-30) mmol/L BUN (7-17) mg/dL Creatinine (0.52-1.04) mg/dL Glucose (74-99) mg/dL POC Glucose (mg/dL) 144 H 148 H (70-110) mg/dL AST (14-36) U/L Total Protein (6.3-8.2) g/dL Albumin (3.5-5.0) g/dL 08/27/24 08/27/24 08/27/24 Range/Units 05:25 06:11 11:13 RBC (4.10-5.20) 10*6/uL Hgb (12.0-15.0) g/dL Hct (37.2-46.3) % Carbon Dioxide 19 L (22-30) mmol/L BUN 30 H (7-17) mg/dL Creatinine 1.10 H (0.52-1.04) mg/dL Glucose 142 H (74-99) mg/dL POC Glucose (mg/dL) 142 H 208 H (70-110) mg/dL AST 64 H (14-36) U/L Total Protein 5.6 L (6.3-8.2) g/dL Albumin 3.4 L (3.5-5.0) g/dL Assessment and Plan Assessment: Impression: Coronary artery disease and the patient is post NSTEMI and the patient underwent coronary bypass surgery off-pump x 5 and intraoperatively the patient required intra-aortic balloon pump for hemodynamic support. The patient is postop day #4 hemodynamically stable. No inotropes. Adequate cardiac output and index. Small right-sided pleural effusion underwent thoracentesis, 500 cc of bloody effusion removed No history of coronary artery disease with previous PCI Hypertension Hyperlipidemia insulin-dependent diabetes mellitus Hyperlipidemia Skin cancer recommendation: Continue present supportive care measures Continue incentive spirometry Continue aspirin and Plavix Continue beta-blockers Continue ambulation Performed right-sided thoracentesis Will continue to follow Time with Patient: Less than 30
--- NOTE | 2024-08-27 16:05 | OP ---
OPERATIVE REPORT DATE OF SERVICE : PROCEDURE: Right-sided thoracentesis. PREOPERATIVE DIAGNOSIS: Right-sided pleural effusion. POSTOPERATIVE DIAGNOSIS: Right-sided pleural effusion. ANESTHESIA USED: 4 mL of 2% lidocaine. DESCRIPTION OF PROCEDURE: The patient was placed in the sitting upright position, fluid was localized by ultrasound, and the marking was at the level of the 8th intercostal space and tip of the scapula. Then, the area below the right scapula was prepared in a sterile fashion. Drapes were applied, the area was locally anesthetized with lidocaine. Then, a 26- gauge needle was inserted at the same site, advanced into the pleural space, fluid was localized. A small tiny incision was made, and a standard thoracentesis catheter with the needle introduced into the same site into the pleural space. Fluid was obtained and then the catheter was advanced out of the needle, and the needle was pulled out of the pleural space. Freely flowing fluid was removed. Total 550 mL of bloody effusion was removed from the right pleural space. Procedure was tolerated and no complications post procedure. Fluid was discarded, but the fluid needs any diagnostic studies since it is postoperative pleural effusion from the recent cardiac surgery. MMODL / IJN: [id number] /
--- NOTE | 2024-08-27 16:30 | P.PN ---
Subjective Progress Note Date: 08/27/24 HPI: [This is a 83-year-old lady with a history of CAD diabetes hypertension she underwent a cardiac cath which revealed significant triple-vessel disease. She had a bypass surgery with a LEÓN to LAD diagonal, vein graft to the 1st and 2nd obtuse minor and another vein graft to the RCA/PDA along with occlusion of left atrial appendage. She was on a balloon pump but that has been removed she is hemodynamically stable slightly tachycardic. She is on a beta-neptali the dose is being adjusted. She seems to be resting comfortably without symptoms. No chest pain or shortness of breath.]. PHYSICIAL EXAM: [Vitals are stable slightly tachycardic JVD 1 cm no carotid bruit S1-S2 heard normally short systolic murmur lungs reveal diminished air entry right base. Chest x-ray reveals moderate-sized pleural effusion small left apical pneumothorax. Chest tube is still in place]. IMPRESSION: 1. [Status post aortocoronary bypass surgery]. 2. [Right-sided pleural effusion]. 3. [Multiple comorbid conditions including diabetes]. 4. []. 5. []. RECOMMENDATIONS: [Probable thoracentesis today for the right-sided pleural effusion. Will adjust the dose of beta-neptali upward, continue incentive spirometry and pulmonary toilet.]. Objective - Vital Signs Vital signs: Vital Signs Temp 98.1 F 08/27/24 16:00 Pulse 84 08/27/24 16:00 Resp 20 08/27/24 16:00 BP 116/60 08/27/24 16:00 Pulse Ox 96 08/27/24 16:00 FiO2 40 08/24/24 12:00 Intake & Output 08/26/24 08/27/24 08/27/24 18:59 06:59 18:59 Intake Total 1436.483 283.725 860 Output Total 930 2610 1550 Balance 506.483 -2326.275 -690 Weight 78.8 kg Intake: IV 475 273 180 CO/CI 330 30 Dextrose 5% in Water 100 100 ml @ 618 mls/hr IV .Q10M PRN with Amiodarone 150 mg Rx#:[id number] NS for pressure flushes 45 3 Sodium Chloride 0.9% 1, 240 180 000 ml @ 20 mls/hr IV . Q24H [facility] Rx#:[id number] Intake, IV Titration 61.483 10.725 Amount Insulin Regular 100 unit 61.483 10.725 In Sodium Chloride 0.9% 100 ml @ Per Protocol IV .Q0M [facility] Rx#:[id number] Oral 900 680 Output: Chest Tube Drainage 130 110 100 Left pleural 130 110 100 Urine 800 2500 900 Other 550 Other: Voiding Method Bedside Commode Bedside Commode Bedside Commode # Voids 0 # Bowel Movements 0 ABP, PAP, CO, CI - Last Documented Arterial Blood Pressure 104/38 Pulmonary Artery Pressure 35/14 Cardiac Output 5.5 Cardiac Index 3 - Labs CBC & Chem 7: 08/27/24 05:25 08/27/24 05:25 Labs: Abnormal Lab Results - Last 24 Hours (Table) 08/26/24 08/26/24 08/26/24 Range/Units 17:01 18:07 19:19 RBC (4.10-5.20) 10*6/uL Hgb (12.0-15.0) g/dL Hct (37.2-46.3) % Carbon Dioxide (22-30) mmol/L BUN (7-17) mg/dL Creatinine (0.52-1.04) mg/dL Glucose (74-99) mg/dL POC Glucose (mg/dL) 154 H 169 H 144 H (70-110) mg/dL AST (14-36) U/L Total Protein (6.3-8.2) g/dL Albumin (3.5-5.0) g/dL 08/26/24 08/27/24 08/27/24 Range/Units 19:59 05:25 05:25 RBC 2.76 L (4.10-5.20) 10*6/uL Hgb 8.2 L (12.0-15.0) g/dL Hct 24.1 L (37.2-46.3) % Carbon Dioxide 19 L (22-30) mmol/L BUN 30 H (7-17) mg/dL Creatinine 1.10 H (0.52-1.04) mg/dL Glucose 142 H (74-99) mg/dL POC Glucose (mg/dL) 148 H (70-110) mg/dL AST 64 H (14-36) U/L Total Protein 5.6 L (6.3-8.2) g/dL Albumin 3.4 L (3.5-5.0) g/dL 08/27/24 08/27/24 Range/Units 06:11 11:13 RBC (4.10-5.20) 10*6/uL Hgb (12.0-15.0) g/dL Hct (37.2-46.3) % Carbon Dioxide (22-30) mmol/L BUN (7-17) mg/dL Creatinine (0.52-1.04) mg/dL Glucose (74-99) mg/dL POC Glucose (mg/dL) 142 H 208 H (70-110) mg/dL AST (14-36) U/L Total Protein (6.3-8.2) g/dL Albumin (3.5-5.0) g/dL
[2024-08-27 16:42] LABS: Glucose,Whole Blood 246 mg/dL (70-110)
--- NOTE | 2024-08-27 16:58 | P.PN ---
Subjective Progress Note Date: 08/27/24 Principal diagnosis: Coronary artery disease, non-STEMI this admission, unstable angina, elevated transaminase. Past medical history significant for coronary artery disease with previous PCI, hypertension, hyperlipidemia, insulin-dependent diabetes, recent diagnosis of chronic kidney disease, previous tobacco dependence, and family history of coronary artery disease with father from myocardial infarction at 61 years old POD #4 off-pump coronary artery bypass grafting x 5 with sequential LEÓN to diagonal LAD, saphenous vein graft to PDA, sequential saphenous vein graft to 1st and 2nd obtuse marginal, occlusion left atrial appendage with 35 mm AtriCure clip, bilateral lower extremity endoscopic saphenectomy, percutaneous right femoral arterial placement of intra-aortic balloon pump, GISELLA by anesthesia Postoperative acute blood loss anemia and thrombocytopenia, expected given hemodilution. Paroxysmal atrial fibrillation, a known common occurrence after cardiac surgery. The patient was seen and examined in follow-up today August 27, 2024 at her bedside in the intensive care unit. She is currently sitting up to the bedside chair, is awake, alert, oriented x 3 and is in no acute apparent distress. She denies any complaints of shortness of breath at this time, although is complaining of some surgical type pain to her chest tube insertion site, currently rating her pain 2 out of 10 on the pain scale. She was transfused for 1 unit of packed red blood cells on 08/25/2024 for hemoglobin of 7.4 and due to some hypotension. Today her hemoglobin is 8.2. Oxygen saturations are 97% on 2 L nasal cannula and she is achieving 500 to on her incentive spirometry. Bedside telemetry is showing normal sinus rhythm heart rate 95 bpm. Right IJ cordis remains in place with current hemodynamic showing a CVP 10 mmHg. Left pleural chest tube remains in place to low continuous wall suction -20 cm H2O. No airleak is present. Draining thin serosanguineous drainage with 90 mL output in the last 8 hours and 240 mL output in the last 24 hours. Laboratory and chest x-ray results reviewed. Objective - Vital Signs Vital signs: Vital Signs Temp 98.4 F 08/27/24 04:00 Pulse 83 08/27/24 06:30 Resp 23 08/27/24 06:30 BP 131/57 08/27/24 06:30 Pulse Ox 100 08/27/24 06:30 FiO2 40 08/24/24 12:00 Intake & Output 08/26/24 08/27/24 08/27/24 18:59 06:59 18:59 Intake Total 1436.483 283.725 Output Total 930 2610 Balance 506.483 -2326.275 Weight 78.8 kg Intake: IV 475 273 CO/CI 330 30 Dextrose 5% in Water 100 100 ml @ 618 mls/hr IV .Q10M PRN with Amiodarone 150 mg Rx#:[id number] NS for pressure flushes 45 3 Sodium Chloride 0.9% 1, 240 000 ml @ 20 mls/hr IV . Q24H [facility] Rx#:[id number] Intake, IV Titration 61.483 10.725 Amount Insulin Regular 100 unit 61.483 10.725 In Sodium Chloride 0.9% 100 ml @ Per Protocol IV .Q0M [facility] Rx#:[id number] Oral 900 Output: Chest Tube Drainage 130 110 Left pleural 130 110 Urine 800 2500 Other: Voiding Method Bedside Commode Bedside Commode # Voids 0 # Bowel Movements 0 ABP, PAP, CO, CI - Last Documented Arterial Blood Pressure 104/38 Pulmonary Artery Pressure 35/14 Cardiac Output 5.5 Cardiac Index 3 - Exam CONSTITUTIONAL: Sitting up to the bedside chair in the intensive care unit, appears comfortable, cooperative, no apparent acute distress. RESPIRATORY: Lungs sounds diminished in the bases bilaterally. Respirations symmetrical, nonlabored. Oxygen saturations 97% on 2 L nasal cannula and she is achieving 500 mL on her incentive spirometry with much encouragement. Strong cough. CARDIOVASCULAR: S1, S2 present. Regular rate and rhythm, sinus rhythm on telemetry, heart rate 95 bpm. Sternum stable. Peripheral pulses palpable. No edema present. No calf pain or tenderness noted. Heart hugger, antiembolism stockings, SCDs present. GASTROINTESTINAL: Abdomen soft, nontender, nondistended. Active bowel sounds present 4 quadrants. Tolerating clear liquid diet. No guarding or rigidity. Passing flatus. GENITOURINARY: Continues to void. Urine output 700 mL in the last 8 hours. INTEGUMENTARY: Skin is warm and dry with no evidence of clubbing or cyanosis. Midline sternal incision well approximated and covered with dry intact dressing. Bilateral lower extremity EVH sites well approximated without redness or drainage. NEUROLOGIC: Cranial nerves II through XII intact. No focal deficits. PSYCHIATRIC: Alert and oriented to person place and time, appropriate affect, intact judgment and insight. INVASIVE LINES AND TUBES: Left pleural chest tube remain in place to low continuous wall suction -20 cm H2O. No airleak is present. Left pleural chest tube drained 90 mL output in the last 8 hours and 240 mL output in the last 24 hours. Right internal jugular Cordis, current CVP 10. - Allied health notes Allied health notes reviewed: nursing - Labs CBC & Chem 7: 08/27/24 05:25 08/27/24 05:25 Labs: Abnormal Lab Results - Last 24 Hours (Table) 08/22/24 08/26/24 08/26/24 Range/Units 06:59 07:58 09:04 RBC (4.10-5.20) 10*6/uL Hgb (12.0-15.0) g/dL Hct (37.2-46.3) % POC Glucose (mg/dL) 281 H 239 H (70-110) mg/dL Crossmatch See Detail 08/26/24 08/26/24 08/26/24 Range/Units 10:15 11:21 12:04 RBC (4.10-5.20) 10*6/uL Hgb (12.0-15.0) g/dL Hct (37.2-46.3) % POC Glucose (mg/dL) 160 H 187 H 157 H (70-110) mg/dL Crossmatch 08/26/24 08/26/24 08/26/24 Range/Units 14:57 16:01 17:01 RBC (4.10-5.20) 10*6/uL Hgb (12.0-15.0) g/dL Hct (37.2-46.3) % POC Glucose (mg/dL) 174 H 196 H 154 H (70-110) mg/dL Crossmatch 08/26/24 08/26/24 08/26/24 Range/Units 18:07 19:19 19:59 RBC (4.10-5.20) 10*6/uL Hgb (12.0-15.0) g/dL Hct (37.2-46.3) % POC Glucose (mg/dL) 169 H 144 H 148 H (70-110) mg/dL Crossmatch 06/09/25 06/09/25 Range/Units 05:25 06:11 RBC 2.76 L (4.10-5.20) 10*6/uL Hgb 8.2 L (12.0-15.0) g/dL Hct 24.1 L (37.2-46.3) % POC Glucose (mg/dL) 142 H (70-110) mg/dL Crossmatch - Imaging and Cardiology Chest x-ray: report reviewed, image reviewed Assessment and Plan Assessment: Coronary artery disease, non-STEMI this admission, unstable angina, status post 5 vessel off-pump CABG Chest pain, shortness of breath secondary to above Elevated transaminases Postoperative acute blood loss anemia and thrombocytopenia, expected, transfused for 1 unit of packed red blood cells Hypotension, possibly secondary to anemia Paroxysmal atrial fibrillation, a known common occurrence after cardiac surgery History of coronary artery disease with previous PCI Hypertension Hyperlipidemia Insulin-dependent diabetes Recent diagnosis of chronic kidney disease Previous tobacco dependence, FEV1 46% of predicted Family history of coronary artery disease with father from myocardial infarction at 61 years old Plan: Continue to maximize medical therapy with aspirin, statin, Plavix, and beta- neptali, will increase metoprolol tartrate to 25 mg p.o. 3 times daily with hold parameters. Wean oxygen as tolerated. Encourage incentive spirometry use 10 times every hour while awake. Bronchodilators per pulmonology. Encourage incentive spirometry use 10 times every hour while awake. Increase activity as tolerated, PT/OT/cardiac rehab following. Will monitor daily labs and chest x-rays, electrolyte replacement per protocol. GI/DVT prophylaxis. Lasix 10 mg IV x 1 now. Pain control per current medication regimen. Insulin management per internal medicine, Patient is a diabetic preoperative hemoglobin A1c 8.9%. Will remove right IJ Cordis, arterial line today. We will remove her left pleural chest tube. Continue to monitor strict accurate intake and output. More recommendations to follow based on patient's clinical course. Time with Patient: Greater than 30
[2024-08-27 20:24] LABS: Glucose,Whole Blood 128 mg/dL (70-110)
[2024-08-27] MEDS: INSULIN GLARGINE (LANTUS) 100 UNIT/ML SYR SQ SCH (20:49)
--- NOTE | 2024-08-28 06:08 | XR ---
EXAMINATION TYPE: XR chest 2V DATE OF EXAM: 08/28/2024 6:00 AM COMPARISON: 08/27/2024 CLINICAL INDICATION: Female, 83 years old with history of Postop CABG, TECHNIQUE: XR chest 2V view(s) obtained. FINDINGS: The heart size is enlarged. The pulmonary vasculature is normal. Small right minimal left pleural effusions are present. There is a left apical thorax. Left-sided desiree st tube is been removed. Pneumothorax appears stable. IMPRESSION: 1. Stable left apical pneumothorax post chest tube removal. 2. Bilateral pleural effusions. 3. [facility], , 08/28/2024 6:06 AM
[2024-08-28 06:09] LABS: Basophils # (A) 0.04 10*3/uL (0.00-0.10); Basophils % (A) 0.6 %; Eosinophils # (A) 0.33 10*3/uL (0.04-0.35); Eosinophils % (A) 4.6 %; HCT 23.6 % (37.2-46.3); HGB 7.8 g/dL (12.0-15.0); Lymphocytes # (A) 2.17 10*3/uL (0.90-5.00); Lymphocytes % (A) 30.3 %; MCH 29.5 pg (27.0-32.0); MCHC 33.1 g/dL (32.0-37.0); MCV 89.4 fL (80.0-97.0); Mean Platelet Volume 10.3 fL (9.5-12.2); Monocytes # (A) 0.88 10*3/uL (0.20-1.00); Monocytes % (A) 12.3 %; Neutrophils # (A) 3.58 10*3/uL (1.80-7.70); Platelet Count 208 10*3/uL (140-440); RBC 2.64 10*6/uL (4.10-5.20); WBC 7.16 10*3/uL (4.50-10.00)
[2024-08-28 06:27] LABS: ALT 32 U/L (4-34); AST 53 U/L (14-36); African American GFR (CKD) 57 (>60 ml/min/1.73 sqM); Albumin 3.4 g/dL (3.5-5.0); Alkaline Phosphatase 117 U/L (38-126); Anion Gap 10 mmol/L; Blood Urea Nitrogen 26 mg/dL (7-17); Calcium 8.9 mg/dL (8.4-10.2); Carbon Dioxide 22 mmol/L (22-30); Chloride 106 mmol/L (98-107); Glucose 106 mg/dL (74-99); Non-African American GFR(CKD) 50 (>60 ml/min/1.73 sqM); Potassium 3.7 mmol/L (3.5-5.1); Sodium 138 mmol/L (137-145); Total Bilirubin 1.2 mg/dL (0.2-1.3); Total Protein 5.7 g/dL (6.3-8.2)
[2024-08-28 06:37] LABS: Glucose,Whole Blood 133 mg/dL (70-110)
[2024-08-28] MEDS: POTASSIUM CHLORIDE ER 20 MEQ TAB.ER PO SCH (06:53)
--- NOTE | 2024-08-28 08:57 | P.PN ---
Subjective Progress Note Date: 08/28/24 Principal diagnosis: Coronary artery disease, non-STEMI this admission, unstable angina, elevated transaminase. Past medical history significant for coronary artery disease with previous PCI, hypertension, hyperlipidemia, insulin-dependent diabetes, recent diagnosis of chronic kidney disease, previous tobacco dependence, and family history of coronary artery disease with father from myocardial infarction at 61 years old POD #5 off-pump coronary artery bypass grafting x 5 with sequential LEÓN to diagonal LAD, saphenous vein graft to PDA, sequential saphenous vein graft to 1st and 2nd obtuse marginal, occlusion left atrial appendage with 35 mm AtriCure clip, bilateral lower extremity endoscopic saphenectomy, percutaneous right femoral arterial placement of intra-aortic balloon pump, GISELLA by anesthesia Postoperative acute blood loss anemia and thrombocytopenia, expected given hemodilution. Paroxysmal atrial fibrillation, a known common occurrence after cardiac surgery. The patient was seen and examined in follow-up today August 28, 2024 at her bedside in the intensive care unit. She is currently sitting at bedside chair, tolerating her breakfast, is awake, alert, oriented x 3 and is in no acute apparent distress. She denies any complaints of shortness of breath or pain at this time, and she states that her pain was well-controlled on the Tylenol being given. She has been up ambulating in the intensive care unit hallway with standby assistance nursing and therapy staff and tolerating well. Oxygen saturations are 93% on room air and she is achieving 750 milliliters on her incentive spirometry with encouragement. Bedside telemetry showing normal sinus rhythm heart rate 81 bpm, no further reports of paroxysmal atrial fibrillation have been reported. A right-sided thoracentesis was completed yesterday by Dr. Marc with 550 mL of bloody effusion drained from her right pleural space. Her left pleural chest tube was removed without incident yesterday 08/27/2024. Laboratory and chest x-ray results were reviewed. Objective - Vital Signs Vital signs: Vital Signs Temp 98.4 F 08/28/24 08:00 Pulse 84 08/28/24 08:00 Resp 18 08/28/24 08:00 BP 114/50 08/28/24 08:00 Pulse Ox 93 L 08/28/24 08:12 FiO2 40 08/24/24 12:00 Intake & Output 08/27/24 08/28/24 08/28/24 18:59 06:59 18:59 Intake Total 1100 410 Output Total 1999 850 Balance -900 -440 Weight 78.9 kg Intake: IV 180 Sodium Chloride 0.9% 1, 180 000 ml @ 20 mls/hr IV . Q24H [facility] Rx#:[id number] Oral 920 400 Tube Feeding 10 Output: Chest Tube Drainage 100 Left pleural 100 Urine 1350 850 Other 550 Other: Voiding Method Bedside Commode Bedside Commode # Bowel Movements 0 ABP, PAP, CO, CI - Last Documented Arterial Blood Pressure 104/38 Pulmonary Artery Pressure 35/14 Cardiac Output 5.5 Cardiac Index 3 - Exam CONSTITUTIONAL: Sitting up to the bedside chair in the intensive care unit, appears comfortable, cooperative, no apparent acute distress. RESPIRATORY: Lungs sounds diminished in the bases bilaterally. Respirations symmetrical, nonlabored. Oxygen saturations 93% on room air and she is achieving 750 mL on her incentive spirometry with encouragement. Strong cough. CARDIOVASCULAR: S1, S2 present. Regular rate and rhythm, sinus rhythm on telemetry, heart rate 81 bpm. Sternum stable. Peripheral pulses palpable. No edema present. No calf pain or tenderness noted. Heart hugger, antiembolism stockings, SCDs present. GASTROINTESTINAL: Abdomen soft, nontender, nondistended. Active bowel sounds present 4 quadrants. Tolerating diet. No guarding or rigidity. Passing flatus. GENITOURINARY: Continues to void. Urine output 850 mL in the last 8 hours. INTEGUMENTARY: Skin is warm and dry with no evidence of clubbing or cyanosis. Midline sternal incision well approximated and covered with dry intact dressing. Bilateral lower extremity EVH sites well approximated without redness or drainage. NEUROLOGIC: Cranial nerves II through XII intact. No focal deficits. PSYCHIATRIC: Alert and oriented to person place and time, appropriate affect, intact judgment and insight. - Allied health notes Allied health notes reviewed: nursing - Labs CBC & Chem 7: 08/28/24 05:13 08/28/24 05:13 Labs: Abnormal Lab Results - Last 24 Hours (Table) 08/27/24 08/27/24 08/27/24 Range/Units 11:13 16:40 20:23 RBC (4.10-5.20) 10*6/uL Hgb (12.0-15.0) g/dL Hct (37.2-46.3) % Immature Gran # (0.00-0.04) 10*3/uL BUN (7-17) mg/dL Creatinine (0.52-1.04) mg/dL Glucose (74-99) mg/dL POC Glucose (mg/dL) 208 H 246 H 128 H (70-110) mg/dL AST (14-36) U/L Total Protein (6.3-8.2) g/dL Albumin (3.5-5.0) g/dL 08/28/24 08/28/24 08/28/24 Range/Units 05:13 05:13 06:36 RBC 2.64 L (4.10-5.20) 10*6/uL Hgb 7.8 L (12.0-15.0) g/dL Hct 23.6 L (37.2-46.3) % Immature Gran # 0.16 H (0.00-0.04) 10*3/uL BUN 26 H (7-17) mg/dL Creatinine 1.06 H (0.52-1.04) mg/dL Glucose 106 H (74-99) mg/dL POC Glucose (mg/dL) 133 H (70-110) mg/dL AST 53 H (14-36) U/L Total Protein 5.7 L (6.3-8.2) g/dL Albumin 3.4 L (3.5-5.0) g/dL - Imaging and Cardiology Chest x-ray: report reviewed, image reviewed Assessment and Plan Assessment: Coronary artery disease, non-STEMI this admission, unstable angina, status post 5 vessel off-pump CABG Chest pain, shortness of breath secondary to above Elevated transaminases Postoperative acute blood loss anemia and thrombocytopenia, expected, transfused for 1 unit of packed red blood cells on August 25, 2024 Hypotension, possibly secondary to anemia Paroxysmal atrial fibrillation, a known common occurrence after cardiac surgery History of coronary artery disease with previous PCI Hypertension Hyperlipidemia Insulin-dependent diabetes Recent diagnosis of chronic kidney disease Previous tobacco dependence, FEV1 46% of predicted Family history of coronary artery disease with father from myocardial infarction at 61 years old Plan: Continue to maximize medical therapy with aspirin, statin, Plavix, and beta- neptali, will increase metoprolol tartrate to 50 mg p.o. twice daily with hold parameters. Wean oxygen as tolerated. Encourage incentive spirometry use 10 times every hour while awake. Bronchodilators per pulmonology. Encourage incentive spirometry use 10 times every hour while awake. Increase activity as tolerated, PT/OT/cardiac rehab following. Will monitor daily labs and chest x-rays, electrolyte replacement per protocol. GI/DVT prophylaxis. Lasix 10 mg IV x 1 now. Pain control per current medication regimen. Insulin management per internal medicine, Patient is a diabetic preoperative h emoglobin A1c 8.9%. Continue to monitor strict accurate intake and output. Dulcolax suppository x 1 now. More recommendations to follow based on patient's clinical course. Time with Patient: Greater than 30
[2024-08-28] MEDS: METOPROLOL TARTRATE 25 MG TAB PO SCH (09:38)
[2024-08-28] MEDS: FUROSEMIDE 10 MG/ML 2 ML VIAL IV ONE (09:43)
[2024-08-28] MEDS: METOPROLOL TARTRATE 25 MG TAB PO STA (09:46)
[2024-08-28] MEDS: POTASSIUM CHLORIDE ER 10 MEQ TAB.ER.PRT PO STA (09:46)
[2024-08-28] MEDS: bisacodyL 10 MG SUPP RECTAL PRN (09:46)
[2024-08-28 11:52] LABS: Glucose,Whole Blood 147 mg/dL (70-110)
--- NOTE | 2024-08-28 12:46 | P.PN ---
Subjective Progress Note Date: 08/28/24 This lady is in sinus rhythm. She is status post aortocoronary bypass surgery with a LEÓN to LAD vein graft to the 1st and 2nd obtuse marginal branches and a vein graft to the PDA/RCA along with occlusion of the left atrial appendage. She is doing well progressing nicely maintaining sinus rhythm plan is to continue incentive spirometry pulmonary toilet. She had thoracentesis yesterday with more than half a liter of pleural fluid taken out. Analysis is pending. Physical exam revealed sinus rhythm short systolic murmur lungs reveal improved air entry especially the right base shows improvement Makayla JVD of 1 cm Central nervous system grossly within normal limits generalized weakness Plan is to continue current medications incentive spirometry and pulmonary toilet Objective - Vital Signs Vital signs: Vital Signs Temp 98.4 F 08/28/24 08:00 Pulse 72 08/28/24 11:48 Resp 18 08/28/24 08:00 BP 114/50 08/28/24 08:00 Pulse Ox 93 L 08/28/24 08:12 FiO2 40 08/24/24 12:00 Intake & Output 08/27/24 08/28/24 08/28/24 18:59 06:59 18:59 Intake Total 1100 410 Output Total 2000 850 500 Balance -900 -440 -500 Weight 78.9 kg Intake: IV 180 Sodium Chloride 0.9% 1, 180 000 ml @ 20 mls/hr IV . Q24H [facility] Rx#:[id number] Oral 920 400 Tube Feeding 10 Output: Chest Tube Drainage 100 Left pleural 100 Urine 1350 850 500 Other 550 Other: Voiding Method Bedside Commode Bedside Commode Bedside Commode # Bowel Movements 0 ABP, PAP, CO, CI - Last Documented Arterial Blood Pressure 104/38 Pulmonary Artery Pressure 35/14 Cardiac Output 5.5 Cardiac Index 3 - Labs CBC & Chem 7: 08/28/24 05:13 08/28/24 05:13 Labs: Abnormal Lab Results - Last 24 Hours (Table) 08/27/24 08/27/24 08/28/24 Range/Units 16:40 20:23 05:13 RBC 2.64 L (4.10-5.20) 10*6/uL Hgb 7.8 L (12.0-15.0) g/dL Hct 23.6 L (37.2-46.3) % Immature Gran # 0.16 H (0.00-0.04) 10*3/uL BUN (7-17) mg/dL Creatinine (0.52-1.04) mg/dL Glucose (74-99) mg/dL POC Glucose (mg/dL) 246 H 128 H (70-110) mg/dL AST (14-36) U/L Total Protein (6.3-8.2) g/dL Albumin (3.5-5.0) g/dL 08/28/24 08/28/24 08/28/24 Range/Units 05:13 06:36 11:43 RBC (4.10-5.20) 10*6/uL Hgb (12.0-15.0) g/dL Hct (37.2-46.3) % Immature Gran # (0.00-0.04) 10*3/uL BUN 26 H (7-17) mg/dL Creatinine 1.06 H (0.52-1.04) mg/dL Glucose 106 H (74-99) mg/dL POC Glucose (mg/dL) 133 H 147 H (70-110) mg/dL AST 53 H (14-36) U/L Total Protein 5.7 L (6.3-8.2) g/dL Albumin 3.4 L (3.5-5.0) g/dL
--- NOTE | 2024-08-28 13:11 | P.PN ---
Subjective Progress Note Date: 08/28/24 Principal diagnosis: POD #5 off-pump coronary artery bypass grafting x 5 with sequential LEÓN to diagonal LAD, saphenous vein graft to PDA, sequential saphenous vein graft to 1st and 2nd obtuse marginal, occlusion left atrial appendage with 35 mm AtriCure clip, bilateral lower extremity endoscopic saphenectomy, percutaneous right femoral arterial placement of intra-aortic balloon pump, GISELLA by anesthesia On 08/21/2024, the patient is being seen for a preoperative pulmonary clearance as the patient is scheduled to undergo off-pump coronary bypass surgery. As stated, the patient is known to have coronary artery disease. The patient has undergone previous coronary stenting/PCI and the patient has multiple risk factors including hypertension, hyperlipidemia and insulin-dependent diabetes mellitus. She is a former smoker.She presented to [facility] emergency room with complaints of chest pain and slight shortness of breath with activity which had been present intermittently for the last month, states symptoms were similar to when she previously had blockages and PCI. Lab work in the emergency room revealed WBC 7.4, hemoglobin 14.8, creatinine 1.22, AST 49, ALT 54, BNP 146, initial troponin negative but subsequent troponin elevation from 0.26 up to 4.51. EKG revealed sinus rhythm with left bundle branch block. Patient also had elevated blood pressure 195/84 with initial presentation to the emergency room. Chest x-ray revealed no acute process. She was ruled in for non-STEMI and admitted to the cardiac stepdown unit with consultation placed to cardiology. The patient was recommended to undergo heart catheterization which was completed by Dr. Liang revealing mid LAD stenosis 85%, circumflex stenosis 80%, RCA stenosis 95% the patient has no respiratory difficulties. No cough sputum production chest tightness or wheezing. A bedside spirometry was done and the patient's FEV1 was in order of 73% of predicted. The patient also had a CAT scan of the chest that was done on 08/20/2024 and the CAT scan showed mild atherosclerotic calcification of the thoracic aorta and there was no acute cardiopulmonary abnormalities noted. The patient is currently on room air oxygen. Pulse ox 95%. She has good exercise capacity and she is using the incentive spirometer for now. Electrolytes are all stable. BUN is 23 with a creatinine of 1.1. The hemoglobin is at 13.2. The white cell count is at 7.8. On 08/22/2024, the patient had some exertional chest pain. She has no chest pain at rest. She is hemodynamically stable. She was started back on IV heparin. She is awaiting her coronary bypass surgery to be done tomorrow morning. The white cell count at 6.4 and a hemoglobin of 14.7 and platelet count of 210. Normal coagulation profile. BUN is 21 with a creatinine of 1.07 and normal electrolytes. She remains on aspirin. She remains on beta-blockers and IV heparin. Cardiology on the case. Cardiothoracic surgery is also on the case. Echo was also noted and the patient has a preserved LV function without any significant valvular abnormalities.44 I am seeing this patient on 08/23/2024 in follow-up following an off-pump co ronary artery bypass grafting x 5 with sequential LEÓN to diagonal LAD, saphenous vein graft to PDA, sequential saphenous vein graft to 1st and 2nd obtuse marginal, occlusion left atrial appendage with 35 mm AtriCure clip, bilateral lower extremity endoscopic saphenectomy, GISELLA by anesthesia. Intrao peratively, patient reportedly became ischemic in the lateral wall and he developed significant mitral regurgitation and markedly elevated PA pressures. An IABP was placed. Patient currently being seen in the intensive care unit, remains intubated mechanical ventilator. Postoperative ABGs including a PaO2 of 219, pCO2 48, pH of 7.26. This was done on ventilator settings including assist-control, respiratory rate 16, tidal volume 400, FiO2 100%, PEEP of 5. Dr. Gomez was previously present at bedside, and made ventilator adjustments including increasing the respiratory rate to 20 and dropping the FiO2 down to 60%. Propofol infusing at 30 mcg/kg/min. Insulin fusion per protocol. Nitro glycerin infusing at 10 mics per minute. Normal saline infusing at 50 mL/h. Right femoral balloon pump remains in place at 1:1. Augmented pressure 74. Doppler right pedal pulse and palpable left radial pulse. CI 2.6. Urine output is adequate around 40 to 50 cc/h. Postoperative chest x-ray showing endotracheal tube approximately 1.4 cm of the stan and this was withdrawn. Nasogastric tube placed below the diaphragm. Left and mediastinal thoracotomy tubesin place. Chest tubes are hooked to suction at -20 cm H2O. There is approximately 60 cc of drainage from the left pleural chest tube and 65 cc of sanguinous drainage from the mediastinal chest tube. Most recent labs including a CBC with a WBC count of 5.3, hemoglobin 7.4 g/dL, hematocrit 22, platelets 112,000. Postoperative BMP including a sodium 138, potassium 3.9, chloride 107, serum bicarb 20, BUN 18, creatinine 0.72, glucose 200. Calcium 9.1. No attempts at weaning this patient from the ventilator have yet been made. On 08/25/2024, the patient is being seen for a follow-up. On today's evaluation, the patient's main complaint is soreness and pain. She is currently on 2 L of oxygen by nasal cannula. The patient is in normal sinus rhythm. Her [place]-Keisha catheter remains in place. The cardiac output is 4.8 with an index of 2.6. PA pressure 35/15 and the patient has a mediastinal and left pleural chest tube and output from the mediastinal has been 150 cc in the left lower chest tube with 550 cc over the past 24 hours. Meanwhile, the patient is producing adequate amount of urine output. The white secondary 0.1 with a hemoglobin 7.4 and platelet count of 117. Sodium is at 135, BUN 15 with creatinine 0.9 and a potassium level is at 4.0. Chest x-ray from today shows bibasilar infiltrates mild pulm vascular congestion and lines and catheters are all in place. The patient was seen in collaboration with the cardiothoracic surgeon. For now, the patient will be given Lasix 20 mg IV every 12 hours x 2. Patient will be kept on metoprolol 25 mg p.o. twice a day. Will encourage use of incentive spirometr y and will continue supportive care. Pain control the patient is postop day #2. The patient underwent 5 vessel bypass surgery On 08/26/2024, the patient is being seen for a follow-up. The patient is calm and comfortable and the patient sitting up in a chair and she is currently on 2 L of oxygen by nasal cannula with a pulse ox of 96%. The patient is hemodynamically stable. [place]-Keisha catheter still in place. Cardiac output is 4.2 with an index of 2.3. SVR is at 913. PA pressures are 33/11. The patient has a left pleural chest tube and there is no evidence of any air leak and the total amount of output has been 500 cc over the past 24 hours. The chest x-ray from today shows some mild pulm vessel congestion. No evidence of any pneumothorax. Lungs are adequately expanded. Urine output is adequate and the patient using the incentive spirometer and she is pulling approximately 500 cc. Cardiac rhythm is sinus. The white cell count is at 8.4 with a hemoglobin of 7.3 and a platelet count of 104. Sodium is at 134, potassium is at 3.8, bicarbonate 17, BUN 27 and the creatinine is at 1.2. LFTs are essentially within normal limits. The patient is on a combination of aspirin and Plavix. The patient is on metoprolol 25 mg p.o. twice a day. The patient is on insulin drip which is running at 9 units an hour and the patient will be transition to long-acting insulin. Seen today on 08/27/2024, patient is comfortable not in distress, continues to have left-sided chest tube in place with a small apical pneumothorax, she has a right-sided pleural effusion for which I recommended thoracentesis after reviewing her ultrasound of the chest. Hemoglobin is 8.2 today. Patient under went right-sided thoracentesis and I was able to remove 550 cc of bloody effusion. WBC is 9.32 hemoglobin is 8.2 electrolytes are normal BUN is 30 creatinine 1.1. Chest x-ray as noted earlier. Seen today on 08/28/2024, patient is doing better today compared to yesterday, chest x-ray showed significant improvement in her right-sided pleural effusion which was drained yesterday, continues to have left apical pneumothorax, chest tube has been removed. Patient is not in any distress, she is now postoperative day #5,off-pump coronary artery bypass grafting x 5 with sequential LEÓN to diagonal LAD, saphenous vein graft to PDA, sequential saphenous vein graft to 1st and 2nd obtuse marginal, occlusion left atrial appendage with 35 mm AtriCure clip, bilateral lower extremity endoscopic saphenectomy, percutaneous right femoral arterial placement of intra-aortic balloon pump, GISELLA by anesthesia diya berumen is now on room air, O2 sat is 93%, achieving 750 mL with her incentive spirometry. Patient is in sinus rhythm, and she is hemodynamically stable no further episodes of atrial fibrillation. Objective - Vital Signs Vital signs: Vital Signs Temp 98.4 F 08/28/24 08:00 Pulse 72 08/28/24 11:48 Resp 18 08/28/24 08:00 BP 114/50 08/28/24 08:00 Pulse Ox 93 L 08/28/24 08:12 FiO2 40 08/24/24 12:00 Intake & Output 08/27/24 08/28/24 08/28/24 18:59 06:59 18:59 Intake Total 1100 410 Output Total 2000 850 500 Balance -900 -440 -500 Weight 78.9 kg Intake: IV 180 Sodium Chloride 0.9% 1, 180 000 ml @ 20 mls/hr IV . Q24H [facility] Rx#:[id number] Oral 920 400 Tube Feeding 10 Output: Chest Tube Drainage 100 Left pleural 100 Urine 1350 850 500 Other 550 Other: Voiding Method Bedside Commode Bedside Commode Bedside Commode # Bowel Movements 0 ABP, PAP, CO, CI - Last Documented Arterial Blood Pressure 104/38 Pulmonary Artery Pressure 35/14 Cardiac Output 5.5 Cardiac Index 3 - Exam CONSTITUTIONAL: Revealed 83-year-old female in no distress on room air O2 saturation 93% Head: Atraumatic normocephalic RESPIRATORY: Diminished breath sound bilaterally no rhoClear bilaterally no rhonchi no wheezes Cardiac: Normal S1-S2, no murmur positive pericardial rub Abdomen: Soft nontender no megaly no rebound Extremities no clubbing edema or cyanosis Skin: No rashes Neurologic: Alert oriented x 3 no focal deficit Psychiatric: Normal mood affect normal mental status examination. - Labs CBC & Chem 7: 08/28/24 05:13 08/28/24 05:13 Labs: Abnormal Lab Results - Last 24 Hours (Table) 08/27/24 08/27/24 08/28/24 Range/Units 16:40 20:23 05:13 RBC 2.64 L (4.10-5.20) 10*6/uL Hgb 7.8 L (12.0-15.0) g/dL Hct 23.6 L (37.2-46.3) % Immature Gran # 0.16 H (0.00-0.04) 10*3/uL BUN (7-17) mg/dL Creatinine (0.52-1.04) mg/dL Glucose (74-99) mg/dL POC Glucose (mg/dL) 246 H 128 H (70-110) mg/dL AST (14-36) U/L Total Protein (6.3-8.2) g/dL Albumin (3.5-5.0) g/dL 08/28/24 08/28/24 08/28/24 Range/Units 05:13 06:36 11:43 RBC (4.10-5.20) 10*6/uL Hgb (12.0-15.0) g/dL Hct (37.2-46.3) % Immature Gran # (0.00-0.04) 10*3/uL BUN 26 H (7-17) mg/dL Creatinine 1.06 H (0.52-1.04) mg/dL Glucose 106 H (74-99) mg/dL POC Glucose (mg/dL) 133 H 147 H (70-110) mg/dL AST 53 H (14-36) U/L Total Protein 5.7 L (6.3-8.2) g/dL Albumin 3.4 L (3.5-5.0) g/dL Assessment and Plan Assessment: Impression: Coronary artery disease and the patient is post NSTEMI and the patient underwent coronary bypass surgery off-pump x 5 and intraoperatively the patient required intra-aortic balloon pump for hemodynamic support. The patient is postop day #5 hemodynamically stable. No inotropes. Adequate cardiac output and index. Small right-sided pleural effusion underwent thoracentesis, on 08/27/2024 550 cc of bloody effusion removed No history of coronary artery disease with previous PCI Hypertension Hyperlipidemia insulin-dependent diabetes mellitus Hyperlipidemia Skin cancer recommendation: Continue present supportive care measures Continue incentive spirometry Continue aspirin and Plavix Continue beta-blockers Continue ambulation May have to be considered for rehab. Will continue to follow Time with Patient: Less than 30
--- NOTE | 2024-08-28 13:42 | P.PN ---
Progress Note - Text Progress Note Date: 08/28/24 Chief Complaint: Chest pain This is a pleasant 83-year-old patient who follows with Dr. Eric Fuentes. Patient was seen in bay #10 n in the extended unit. Chronic medical conditions include CAD with stent, diabetes, hypertension, hyperlipidemia. Patient last had a cardiac catheterization with stent in 2004. She was following with sap administrator Dr. JIM Roberts. Patient will close 2 months has been having chest pain on and off. Some progression. Yesterday it became rather significant. Also short of breath. Rest. No radiation. No edema. Decided to come in. Patient ruled in with an acute TX with troponin peaking to 4.5 this morning. This morning underwent cardiac catheterization that showed significant disease. Formal dictation not available. Cardiothoracic team was consulted. Currently no chest pain. Patient daughter, grandson, niece present. August 21: Patient been having intermittent chest pains. On nitroglycerin drip. IV heparin drip. Scheduled for coronary bypass on . Acute bump in LFTs. Hold Lipitor. August 22: Occasionally getting some chest pain. Coronary bypass tomorrow. IV heparin. August 24: Patient yesterday underwent 5 vessel coronary bypass. Saw the patient this morning ICU. Has 1 mediastinal and 1 left pleural chest tube. [place] catheter. Balloon pump was taken out. Drips include insulin and IV fluids. Currently intubated. With FiO2 40 and a PEEP of 5. Patient had previously received nitroglycerin drip and propofol drip. Off both of them. Estimated blood loss was 1 L and Cell Saver was 375 cc. August 25: ICU. Extubated. Has been on and off Levophed. Insulin drip. Did sit up in the chair. Minimal oral intake. Trin[place] catheter discontinued. Right mediastinal chest tube removed. Tired. August 26: ICU. Up in a chair. Required some Levophed yesterday. Done overnight. Insulin drip. On full liquid diet. Decreased appetite. Will start Lantus 60 units at night today. And stopped insulin drip at the same time. Left chest tube remains in place. Did not sleep well last night. Rather tired. Also received a unit of blood August 27: ICU. Up in a chair. Patient insulin drip was discontinued yesterday evening started on Lantus 60 units. Eating better. Lantus will be increased to 70 units nightly. Also will add 5 units of Humalog with meals. 550 cc of bloody fluid was removed/thoracentesis from right side today. Breathing better. Patient up in the chair 2 L nasal cannula. Sinus rhythm. Left chest tubes got minimal output. About 60 cc overnight. August 28: Up in a chair. Eating lunch. Decreased appetite. Did walk a bit. Still a bit short of breath. Given a suppository has not had a bowel movement for now. Some shortness of breath. Accu-Cheks are much better. Has lower extremity edema. Active Medications Acetaminophen (Acetaminophen Tab 325 Mg Tab) 650 mg PO Q4HR PRN PRN Reason: Fever And/ Or Mild Pain (1-3) Last Admin: 08/28/24 06:54 Dose: 650 mg Albuterol/Ipratropium (Ipratropium-Albuterol 3 Ml Neb) 3 ml INHALATION RT-Q2H PRN PRN Reason: Shortness Of Breath Or Wheezing Albuterol/Ipratropium (Ipratropium-Albuterol 3 Ml Neb) 3 ml INHALATION RT-QID [facility] Last Admin: 08/28/24 11:36 Dose: 3 ml Amiodarone HCl (Amiodarone 200 Mg Tab) 400 mg PO BID [facility] Last Admin: 08/28/24 08:03 Dose: 400 mg Aspirin (Aspirin 325 Mg Tab) 325 mg PO DAILY [facility] Last Admin: 08/28/24 08:07 Dose: 325 mg Atorvastatin Calcium (Atorvastatin 40 Mg Tab) 40 mg PO DAILY [facility] Last Admin: 08/28/24 08:04 Dose: 40 mg Benzocaine/Menthol (Benzocaine/Menthol Lozeng 1 Each Lozenge) 1 each MUCOUS MEM Q2H PRN PRN Reason: Sore Throat Bisacodyl (Bisacodyl 10 Mg Supp) 10 mg RECTAL DAILY PRN PRN Reason: Constipation Last Admin: 08/28/24 09:46 Dose: 10 mg Clopidogrel Bisulfate (Clopidogrel 75 Mg Tab) 75 mg PO DAILY [facility] Last Admin: 08/28/24 08:04 Dose: 75 mg Dextrose/Water (Dextrose 50% Syringe 50 Ml) 25 ml IVP PER PROTOCOL PRN; Protocol PRN Reason: Hypoglycemia Dextrose/Water (Dextrose 50% Syringe 50 Ml) 50 ml IVP PER PROTOCOL PRN; Protocol PRN Reason: Hypoglycemia Heparin Sodium (Porcine) (Heparin Sodium,Porcine 5,000 Unit/Ml 1 Ml Vial) 5,000 unit SQ Q8HR [facility] Last Admin: 08/28/24 07:55 Dose: 5,000 unit Hydralazine HCl (Hydralazine Hcl 20 Mg/Ml 1 Ml Vial) 10 mg IVP Q1H PRN PRN Reason: Blood Pressure - High Amiodarone HCl 150 mg/ (Dextrose/Water) 103 mls @ 618 mls/hr IV .Q10M PRN; Protocol PRN Reason: A.FIB/FLUTTER Calcium Gluconate/Sodium (Chloride 2 gm/ IV Solution) 100 mls @ 100 mls/hr IVPB ONCE PRN PRN Reason: Ionized Calcium less than 4.4 Stop: 09/22/24 17:42 Insulin Glargine (Insulin Glargine (Lantus) 100 Unit/Ml Syr) [address] [facility] Last Admin: 08/27/24 20:49 Dose: 70 unit Insulin Human Lispro (Insulin Lispro (Humalog) 100 Unit/Ml 10 Ml Vl) 0 unit SQ ACHS [facility]; Protocol Last Admin: 08/28/24 12:01 Dose: Not Given Insulin Human Lispro (Insulin Lispro (Humalog) 100 Unit/Ml 10 Ml Vl) 5 unit SQ AC-TID [facility] Last Admin: 08/28/24 12:16 Dose: 5 unit Magnesium Hydroxide (Magnesium Hydroxide 2,400 Mg/30 Ml Cup) 2,400 mg PO BID PRN PRN Reason: Constipation Metoclopramide HCl (Metoclopramide 5 Mg/Ml 2 Ml Vial) 10 mg IVP Q4H PRN PRN Reason: Nausea And Vomiting Metoprolol Tartrate (Metoprolol Tartrate 25 Mg Tab) 50 mg PO BID [facility] Last Admin: 08/28/24 09:38 Dose: Not Given Miscellaneous Information (Potassium Replacement Protocol 1 Each Misc) 1 each MISCELLANE DAILY PRN; Protocol PRN Reason: Per Protocol Miscellaneous Information (Magnesium Replacement Protocol 1 Each Misc) 1 each MISCELLANE DAILY PRN; Protocol PRN Reason: Per Protocol Ondansetron HCl (Ondansetron 4 Mg/2 Ml Vial) 4 mg IVP Q6HR PRN PRN Reason: Nausea And Vomiting Pantoprazole Sodium (Pantoprazole 40 Mg Tablet) 40 mg PO AC-BRKFST [facility] Last Admin: 08/27/24 06:31 Dose: 40 mg Senna/Docusate Sodium (Sennosides-Docusate Sodium 1 Each Tab) 2 each PO HS [facility] Last Admin: 08/27/24 20:48 Dose: 2 each Sodium Bicarbonate (Sodium Bicarbonate Tab 650 Mg Tab) 650 mg PO TID [facility] Last Admin: 08/28/24 09:46 Dose: 650 mg Sodium Chloride (Sodium Chloride 0.9% Flush 10 Ml Syringe) 10 ml IV BID [facility] Last Admin: 08/28/24 08:05 Dose: 10 ml Social history: Lives with her son. Stop smoking 30 years ago. Physical examination: VITAL SIGNS: 97.5, 67, 20, 98 x 63, 92% room air GENERAL: Up in chair. Eating lunch. Some shortness of breath EYES: Pupils equal. Conjunctiva tae l. HEENT: External appearance of nose and ears normal, oral cavity endotracheal tube NECK: JVD unable to assess; masses not palpable. HEART: First and second heart sounds are normal; edema present LUNGS: Respiratory rate increased; decreased breath sounds. ABDOMEN: Soft, nontender, liver spleen not palpable, no masses palpable. [place] catheter removed PSYCH: AO x 3, mood affect a bit tired MUSCULOSKELETAL:No Clubbing/cyanosis;muscles-grossly intact. OA INVESTIGATIONS, reviewed in the clinical context: August 28: White count 7.1 hemoglobin 7.8 potassium 3.7 BUN 26 creatinine 1.06 August 27: White count 9.3 hemoglobin 8.2 potassium 3.9 BUN 30 creatinine 1.10 August 26: White count 8.4 hemoglobin 7.3 platelets 104 potassium 3.8 BUN 27 creatinine 1.20 bicarb 17 August 25: White count 8.1 hemoglobin 7.4 platelets 117 potassium 4 creatinine 0.92 August 24: White count 3.8 hemoglobin 7.9 platelets 102 potassium 3.7 creatinine 0.8 matteo 3: White count 7.8 hemoglobin 13.2 potassium 4.5 BUN 23 creatinine 1.5 AST 266 ALT 355 August 19: White count 7.4 hemoglobin 14.8 platelets 224 sodium 139 potassium 4.6 BUN 29 creatinine 1.22 Troponin I less than 0.012, 0.260, 1.6, 4.5 LDL 94.7 UA protein 2+ EKG tracing personally reviewed by me-sinus rhythm. Left bundle soraya block Chest x-ray film personally reviewed by me-some cardiomegaly Assessment plan: - Coronary bypass 5 vessel. Occlusion of left atrial appendage. By Dr. Joanne Yun on August 23, 2024. - Acute postoperative blood loss anemia expected from surgery Hemoglobin dropped from 13.2-7.9. Did receive Cell Saver 375 cc during surgery. Received 2 units of blood - Dilutional thrombocytopenia: Corrected - Acute respiratory failure with ventilator support with FiO2 40 and PEEP of 5. Extubated - Acute non-Q wave TX in a patient with known coronary artery disease prior stent in 2004 IV heparin. Aspirin, Lopressor, Lipitor - Hypoalbuminemia, reactive - Right pleural effusion, Right thoracentesis, bloody aspirate 550 cc removed on August 27, 2024 - Acute hepatitis likely drug-induced, improved Lipitor has been resumed at 40 mg. Follow LFTs - Essential hypertension Lopressor 50 mg twice daily - Metabolic acidosis from chronic kidney disease sodium bicarbonate - Insomnia for multiple medical reasons - Hyperlipidemia Lipitor 40 mg - Diabetes mellitus type 2, chronically on insulin Received insulin drip. Now on Lantus 70 units subcu nightly. Humalog 5 units with each meal - Anxiety not otherwise specified Xanax as needed - Chronic kidney disease, stage III likely diabetic nephropathy and hypertensive nephrosclerosis Follow renal function - Primary osteoarthritis Tylenol as needed -Full code Discussed with patient. Past Medical History Past Medical History: Coronary Artery Disease (CAD), Diabetes Mellitus, Hyperlipidemia, Hypertension History of Any Multi-Drug Resistant Organisms: None Reported Past Surgical History: Cholecystectomy, Heart Catheterization With Stent Past Psychological History: Anxiety Smoking Status: Former smoker Past Alcohol Use History: None Reported Past Drug Use History: None Reported
[2024-08-28 16:45] LABS: Glucose,Whole Blood 144 mg/dL (70-110)
[2024-08-28 20:11] LABS: Glucose,Whole Blood 167 mg/dL (70-110)
[2024-08-29] MEDS: ONDANSETRON 4 MG/2 ML VIAL IVP PRN (03:40)
[2024-08-29 06:01] LABS: Glucose,Whole Blood 92 mg/dL (70-110)
[2024-08-29 07:20] LABS: HCT 25.4 % (37.2-46.3); HGB 8.3 g/dL (12.0-15.0); MCH 29.7 pg (27.0-32.0); MCHC 32.7 g/dL (32.0-37.0); Mean Platelet Volume 9.8 fL (9.5-12.2); Platelet Count 283 10*3/uL (140-440); RBC 2.79 10*6/uL (4.10-5.20); RDW 15.3 % (11.5-14.5); WBC 13.04 10*3/uL (4.50-10.00)
--- NOTE | 2024-08-29 07:26 | XR ---
EXAMINATION TYPE: XR chest 2V DATE OF EXAM: 08/29/2024 6:22 AM COMPARISON: None. CLINICAL INDICATION: Female, 83 years old with history of post op CABG, TECHNIQUE: XR chest 2V view(s) obtained. FINDINGS: The heart size is enlarged. The pulmonary vasculature is normal. Left apical pneumothorax is stable. Small to moderate right small left pleural effusions are present. Mild bibasilar atelectasis is present. IMPRESSION: 1. Bibasilar atelectasis with small pleural effusions larger on the right. 2. Stable left apical pneumothorax. [facility], , 08/29/2024 7:23 AM
[2024-08-29 07:42] LABS: African American GFR (CKD) 53 (>60 ml/min/1.73 sqM); Anion Gap 10 mmol/L; Blood Urea Nitrogen 24 mg/dL (7-17); Calcium 8.8 mg/dL (8.4-10.2); Carbon Dioxide 23 mmol/L (22-30); Chloride 106 mmol/L (98-107); Glucose 97 mg/dL (74-99); Magnesium 1.9 mg/dL (1.6-2.3); Non-African American GFR(CKD) 46 (>60 ml/min/1.73 sqM); Potassium 4.1 mmol/L (3.5-5.1); Sodium 139 mmol/L (137-145)
[2024-08-29] MEDS: bisacodyL 10 MG SUPP RECTAL STA (08:35)
[2024-08-29] MEDS: MAGNESIUM HYDROXIDE 2,400 MG/30 ML CUP PO STA (08:35)
--- NOTE | 2024-08-29 11:05 | P.PN ---
Subjective HISTORY OF PRESENT ILLNESS: This is an 83-year-old female who is status post 5 vessel CABG. Patient examined this morning. She is currently sitting up in the chair. She denies chest pain or pressure. She denies shortness of breath. Vital signs are stable. Telemetry reveals sinus mechanism. PHYSICAL EXAM: VITAL SIGNS: Reviewed. GENERAL: Well-developed in no acute distress. NECK: Supple. No JVD or thyromegaly LUNGS: Respirations even and unlabored. Lungs essentially clear to auscultation bilaterally. HEART: Regular rate and rhythm. S1 and S2 heard. EXTREMITIES: Normal range of motion. No clubbing or cyanosis. Peripheral pulses intact. No lower extremity edema ASSESSMENT: Non-STEMI Status post 5 vessel CABG Coronary artery disease with previous stenting Right sided pleural effusion, status post thoracentesis with removal of 550 cc Postoperative atrial fibrillation Hypertension Hyperlipidemia Diabetes Former nicotine dependence PLAN: Continue postoperative management per CT surgery Increase activity as tolerated Encourage use of incentive spirometer Continue current cardiac medications including amiodarone, aspirin, Lipitor, Plavix, Lasix, metoprolol Continue telemetry monitoring Further recommendations pending patient course Patient to follow-up postdischarge in the office with Dr. Liang Nurse practitioner note has been reviewed by physician. Signing provider agrees with the documented findings, assessment, and plan of care documented by DIE TECHNICIAN as a scribe. Objective - Vital Signs Vital signs: Vital Signs Temp 97.9 F 08/29/24 08:00 Pulse 88 08/29/24 08:11 Resp 17 08/29/24 08:00 BP 143/80 08/29/24 08:00 Pulse Ox 97 08/29/24 08:02 FiO2 40 08/24/24 12:00 Intake & Output 08/28/24 08/29/24 08/29/24 18:59 06:59 18:59 Intake Total 118 480 Output Total 500 200 Balance -382 280 Weight 79 kg Intake: Oral 118 480 Output: Urine 500 200 Other: Voiding Method Bedside Commode Bedside Commode Toilet # Voids 2 1 # Bowel Movements 0 1 ABP, PAP, CO, CI - Last Documented Arterial Blood Pressure 104/38 Pulmonary Artery Pressure 35/14 Cardiac Output 5.5 Cardiac Index 3 - Labs CBC & Chem 7: 08/29/24 06:51 08/29/24 06:51 Labs: Abnormal Lab Results - Last 24 Hours (Table) 08/28/24 08/28/24 08/28/24 Range/Units 11:43 16:35 20:09 WBC (4.50-10.00) 10*3/uL RBC (4.10-5.20) 10*6/uL Hgb (12.0-15.0) g/dL Hct (37.2-46.3) % BUN (7-17) mg/dL Creatinine (0.52-1.04) mg/dL POC Glucose (mg/dL) 147 H 144 H 167 H (70-110) mg/dL 08/29/24 08/29/24 Range/Units 06:51 06:51 WBC 13.04 H (4.50-10.00) 10*3/uL RBC 2.79 L (4.10-5.20) 10*6/uL Hgb 8.3 L (12.0-15.0) g/dL Hct 25.4 L (37.2-46.3) % BUN 24 H (7-17) mg/dL Creatinine 1.12 H (0.52-1.04) mg/dL POC Glucose (mg/dL) (70-110) mg/dL
[2024-08-29] MEDS: FUROSEMIDE 20 MG TAB PO SCH (11:15)
--- NOTE | 2024-08-29 11:16 | P.PN ---
Subjective Progress Note Date: 08/29/24 Principal diagnosis: Coronary artery disease, non-STEMI this admission, unstable angina, elevated transaminase. History of coronary artery disease with previous PCI, hypertension, hyperlipidemia, insulin-dependent diabetes, recent diagnosis of chronic kidney disease, previous tobacco dependence, family history of coronary artery disease with father from myocardial infarction at 61 years old POD #6 off-pump coronary artery bypass grafting x 5 with sequential LEÓN to diagonal LAD, saphenous vein graft to PDA, sequential saphenous vein graft to 1st and 2nd obtuse marginal, occlusion left atrial appendage with 35 mm AtriCure clip, bilateral lower extremity endoscopic saphenectomy, percutaneous right femoral arterial placement of intra-aortic balloon pump, GISELLA by anesthesia Postoperative acute blood loss anemia and thrombocytopenia, expected given hemodilution Paroxysmal atrial fibrillation, a known common occurrence after cardiac surgery Right-sided pleural effusion, status post right-sided thoracentesis with removal of [address] Marc on 08/27/2024 The patient was seen and examined this morning sitting up in recliner on the cardiac stepdown unit in no acute distress. States pain is controlled on current medication regimen, denies shortness of breath. Remains in sinus rhythm, hemodynamically stable. Currently on room air with oxygen saturation in the mid 90s, able to achieve 1000 mL on incentive spirometry. She has been ambulatory in the hallway with assistance. Chest x-ray, labs reviewed. No new concerns. Objective - Vital Signs Vital signs: Vital Signs Temp 97.9 F 08/29/24 08:00 Pulse 88 08/29/24 08:11 Resp 17 08/29/24 08:00 BP 143/80 08/29/24 08:00 Pulse Ox 97 08/29/24 08:02 FiO2 40 08/24/24 12:00 Intake & Output 08/28/24 08/29/24 08/29/24 18:59 06:59 18:59 Intake Total 118 480 Output Total 500 200 Balance -382 280 Weight 79 kg Intake: Oral 118 480 Output: Urine 500 200 Other: Voiding Method Bedside Commode Bedside Commode Toilet # Voids 2 1 # Bowel Movements 0 1 ABP, PAP, CO, CI - Last Documented Arterial Blood Pressure 104/38 Pulmonary Artery Pressure 35/14 Cardiac Output 5.5 Cardiac Index 3 - Exam CONSTITUTIONAL: Appears comfortable, cooperative, no acute distress RESPIRATORY: Lungs sounds diminished in the right base. Respirations even, nonlabored. Currently on room air with oxygen saturation 93%. Able to achieve 1000 mL on incentive spirometry. Strong cough. CARDIOVASCULAR: S1, S2 present. Regular rate and rhythm, sinus rhythm on telemetry. Sternum stable. Palpable peripheral pulses bilaterally. Trace bilateral lower extremity edema present. No calf pain or tenderness noted. Heart hugger in place with patient demonstrating appropriate use. Antiembolism stockings, SCDs present. GASTROINTESTINAL: Abdomen soft, nontender, nondistended. Active bowel sounds present 4 quadrants. Tolerating diet. Positive flatus GENITOURINARY: Continues to void INTEGUMENTARY: Skin is warm and dry with evidence of good perfusion. Anterior chest incision well approximated. Bilateral lower extremity EVH sites well approximated without redness or drainage. NEUROLOGIC: Cranial nerves II through XII intact MUSKULOSKELETAL: Able to move all extremities, strength equal bilaterally, gait normal PSYCHIATRIC: Alert and oriented to person place and time, appropriate affect, intact judgment and insight - Allied health notes Allied health notes reviewed: nursing - Labs CBC & Chem 7: 08/29/24 06:51 08/29/24 06:51 Labs: Abnormal Lab Results - Last 24 Hours (Table) 08/28/24 08/28/24 08/28/24 Range/Units 11:43 16:35 20:09 WBC (4.50-10.00) 10*3/uL RBC (4.10-5.20) 10*6/uL Hgb (12.0-15.0) g/dL Hct (37.2-46.3) % BUN (7-17) mg/dL Creatinine (0.52-1.04) mg/dL POC Glucose (mg/dL) 147 H 144 H 167 H (70-110) mg/dL 08/29/24 08/29/24 Range/Units 06:51 06:51 WBC 13.04 H (4.50-10.00) 10*3/uL RBC 2.79 L (4.10-5.20) 10*6/uL Hgb 8.3 L (12.0-15.0) g/dL Hct 25.4 L (37.2-46.3) % BUN 24 H (7-17) mg/dL Creatinine 1.12 H (0.52-1.04) mg/dL POC Glucose (mg/dL) (70-110) mg/dL - Imaging and Cardiology Chest x-ray: report reviewed, image reviewed Assessment and Plan Assessment: Coronary artery disease, non-STEMI this admission, unstable angina, status post 5 vessel off-pump CABG Chest pain, shortness of breath secondary to above Elevated transaminases Postoperative acute blood loss anemia and thrombocytopenia, expected Paroxysmal atrial fibrillation, a known common occurrence after cardiac surgery Right-sided pleural effusion, status post right-sided thoracentesis with removal of [address] Marc on 08/27/2024 History of coronary artery disease with previous PCI Hypertension Hyperlipidemia Insulin-dependent diabetes Recent diagnosis of chronic kidney disease Previous tobacco dependence, FEV1 46% of predicted Family history of coronary artery disease with father from myocardial infarction at 61 years old Plan: Continue to maximize medical therapy with aspirin, statin, Plavix, beta-neptali, will increase beta-neptali therapy as tolerated Encourage incentive spirometry use 10 times every hour while awake Increase activity as tolerated, PT/OT/cardiac rehab consulted Will monitor daily labs and x-rays, electrolyte replacement per protocol will give 20 mg Lasix daily GI/DVT prophylaxis Pain control per current medication regimen Insulin management per internal medicine Continue to monitor strict accurate intake and output Milk of magnesia, suppository ordered x 1 More recommendations to follow as patient progresses
[2024-08-29 11:34] LABS: Glucose,Whole Blood 133 mg/dL (70-110)
--- NOTE | 2024-08-29 15:07 | P.PN ---
Progress Note - Text Progress Note Date: 08/29/24 Chief Complaint: Chest pain This is a pleasant 83-year-old patient who follows with Dr. Eric Fuentes. Patient was seen in bay #10 n in the extended unit. Chronic medical conditions include CAD with stent, diabetes, hypertension, hyperlipidemia. Patient last had a cardiac catheterization with stent in 2004. She was following with canvas shrinker Dr. JIM Roberts. Patient will close 2 months has been having chest pain on and off. Some progression. Yesterday it became rather significant. Also short of breath. Rest. No radiation. No edema. Decided to come in. Patient ruled in with an acute KS with troponin peaking to 4.5 this morning. This morning underwent cardiac catheterization that showed significant disease. Formal dictation not available. Cardiothoracic team was consulted. Currently no chest pain. Patient daughter, grandson, niece present. August 21: Patient been having intermittent chest pains. On nitroglycerin drip. IV heparin drip. Scheduled for coronary bypass on . Acute bump in LFTs. Hold Lipitor. August 22: Occasionally getting some chest pain. Coronary bypass tomorrow. IV heparin. August 24: Patient yesterday underwent 5 vessel coronary bypass. Saw the patient this morning ICU. Has 1 mediastinal and 1 left pleural chest tube. Trinidad catheter. Balloon pump was taken out. Drips include insulin and IV fluids. Currently intubated. With FiO2 40 and a PEEP of 5. Patient had previously received nitroglycerin drip and propofol drip. Off both of them. Estimated blood loss was 1 L and Cell Saver was 375 cc. August 25: ICU. Extubated. Has been on and off Levophed. Insulin drip. Did sit up in the chair. Minimal oral intake. Trinidad catheter discontinued. Right mediastinal chest tube removed. Tired. August 26: ICU. Up in a chair. Required some Levophed yesterday. Done overnight. Insulin drip. On full liquid diet. Decreased appetite. Will start Lantus 60 units at night today. And stopped insulin drip at the same time. Left chest tube remains in place. Did not sleep well last night. Rather tired. Also received a unit of blood August 27: ICU. Up in a chair. Patient insulin drip was discontinued yesterday evening started on Lantus 60 units. Eating better. Lantus will be increased to 70 units nightly. Also will add 5 units of Humalog with meals. 550 cc of bloody fluid was removed/thoracentesis from right side today. Breathing better. Patient up in the chair 2 L nasal cannula. Sinus rhythm. Left chest tubes got minimal output. About 60 cc overnight. August 28: Up in a chair. Eating lunch. Decreased appetite. Did walk a bit. Still a bit short of breath. Given a suppository has not had a bowel movement for now. Some shortness of breath. Accu-Cheks are much better. Has lower extremity edema. August 29: Feeling better. Walking better. Breathing also improved. Had a bowel movement. Cardiothoracic team is planning for discharge tomorrow. Oral intake improving Active Medications Acetaminophen (Acetaminophen Tab 325 Mg Tab) 650 mg PO Q4HR PRN PRN Reason: Fever And/ Or Mild Pain (1-3) Last Admin: 08/28/24 23:33 Dose: 650 mg Albuterol/Ipratropium (Ipratropium-Albuterol 3 Ml Neb) 3 ml INHALATION RT-Q2H PRN PRN Reason: Shortness Of Breath Or Wheezing Albuterol/Ipratropium (Ipratropium-Albuterol 3 Ml Neb) 3 ml INHALATION RT-QID [facility] Last Admin: 08/29/24 12:00 Dose: 3 ml Amiodarone HCl (Amiodarone 200 Mg Tab) 400 mg PO BID [facility] Last Admin: 08/29/24 08:35 Dose: 400 mg Aspirin (Aspirin 325 Mg Tab) 325 mg PO DAILY [facility] Last Admin: 08/29/24 08:36 Dose: 325 mg Atorvastatin Calcium (Atorvastatin 40 Mg Tab) 40 mg PO DAILY [facility] Last Admin: 08/29/24 08:36 Dose: 40 mg Benzocaine/Menthol (Benzocaine/Menthol Lozeng 1 Each Lozenge) 1 each MUCOUS MEM Q2H PRN PRN Reason: Sore Throat Bisacodyl (Bisacodyl 10 Mg Supp) 10 mg RECTAL DAILY PRN PRN Reason: Constipation Last Admin: 08/28/24 09:46 Dose: 10 mg Clopidogrel Bisulfate (Clopidogrel 75 Mg Tab) 75 mg PO DAILY [facility] Last Admin: 08/29/24 08:36 Dose: 75 mg Dextrose/Water (Dextrose 50% Syringe 50 Ml) 25 ml IVP PER PROTOCOL PRN; Protocol PRN Reason: Hypoglycemia Dextrose/Water (Dextrose 50% Syringe 50 Ml) 50 ml IVP PER PROTOCOL PRN; Protocol PRN Reason: Hypoglycemia Furosemide (Furosemide 20 Mg Tab) 20 mg PO DAILY [facility] Last Admin: 08/29/24 11:15 Dose: 20 mg Heparin Sodium (Porcine) (Heparin Sodium,Porcine 5,000 Unit/Ml 1 Ml Vial) 5,000 unit SQ Q8HR [facility] Last Admin: 08/29/24 08:35 Dose: 5,000 unit Hydralazine HCl (Hydralazine Hcl 20 Mg/Ml 1 Ml Vial) 10 mg IVP Q1H PRN PRN Reason: Blood Pressure - High Amiodarone HCl 150 mg/ (Dextrose/Water) 103 mls @ 618 mls/hr IV .Q10M PRN; Protocol PRN Reason: A.FIB/FLUTTER Calcium Gluconate/Sodium (Chloride 2 gm/ IV Solution) 100 mls @ 100 mls/hr IVPB ONCE PRN PRN Reason: Ionized Calcium less than 4.4 Stop: 09/22/24 17:42 Insulin Glargine (Insulin Glargine (Lantus) 100 Unit/Ml Syr) 70 unit SQ HS [facility] Last Admin: 08/28/24 20:14 Dose: 70 unit Insulin Human Lispro (Insulin Lispro (Humalog) 100 Unit/Ml 10 Ml Vl) 0 unit SQ ACHS [facility]; Protocol Last Admin: 08/29/24 11:40 Dose: Not Given Insulin Human Lispro (Insulin Lispro (Humalog) 100 Unit/Ml 10 Ml Vl) 5 unit SQ AC-TID [facility] Last Admin: 08/29/24 11:42 Dose: 5 unit Magnesium Hydroxide (Magnesium Hydroxide 2,400 Mg/30 Ml Cup) 2,400 mg PO BID PRN PRN Reason: Constipation Metoclopramide HCl (Metoclopramide 5 Mg/Ml 2 Ml Vial) 10 mg IVP Q4H PRN PRN Reason: Nausea And Vomiting Metoprolol Tartrate (Metoprolol Tartrate 25 Mg Tab) 50 mg PO BID [facility] Last Admin: 08/29/24 08:36 Dose: 50 mg Miscellaneous Information (Potassium Replacement Protocol 1 Each Misc) 1 each MISCELLANE DAILY PRN; Protocol PRN Reason: Per Protocol Miscellaneous Information (Magnesium Replacement Protocol 1 Each Misc) 1 each MISCELLANE DAILY PRN; Protocol PRN Reason: Per Protocol Ondansetron HCl (Ondansetron 4 Mg/2 Ml Vial) 4 mg IVP Q6HR PRN PRN Reason: Nausea And Vomiting Last Admin: 08/29/24 03:40 Dose: 4 mg Pantoprazole Sodium (Pantoprazole 40 Mg Tablet) 40 mg PO AC-BRKFST [facility] Last Admin: 08/29/24 06:23 Dose: 40 mg Senna/Docusate Sodium (Sennosides-Docusate Sodium 1 Each Tab) 2 each PO HS [facility] Last Admin: 08/28/24 20:13 Dose: 2 each Sodium Bicarbonate (Sodium Bicarbonate Tab 650 Mg Tab) 650 mg PO TID [facility] Last Admin: 08/29/24 08:36 Dose: 650 mg Sodium Chloride (Sodium Chloride 0.9% Flush 10 Ml Syringe) 10 ml IV BID [facility] Last Admin: 08/29/24 08:36 Dose: 10 ml Social history: Lives with her son. Stop smoking 30 years ago. Physical examination: VITAL SIGNS: 97.9, 86, 17, 143 x 80, 97% room GENERAL: Up in chair. Breathing much improved EYES: Pupils equal. Conjunctiva tae l. HEENT: External appearance of nose and ears normal, oral cavity endotracheal tube NECK: JVD unable to assess; masses not palpable. HEART: First and second heart sounds are normal; edema present LUNGS: Respiratory rate increased; decreased breath sounds. ABDOMEN: Soft, nontender, liver spleen not palpable, no masses palpable. PSYCH: AO x 3, mood affect a bit tired MUSCULOSKELETAL:No Clubbing/cyanosis;muscles-grossly intact. OA INVESTIGATIONS, reviewed in the clinical context: August 29: White count 13 hemoglobin 8.3 platelets 283 potassium 4.1 BUN 24 creatinine 1.12 August 28: White count 7.1 hemoglobin 7.8 potassium 3.7 BUN 26 creatinine 1.06 August 9: White count 9.3 hemoglobin 8.2 potassium 3.9 BUN 30 creatinine 1.10 August 8: White count 8.4 hemoglobin 7.3 platelets 104 potassium 3.8 BUN 27 creatinine 1.20 bicarb 17 August 7: White count 8.1 hemoglobin 7.4 platelets 117 potassium 4 creatinine 0.92 August 6: White count 3.8 hemoglobin 7.9 platelets 102 potassium 3.7 creatinine 0.8 matteo 3: White count 7.8 hemoglobin 13.2 potassium 4.5 BUN 23 creatinine 1.5 AST 266 ALT 355 August 19: White count 7.4 hemoglobin 14.8 platelets 224 sodium 139 potassium 4.6 BUN 29 creatinine 1.22 Troponin I less than 0.012, 0.260, 1.6, 4.5 LDL 94.7 UA protein 2+ EKG tracing personally reviewed by me-sinus rhythm. Left bundle soraya block Chest x-ray film personally reviewed by me-some cardiomegaly Assessment plan: - Coronary bypass 5 vessel. Occlusion of left atrial appendage. By Dr. Joanne Yun on August 23, 2024. - Acute postoperative blood loss anemia expected from surgery Hemoglobin dropped from 13.2-7.9. Did receive Cell Saver 375 cc during surgery. Received 2 units of blood - Dilutional thrombocytopenia: Corrected - Acute respiratory failure with ventilator support with FiO2 40 and PEEP of 5. Extubated - Acute non-Q wave KS in a patient with known coronary artery disease prior stent in 2004 IV heparin. Aspirin, Lopressor, Lipitor - Hypoalbuminemia, reactive - Right pleural effusion, Right thoracentesis, bloody aspirate 550 cc removed on August 27, 2024 - Paroxysmal atrial fibrillation, back in sinus rhythm. Status post left atrial appendage occlusion with AtriCure clip Receiving amiodarone - Acute hepatitis likely drug-induced, improved Lipitor has been resumed at 40 mg. Follow LFTs - Essential hypertension Lopressor 50 mg twice daily - Metabolic acidosis from chronic kidney disease sodium bicarbonate - Insomnia for multiple medical reasons - Hyperlipidemia Lipitor 40 mg - Diabetes mellitus type 2, chronically on insulin Received insulin drip. Now on Lantus 70 units subcu nightly. Humalog 5 units with each meal - Anxiety not otherwise specified Xanax as needed - Chronic kidney disease, stage III likely diabetic nephropathy and hypertensive nephrosclerosis Follow renal function - Primary osteoarthritis Tylenol as needed -Full code Improving. Discussed Past Medical History Past Medical History: Coronary Artery Disease (CAD), Diabetes Mellitus, Hyperlipidemia, Hypertension History of Any Multi-Drug Resistant Organisms: None Reported Past Surgical History: Cholecystectomy, Heart Catheterization With Stent Past Psychological History: Anxiety Smoking Status: Former smoker Past Alcohol Use History: None Reported Past Drug Use History: None Reported
--- NOTE | 2024-08-29 16:23 | P.PN ---
Subjective Progress Note Date: 08/29/24 On 08/21/2024, the patient is being seen for a preoperative pulmonary clearance as the patient is scheduled to undergo off-pump coronary bypass surgery. As stated, the patient is known to have coronary artery disease. The patient has undergone previous coronary stenting/PCI and the patient has multiple risk factors including hypertension, hyperlipidemia and insulin-dependent diabetes mellitus. She is a former smoker.She presented to [facility] emergency room with complaints of chest pain and slight shortness of breath with activity which had been present intermittently for the last month, states symptoms were similar to when she previously had blockages and PCI. Lab work in the emergency room revealed WBC 7.4, hemoglobin 14.8, creatinine 1.22, AST 49, ALT 54, BNP 146, initial troponin negative but subsequent troponin elevation from 0.26 up to 4.51. EKG revealed sinus rhythm with left bundle branch block. Patient also had elevated blood pressure 195/84 with initial presentation to the emergency room. Chest x-ray revealed no acute process. She was ruled in for non-STEMI and admitted to the cardiac stepdown unit with consultation placed to cardiology. The patient was recommended to undergo heart catheterization which was completed by Dr. Liang revealing mid LAD stenosis 85%, circumflex stenosis 80%, RCA stenosis 95% the patient has no respiratory difficulties. No cough sputum production chest tightness or wheezing. A bedside spirometry was done and the patient's FEV1 was in order of 73% of predicted. The patient also had a CAT scan of the chest that was done on 08/20/2024 and the CAT scan showed mild atherosclerotic calcification of the thoracic aorta and there was no acute cardiopulmonary abnormalities noted. The patient is currently on room air oxygen. Pulse ox 95%. She has good exercise capacity and she is using the incentive spirometer for now. Electrolytes are all stable. BUN is 23 with a creatinine of 1.1. The hemoglobin is at 13.2. The white cell count is at 7.8. On 08/22/2024, the patient had some exertional chest pain. She has no chest pain at rest. She is hemodynamically stable. She was started back on IV heparin. She is awaiting her coronary bypass surgery to be done tomorrow morning. The white cell count at 6.4 and a hemoglobin of 14.7 and platelet count of 210. Normal coagulation profile. BUN is 21 with a creatinine of 1.07 and normal electrolytes. She remains on aspirin. She remains on beta-blockers and IV heparin. Cardiology on the case. Cardiothoracic surgery is also on the case. Echo was also noted and the patient has a preserved LV function without any significant valvular abnormalities.44 I am seeing this patient on 08/23/2024 in follow-up following an off-pump coronary artery bypass grafting x 5 with sequential LEÓN to diagonal LAD, saphenous vein graft to PDA, sequential saphenous vein graft to 1st and 2nd obtuse marginal, occlusion left atrial appendage with 35 mm AtriCure clip, bilateral lower extremity endoscopic saphenectomy, GISELLA by anesthesia. Intraoperatively, patient reportedly became ischemic in the lateral wall and he developed significant mitral regurgitation and markedly elevated PA pressures. An IABP was placed. Patient currently being seen in the intensive care unit, remains intubated mechanical ventilator. Postoperative ABGs including a PaO2 of 219, pCO2 48, pH of 7.26. This was done on ventilator settings including assist-control, respiratory rate 16, tidal volume 400, FiO2 100%, PEEP of 5. Dr. Gomez was previously present at bedside, and made ventilator adjustments including increasing the respiratory rate to 20 and dropping the FiO2 down to 60%. Propofol infusing at 30 mcg/kg/min. Insulin fusion per protocol. Nitroglycerin infusing at 10 mics per minute. Normal saline infusing at 50 mL/h. Right femoral balloon pump remains in place at 1:1. Augmented pressure 74. Doppler right pedal pulse and palpable left radial pulse. CI 2.6. Urine output is adequate around 40 to 50 cc/h. Postoperative chest x-ray showing endotracheal tube approximately 1.4 cm of the stan and this was withdrawn. Nasogastric tube placed below the diaphragm. Left and mediastinal thoracotomy tubesin place. Chest tubes are hooked to suction at -20 cm H2O. There is a pproximately 60 cc of drainage from the left pleural chest tube and 65 cc of sanguinous drainage from the mediastinal chest tube. Most recent labs including a CBC with a WBC count of 5.3, hemoglobin 7.4 g/dL, hematocrit 22, platelets 112,000. Postoperative BMP including a sodium 138, potassium 3.9, chloride 107, serum bicarb 20, BUN 18, creatinine 0.72, glucose 200. Calcium 9.1. No attempts at weaning this patient from the ventilator have yet been made. On 08/25/2024, the patient is being seen for a follow-up. On today's evaluation, the patient's main complaint is soreness and pain. She is currently on 2 L of oxygen by nasal cannula. The patient is in normal sinus rhythm. Her [place] catheter remains in place. The cardiac output is 4.8 with an index of 2.6. PA pressure 35/15 and the patient has a mediastinal and left pleural chest tube and output from the mediastinal has been 150 cc in the left lower chest tube with 550 cc over the past 24 hours. Meanwhile, the patient is producing adequate amount of urine output. The white secondary 0.1 with a hemoglobin 7.4 and platelet count of 117. Sodium is at 135, BUN 15 with creatinine 0.9 and a potassium level is at 4.0. Chest x-ray from today shows bibasilar infiltrates mild pulm vascular congestion and lines and catheters are all in place. The patient was seen in collaboration with the cardiothoracic surgeon. For now, the patient will be given Lasix 20 mg IV every 12 hours x 2. Patient will be kept on metoprolol 25 mg p.o. twice a day. Will encourage use of incentive spirometry and will continue supportive care. Pain control the patient is postop day #2. The patient underwent 5 vessel bypass surgery On 08/26/2024, the patient is being seen for a follow-up. The patient is calm and comfortable and the patient sitting up in a chair and she is currently on 2 L of oxygen by nasal cannula with a pulse ox of 96%. The patient is hemodynamically stable. [place] catheter still in place. Cardiac output is 4.2 with an index of 2.3. SVR is at 913. PA pressures are 33/11. The patient has a left pleural chest tube and there is no evidence of any air leak and the total amount of output has been 500 cc over the past 24 hours. The chest x-ray from today shows some mild pulm vessel congestion. No evidence of any pneumothorax. Lungs are adequately expanded. Urine output is adequate and the patient using the incentive spirometer and she is pulling approximately 500 cc. Cardiac rhythm is sinus. The white cell count is at 8.4 with a hemoglobin of 7.3 and a platelet count of 104. Sodium is at 134, potassium is at 3.8, bicarbonate 17, BUN 27 and the creatinine is at 1.2. LFTs are essentially within normal limits. The patient is on a combination of aspirin and Plavix. The patient is on metoprolol 25 mg p.o. twice a day. The patient is on insulin drip which is running at 9 units an hour and the patient will be transition to long-acting insulin. Seen today on 08/27/2024, patient is comfortable not in distress, continues to have left-sided chest tube in place with a small apical pneumothorax, she has a right-sided pleural effusion for which I recommended thoracentesis after reviewing her ultrasound of the chest. Hemoglobin is 8.2 today. Patient underwent right-sided thoracentesis and I was able to remove 550 cc of bloody effusion. WBC is 9.32 hemoglobin is 8.2 electrolytes are normal BUN is 30 creatinine 1.1. Chest x-ray as noted earlier. Seen today on 08/28/2024, patient is doing better today compared to yesterday, chest x-ray showed significant improvement in her right-sided pleural effusion which was drained yesterday, continues to have left apical pneumothorax, chest tube has been removed. Patient is not in any distress, she is now postoperative day #5,off-pump coronary artery bypass grafting x 5 with sequential LEÓN to diagonal LAD, saphenous vein graft to PDA, sequential saphenous vein graft to 1st and 2nd obtuse marginal, occlusion left atrial appendage with 35 mm AtriCure clip, bilateral lower extremity endoscopic saphenectomy, percutaneous right femoral arterial placement of intra-aortic balloon pump, GISELLA by anesthesia patient is now on room air, O2 sat is 93%, achieving 750 mL with her incentive spirometry. Patient is in sinus rhythm, and she is hemodynamically stable no further episodes of atrial fibrillation. The patient is seen today August 29, 2024 in follow-up on the selective care unit. Postoperative day #6. She is currently sitting up in a chair at the bedside. Awake and alert in no acute distress. Maintaining O2 saturations in the 90s on room air oxygen. Has been afebrile. Hemodynamically stable. White count 13.0. Hemoglobin 8.3. Platelets 283. Sodium 139. Potassium 4.1. Bicarb 23. BUN 24. Creatinine 1.12. Glucose 97. She remains on DuoNeb inhalations. Heparin for DVT prophylaxis. Objective - Vital Signs Vital signs: Vital Signs Temp 98.1 F 08/29/24 16:00 Pulse 90 08/29/24 16:09 Resp 17 08/29/24 16:00 BP 134/70 08/29/24 16:00 Pulse Ox 93 L 08/29/24 16:00 FiO2 40 08/24/24 12:00 Intake & Output 08/28/24 08/29/24 08/29/24 18:59 06:59 18:59 Intake Total 118 720 Output Total 500 400 Balance -382 320 Weight 79 kg Intake: Oral 118 720 Output: Urine 500 400 Other: Voiding Method Bedside Commode Bedside Commode Toilet # Voids 2 1 # Bowel Movements 0 1 ABP, PAP, CO, CI - Last Documented Arterial Blood Pressure 104/38 Pulmonary Artery Pressure 35/14 Cardiac Output 5.5 Cardiac Index 3 - Exam GENERAL EXAM: Alert, active, 83-year-old female, on room air oxygen, comfortable in no apparent distress. HEAD: Normocephalic. EYES: Normal reaction of pupils, equal size. NOSE: Clear with pink turbinates. THROAT: No erythema or exudates. NECK: No masses, no JVD. CHEST: Sternum stable. Heart hugger in place. LUNGS: Equal air entry with no crackles, wheeze, rhonchi or dullness. CVS: S1 and S2 normal with no audible murmur, regular rhythm. ABDOMEN: No hepatosplenomegaly, normal bowel sounds, no guarding or rigidity. SPINE: No scoliosis or deformity SKIN: No rashes CENTRAL NERVOUS SYSTEM: No focal deficits, tone is normal in all 4 extremities. EXTREMITIES: There is no peripheral edema. No clubbing, no cyanosis. Peripheral pulses are intact. - Labs CBC & Chem 7: 08/29/24 06:51 08/29/24 06:51 Labs: Abnormal Lab Results - Last 24 Hours (Table) 08/28/24 08/28/24 08/29/24 Range/Units 16:35 20:09 06:51 WBC 13.04 H (4.50-10.00) 10*3/uL RBC 2.79 L (4.10-5.20) 10*6/uL Hgb 8.3 L (12.0-15.0) g/dL Hct 25.4 L (37.2-46.3) % BUN (7-17) mg/dL Creatinine (0.52-1.04) mg/dL POC Glucose (mg/dL) 144 H 167 H (70-110) mg/dL 08/29/24 08/29/24 Range/Units 06:51 11:32 WBC (4.50-10.00) 10*3/uL RBC (4.10-5.20) 10*6/uL Hgb (12.0-15.0) g/dL Hct (37.2-46.3) % BUN 24 H (7-17) mg/dL Creatinine 1.12 H (0.52-1.04) mg/dL POC Glucose (mg/dL) 133 H (70-110) mg/dL Assessment and Plan Assessment: Coronary artery disease and the patient is post NSTEMI and the patient underwent coronary bypass surgery off-pump x 5 and intraoperatively the patient required intra-aortic balloon pump for hemodynamic support. The patient is postop day #6 Small right-sided pleural effusion underwent thoracentesis, on 08/27/2024 550 cc of bloody effusion removed Hypertension Hyperlipidemia Insulin-dependent diabetes mellitus Hyperlipidemia Skin cancer Plan: The patient was seen and evaluated Labs and medications reviewed Chest x-ray reviewed Stable and on room air oxygen Continue bronchodilators Continue incentive spirometer Heparin for DVT prophylaxis Home once cleared by CT services I have personally seen and examined the patient, performed the documentation and the assessment and plan as written. Number of minutes spent on the visit: 10 Dictation was produced using [employer] dictation software. Please excuse any grammatical, word or spelling errors.
[2024-08-29 16:31] LABS: Glucose,Whole Blood 210 mg/dL (70-110)
[2024-08-29 19:54] LABS: Glucose,Whole Blood 165 mg/dL (70-110)
[2024-08-29] MEDS: MELATONIN 5 MG TABLET PO SCH (20:37)
[2024-08-30] MEDS: BENZOCAINE/MENTHOL LOZENG 1 EACH LOZENGE MUCOUS MEM PRN (03:12)
[2024-08-30 05:58] LABS: Glucose,Whole Blood 77 mg/dL (70-110)
[2024-08-30 07:03] LABS: HCT 25.1 % (37.2-46.3); HGB 8.2 g/dL (12.0-15.0); MCH 29.8 pg (27.0-32.0); MCHC 32.7 g/dL (32.0-37.0); MCV 91.3 fL (80.0-97.0); Platelet Count 325 10*3/uL (140-440); RBC 2.75 10*6/uL (4.10-5.20); RDW 15.9 % (11.5-14.5); WBC 12.95 10*3/uL (4.50-10.00)
[2024-08-30 07:21] LABS: African American GFR (CKD) 40 (>60 ml/min/1.73 sqM); Anion Gap 10 mmol/L; Blood Urea Nitrogen 26 mg/dL (7-17); Calcium 8.9 mg/dL (8.4-10.2); Carbon Dioxide 27 mmol/L (22-30); Chloride 100 mmol/L (98-107); Glucose 60 mg/dL (74-99); Non-African American GFR(CKD) 35 (>60 ml/min/1.73 sqM); Potassium 4.3 mmol/L (3.5-5.1); Sodium 137 mmol/L (137-145)
--- NOTE | 2024-08-30 07:41 | XR ---
EXAMINATION TYPE: XR chest 2V DATE OF EXAM: 08/30/2024 6:38 AM COMPARISON: 08/29/2024 CLINICAL INDICATION: Female, 83 years old with history of post open heart, TECHNIQUE: XR chest 2V view(s) obtained. FINDINGS: The heart size is normal. The pulmonary vasculature is normal. Small to moderate right and small left pleural effusions are present, stable. There is a small left apical pneumothorax, stable from comparison IMPRESSION: 1. Bilateral pleural effusions, stable from comparison. 2. Stable left apical pneumothorax [facility], , 08/30/2024 7:39 AM
[2024-08-30 09:59] VITALS: RESP 16; TEMP 98
[2024-08-30 11:30] LABS: Glucose,Whole Blood 91 mg/dL (70-110)
[2024-08-30 12:03] VITALS: BP 98/59; PULSE 68
--- NOTE | 2024-08-30 12:04 | P.PN ---
Subjective Progress Note Date: 08/30/24 On 08/21/2024, the patient is being seen for a preoperative pulmonary clearance as the patient is scheduled to undergo off-pump coronary bypass surgery. As stated, the patient is known to have coronary artery disease. The patient has undergone previous coronary stenting/PCI and the patient has multiple risk factors including hypertension, hyperlipidemia and insulin-dependent diabetes mellitus. She is a former smoker.She presented to [facility] emergency room with complaints of chest pain and slight shortness of breath with activity which had been present intermittently for the last month, states symptoms were similar to when she previously had blockages and PCI. Lab work in the emergency room revealed WBC 7.4, hemoglobin 14.8, creatinine 1.22, AST 49, ALT 54, BNP 146, initial troponin negative but subsequent troponin elevation from 0.26 up to 4.51. EKG revealed sinus rhythm with left bundle branch block. Patient also had elevated blood pressure 195/84 with initial presentation to the emergency room. Chest x-ray revealed no acute process. She was ruled in for non-STEMI and admitted to the cardiac stepdown unit with consultation placed to cardiology. The patient was recommended to undergo heart catheterization which was completed by Dr. Liang revealing mid LAD stenosis 85%, circumflex stenosis 80%, RCA stenosis 95% the patient has no respiratory difficulties. No cough sputum production chest tightness or wheezing. A bedside spirometry was done and the patient's FEV1 was in order of 73% of predicted. The patient also had a CAT scan of the chest that was done on 08/20/2024 and the CAT scan showed mild atherosclerotic calcification of the thoracic aorta and there was no acute cardiopulmonary abnormalities noted. The patient is currently on room air oxygen. Pulse ox 95%. She has good exercise capacity and she is using the incentive spirometer for now. Electrolytes are all stable. BUN is 23 with a creatinine of 1.1. The hemoglobin is at 13.2. The white cell count is at 7.8. On 08/22/2024, the patient had some exertional chest pain. She has no chest pain at rest. She is hemodynamically stable. She was started back on IV heparin. She is awaiting her coronary bypass surgery to be done tomorrow morning. The white cell count at 6.4 and a hemoglobin of 14.7 and platelet count of 210. Normal coagulation profile. BUN is 21 with a creatinine of 1.07 and normal electrolytes. She remains on aspirin. She remains on beta-blockers and IV heparin. Cardiology on the case. Cardiothoracic surgery is also on the case. Echo was also noted and the patient has a preserved LV function without any significant valvular abnormalities.44 I am seeing this patient on 08/23/2024 in follow-up following an off-pump coronary artery bypass grafting x 5 with sequential LEÓN to diagonal LAD, saphenous vein graft to PDA, sequential saphenous vein graft to 1st and 2nd obtuse marginal, occlusion left atrial appendage with 35 mm AtriCure clip, bilateral lower extremity endoscopic saphenectomy, GISELLA by anesthesia. Intraoperatively, patient reportedly became ischemic in the lateral wall and he developed significant mitral regurgitation and markedly elevated PA pressures. An IABP was placed. Patient currently being seen in the intensive care unit, remains intubated mechanical ventilator. Postoperative ABGs including a PaO2 of 219, pCO2 48, pH of 7.26. This was done on ventilator settings including assist-control, respiratory rate 16, tidal volume 400, FiO2 100%, PEEP of 5. Dr. Gomez was previously present at bedside, and made ventilator adjustments including increasing the respiratory rate to 20 and dropping the FiO2 down to 60%. Propofol infusing at 30 mcg/kg/min. Insulin fusion per protocol. Nitroglycerin infusing at 10 mics per minute. Normal saline infusing at 50 mL/h. Right femoral balloon pump remains in place at 1:1. Augmented pressure 74. Doppler right pedal pulse and palpable left radial pulse. CI 2.6. Urine output is adequate around 40 to 50 cc/h. Postoperative chest x-ray showing endotracheal tube approximately 1.4 cm of the stan and this was withdrawn. Nasogastric tube placed below the diaphragm. Left and mediastinal thoracotomy tubesin place. Chest tubes are hooked to suction at -20 cm H2O. There is a pproximately 60 cc of drainage from the left pleural chest tube and 65 cc of sanguinous drainage from the mediastinal chest tube. Most recent labs including a CBC with a WBC count of 5.3, hemoglobin 7.4 g/dL, hematocrit 22, platelets 112,000. Postoperative BMP including a sodium 138, potassium 3.9, chloride 107, serum bicarb 20, BUN 18, creatinine 0.72, glucose 200. Calcium 9.1. No attempts at weaning this patient from the ventilator have yet been made. On 08/25/2024, the patient is being seen for a follow-up. On today's evaluation, the patient's main complaint is soreness and pain. She is currently on 2 L of oxygen by nasal cannula. The patient is in normal sinus rhythm. Her [place] catheter remains in place. The cardiac output is 4.8 with an index of 2.6. PA pressure 35/15 and the patient has a mediastinal and left pleural chest tube and output from the mediastinal has been 150 cc in the left lower chest tube with 550 cc over the past 24 hours. Meanwhile, the patient is producing adequate amount of urine output. The white secondary 0.1 with a hemoglobin 7.4 and platelet count of 117. Sodium is at 135, BUN 15 with creatinine 0.9 and a potassium level is at 4.0. Chest x-ray from today shows bibasilar infiltrates mild pulm vascular congestion and lines and catheters are all in place. The patient was seen in collaboration with the cardiothoracic surgeon. For now, the patient will be given Lasix 20 mg IV every 12 hours x 2. Patient will be kept on metoprolol 25 mg p.o. twice a day. Will encourage use of incentive spirometry and will continue supportive care. Pain control the patient is postop day #2. The patient underwent 5 vessel bypass surgery On 08/26/2024, the patient is being seen for a follow-up. The patient is calm and comfortable and the patient sitting up in a chair and she is currently on 2 L of oxygen by nasal cannula with a pulse ox of 96%. The patient is hemodynamically stable. [place] catheter still in place. Cardiac output is 4.2 with an index of 2.3. SVR is at 913. PA pressures are 33/11. The patient has a left pleural chest tube and there is no evidence of any air leak and the total amount of output has been 500 cc over the past 24 hours. The chest x-ray from today shows some mild pulm vessel congestion. No evidence of any pneumothorax. Lungs are adequately expanded. Urine output is adequate and the patient using the incentive spirometer and she is pulling approximately 500 cc. Cardiac rhythm is sinus. The white cell count is at 8.4 with a hemoglobin of 7.3 and a platelet count of 104. Sodium is at 134, potassium is at 3.8, bicarbonate 17, BUN 27 and the creatinine is at 1.2. LFTs are essentially within normal limits. The patient is on a combination of aspirin and Plavix. The patient is on metoprolol 25 mg p.o. twice a day. The patient is on insulin drip which is running at 9 units an hour and the patient will be transition to long-acting insulin. Seen today on 08/27/2024, patient is comfortable not in distress, continues to have left-sided chest tube in place with a small apical pneumothorax, she has a right-sided pleural effusion for which I recommended thoracentesis after reviewing her ultrasound of the chest. Hemoglobin is 8.2 today. Patient underwent right-sided thoracentesis and I was able to remove 550 cc of bloody effusion. WBC is 9.32 hemoglobin is 8.2 electrolytes are normal BUN is 30 creatinine 1.1. Chest x-ray as noted earlier. Seen today on 08/28/2024, patient is doing better today compared to yesterday, chest x-ray showed significant improvement in her right-sided pleural effusion which was drained yesterday, continues to have left apical pneumothorax, chest tube has been removed. Patient is not in any distress, she is now postoperative day #5,off-pump coronary artery bypass grafting x 5 with sequential LEÓN to diagonal LAD, saphenous vein graft to PDA, sequential saphenous vein graft to 1st and 2nd obtuse marginal, occlusion left atrial appendage with 35 mm AtriCure clip, bilateral lower extremity endoscopic saphenectomy, percutaneous right femoral arterial placement of intra-aortic balloon pump, GISELLA by anesthesia patient is now on room air, O2 sat is 93%, achieving 750 mL with her incentive spirometry. Patient is in sinus rhythm, and she is hemodynamically stable no further episodes of atrial fibrillation. The patient is seen today August 29, 2024 in follow-up on the selective care unit. Postoperative day #6. She is currently sitting up in a chair at the bedside. Awake and alert in no acute distress. Maintaining O2 saturations in the 90s on room air oxygen. Has been afebrile. Hemodynamically stable. White count 13.0. Hemoglobin 8.3. Platelets 283. Sodium 139. Potassium 4.1. Bicarb 23. BUN 24. Creatinine 1.12. Glucose 97. She remains on DuoNeb inhalations. Heparin for DVT prophylaxis. Patient is seen today August 30, 2024 in follow-up on the selective care unit. Postoperative day #7. She is awake and alert in no acute distress. Currently sitting up in a chair at the bedside. Denies any worsening shortness of breath, cough or congestion. She is maintaining good O2 saturations in the 90s on room air oxygen. Today's chest x-ray revealed bilateral pleural effusions, stable. Stable left apical pneumothorax. She is status post 1 unit of packed red blood cells this admission. Current hemoglobin 8.2. Platelets 325. White count 12.9. Sodium 137. Potassium 4.3. Bicarb 27. BUN 26. Creatinine 1.41. Glucose 60. She is continued on DuoNeb and elations. Heparin for DVT prophylaxis. Objective - Vital Signs Vital signs: Vital Signs Temp 98 F 08/30/24 08:00 Pulse 86 08/30/24 11:04 Resp 16 08/30/24 08:00 BP 123/57 08/30/24 08:00 Pulse Ox 97 08/30/24 08:00 FiO2 40 08/24/24 12:00 Intake & Output 08/29/24 08/30/24 08/30/24 18:59 06:59 18:59 Intake Total 960 240 Output Total 400 650 400 Balance 560 -650 -160 Weight 79.1 kg Intake: Oral 960 240 Output: Urine 400 650 400 Other: Voiding Method Toilet Toilet Toilet # Voids 1 2 2 # Bowel Movements 1 ABP, PAP, CO, CI - Last Documented Arterial Blood Pressure 104/38 Pulmonary Artery Pressure 35/14 Cardiac Output 5.5 Cardiac Index 3 - Exam GENERAL EXAM: Alert, very pleasant 83-year-old female, on room air oxygen, up in a chair, in no apparent distress. HEAD: Normocephalic. EYES: Normal reaction of pupils, equal size. NOSE: Clear with pink turbinates. THROAT: No erythema or exudates. NECK: No masses, no JVD. CHEST: Sternum stable. Heart hugger in place. LUNGS: Equal air entry with no crackles, wheeze, rhonchi or dullness. CVS: S1 and S2 normal with no audible murmur, regular rhythm. ABDOMEN: No hepatosplenomegaly, normal bowel sounds, no guarding or rigidity. SPINE: No scoliosis or deformity SKIN: No rashes CENTRAL NERVOUS SYSTEM: No focal deficits, tone is normal in all 4 extremities. EXTREMITIES: There is no peripheral edema. No clubbing, no cyanosis. Peripheral pulses are intact. - Labs CBC & Chem 7: 08/30/24 05:50 08/30/24 05:50 Labs: Abnormal Lab Results - Last 24 Hours (Table) 08/29/24 08/29/24 08/30/24 Range/Units 16:30 19:52 05:50 WBC 12.95 H (4.50-10.00) 10*3/uL RBC 2.75 L (4.10-5.20) 10*6/uL Hgb 8.2 L (12.0-15.0) g/dL Hct 25.1 L (37.2-46.3) % BUN (7-17) mg/dL Creatinine (0.52-1.04) mg/dL Glucose (74-99) mg/dL POC Glucose (mg/dL) 210 H 165 H (70-110) mg/dL 08/30/24 Range/Units 05:50 WBC (4.50-10.00) 10*3/uL RBC (4.10-5.20) 10*6/uL Hgb (12.0-15.0) g/dL Hct (37.2-46.3) % BUN 26 H (7-17) mg/dL Creatinine 1.41 H (0.52-1.04) mg/dL Glucose 60 L (74-99) mg/dL POC Glucose (mg/dL) (70-110) mg/dL Assessment and Plan Assessment: Coronary artery disease and the patient is post NSTEMI and the patient underwent coronary bypass surgery off-pump x 5 and intraoperatively the patient required intra-aortic balloon pump for hemodynamic support. The patient is postop day #7 Small right-sided pleural effusion underwent thoracentesis, on 08/27/2024 550 cc of bloody effusion removed Hypertension Hyperlipidemia Insulin-dependent diabetes mellitus Hyperlipidemia Skin cancer Plan: The patient was seen and evaluated Labs and medications reviewed Chest x-ray reviewed, stable Stable and on room air oxygen Continue incentive spirometer Continue Plavix and aspirin Continue Lipitor Continue amiodarone and Lopressor Plan is for home today Follow-up in our office in 1 week This patient was seen independently by the pulmonary nurse practitioner addressing pulmonary issues I have personally seen and examined the patient, performed the documentation and the assessment and plan as written. Number of minutes spent on the visit: 24 Dictation was produced using [employer] dictation software. Please excuse any grammatical, word or spelling errors.
--- NOTE | 2024-08-30 12:33 | P.PN ---
Subjective HISTORY OF PRESENT ILLNESS: This is an 83-year-old female who is status post 5 vessel CABG. Patient examined this morning. She is currently sitting up in the chair. She denies chest pain or pressure. She denies shortness of breath. Vital signs are stable. Telemetry reveals sinus mechanism. 08/30/2024 Patient examined this morning. She is sitting up in the chair. Patient currently denies chest pain or pressure. She denies shortness of breath. Vital signs are stable. Telemetry reveals sinus mechanism. PHYSICAL EXAM: VITAL SIGNS: Reviewed. GENERAL: Well-developed in no acute distress. NECK: Supple. No JVD or thyromegaly LUNGS: Respirations even and unlabored. Lungs essentially clear to auscultation bilaterally. HEART: Regular rate and rhythm. S1 and S2 heard. EXTREMITIES: Normal range of motion. No clubbing or cyanosis. Peripheral pulses intact. No lower extremity edema ASSESSMENT: Non-STEMI Status post 5 vessel CABG Coronary artery disease with previous stenting Right sided pleural effusion, status post thoracentesis with removal of 550 cc Postoperative atrial fibrillation Hypertension Hyperlipidemia Diabetes Former nicotine dependence PLAN: Continue postoperative management per CT surgery Increase activity as tolerated Encourage use of incentive spirometer Continue current cardiac medications including amiodarone, aspirin, Lipitor, Plavix, Lasix, metoprolol Continue telemetry monitoring Further recommendations pending patient course Patient to follow-up postdischarge in the office with Dr. Liang Nurse practitioner note has been reviewed by physician. Signing provider agrees with the documented findings, assessment, and plan of care documented by FAMILY NURSE PRACTITIONER as a scribe. Objective - Vital Signs Vital signs: Vital Signs Temp 98 F 08/30/24 08:00 Pulse 68 08/30/24 12:00 Resp 16 08/30/24 12:00 BP 98/59 08/30/24 12:00 Pulse Ox 98 08/30/24 12:00 FiO2 40 08/24/24 12:00 Intake & Output 08/29/24 08/30/24 08/30/24 18:59 06:59 18:59 Intake Total 960 240 Output Total 400 650 400 Balance 560 -650 -160 Weight 79.1 kg Intake: Oral 960 240 Output: Urine 400 650 400 Other: Voiding Method Toilet Toilet Toilet # Voids 1 2 2 # Bowel Movements 1 ABP, PAP, CO, CI - Last Documented Arterial Blood Pressure 104/38 Pulmonary Artery Pressure 35/14 Cardiac Output 5.5 Cardiac Index 3 - Labs CBC & Chem 7: 08/30/24 05:50 08/30/24 05:50 Labs: Abnormal Lab Results - Last 24 Hours (Table) 08/29/24 08/29/24 08/30/24 Range/Units 16:30 19:52 05:50 WBC 12.95 H (4.50-10.00) 10*3/uL RBC 2.75 L (4.10-5.20) 10*6/uL Hgb 8.2 L (12.0-15.0) g/dL Hct 25.1 L (37.2-46.3) % BUN (7-17) mg/dL Creatinine (0.52-1.04) mg/dL Glucose (74-99) mg/dL POC Glucose (mg/dL) 210 H 165 H (70-110) mg/dL 08/30/24 Range/Units 05:50 WBC (4.50-10.00) 10*3/uL RBC (4.10-5.20) 10*6/uL Hgb (12.0-15.0) g/dL Hct (37.2-46.3) % BUN 26 H (7-17) mg/dL Creatinine 1.41 H (0.52-1.04) mg/dL Glucose 60 L (74-99) mg/dL POC Glucose (mg/dL) (70-110) mg/dL
--- NOTE | 2024-08-30 14:46 | P.DS ---
Providers Date of admission: 08/19/24 22:44 Expected date of discharge: 08/30/24 Attending physician: Adriano Yun Consults: 08/19/24 22:42 Consult Physician Routine Consulting Provider: Dustin Restrepo Consult Reason/Comments: cp Do you want consulting provider notified?: Yes 08/21/24 09:10 Consult Physician Routine Consulting Provider: Sanju Gomez Consult Reason/Comments: Preop CABG clearance Do you want consulting provider notified?: Already Contacted 08/22/24 09:55 Consult to Anesthesia Routine Consulting Provider: Anesthesia,Services Consult Reason/Comments: Cardiac Surgery Pre-Op 08/23/24 17:43 Consult Physician Routine Consulting Provider: Kevin Clifford Consult Reason/Comments: med mgmt Do you want consulting provider notified?: Already Contacted Primary care physician: Eric Fuentes [facility] Course: FINAL DIAGNOSIS: Coronary artery disease, non-STEMI this admission, unstable angina, status post 5 vessel off-pump CABG Chest pain, shortness of breath secondary to above Elevated transaminases Postoperative acute blood loss anemia and thrombocytopenia, expected Paroxysmal atrial fibrillation, a known common occurrence after cardiac surgery currently normal sinus rhythm Right-sided pleural effusion, status post right-sided thoracentesis with removal of [address] Marc on 08/27/2024 History of coronary artery disease with previous PCI Hypertension Hyperlipidemia Insulin-dependent diabetes Recent diagnosis of chronic kidney disease Previous tobacco dependence, FEV1 46% of predicted Family history of coronary artery disease with father from myocardial infarction at 61 years old PRINCIPAL PROCEDURE: 1. Off-pump coronary artery bypass grafting x 5 with sequential left internal mammary artery to diagonal left anterior descending coronary artery, saphenous vein graft to posterior descending coronary artery, sequential saphenous vein graft to 1st and 2nd obtuse marginal 2. Occlusion of the left atrial appendage with a 35 mm AtriCure clip 3. Bilateral lower extremity endoscopic saphenectomy 4. Percutaneous right femoral arterial placement of intra-aortic balloon pump 5. Transesophageal echocardiogram performed by anesthesia 6. Right sided thoracentesis performed by Dr. Marc on August 27, 2024 HISTORY OF PRESENT ILLNESS: This is an 83-year-old female who follows outpatient with Dr. Fuentes for internal medicine and previously followed with Dr. Hernández followed by Dr. Whyte for cardiology. The patient presented to [facility] emergency room with complaints of chest pain and slight shortness of breath with activity which had been present intermittently for the last month, states symptoms were similar to when she previously had blockages and PCI. Lab work in the emergency room revealed WBC 7.4, hemoglobin 14.8, creatinine 1.22, AST 49, ALT 54, BNP 146, initial troponin negative but subsequent troponin elevation from 0.26 up to 4.51. EKG revealed sinus rhythm with left bundle branch block. The patient also had elevated blood pressure 195/84 with initial presentation to the emergency room. Chest x-ray revealed no acute process. She was ruled in for non-STEMI and admitted to the cardiac stepdown unit with consultation placed to cardiology. The patient was recommended to undergo heart catheterization completed on August 20, 2024 which was completed by Dr. Liang revealing mid left anterior descending coronary artery stenosis 85%, circumflex coronary artery stenosis 80%, and right coronary artery stenosis of 95%. Due to these findings consultation was placed to cardiothoracic surgery for surgical revascularization recommendations. Dr. Yun met with the patient, discussed treatment options including off-pump myocardial revascularization surgery, risks and benefits of surgery were discussed with the patient including the STS risk score. Knowing and understanding the risk the patient wished to proceed with the surgical option. HOSPITAL COURSE: The patient was brought to the preoperative area on August 23, 2024, prepared in the usual fashion, and subsequently taken to the operating room where Dr. Yun performed a an off-pump coronary artery bypass grafting ames rgery x 5 vessels. Upon completion of surgery the patient was transferred to the cardiovascular intensive care unit where she was recovered and monitored hemodynamically. She was extubated, all lines, tubes, and drips were discontinued when appropriate, and transfer orders were placed to the third floor cardiac stepdown unit for further monitoring and rehabilitation. Her oxygen was titrated down, she continued to work with physical and occupational therapy, she was tolerating oral diet, her pain was controlled, and she was ready to be discharged to home with residential on postoperative day #7 with residential home health care. She received written and verbal instruction regarding her medications, activity restrictions, signs and symptoms requiring physician notification, and her follow-up appointments. Patient Condition at Discharge: Serious Plan - Discharge Summary Discharge Rx Participant: No New Discharge Prescriptions: New Aspirin 325 mg PO DAILY #30 tab Amiodarone [Cordarone] 400 mg PO BID #39 tab Pantoprazole [Protonix] 40 mg PO AC-BRKFST #30 tab Acetaminophen Tab [Tylenol] 650 mg PO Q4HR PRN tab PRN Reason: Fever And/ Or Mild Pain (1-3) Furosemide [Lasix] 20 mg PO DAILY #5 tab Metoprolol Tartrate [Lopressor] 50 mg PO BID #60 tab Clopidogrel [Plavix] 75 mg PO DAILY #30 tab Sennosides-Docusate Sodium [Senokot-S] 2 each PO HS #14 tab Insulin Lispro [humaLOG Kwikpen] 6 unit SQ AC-TID #1 each Continue ALPRAZolam [Xanax] 0.25 mg PO BID PRN PRN Reason: Anxiety Atorvastatin [Lipitor] 40 mg PO DAILY@1700 Changed Insulin Glargine,Hum.rec.anlog [Lantus Solostar Pen] 60 units SQ HS #0 Discontinued atenoloL [Tenormin] 25 mg PO DAILY@0900 Losartan [Cozaar] 50 mg PO DAILY@0900 glipiZIDE [Glucotrol] 10 mg PO DAILY Discharge Medication List ALPRAZolam [Xanax] 0.25 mg PO BID PRN 08/20/24 [History] Atorvastatin [Lipitor] 40 mg PO DAILY@1700 08/20/24 [History] Acetaminophen Tab [Tylenol] 650 mg PO Q4HR PRN tab 08/30/24 [Rx] Amiodarone [Cordarone] 400 mg PO BID #39 tab 08/30/24 [Rx] Aspirin 325 mg PO DAILY #30 tab 08/30/24 [Rx] Clopidogrel [Plavix] 75 mg PO DAILY #30 tab 08/30/24 [Rx] Furosemide [Lasix] 20 mg PO DAILY #5 tab 08/30/24 [Rx] Insulin Glargine,Hum.rec.anlog [Lantus Solostar Pen] 60 units SQ HS #0 08/30/24 [Rx] Insulin Lispro [humaLOG Kwikpen] 6 unit SQ AC-TID #1 each 08/30/24 [Rx] Metoprolol Tartrate [Lopressor] 50 mg PO BID #60 tab 08/30/24 [Rx] Pantoprazole [Protonix] 40 mg PO AC-BRKFST #30 tab 08/30/24 [Rx] Sennosides-Docusate Sodium [Senokot-S] 2 each PO HS #14 tab 08/30/24 [Rx] Follow up Appointment(s)/Referral(s): John Marc MD [STAFF PHYSICIAN] - 09/25/24 2:15 pm Pascale Chavez NPC [Nurse Practitioner] - 09/04/24 2:15 pm (You will be seen in the surgeon's office behind the hospital in [facility], [address] Office phone number is ) Eric Fuentes MD [Primary Care Provider] - 1 Week (Dr. Meza's office will call with a follow-up appointment.) Pillo Liang DO [STAFF PHYSICIAN] - 1 Week (Dr. Liang's office will call with a follow-up appointment.) Adriano Yun MD [STAFF PHYSICIAN] - 09/17/24 10:15 am Residential [facility] [NON-STAFF] - Ambulatory/Diagnostic Orders: Complete Blood Count w/diff [LAB.AMB] Time Frame: 09/02/24, Facility: [facility], Location: [facility] Comprehensive Metabolic Panel [LAB.AMB] Time Frame: 09/02/24, Facility: [facility], Location: [facility] Activity/Diet/Wound Care/Special Instructions: DISCHARGE INSTRUCTIONS: 1. No driving for 4 weeks, or until physician gives their ok. 2. The patient should sleep in their own bed, no medical bed needed. 3. Stairs are not an issue. If the bedroom is upstairs, it is advised that the patient go up at night and down in the morning for the first week. Go slowly, using handrail and take 1 step at a time. 4. BAMBI hose are to be worn for 30 days post surgery or until physician discontinues. 5. Heart hugger is to be worn 100% of the time until physician discontinues.(except when showering) 6. No lifting, pushing, or pulling more than 10 pounds for 12 weeks. The physician will advise of any restriction changes. 7. The patient is expected to continue the prescribed walking program. 8. Continue pain control per as needed orders. 9. Continue with incentive spirometry and splinting/heart hugger until otherwise directed by the physician. 10. Must shower daily using liquid antibacterial soap 11. Routine sternal incision care. No powders, lotions, ointments on incisions. No dressings are necessary on incisions unless they are draining. Dermabond tape is to remain on sternal incision until surgeon follow-up. 12. Please call surgeon/UTILITY AIDE for temp greater than 101 F or purulent drainage from incisions. 13. You should weigh yourself daily, record and bring log with you to follow up appointments. 14. All prescriptions given by surgeon for 30 days. Refills need to be filled through felt hanger/primary care physician. 15. A Red armband has been placed on the patient. It should be worn for 30 days post discharge from surgery and will be removed by the cardiac surgeons. If an ER visit is necessary, please make sure the number on the Red armband is called before going to ER. 16. You have been referred to and are expected to begin Cardiac Rehab in approximately 4-6 weeks. 17. Quitting smoking is the most important step you can take to improve your health. For additional information and assistance to quit smoking, please call the [place] tobacco quit line (0-719-EHMD-NOW/ ) or online: [email or web address] it-[email or web address] HOME HEALTH SERVICES TO PROVIDE: RN SKILLED HOME CARE SERVICES FOR POST-OP SURGICAL PATIENTS WITH THE FOLLOWING: Coronary Artery Bypass Surgery (CABG), Mitral Valve Replacement/Repair ( MVR), Aortic Valve Replacement/Repair (AVR) RN TO CONTINUE EDUCATION FROM ``ROAD TO A HEALTH HEART PATIENT EDUCATION MANUAL (GIVEN TO PATIENT IN THE HOSPITAL) MEDICATION RECONCILIATION WITH EDUCATION NEEDED ON FIRST HOME VISIT EMPHASIZE IMPORTANCE OF WEARING BREAST SUPPORT/HEART HUGGER ENCOURAGE USE OF INCENTIVE SPIROMETER 10 X EVERY HOUR WHILE AWAKE ENCOURAGE UTILIZATION OF LOWER EXTREMITY COMPRESSION STOCKINGS/BAMBI HOSE and ELEVATE LEGS ABOVE LEVEL OF HEART WHILE AT REST. ENCOURAGE AMBULATION 3-5x/day INCREASING TOLERATES, WHILE AVOIDING EXTREMES IN TEMPERATURE FREQUENCY: RN TO OPEN THE PATIENT WITHIN 24 HOURS OF DISCHARGE FROM THE HOSPITAL WITH [place]HEALTH [place] [facility] [place] VISIT 2-3 X A WEEK FOR 4 WEEKS ESTABLISHED BY PATIENT NEEDS. LABORATORY: CBC, CMP TO BE DRAWN ON THE THIRD DAY HOME, (RAN STAT) FAX RESULTS TO [phone]. TELEHEALTH PARAMETERS: WEIGHT: NOTIFY MD OF WEIGHT GAIN OF 2 LBS IN 24 HOURS OR 5 LBS IN ONE WEEK HR: NOTIFY MD OF HR <55 BPM OR HR>100 BPM BP: NOTIFY MD IF BP <90/55 OR BP>140/100 O2 SAT: NOTIFY MD IF PO2<93% ON ROOM AIR SEND TELEHEALTH REPORT TO TRANSPORTATION PROGRAM DIRECTOR AND CARDIOVASCULAR SURGEON THE FIRST WEEK OF CARE AND THEN BI-WEEKLY. PLEASE ADDITIONALLY COMMUNICATE ANY ABNORMALS AND NEW FINDINGS TO THE SURGEONS OFFICE. Discharge Disposition: HOME WITH HOME HEALTH SERVICES
--- NOTE | 2024-08-30 16:59 | P.PN ---
Progress Note - Text Progress Note Date: 08/30/24 Chief Complaint: Chest pain This is a pleasant 83-year-old patient who follows with Dr. Eric Fuentes. Patient was seen in bay #10 n in the extended unit. Chronic medical conditions include CAD with stent, diabetes, hypertension, hyperlipidemia. Patient last had a cardiac catheterization with stent in 2004. She was following with aquatics assistant department head Dr. JIM Roberts. Patient will close 2 months has been having chest pain on and off. Some progression. Yesterday it became rather significant. Also short of breath. Rest. No radiation. No edema. Decided to come in. Patient ruled in with an acute WA with troponin peaking to 4.5 this morning. This morning underwent cardiac catheterization that showed significant disease. Formal dictation not available. Cardiothoracic team was consulted. Currently no chest pain. Patient daughter, grandson, niece present. August 21: Patient been having intermittent chest pains. On nitroglycerin drip. IV heparin drip. Scheduled for coronary bypass on . Acute bump in LFTs. Hold Lipitor. August 22: Occasionally getting some chest pain. Coronary bypass tomorrow. IV heparin. August 24: Patient yesterday underwent 5 vessel coronary bypass. Saw the patient this morning ICU. Has 1 mediastinal and 1 left pleural chest tube. Trinidad catheter. Balloon pump was taken out. Drips include insulin and IV fluids. Currently intubated. With FiO2 40 and a PEEP of 5. Patient had previously received nitroglycerin drip and propofol drip. Off both of them. Estimated blood loss was 1 L and Cell Saver was 375 cc. August 25: ICU. Extubated. Has been on and off Levophed. Insulin drip. Did sit up in the chair. Minimal oral intake. Trinidad catheter discontinued. Right mediastinal chest tube removed. Tired. August 26: ICU. Up in a chair. Required some Levophed yesterday. Done overnight. Insulin drip. On full liquid diet. Decreased appetite. Will start Lantus 60 units at night today. And stopped insulin drip at the same time. Left chest tube remains in place. Did not sleep well last night. Rather tired. Also received a unit of blood August 27: ICU. Up in a chair. Patient insulin drip was discontinued yesterday evening started on Lantus 60 units. Eating better. Lantus will be increased to 70 units nightly. Also will add 5 units of Humalog with meals. 550 cc of bloody fluid was removed/thoracentesis from right side today. Breathing better. Patient up in the chair 2 L nasal cannula. Sinus rhythm. Left chest tubes got minimal output. About 60 cc overnight. August 28: Up in a chair. Eating lunch. Decreased appetite. Did walk a bit. Still a bit short of breath. Given a suppository has not had a bowel movement for now. Some shortness of breath. Accu-Cheks are much better. Has lower extremity edema. August 29: Feeling better. Walking better. Breathing also improved. Had a bowel movement. Cardiothoracic team is planning for discharge tomorrow. Oral intake improving August 30: Continues to feel better. Blood glucose this morning was 60. Decrease Lantus to 60. Will also send the patient home with scheduled Humalog 6 units with meals. Pen device. Discussed with patient. Patient does have the [employer] (SAM) glucose monitoring system. Patient to keep a log and take it to her family doctor. Glipizide not to be continued. Has tried Farxiga did have some allergic reaction apparently. Social history: Lives with her son. Stop smoking 30 years ago. Physical examination: VITAL SIGNS: 98, 77, 16, 123 x 57, 97% room air GENERAL: Up in chair. Comfortable EYES: Pupils equal. Conjunctiva tae l. HEENT: External appearance of nose and ears normal, oral cavity endotracheal tube NECK: JVD unable to assess; masses not palpable. HEART: First and second heart sounds are normal; edema present LUNGS: Respiratory rate normal decreased breath sounds. ABDOMEN: Soft, nontender, liver spleen not palpable, no masses palpable. PSYCH: AO x 3, mood affect a bit tired MUSCULOSKELETAL:No Clubbing/cyanosis;muscles-grossly intact. OA INVESTIGATIONS, reviewed in the clinical context: August 30: White count 12.9 hemoglobin 8.2 platelets 325 potassium 4.3 BUN 26 creatinine 1.41 blood glucose 60 August 29: White count 13 hemoglobin 8.3 platelets 283 potassium 4.1 BUN 24 creatinine 1.12 August 28: White count 7.1 hemoglobin 7.8 potassium 3.7 BUN 26 creatinine 1.06 August 27: White count 9.3 hemoglobin 8.2 potassium 3.9 BUN 30 creatinine 1.10 August 26: White count 8.4 hemoglobin 7.3 platelets 104 potassium 3.8 BUN 27 creatinine 1.20 bicarb 17 August 7: White count 8.1 hemoglobin 7.4 platelets 117 potassium 4 creatinine 0.92 August 24: White count 3.8 hemoglobin 7.9 platelets 102 potassium 3.7 creatinine 0.8 matteo 3: White count 7.8 hemoglobin 13.2 potassium 4.5 BUN 23 creatinine 1.5 AST 266 ALT 355 August 19: White count 7.4 hemoglobin 14.8 platelets 224 sodium 139 potassium 4.6 BUN 29 creatinine 1.22 Troponin I less than 0.012, 0.260, 1.6, 4.5 LDL 94.7 UA protein 2+ EKG tracing personally reviewed by me-sinus rhythm. Left bundle soraya block Chest x-ray film personally reviewed by me-some cardiomegaly Assessment plan: - Coronary bypass 5 vessel. Occlusion of left atrial appendage. By Dr. Joanne Yun on August 23, 2024. - Acute postoperative blood loss anemia expected from surgery Hemoglobin dropped from 13.2-7.9. Did receive Cell Saver 375 cc during surgery. Received 2 units of blood - Dilutional thrombocytopenia: Corrected - Acute respiratory failure with ventilator support with FiO2 40 and PEEP of 5. Extubated Now 97% room air - Acute non-Q wave WA in a patient with known coronary artery disease prior stent in 2004 IV heparin. Aspirin, Lopressor, Lipitor - Hypoalbuminemia, reactive - Right pleural effusion, Right thoracentesis, bloody aspirate 550 cc removed on August 27, 2024 - Paroxysmal atrial fibrillation, back in sinus rhythm. Status post left atrial appendage occlusion with AtriCure clip Receiving amiodarone - Acute hepatitis likely drug-induced, improved Lipitor has been resumed at 40 mg. - Essential hypertension Lopressor 50 mg twice daily - Metabolic acidosis from chronic kidney disease: Corrected - Insomnia for multiple medical reasons - Hyperlipidemia Lipitor 40 mg - Diabetes mellitus type 2, chronically on insulin Received insulin drip. Discharged on Lantus 6 history units subcu nightly. Humalog 6 units with each meal. Continue to monitor blood glucose with sandie system. Keep a log. Follow-up with PCP. - Anxiety not otherwise specified Xanax as needed - Chronic kidney disease, stage III likely diabetic nephropathy and hypertensive nephrosclerosis Follow renal function - Primary osteoarthritis Tylenol as needed -Full code Insulin discussed at length with patient. Follow-up as discussed Past Medical History Past Medical History: Coronary Artery Disease (CAD), Diabetes Mellitus, Hyperlipidemia, Hypertension History of Any Multi-Drug Resistant Organisms: None Reported Past Surgical History: Cholecystectomy, Heart Catheterization With Stent Past Psychological History: Anxiety Smoking Status: Former smoker Past Alcohol Use History: None Reported Past Drug Use History: None Reported
== END 2024-08-30 16:19 | disposition home health service (06) | DRG 234 ==
LOC: EC 20:50 → 6NMEDSUR 22:43 → OBSVTOIN 22:44 → 6NMEDSUR 08-20 00:42 → 3SCARD 08-20 01:25 → 2SICU 08-23 11:26 → 3SCARD 08-28 10:43
PROVIDERS: ADMIT Thoracic Surgery (Cardiothoracic Vascular Surgery); ATTEND Thoracic Surgery (Cardiothoracic Vascular Surgery)
PROC: 4A023N7 Measurement of Cardiac Sampling and Pressure, Left Heart, Percutaneous Approach (ICD-10-PCS; 2024-08-20)
PROC: B2111ZZ Fluoroscopy of Multiple Coronary Arteries using Low Osmolar Contrast (ICD-10-PCS; 2024-08-20)
PROC: 5A02210 Assistance with Cardiac Output using Balloon Pump, Continuous (ICD-10-PCS; principal; 2024-08-23 13:00)
PROC: 06BQ4ZZ Excision of Left Saphenous Vein, Percutaneous Endoscopic Approach (ICD-10-PCS; principal; 2024-08-23 13:00)
PROC: 02L70CK Occlusion of Left Atrial Appendage with Extraluminal Device, Open Approach (ICD-10-PCS; principal; 2024-08-23 13:00)
PROC: 02L70ZK Occlusion of Left Atrial Appendage, Open Approach (ICD-10-PCS; principal; 2024-08-23 13:00)
PROC: 02100Z9 Bypass Coronary Artery, One Artery from Left Internal Mammary, Open Approach (ICD-10-PCS; principal; 2024-08-23 13:00)
PROC: B24BZZ4 Ultrasonography of Heart with Aorta, Transesophageal (ICD-10-PCS; principal; 2024-08-23 13:00)
PROC: 06BP4ZZ Excision of Right Saphenous Vein, Percutaneous Endoscopic Approach (ICD-10-PCS; principal; 2024-08-23 13:00)
PROC: 021309W Bypass Coronary Artery, Four or More Arteries from Aorta with Autologous Venous Tissue, Open Approach (ICD-10-PCS; principal; 2024-08-23 13:00)
PROC: 0W993ZZ Drainage of Right Pleural Cavity, Percutaneous Approach (ICD-10-PCS; 2024-08-27)
DX: I21.4 Non-ST elevation (NSTEMI) myocardial infarction (principal); J90 Pleural effusion, not elsewhere classified; D69.6 Thrombocytopenia, unspecified; E11.65 Type 2 diabetes mellitus with hyperglycemia; I12.9 Hypertensive chronic kidney disease with stage 1 through stage 4 chronic kidney disease, or unspecified chronic kidney disease; I70.0 Atherosclerosis of aorta; I08.0 Rheumatic disorders of both mitral and aortic valves; D62 Acute posthemorrhagic anemia; J93.83 Other pneumothorax; E11.22 Type 2 diabetes mellitus with diabetic chronic kidney disease; I48.0 Paroxysmal atrial fibrillation; Z79.4 Long term (current) use of insulin; R74.01 Elevation of levels of liver transaminase levels; I44.7 Left bundle-branch block, unspecified; I95.9 Hypotension, unspecified; F41.9 Anxiety disorder, unspecified; I25.10 Atherosclerotic heart disease of native coronary artery without angina pectoris; E78.00 Pure hypercholesterolemia, unspecified; K59.00 Constipation, unspecified; N18.2 Chronic kidney disease, stage 2 (mild); Z79.02 Long term (current) use of antithrombotics/antiplatelets; Z79.82 Long term (current) use of aspirin; Z79.84 Long term (current) use of oral hypoglycemic drugs; Z79.899 Other long term (current) drug therapy; Z85.828 Personal history of other malignant neoplasm of skin; Z87.891 Personal history of nicotine dependence; Z95.5 Presence of coronary angioplasty implant and graft
CPT/HCPCS: 36415; 71045; 71046; 71250; 76604; 80048; 80053; 80061; 80074; 81003; 82330; 82805; 83036; 83605; 83690; 83735; 83880; 84443; 84450; 84460; 84484; 85025; 85027; 85049; 85610; 85730; 86850; 86891; 86900; 86901; 86920; 87070; 93005; 93306; 93458; 93880; 93970; 94002; 94003; 94150; 94640; 94760; 96365; 96366; 96368; 96375; 99291